=== PATIENT | female | born 1990 | race Caucasian/White ===

== ENCOUNTER 2020-08-10 17:47 | Inpatient (IN) | payer OTHER, SELFPAY ==
--- NOTE | ~2020-08-10 | XR_ITS ---
EXAMINATION: XR CHEST CLINICAL INFORMATION: Swelling and pain COMPARISON: None TECHNIQUE: Frontal view of the chest was obtained. FINDINGS: No significant abnormality is noted involving the heart, lungs, mediastinum, bony thorax or soft tissues. XR/XR chest 1V IMPRESSION: Unremarkable examination.
[2020-08-10 17:51] VITALS: BP 149/98; PULSE 114; RESP 24; TEMP 37.4; O2SAT 99; BMI 25.4
--- NOTE | 2020-08-10 19:00 | PC.NURSE ---
pt appears to be escalating, accomplise is inquiring about pt movement from waiting room d/t behaviors. battery charger tester aware.
[2020-08-10 19:20] VITALS: BP 101/71; PULSE 97; RESP 18; TEMP 37.7; O2SAT 97
--- NOTE | 2020-08-10 19:23 | ED_ITS ---
HPI - Psych General Chief Complaint: Psychiatric Symptoms Stated Complaint: crisis Source: patient Mode of arrival: ambulatory Limitations: altered mental status (Intoxicated) History of Present Illness HPI Narrative: 30-year-old female presents for depression and suicidal ideation, plans on overdosing. She relapse about 3 weeks ago and has been using heroin and cocaine heavily over the past 3 weeks. She is crying, speaking nonsensically, states that her feet hurt. She does not describe any other symptoms and is not forthcoming with information. MD complaint: suicidal ideation, feels depressed and substance abuse Onset (ago): week(s) Duration: constant History of same: Yes Relieving factors: none Exacerbating factors: drug use Context: recent drug abuse and significant life stressor Associated psychiatric symptoms: depression and suicidal ideation Associated symptoms: denies other symptoms If self harm: admits thoughts of self harm and has plan Related Data Allergies Allergy/AdvReac Type Severity Reaction Status Date / Time amoxicillin Allergy Unknown Verified 08/10/20 20:07 Review of Systems Review of Systems: Constitutional: No Fever, No Chills ENT/Mouth: No Ear Pain, No Nasal Congestion, No sore throat Eyes: No Eye Pain, No Swelling, No Redness Cardiovascular: No Chest Pain, No SOB Respiratory: No Cough, No Sputum, No Dyspnea Gastrointestinal: No Nausea, No Vomiting, No Diarrhea, No Hematochezia, No Melena Genitourinary: No Dysuria, No Urinary Frequency, No Hematuria Musculoskeletal: Positive bilateral lower extremity edema and erythema, No Myalgias Skin: No Skin Lesions, No rash Neuro: No Weakness, No Numbness, No Paresthesias, No Dizziness, No Headache Psych: positive Anxiety, positive Depression, positive SI, positive heroin abuse Heme/Lymph: No Lymphadenopathy Endocrine: No Polyuria, No Polydipsia Yes all other systems are reviewed and are negative [facility] Past Medical History Attestation statement: The following information was validated with the patient. Source: old records reviewed Medical History IV drug abuse Social History Social History Alcohol intake: current Alcohol intake frequency: 3 or more drinks per day Alcohol type: hard liquor Smoking Status: Current every day smoker Smoked in Last 30 Days: Yes Use of substances other than those prescribed or required for medical reasons: Yes Substance Use Type: Crack/Cocaine and Heroin Substance Use Frequency: Chronic Longstanding Last Used Substance: Just Prior to Admission Any prior treatment program specific to substance use: Yes Advance Directives: No Advance Directives Information Provided: Yes Patient : No Physical Exam Vital Signs: Vital Signs: Last Vital Signs Temp 100.6 F H 08/10/20 21:52 Pulse 97 08/10/20 21:52 Resp 18 08/10/20 21:52 BP 101/71 08/10/20 21:52 Pulse Ox 97 08/10/20 21:52 Body Mass Index 25.4 Appearance: Alert. Intoxicated. Moderate emotional distress. Febrile. Eyes: Pupils equal, round and reactive to light. ENT: Pharynx normal. Neck: Normal inspection. Neck supple. CVS: Tachycardic heart rate and rhythm. Pulses normal. Respiratory: No respiratory distress. Breath sounds normal. Abdomen: Soft and nontender. Skin: Swelling and erythema noted to bilateral lower extremities with multiple wounds in lesions consistent with IVDA, skin picking, has multiple blisters the bottom of her feet. Skin warm and dry. Normal skin color. Normal skin turgor. Extremities: Bilateral lower extremity edema. Neuro: No motor deficit. No sensory deficit. Course Course Course Narrative: 30-year-old female presents for suicidal ideation with planned overdose. Relapsed 3 weeks ago has been heavily using IVDA cocaine and heroin. Bilateral lower extremities are swollen, erythematous consistent with cellulitis. She does have multiple blisters and lesions to her toes and lower legs consistent with possible IV injection and skin picking. Will treat with ceftriaxone IV. Order CBC, Chem 7, blood cultures and lactic acid. Patient states that she is allergic to amoxicillin, and does not want ceftriaxone. Patient is tachycardic, however she is on cocaine, and initial temperature is 99.4? I do not feel that she is septic at this time. Order for IV doxycycline. Unable to obtain IV access for this patient. Will give p.o. doxycycline and Bactrim. White count 11.0, H&H 11.1/34.8 which is slightly anemic but not significant. Lactic acid is 1.2, mildly elevated alk-phos at 155 with a negative lipase. Urinalysis is negative, toxicology positive for opioids and cocaine. Patient is COVID negative. Patient is not septic. As patient is not septic, I feel comfortable continuing with p.o. antibiotics as patient is a difficult IV start and will be in the psychiatric unit. Will repeat CBC and Chem 7 in the morning. 1:47 a.m. Physician observation started at this time. BHN consult pending. MDM - Psych MDM Narrative Medical decision making narrative: Cellulitis Differential Diagnosis Differential diagnosis: Likely acute psychosis, suicidal ideation, depression, drug-induced psychotic disorder, acute anxiety and substance abuse Medical Records Attestation: I reviewed the patient's medical records. Lab Data Attestation: I reviewed the patient's lab results. Result diagrams: 08/10/20 20:23 08/10/20 20:23 Labs: Lab Results 08/10/20 08/10/20 08/10/20 Range/Units 19:39 19:39 19:46 WBC (4.8-10.8) X10*3/uL RBC (4.20-5.50) X10*6/uL Hgb (12.0-16.0) g/dl Hct (37-47) % MCV (80-98) fL MCH (27.0-33.0) pg MCHC (31.0-35.0) g/dl RDW (11.0-16.0) % Plt Count (160-400) X10*3/uL MPV (9.4-12.3) fL Immature Gran % (Auto) (0.0-0.4) % Neut % (Auto) (45-73) % Lymph % (Auto) (20-40) % [place] % (Auto) (2-11) % Eos % (Auto) (0-4) % Baso % (Auto) (0-2) % Lymph # (Auto) (1.2-4.9) X10*3/uL [place] # (Auto) (0.1-1.2) X10*3/uL Eos # (Auto) (0.0-0.4) X10*3/uL Baso # (Auto) (0.0-0.2) X10*3/uL Abs Immat Gran (auto) (0.00-0.03) X10*3/uL Absolute Neuts (auto) (2.0-8.3) X10*3/uL Absolute Nucleated RBC (0.0-0.012) X10*3/uL Nucleated RBC % (auto) (0.0-0.2) /100WBC Smear Tech's Comments PT (10.8-13.0) SEC INR (0.9-1.1) APTT (24.1-38.0) SEC Sodium (135-145) mmol/L Potassium (3.3-5.1) mmol/L Chloride (96-108) mmol/L Carbon Dioxide (22-29) mmol/L Anion Gap (12-20) BUN (9-16) mg/dL Creatinine (0.5-1.4) mg/dL Estim Creat Clear Calc Estimated GFR Random Glucose (60-115) mg/dL Lactic Acid (0.5-2.0) mmol/L Calcium (8.4-10.2) mg/dL Total Bilirubin (0.0-1.0) mg/dL Direct Bilirubin (0.0-0.5) mg/dL AST (5-31) U/L ALT (0-31) U/L Alkaline Phosphatase (39-117) U/L Total Protein (6.5-8.0) g/dL Albumin (3.5-5.0) g/dL Lipase (8-78) U/L Urine Color YELLOW Urine Appearance HAZY Urine pH 6.0 (5.0-8.0) Ur Specific [place] >= 1.030 H (1.005-1.025) Urine Protein TRACE (NEG-TRACE) MG/DL Urine Glucose (UA) NEG (NEG) MG/DL Urine Ketones NEG (NEG) MG/DL Urine Blood NEG (NEG) Urine Nitrite NEG (NEG) Ur Leukocyte Esterase NEG (NEG) Urine Test NEGATIVE (NEGATIVE) Urine Opiates Screen POSITIVE H (Not Detect) Ur Barbiturates Screen Not Detected (Not Detect) Ur Phencyclidine Scrn Not Detected (Not Detect) Ur Amphetamines Screen Not Detected (Not Detect) U Benzodiazepines Scrn Not Detected (Not Detect) Urine Cocaine Screen POSITIVE H (Not Detect) U Marijuana (THC) Screen Not Detected (Not Detect) Ethyl Alcohol mg/dL COVID-19 (TIMUR) (Negative) COVID-19 Clin Com 08/10/20 08/10/20 08/10/20 Range/Units 20:23 20:23 20:23 WBC 11.0 H (4.8-10.8) X10*3/uL RBC 3.96 L (4.20-5.50) X10*6/uL Hgb 11.1 L (12.0-16.0) g/dl Hct 34.8 L (37-47) % MCV 87.9 (80-98) fL MCH 28.0 (27.0-33.0) pg MCHC 31.9 (31.0-35.0) g/dl RDW 12.4 (11.0-16.0) % Plt Count 312 (160-400) X10*3/uL MPV 10.4 (9.4-12.3) fL Immature Gran % (Auto) 0.2 (0.0-0.4) % Neut % (Auto) 40.4 L (45-73) % Lymph % (Auto) 52.7 H (20-40) % [place] % (Auto) 6.1 (2-11) % Eos % (Auto) 0.5 (0-4) % Baso % (Auto) 0.1 (0-2) % Lymph # (Auto) 5.8 H (1.2-4.9) X10*3/uL [place] # (Auto) 0.7 (0.1-1.2) X10*3/uL Eos # (Auto) 0.1 (0.0-0.4) X10*3/uL Baso # (Auto) 0.0 (0.0-0.2) X10*3/uL Abs Immat Gran (auto) 0.02 (0.00-0.03) X10*3/uL Absolute Neuts (auto) 4.4 (2.0-8.3) X10*3/uL Absolute Nucleated RBC 0.000 (0.0-0.012) X10*3/uL Nucleated RBC % (auto) 0.0 (0.0-0.2) /100WBC Smear Tech's Comments VERIFIED PT 13.2 H (10.8-13.0) SEC INR 1.1 (0.9-1.1) APTT 34.6 (24.1-38.0) SEC Sodium 138 (135-145) mmol/L Potassium 3.4 (3.3-5.1) mmol/L Chloride 100 (96-108) mmol/L Carbon Dioxide 28 (22-29) mmol/L Anion Gap 13 (12-20) BUN 6 L (9-16) mg/dL Creatinine 0.72 (0.5-1.4) mg/dL Estim Creat Clear Calc 95.0 Estimated GFR > 60 Random Glucose 100 (60-115) mg/dL Lactic Acid (0.5-2.0) mmol/L Calcium 8.7 (8.4-10.2) mg/dL Total Bilirubin 0.5 (0.0-1.0) mg/dL Direct Bilirubin 0.3 (0.0-0.5) mg/dL AST 38 H (5-31) U/L ALT 26 (0-31) U/L Alkaline Phosphatase 155 H (39-117) U/L Total Protein 7.4 (6.5-8.0) g/dL Albumin 3.9 (3.5-5.0) g/dL Lipase 11 (8-78) U/L Urine Color Urine Appearance Urine pH (5.0-8.0) Ur Specific [place] (1.005-1.025) Urine Protein (NEG-TRACE) MG/DL Urine Glucose (UA) (NEG) MG/DL Urine Ketones (NEG) MG/DL Urine Blood (NEG) Urine Nitrite (NEG) Ur Leukocyte Esterase (NEG) Urine Test (NEGATIVE) Urine Opiates Screen (Not Detect) Ur Barbiturates Screen (Not Detect) Ur Phencyclidine Scrn (Not Detect) Ur Amphetamines Screen (Not Detect) U Benzodiazepines Scrn (Not Detect) Urine Cocaine Screen (Not Detect) U Marijuana (THC) Screen (Not Detect) Ethyl Alcohol mg/dL COVID-19 (TIMUR) (Negative) COVID-19 Clin Com 08/10/20 08/10/20 08/10/20 Range/Units 20:23 20:23 21:21 WBC (4.8-10.8) X10*3/uL RBC (4.20-5.50) X10*6/uL Hgb (12.0-16.0) g/dl Hct (37-47) % MCV (80-98) fL MCH (27.0-33.0) pg MCHC (31.0-35.0) g/dl RDW (11.0-16.0) % Plt Count (160-400) X10*3/uL MPV (9.4-12.3) fL Immature Gran % (Auto) (0.0-0.4) % Neut % (Auto) (45-73) % Lymph % (Auto) (20-40) % [place] % (Auto) (2-11) % Eos % (Auto) (0-4) % Baso % (Auto) (0-2) % Lymph # (Auto) (1.2-4.9) X10*3/uL [place] # (Auto) (0.1-1.2) X10*3/uL Eos # (Auto) (0.0-0.4) X10*3/uL Baso # (Auto) (0.0-0.2) X10*3/uL Abs Immat Gran (auto) (0.00-0.03) X10*3/uL Absolute Neuts (auto) (2.0-8.3) X10*3/uL Absolute Nucleated RBC (0.0-0.012) X10*3/uL Nucleated RBC % (auto) (0.0-0.2) /100WBC Smear Tech's Comments PT (10.8-13.0) SEC INR (0.9-1.1) APTT (24.1-38.0) SEC Sodium (135-145) mmol/L Potassium (3.3-5.1) mmol/L Chloride (96-108) mmol/L Carbon Dioxide (22-29) mmol/L Anion Gap (12-20) BUN (9-16) mg/dL Creatinine (0.5-1.4) mg/dL Estim Creat Clear Calc Estimated GFR Random Glucose (60-115) mg/dL Lactic Acid 1.2 (0.5-2.0) mmol/L Calcium (8.4-10.2) mg/dL Total Bilirubin (0.0-1.0) mg/dL Direct Bilirubin (0.0-0.5) mg/dL AST (5-31) U/L ALT (0-31) U/L Alkaline Phosphatase (39-117) U/L Total Protein (6.5-8.0) g/dL Albumin (3.5-5.0) g/dL Lipase (8-78) U/L Urine Color Urine Appearance Urine pH (5.0-8.0) Ur Specific [place] (1.005-1.025) Urine Protein (NEG-TRACE) MG/DL Urine Glucose (UA) (NEG) MG/DL Urine Ketones (NEG) MG/DL Urine Blood (NEG) Urine Nitrite (NEG) Ur Leukocyte Esterase (NEG) Urine Test (NEGATIVE) Urine Opiates Screen (Not Detect) Ur Barbiturates Screen (Not Detect) Ur Phencyclidine Scrn (Not Detect) Ur Amphetamines Screen (Not Detect) U Benzodiazepines Scrn (Not Detect) Urine Cocaine Screen (Not Detect) U Marijuana (THC) Screen (Not Detect) Ethyl Alcohol < 10 mg/dL COVID-19 (TIMUR) Negative (Negative) COVID-19 Clin Com See Note Discharge Plan Discharge Clinical Impression: Depression, Drug-induced psychotic disorder, Acute anxiety, Cellulitis of both feet
[2020-08-10 19:56] LABS: Glucose Urine UA NEG (NEG); Leukocyte Esterase Urine NEG (NEG); Nitrite Urine NEG (NEG); Specific Gravity - Urine >= 1.030 (1.005-1.025); Urine Blood NEG (NEG); Urine Ketones NEG (NEG); Urine Protein TRACE MG/DL (NEG-TRACE)
[2020-08-10] MEDS: Acetaminophen 325 MG TABLET 650 MG PO (19:58)
[2020-08-10 19:59] LABS: Appearance Urine HAZY; Color Urine YELLOW; UPreg QC Valid YES; Urine Pregnancy NEGATIVE (NEGATIVE)
[2020-08-10 20:20] LABS: Amphetamine Screen Urine Not Detected (Not Detect); Barbiturates, Urine Not Detected (Not Detect); Benzodiazepines Screen Urine Not Detected (Not Detect); Cannabinoid Screen Urine Not Detected (Not Detect); Cocaine Screen Urine POSITIVE (Not Detect); Opiate Screen Urine POSITIVE (Not Detect); Phencyclidine Screen Urine Not Detected (Not Detect)
[2020-08-10 20:31] LABS: Basophils Percent Auto 0.1 % (0-2); Eosinophils Absolute Auto 0.1 X10*3/uL (0.0-0.4); Eosinophils Percent Auto 0.5 % (0-4); Hematocrit 34.8 % (37-47); Hemoglobin 11.1 g/dl (12.0-16.0); Imm Gran Abs Auto 0.02 X10*3/uL (0.00-0.03); Imm Gran Pct Auto 0.2 % (0.0-0.4); Lymphocytes Absolute Auto 5.8 X10*3/uL (1.2-4.9); Lymphocytes Percent Auto 52.7 % (20-40); MANUAL DIFF FLAG SCAN; Mean Corpuscular HGB Conc 31.9 g/dl (31.0-35.0); Mean Corpuscular Volume 87.9 fL (80-98); Mean Platelet Volume 10.4 fL (9.4-12.3); Monocytes Absolute Auto 0.7 X10*3/uL (0.1-1.2); Monocytes Percent Auto 6.1 % (2-11); Neutrophils Absolute Auto 4.4 X10*3/uL (2.0-8.3); Neutrophils Percent Auto 40.4 % (45-73); Platelet Count 312 X10*3/uL (160-400); Red Blood Count 3.96 X10*6/uL (4.20-5.50); Red Cell Distribution Width 12.4 % (11.0-16.0); SCAN SMEAR FLAG 1
[2020-08-10 20:37] LABS: INTERNATIONAL NORM RATIO 1.1 (0.9-1.1); Prothrombin Time 13.2 SEC (10.8-13.0)
[2020-08-10 20:40] LABS: Partial Thromboplastin Time 34.6 SEC (24.1-38.0)
[2020-08-10 20:49] LABS: SLIDE REVIEW VERIFIED
[2020-08-10 20:59] LABS: Lactic Acid 1.2 mmol/L (0.5-2.0)
[2020-08-10 21:00] LABS: Ethanol < 10 mg/dL
[2020-08-10 21:03] LABS: Alanine Aminotransferase 26 U/L (0-31); Albumin Level 3.9 g/dL (3.5-5.0); Alkaline Phosphatase 155 U/L (39-117); Anion Gap 13 (12-20); Aspartate Amino Transferase 38 U/L (5-31); Bilirubin Direct 0.3 mg/dL (0.0-0.5); Bilirubin Total 0.5 mg/dL (0.0-1.0); Blood Urea Nitrogen 6 mg/dL (9-16); Calcium 8.7 mg/dL (8.4-10.2); Carbon Dioxide 28 mmol/L (22-29); Chloride 100 mmol/L (96-108); Estimated Glomerular Filt Rate > 60; Glucose Random 100 mg/dL (60-115); Lipase 11 U/L (8-78); Potassium 3.4 mmol/L (3.3-5.1); Sodium 138 mmol/L (135-145); Total Protein 7.4 g/dL (6.5-8.0)
--- NOTE | 2020-08-10 21:28 | PC.NURSE ---
PT was moved out to ED6H for IV med administration. PT could not tolerate IV access so med was changed to PO. PT moved back to [facility].
[2020-08-10 21:46] LABS: COVID-19 Test Negative (Negative)
[2020-08-10 21:52] VITALS: BP 101/71; PULSE 97; RESP 18; TEMP 38.1; O2SAT 97
--- NOTE | 2020-08-10 22:39 | PC.NURSE ---
ADALID faxed and called. víctor stated some would be here in the morning for consult.
[2020-08-11 06:22] VITALS: RESP 14
[2020-08-11] MEDS: Acetaminophen 325 MG TABLET 650 MG PO (06:33)
[2020-08-11 06:37] VITALS: BP 135/81; PULSE 94; RESP 18; TEMP 38; O2SAT 97
--- NOTE | 2020-08-11 07:08 | PC.NURSE ---
Report recieved. PT currently resting, calm and cooperative. PT waiting to be seen by N.
--- NOTE | 2020-08-11 08:17 | PC.NURSE ---
PT reports feeling symptoms of withdrawal, she is unable to identify what symptoms she is feeling. PT states she last used at 2pm yesterday. Attempted to discuss daily medications with PT, pt drowsy unable to stay awake during conversation. Will attempt to discuss medications once pt is more awake.
[2020-08-11 08:28] VITALS: BP 140/81; PULSE 88; RESP 18; TEMP 37.1; O2SAT 93
--- NOTE | 2020-08-11 09:31 | PC.NURSE ---
BHN at bedside for eval
--- NOTE | 2020-08-11 10:11 | PC.NURSE ---
Per [facility] pt is Section 12 bedsearch
[2020-08-11 12:53] VITALS: BP 140/84; PULSE 75; RESP 18; TEMP 36.7; O2SAT 98
--- NOTE | 2020-08-11 14:00 | PC.NURSE ---
Attempted to discuss home medications with PT, pt asking to discuss medications later.
--- NOTE | 2020-08-11 15:37 | PC.NURSE ---
Third attempt to discuss home medications with PT, pt again requesting to discuss at a later time states she is too tired now.
--- NOTE | 2020-08-11 16:44 | PC.NURSE ---
Medications discussed with PT, pt states it has been weeks since she has taken any of her medications but was able to recall name and dose of all medications (medications matched with claim history). Provider aware.
[2020-08-11 17:08] LABS: MANUAL DIFF FLAG NO
[2020-08-11 17:09] LABS: Basophils Percent Auto 0.1 % (0-2); Eosinophils Absolute Auto 0.1 X10*3/uL (0.0-0.4); Eosinophils Percent Auto 0.7 % (0-4); Hematocrit 36.7 % (37-47); Hemoglobin 11.6 g/dl (12.0-16.0); Imm Gran Abs Auto 0.01 X10*3/uL (0.00-0.03); Imm Gran Pct Auto 0.1 % (0.0-0.4); Lymphocytes Absolute Auto 4.5 X10*3/uL (1.2-4.9); Lymphocytes Percent Auto 54.9 % (20-40); Mean Corpuscular HGB Conc 31.6 g/dl (31.0-35.0); Mean Corpuscular Hemoglobin 27.8 pg (27.0-33.0); Mean Corpuscular Volume 87.8 fL (80-98); Mean Platelet Volume 10.5 fL (9.4-12.3); Monocytes Absolute Auto 0.6 X10*3/uL (0.1-1.2); Monocytes Percent Auto 7.1 % (2-11); Neutrophils Absolute Auto 3.1 X10*3/uL (2.0-8.3); Neutrophils Percent Auto 37.1 % (45-73); Platelet Count 274 X10*3/uL (160-400); Red Blood Count 4.18 X10*6/uL (4.20-5.50); Red Cell Distribution Width 12.5 % (11.0-16.0); White Blood Count 8.2 X10*3/uL (4.8-10.8)
[2020-08-11 17:33] LABS: Alanine Aminotransferase 26 U/L (0-31); Albumin Level 3.6 g/dL (3.5-5.0); Alkaline Phosphatase 145 U/L (39-117); Anion Gap 13 (12-20); Aspartate Amino Transferase 41 U/L (5-31); Bilirubin Total 0.4 mg/dL (0.0-1.0); Blood Urea Nitrogen 7 mg/dL (9-16); Calcium 8.7 mg/dL (8.4-10.2); Carbon Dioxide 24 mmol/L (22-29); Chloride 107 mmol/L (96-108); Creatinine Clr Calc Pharmacy 102.1; Estimated Glomerular Filt Rate > 60; Glucose Random 98 mg/dL (60-115); Potassium 3.7 mmol/L (3.3-5.1); Sodium 140 mmol/L (135-145); Total Protein 7.1 g/dL (6.5-8.0)
[2020-08-12 04:08] VITALS: BP 137/67; PULSE 91; RESP 16; TEMP 36.8; O2SAT 97
--- NOTE | 2020-08-12 07:25 | PC.NURSE ---
Report received from DOMINIQUE Mcguire. Pt resting, resp unlabored.
[2020-08-12 09:02] VITALS: BP 144/102; PULSE 96; RESP 18; TEMP 37.3; O2SAT 98
[2020-08-12 09:26] VITALS: PULSE 96
--- NOTE | 2020-08-12 09:39 | PC.NURSE ---
Pt awake, reporting nausea, diarrhea. COWS and CIWA results reported to Vishnu Kimbrough.
[2020-08-12] MEDS: LORazepam 1 MG TABLET PO ×2 (10:12→14:33)
--- NOTE | 2020-08-12 10:49 | PC.NURSE ---
Pt asking how long she will need to be in ED- crisis process explained to pt. Pt denies SI at this time, reports good effect from medications given.
--- NOTE | 2020-08-12 12:15 | PC.NURSE ---
Pt resting, reports no symptoms at this time, affect even.
[2020-08-12 14:00] VITALS: BP 146/72; PULSE 91; RESP 20; O2SAT 98
[2020-08-12 14:18] VITALS: PULSE 91
--- NOTE | 2020-08-12 14:20 | PC.NURSE ---
Pt evaluated by N, continues to deny SI, COWS and CIWA reported to Vishnu Kimbrough.
--- NOTE | 2020-08-12 14:21 | PC.NURSE ---
[facility] reviewing chart, requesting full HIV workup- Vishnu Kimbrough notified.
--- NOTE | 2020-08-12 15:34 | PC.NURSE ---
[facility] requesting additional labs- unable to obtain at this time, received call from Lab stating this lab requires several days to be resulted. K Kaylan aware. Reviewed med rec w/ provider- no further orders at this time.
--- NOTE | 2020-08-12 17:26 | PC.NURSE ---
Pt resting, resp unlabored. Per [facility], pt can return to [facility] in [place] but must be fully detoxed to go.
[2020-08-12 17:37] VITALS: BP 143/84; PULSE 79; RESP 17; TEMP 37.1; O2SAT 94
--- NOTE | 2020-08-12 18:11 | PC.NURSE ---
pt denies any symptoms at this time, states she was just going to go back to sleep.
--- NOTE | 2020-08-12 19:47 | MHC.CARE ---
CARE team contacted [facility] crisis to clarify disposition and plan of care for pt based on MSU completed this afternoon. Crisis supervisor bit and shank department, Navya, reported that the pt is able to return to the [facility] Program on [facility] in [place], however she can't return tonight and will remain and inpt psych bedsearch until there is clarification of what will be required before pt is able to transition back to the program, whether she can return from the ED or if she will need to complete detox and/or transfer to [facility] in order to be re-referred.
--- NOTE | 2020-08-12 23:19 | PC.NURSE ---
REPORT RECEIVED. BREATHING EVEN, NON-LABORED. NO APPARENT DISTRESS. URINE SAMPLE COLLECTED.
[2020-08-13 00:57] VITALS: PULSE 81
[2020-08-13] MEDS: LORazepam 1 MG TABLET 2 MG PO ×2 (01:07→12:17)
--- NOTE | 2020-08-13 01:16 | PC.NURSE ---
Patient presents mild withdrawal symptoms, COW assessed scored 8, provider notified/ordered ativan 2 mg/administered as ordered/pending effect, will continue to monitor.
[2020-08-13 02:06] VITALS: BP 129/84; PULSE 79; RESP 18; TEMP 36.7; O2SAT 96
[2020-08-13 05:31] LABS: HIV AB/AG Reactive (Nonreactive)
--- NOTE | 2020-08-13 07:20 | PC.NURSE ---
Report received from DOMINIQUE Vazquez. Pt resting, resp unlabored.
--- NOTE | 2020-08-13 09:23 | PC.NURSE ---
Pt awake, reports feeling 'sick' including nausea, aching in legs bilaterally. Pt is aware she has been accepted to , requesting to be resumed on methadone. Holden An, academic affairs dean, in to speak w/ pt.
[2020-08-13 09:28] VITALS: BP 139/86; PULSE 96; RESP 20; TEMP 36.9; O2SAT 99
--- NOTE | 2020-08-13 09:34 | PC.NURSE ---
N October aware pt declining suboxone and of COWS assessment.
[2020-08-13] MEDS: LORazepam 1 MG TABLET PO ×2 (09:40→18:56)
--- NOTE | 2020-08-13 09:49 | MHC.RECOVRN ---
30 year old female presented to [facility] ED, ambulatory, on 08/10 due to pt relapsed on iv drugs 3 weeks ago, sts using more high doses frequently, admits si thoughts, sts has been intentionally trying to overdose and not wake up . denies hi. former case mger w pt d/t pt showing up at her doorstep. pt hyperventilating and tearful during triage per drawstring knotter. Pt is currently in pod in ED and plan is to admit to M5 today.? T/w met with pt in [facility] after request from CARE Team and pod RN. Pt reports heroin use, 3 bundles daily x 3 weeks, last use a couple days ago. Pt has recently had 6-7 months in recovery while at [facility]. Pt has also recently been on methadone at [facility], 75 mg. Last dose a month ago. ? Currently, pt reports chills, body aches, nausea, diarrhea, has frequent shifting during assessment, rhinorrhea, and increasing irritability. Pt would like to be started on methadone and continue with an OTP after discharge.? Case discussed with CAROLINE Talbot, as well as pts RN.?
--- NOTE | 2020-08-13 10:10 | PC.NURSE ---
Pattie Cervantes in to evaluate
--- NOTE | 2020-08-13 10:47 | PM.EVENT ---
Event Note Date of Service: 08/13/20 Event Note: Addiciton note: Patient seen by RS RN Reporting 3 bundles QD IV COWS 18 Awaiting admission to psychiatric unit Discussed options for withdrawl management and maintenance patient declining buprenorphine. Prefers methadone. Has previously been on methadone (75mg per patient reprot) Plan: -methadone 30mg now -Clonidine 0.1mg TID PRN restlessness and anxiety -pending admission to [facility] psychiatric unit
--- NOTE | 2020-08-13 11:38 | PC.NURSE ---
Pt OOB requesting to leave. Pt aware that pt is anxious to leave. Pt aware that she is in ED on section 12, and will be transferred to today. Pt currently resting in bed.
--- NOTE | 2020-08-13 12:22 | PC.NURSE ---
Pt reporting increased anxiety, restlessness. Sumaya [place] notified, pt medicated as ordered.
[2020-08-13] MEDS: Nicotine 21 MG PATCH.TD24 TRANSDERMA (12:34)
--- NOTE | 2020-08-13 13:50 | PC.NURSE ---
Pt resting, resp unlabored
[2020-08-13 14:00] VITALS: RESP 16
--- NOTE | 2020-08-13 14:20 | PC.NURSE ---
Report given to jamar Vega ON m5
--- NOTE | 2020-08-13 14:24 | ECG_ITS ---
Test Reason : CARDIAC HISTORY Blood Pressure : / mmHG Vent. Rate : 086 BPM Atrial Rate : 086 BPM P-R Int : 150 ms QRS Dur : 088 ms QT Int : 372 ms P-R-T Axes : 057 070 -37 degrees QTc Int : 445 ms Poor data quality, interpretation may be adversely affected Normal sinus rhythm T wave abnormality, consider inferior ischemia T wave abnormality, consider anterolateral ischemia Abnormal ECG No previous ECGs available Referred By: Generic ED Physician Electronically Signed By:ESTIVEN GOODWIN MD
--- NOTE | 2020-08-13 15:04 | PC.NURSE ---
EKG completed, reviewed w/ provider- N October to evaluate pt.
--- NOTE | 2020-08-13 15:38 | MHC.CARE ---
Pt will be admitted to M5 this evening pending Troponin lab results. Pt is a difficult stick which is delaying the blood draw to collect sample for the lab. M5 updated.
[2020-08-13 16:11] LABS: Troponin-I High Sensitivity < 3.5 ng/L (<3.5-17.0)
--- NOTE | 2020-08-13 16:34 | PC.NURSE ---
Reviewed results of troponin w/ N Vinnie. Pt may go to M5 as planned. M5 called, left message for rn charge.
--- NOTE | 2020-08-13 16:50 | PC.NURSE ---
CARE team in to transfer pt to M5.
--- NOTE | 2020-08-13 16:58 | PC.NURSE ---
CARE team in to transfer pt to M5. Pt alert, cooperative w/ transfer, no concerns reported.
[2020-08-13] MEDS: hydrOXYzine HCL 25 MG TABLET PO ×2 (17:10→20:24)
[2020-08-13] MEDS: Acetaminophen 325 MG TABLET 650 MG PO (17:16)
--- NOTE | 2020-08-13 18:40 | PC.ADMIT ---
Pt arrived on unit from ED in wheelchair with security and N present at 1700. The pt was admitted with diagnosis of major depressive disorder; and opioid use. The pt reports active withdrawal symptoms including aches/pains throughout her body, nausea and vomiting, low energy, irritation and anxiety. The pt refuses to participate in the admission assessment at this time, is staying in her bed requesting methadone. The pt is refusing to answer questions related to safety and thoughts of SI at this time. According to [facility] paperwork the pt had SI with a plan to overdose. She was sent to hospital from [facility], where she currently resides. The pt was sober for 7 months, and recently relapsed.
[2020-08-13 18:56] VITALS: BP 133/80; PULSE 85
[2020-08-13] MEDS: cloNIDine HCL 0.1 MG TABLET PO (18:56)
[2020-08-13] MEDS: Ibuprofen 600 MG TABLET PO (18:56)
[2020-08-13 19:02] VITALS: BP 133/80; PULSE 85; RESP 18; TEMP 36.8
[2020-08-13] MEDS: traZODone HCL 50 MG TABLET PO (20:24)
--- NOTE | 2020-08-14 | ECG_ITS ---
Test Reason : PALPITATIONS Blood Pressure : / mmHG Vent. Rate : 077 BPM Atrial Rate : 077 BPM P-R Int : 142 ms QRS Dur : 088 ms QT Int : 378 ms P-R-T Axes : 056 055 -20 degrees QTc Int : 427 ms Normal sinus rhythm T wave abnormality, consider inferior ischemia T wave abnormality, consider anterolateral ischemia Abnormal ECG When compared with ECG of 13-AUG-2020 14:39, No significant change was found Referred By: Migdalia Campbell Electronically Signed By:ESTIVEN GOODWIN MD
[2020-08-14] MEDS: LORazepam 1 MG TABLET PO (09:36)
[2020-08-14] MEDS: hydrOXYzine HCL 25 MG TABLET PO (09:36)
[2020-08-14] MEDS: Escitalopram Oxalate 20 MG TABLET PO (09:36)
[2020-08-14] MEDS: Nicotine 21 MG PATCH.TD24 TRANSDERMA (09:38)
[2020-08-14] MEDS: hydrOXYzine HCL 50 MG TABLET PO (14:44)
[2020-08-14] MEDS: Acetaminophen 325 MG TABLET 650 MG PO (14:44)
[2020-08-14] MEDS: Cyclobenzaprine HCl 10 MG TABLET PO (16:39)
[2020-08-14 17:13] LABS: Troponin-I High Sensitivity < 3.5 ng/L (<3.5-17.0)
--- NOTE | 2020-08-14 17:16 | HO.PSYADMNOT ---
HPI Chief Complaint: SI Sources of Information: patient interviewed, chart reviewed and crisis/core team assessment reviewed HPI Subjective Notes: Conditional Voluntary Narrative: Ms. Neil is a 30 year-old woman with hx of MDD and polysubstance use including heroin and cocaine who was transported from [facility] after she reported suicidal ideation with plan to OD in setting of recent relapse on heroin and cocaine. Pt was recently discharged from [facility] to [facility]'s residential program. Apparently, patient had been sober for about 7 months prior to relapsing about 2-3 weeks ago. In the ED, her utox was postive for cocaine and opioids. On the unit, Ms. Neil presents as very tearful, reporting depressed mood, feeling hopeless/helpless, suicidal ideation with plan to OD but denies any intent in the unit. This is her first inpatient psychiatric admission but has been seeing OP providers in the community for depression. She reports fair sleep and appetite. She denies history of AH or VH. Pt reports she would like to go back to methadone MAT. Past Psychiatric History: Inpatient: none in the past. OP: [facility] Suicide attempts: pt denies Past trials: lexapro (good effect), seroquel and vistaril Medical Evaluation Reviewed: Yes EKG on 08/13 and 08/14 ST abnormality- high sensitivity troponins completed on 08/13 and 08/14 both <3.5. Pt denies chest pain or chest discomfort. [facility] Medical History IV drug abuse Diagnostics Vital Signs (24Hr): Vital Signs - 24 hr 08/13/20 18:56 08/13/20 19:02 Temperature 98.3 F Pulse Rate 85 85 Respiratory Rate 18 Blood Pressure 133/80 133/80 Body Mass Index 25.4 Labs Results: 08/11/20 17:02 08/11/20 17:02 Labs: Laboratory Results - last 48 hr 08/12/20 08/13/20 08/14/20 14:55 15:36 16:27 Troponin I High Sens < 3.5 < 3.5 HIV 1&2 Ab/P24 Ag 4thGn Reactive H Imaging Radiology Impressions: ITS Impressions Chest X-Ray 08/10/20 19:27 IMPRESSION: Unremarkable examination. Meds/Allergies Meds Home Medications Acetaminophen (Acetaminophen 325 Mg Tablet) 650 mg PO Q6H PRN PRN Reason: Headache/Pain Mild Scale (1-3) Last Admin: 08/14/20 14:44 Dose: 650 mg Documented by: Al Hydroxide/Mg Hydroxide (Magnesium Hydrox/Alum Hydrox 30 Ml Oral.Susp) 30 ml PO Q6H PRN PRN Reason: Heartburn/Nausea Clonidine HCl (Clonidine Hcl 0.1 Mg Tablet) 0.1 mg PO TID PRN; Protocol PRN Reason: anxiety/restlessness Last Admin: 08/15/20 13:21 Dose: 0.1 mg Documented by: Cyclobenzaprine HCl (Cyclobenzaprine Hcl 10 Mg Tablet) 10 mg PO TID PRN PRN Reason: Muscle Spasm Last Admin: 08/16/20 11:30 Dose: 10 mg Documented by: Doxycycline Hyclate (Doxycycline Hyclate 100 Mg Tablet) 100 mg PO Q12H [facility] Last Admin: 08/16/20 09:14 Dose: 100 mg Documented by: Escitalopram Oxalate (Escitalopram Oxalate 20 Mg Tablet) 20 mg PO DAILY [facility] Last Admin: 08/16/20 09:14 Dose: 20 mg Documented by: Hydroxyzine HCl (Hydroxyzine Hcl 25 Mg Tablet) 25 mg PO BEDTIME PRN PRN Reason: Anxiety Hydroxyzine HCl (Hydroxyzine Hcl 50 Mg Tablet) 50 mg PO TID [facility] Last Admin: 08/16/20 09:14 Dose: 50 mg Documented by: Ibuprofen (Ibuprofen 600 Mg Tablet) 600 mg PO Q6H PRN PRN Reason: Fever, headache, mild pain Last Admin: 08/16/20 11:29 Dose: 600 mg Documented by: Loperamide HCl (Loperamide Hcl 2 Mg Capsule) 2 mg PO Q4H PRN PRN Reason: Diarrhea Lorazepam (Lorazepam 1 Mg Tablet) 1 mg PO Q4H PRN PRN Reason: Alcohol Withdrawal, anxiety, Last Admin: 08/15/20 19:21 Dose: 1 mg Documented by: Magnesium Hydroxide (Milk Of Magnesia 30 Ml Oral.Susp) 30 ml PO DAILY PRN PRN Reason: Constipation Methadone HCl (Methadone Hcl 1 Mg/0.1 Ml Oral.Conc) 30 mg PO DAILY [facility] Last Admin: 08/16/20 09:16 Dose: 30 mg Documented by: Nicotine (Nicotine 21 Mg Patch.Td24) 21 mg TRANSDERMA DAILY [facility] Last Admin: 08/16/20 09:13 Dose: 21 mg Documented by: Ondansetron HCl (Ondansetron Odt 4 Mg Tab.Rapdis) 4 mg TRANSLINGU Q6H PRN PRN Reason: Nausea Last Admin: 08/13/20 18:57 Dose: 4 mg Documented by: Quetiapine Fumarate (Quetiapine Fumarate 50 Mg Tablet) 50 mg PO Q6H PRN PRN Reason: agitation/anxiety/sleep Last Admin: 08/16/20 11:29 Dose: 50 mg Documented by: Trazodone HCl (Trazodone Hcl 50 Mg Tablet) 50 mg PO BEDTIME [facility] Last Admin: 08/15/20 20:21 Dose: 50 mg Documented by: Trazodone HCl (Trazodone Hcl 50 Mg Tablet) 50 mg PO BEDTIME PRN PRN Reason: Insomnia Trimethoprim/Sulfamethoxazole (Sulfamethox/Trimeth 800/160 1 Tab Tablet) 1 tab PO Q12H [facility] Last Admin: 08/16/20 09:14 Dose: 1 tab Documented by: Allergies Allergies Allergy/AdvReac Type Severity Reaction Status Date / Time amoxicillin Allergy Unknown Verified 08/10/20 20:07 Mental Status Exam Mental Status Exam Narrative: Appearance: thin, wearing hospital gown, fair hygiene, in NAD Behavior: calm, cooperative Psychomotor: no agitation or retardation noted Speech: clear, normal rate/rhythm/volume, spontaneous TP: linear TC: no signs of psychosis, hopeless Mood: anxious Affect:congruent SI:passive, no plan or intent HI:denies AH/VH:none Delusions:none Insight/judgment:fair x 2. Memory/cog: alert, oriented x 3. grossly intact to conversational testing. Assessment & Plan Assessment & Plan (1) MDD (major depressive disorder), recurrent episode, severe: Status: Acute Code(s): F33.2 - Major depressive disorder, recurrent severe without psychotic features Assessment and Plan: 1. continue Lexapro 2. Trazodone for sleep (2) Opioid use disorder, severe, dependence: Status: Acute Code(s): F11.20 - Opioid dependence, uncomplicated Assessment and Plan: 1. Pt started on Methadone 30mg po daily. 2. Pt wants to return to [facility] (3) Cocaine use disorder, severe, dependence: Status: Acute Code(s): F14.20 - Cocaine dependence, uncomplicated Assessment and Plan: 1. Pt wants to return to [facility]. Reason for continued inpatient stay Substantial Risk for: harm to self
[2020-08-14 17:30] VITALS: BP 140/89; PULSE 85; TEMP 36.9; O2SAT 97
[2020-08-14 17:34] VITALS: BP 134/90; PULSE 85
[2020-08-14] MEDS: cloNIDine HCL 0.1 MG TABLET PO (17:34)
[2020-08-15 07:00] VITALS: BMI 25.8
[2020-08-15] MEDS: Escitalopram Oxalate 20 MG TABLET PO (08:48)
[2020-08-15] MEDS: hydrOXYzine HCL 50 MG TABLET PO ×3 (08:48→20:21)
[2020-08-15] MEDS: Nicotine 21 MG PATCH.TD24 TRANSDERMA (08:49)
[2020-08-15] MEDS: LORazepam 1 MG TABLET PO ×2 (10:49→19:21)
[2020-08-15 13:21] VITALS: BP 124/63; PULSE 97
[2020-08-15] MEDS: cloNIDine HCL 0.1 MG TABLET PO (13:21)
[2020-08-15] MEDS: Cyclobenzaprine HCl 10 MG TABLET PO (13:21)
[2020-08-15 13:25] VITALS: RESP 16; TEMP 36.3; O2SAT 98
[2020-08-15 18:00] VITALS: BP 118/69; PULSE 82; TEMP 36.9
--- NOTE | 2020-08-15 18:37 | HO.PSYCHPN ---
Subjective Subjective Date of Service: 08/19/20 Reason For Visit: SI Subjective Notes: Conditional Voluntary Interim History: Lisbet reports that she is feeling less depressed. She denies SI/HI. She continues to express motivation to continue substance use treatment program. She does report feeling guilt and shame related to ongoing substance use. She reports methadone helping but hoping that outpatient dose can be adjusted. She has been visible in the unit. She is social with select peers. No behavioral concerns. Medication Compliance: Yes Side effects from medications: No Attending Groups: Yes Review of Systems Review of Systems Constitutional: No Fever, No Chills ENT/Mouth: No Ear Pain, No Nasal Congestion, No sore throat Eyes: No Eye Pain, No Swelling, No Redness Cardiovascular: No Chest Pain, No SOB Respiratory: No Cough, No Sputum, No Dyspnea Gastrointestinal: No Nausea, No Vomiting, No Diarrhea, No Hematochezia, No Melena Genitourinary: No Dysuria, No Urinary Frequency, No Hematuria Musculoskeletal: Positive bilateral lower extremity edema and erythema, No Myalgias Skin: No Skin Lesions, No rash Neuro: No Weakness, No Numbness, No Paresthesias, No Dizziness, No Headache Psych: positive Anxiety, positive Depression, positive SI, positive heroin abuse Heme/Lymph: No Lymphadenopathy Endocrine: No Polyuria, No Polydipsia Yes all other systems are reviewed and are negative Constitutional: Reports fatigue and Reports weight loss Cardiovascular: Denies chest pain, Denies Epigastric Pain, Denies irregular heart rhythm, Denies lightheadedness and Denies dyspnea Respiratory: Denies dyspnea Gastrointestinal: Denies constipation and Denies diarrhea Endocrine: Reports fatigue Mental Status Exam Mental Status Exam Narrative: Appearance: thin, casually dressed, fair hygiene, in NAD Behavior: calm, cooperative Psychomotor: no agitation or retardation noted Speech: clear, normal rate/rhythm/volume, spontaneous TP: linear TC: no signs of psychosis, hopeless Mood: less anxious Affect:congruent SI:denies HI:denies AH/VH:none Delusions:none Insight/judgment:fair x 2. Memory/cog: alert, oriented x 3. grossly intact to conversational testing. Diagnostics Vital Signs (24Hr): Vital Signs - 24 hr 08/15/20 13:21 08/15/20 13:25 Temperature 97.4 F Pulse Rate 97 Respiratory Rate 16 Blood Pressure 124/63 Pulse Oximetry 98 Body Mass Index 25.8 Labs Results: 08/11/20 17:02 08/11/20 17:02 Labs: Laboratory Results - last 48 hr 08/14/20 16:27 Troponin I High Sens < 3.5 Imaging Radiology Impressions: ITS Impressions Chest X-Ray 08/10/20 19:27 IMPRESSION: Unremarkable examination. Medications Medications Current Medications Generic Name Dose Route Start Last Admin Trade Name Freq PRN Reason Stop Dose Admin Acetaminophen 650 mg 08/13/20 14:38 08/14/20 14:44 Acetaminophen 325 Mg Tablet PO 650 mg Q6H PRN Administration Headache/Pain Mild Scale (1-3) Al Hydroxide/Mg Hydroxide 30 ml 08/13/20 14:38 Magnesium Hydrox/Alum Hydrox 30 Ml Oral.Susp PO Q6H PRN Heartburn/Nausea Clonidine HCl 0.1 mg 08/13/20 10:34 08/15/20 13:21 Clonidine Hcl 0.1 Mg Tablet PO 0.1 mg TID PRN Administration anxiety/restlessness Protocol Cyclobenzaprine HCl 10 mg 08/14/20 12:16 08/15/20 13:21 Cyclobenzaprine Hcl 10 Mg Tablet PO 10 mg TID PRN Administration Muscle Spasm Doxycycline Hyclate 100 mg 08/13/20 21:00 08/15/20 08:48 Doxycycline Hyclate 100 Mg Tablet PO 100 mg Q12H AMANDA Administration Escitalopram Oxalate 20 mg 08/14/20 09:00 08/15/20 08:48 Escitalopram Oxalate 20 Mg Tablet PO 20 mg DAILY AMANDA Administration Hydroxyzine HCl 25 mg 08/13/20 14:38 Hydroxyzine Hcl 25 Mg Tablet PO BEDTIME PRN Anxiety Hydroxyzine HCl 50 mg 08/14/20 15:00 08/15/20 14:35 Hydroxyzine Hcl 50 Mg Tablet PO 50 mg TID AMANDA Administration Ibuprofen 600 mg 08/11/20 01:36 08/13/20 18:56 Ibuprofen 600 Mg Tablet PO 600 mg Q6H PRN Administration Fever, headache, mild pain Loperamide HCl 2 mg 08/14/20 12:15 Loperamide Hcl 2 Mg Capsule PO Q4H PRN Diarrhea Lorazepam 1 mg 08/13/20 18:22 08/15/20 10:49 Lorazepam 1 Mg Tablet PO 1 mg Q4H PRN Administration Alcohol Withdrawal, anxiety, Magnesium Hydroxide 30 ml 08/13/20 14:38 Milk Of Magnesia 30 Ml Oral.Susp PO DAILY PRN Constipation Methadone HCl 30 mg 08/14/20 12:15 08/15/20 08:48 Methadone Hcl 1 Mg/0.1 Ml Oral.Conc PO 30 mg DAILY AMANDA Administration Nicotine 21 mg 08/13/20 18:30 08/15/20 08:49 Nicotine 21 Mg Patch.Td24 TRANSDERMA 21 mg DAILY AMANDA Administration Ondansetron HCl 4 mg 08/13/20 18:24 08/13/20 18:57 Ondansetron Odt 4 Mg Tab.Rapdis TRANSLINGU 4 mg Q6H PRN Administration Nausea Quetiapine Fumarate 50 mg 08/14/20 12:17 Quetiapine Fumarate 50 Mg Tablet PO Q6H PRN agitation/anxiety/sleep Trazodone HCl 50 mg 08/13/20 21:00 08/14/20 23:45 Trazodone Hcl 50 Mg Tablet PO Not Given BEDTIME AMANDA Trazodone HCl 50 mg 08/13/20 14:38 Trazodone Hcl 50 Mg Tablet PO BEDTIME PRN Insomnia Trimethoprim/Sulfamethoxazole 1 tab 08/13/20 21:00 08/15/20 08:48 Sulfamethox/Trimeth 800/160 1 Tab Tablet PO 1 tab Q12H AMANDA Administration Allergies Allergies Allergy/AdvReac Type Severity Reaction Status Date / Time amoxicillin Allergy Unknown Verified 08/10/20 20:07 Assessment & Plan Assessment & Plan (1) MDD (major depressive disorder), recurrent episode, severe: Status: Acute Code(s): F33.2 - Major depressive disorder, recurrent severe without psychotic features Assessment and Plan: 1. continue lexapro (2) Opioid use disorder, severe, dependence: Status: Acute Code(s): F11.20 - Opioid dependence, uncomplicated Assessment and Plan: continue methadone MAT- pt to be connected to OP methadone clinic. transition to [facility] or [facility] (3) Cocaine use disorder, severe, dependence: Status: Acute Code(s): F14.20 - Cocaine dependence, uncomplicated Assessment and Plan: transition to residential substance use treatment program Greater than 50% of the session was spent on counseling and/or coordination of care Reason for contiued inpatient stay Substantial Risk for: harm to self
[2020-08-15] MEDS: traZODone HCL 50 MG TABLET PO (20:21)
[2020-08-16 06:00] VITALS: PULSE 71; RESP 16; O2SAT 99
[2020-08-16] MEDS: Nicotine 21 MG PATCH.TD24 TRANSDERMA (09:13)
[2020-08-16] MEDS: hydrOXYzine HCL 50 MG TABLET PO ×3 (09:14→20:20)
[2020-08-16] MEDS: Escitalopram Oxalate 20 MG TABLET PO (09:14)
[2020-08-16] MEDS: Ibuprofen 600 MG TABLET PO (11:29)
[2020-08-16] MEDS: QUEtiapine Fumarate 50 MG TABLET PO (11:29)
[2020-08-16] MEDS: Cyclobenzaprine HCl 10 MG TABLET PO ×2 (11:30→14:54)
--- NOTE | 2020-08-16 11:41 | HO.PSYCHPN ---
Subjective Subjective Date of Service: 08/19/20 Reason For Visit: SI Interim History: Lisbet reports feeling more hopeful, less depressed but continues to endorse shame/guilt related to ongoing substance use. She reports sleeping better. She reports appetite is fair. She has been visible in the unit and has attended assigned groups. She is social with select peers. she denies SI/HI. She continue to report motivation to transition to residential substance use treatment program. She report methadone helpful but hopes dose can be increased. no behavioral concerns Review of Systems Review of Systems Constitutional: No Fever, No Chills ENT/Mouth: No Ear Pain, No Nasal Congestion, No sore throat Eyes: No Eye Pain, No Swelling, No Redness Cardiovascular: No Chest Pain, No SOB Respiratory: No Cough, No Sputum, No Dyspnea Gastrointestinal: No Nausea, No Vomiting, No Diarrhea, No Hematochezia, No Melena Genitourinary: No Dysuria, No Urinary Frequency, No Hematuria Musculoskeletal: Positive bilateral lower extremity edema and erythema, No Myalgias Skin: No Skin Lesions, No rash Neuro: No Weakness, No Numbness, No Paresthesias, No Dizziness, No Headache Psych: positive Anxiety, positive Depression, positive SI, positive heroin abuse Heme/Lymph: No Lymphadenopathy Endocrine: No Polyuria, No Polydipsia Yes all other systems are reviewed and are negative Constitutional: Reports fatigue and Reports weight loss Cardiovascular: Denies chest pain, Denies Epigastric Pain, Denies irregular heart rhythm, Denies lightheadedness and Denies dyspnea Respiratory: Denies dyspnea Gastrointestinal: Denies constipation and Denies diarrhea Endocrine: Reports fatigue Mental Status Exam Mental Status Exam Narrative: Appearance: thin, casually dressed, fair hygiene, in NAD Behavior: calm, cooperative Psychomotor: no agitation or retardation noted Speech: clear, normal rate/rhythm/volume, spontaneous TP: linear TC: no signs of psychosis, hopeless Mood: less anxious Affect:congruent, brighter at times SI:denies HI:denies AH/VH:none Delusions:none Insight/judgment:fair x 2. Memory/cog: alert, oriented x 3. grossly intact to conversational testing. Diagnostics Vital Signs (24Hr): Vital Signs - 24 hr 08/18/20 17:29 08/18/20 18:00 Temperature 97.6 F Pulse Rate 89 89 Respiratory Rate 18 Blood Pressure 137/67 137/67 Body Mass Index 25.8 Labs Results: 08/11/20 17:02 08/11/20 17:02 Imaging Radiology Impressions: ITS Impressions Chest X-Ray 08/10/20 19:27 IMPRESSION: Unremarkable examination. Medications Medications Current Medications Generic Name Dose Route Start Last Admin Trade Name Freq PRN Reason Stop Dose Admin Acetaminophen 650 mg 08/13/20 14:38 08/14/20 14:44 Acetaminophen 325 Mg Tablet PO 650 mg Q6H PRN Administration Headache/Pain Mild Scale (1-3) Al Hydroxide/Mg Hydroxide 30 ml 08/13/20 14:38 Magnesium Hydrox/Alum Hydrox 30 Ml Oral.Susp PO Q6H PRN Heartburn/Nausea Clonidine HCl 0.1 mg 08/13/20 10:34 08/18/20 17:29 Clonidine Hcl 0.1 Mg Tablet PO 0.1 mg TID PRN Administration anxiety/restlessness Protocol Cyclobenzaprine HCl 10 mg 08/14/20 12:16 08/18/20 14:03 Cyclobenzaprine Hcl 10 Mg Tablet PO 10 mg TID PRN Administration Muscle Spasm Doxycycline Hyclate 100 mg 08/13/20 21:00 08/19/20 08:39 Doxycycline Hyclate 100 Mg Tablet PO 100 mg Q12H AMANDA Administration Escitalopram Oxalate 20 mg 08/14/20 09:00 08/19/20 08:41 Escitalopram Oxalate 20 Mg Tablet PO 20 mg DAILY AMANDA Administration Hydroxyzine HCl 25 mg 08/13/20 14:38 Hydroxyzine Hcl 25 Mg Tablet PO BEDTIME PRN Anxiety Hydroxyzine HCl 50 mg 08/14/20 15:00 08/19/20 08:39 Hydroxyzine Hcl 50 Mg Tablet PO 50 mg TID AMANDA Administration Ibuprofen 600 mg 08/11/20 01:36 08/16/20 11:29 Ibuprofen 600 Mg Tablet PO 600 mg Q6H PRN Administration Fever, headache, mild pain Loperamide HCl 2 mg 08/14/20 12:15 Loperamide Hcl 2 Mg Capsule PO Q4H PRN Diarrhea Magnesium Hydroxide 30 ml 08/13/20 14:38 Milk Of Magnesia 30 Ml Oral.Susp PO DAILY PRN Constipation Methadone HCl 30 mg 08/14/20 12:15 08/19/20 08:39 Methadone Hcl 1 Mg/0.1 Ml Oral.Conc PO 30 mg DAILY AMANDA Administration Nicotine 21 mg 08/13/20 18:30 08/19/20 08:39 Nicotine 21 Mg Patch.Td24 TRANSDERMA 21 mg DAILY AMANDA Administration Ondansetron HCl 4 mg 08/13/20 18:24 08/13/20 18:57 Ondansetron Odt 4 Mg Tab.Rapdis TRANSLINGU 4 mg Q6H PRN Administration Nausea Quetiapine Fumarate 50 mg 08/14/20 12:17 08/18/20 14:04 Quetiapine Fumarate 50 Mg Tablet PO 50 mg Q6H PRN Administration agitation/anxiety/sleep Quetiapine Fumarate 25 mg 08/17/20 21:00 08/18/20 20:12 Quetiapine Fumarate 25 Mg Tablet PO 25 mg BEDTIME AMANDA Administration Trazodone HCl 50 mg 08/13/20 14:38 08/18/20 20:13 Trazodone Hcl 50 Mg Tablet PO 50 mg BEDTIME PRN Administration Insomnia Trimethoprim/Sulfamethoxazole 1 tab 08/13/20 21:00 08/19/20 08:39 Sulfamethox/Trimeth 800/160 1 Tab Tablet PO 1 tab Q12H AMANDA Administration Allergies Allergies Allergy/AdvReac Type Severity Reaction Status Date / Time amoxicillin Allergy Unknown Verified 08/10/20 20:07 Assessment & Plan Assessment & Plan (1) MDD (major depressive disorder), recurrent episode, severe: Status: Acute Code(s): F33.2 - Major depressive disorder, recurrent severe without psychotic features Assessment and Plan: 1. continue lexapro (2) Opioid use disorder, severe, dependence: Status: Acute Code(s): F11.20 - Opioid dependence, uncomplicated Assessment and Plan: continue methadone MAT- pt to be connected to OP methadone clinic. transition to [facility] or TSS (3) Cocaine use disorder, severe, dependence: Status: Acute Code(s): F14.20 - Cocaine dependence, uncomplicated Assessment and Plan: transition to residential substance use treatment program (4) HIV (human immunodeficiency virus infection): Status: Acute Code(s): B20 - Human immunodeficiency virus [HIV] disease Assessment and Plan: continue OP medications. Greater than 50% of the session was spent on counseling and/or coordination of care Reason for contiued inpatient stay Substantial Risk for: harm to self
--- NOTE | 2020-08-16 11:41 | PC.NURSE ---
Pt sated feeling anxious, provided one on one intervention on fresh air porch. Pt provided coping strategies worksheet, required minimal cues for active participation. Positive response noted
[2020-08-16 13:57] VITALS: BP 112/63; PULSE 109
[2020-08-16] MEDS: cloNIDine HCL 0.1 MG TABLET PO (13:57)
[2020-08-16 17:26] LABS: HIV 1 Antibody POSITIVE (NEGATIVE); HIV 2 Antibody NEGATIVE (NEGATIVE)
[2020-08-16 18:00] VITALS: BP 106/65; PULSE 87; TEMP 36.6
[2020-08-16] MEDS: traZODone HCL 50 MG TABLET PO (20:20)
--- NOTE | 2020-08-17 08:02 | HO.PSYCHPN ---
Subjective Subjective Date of Service: 08/17/20 Reason For Visit: SI Interim History: 30 year-old woman with hx of MDD and polysubstance use including heroin and cocaine who was transported from [facility] after she reported suicidal ideation with plan to OD in setting of recent relapse on heroin and cocaine. Pt was recently discharged from [facility] to [facility] residential program. Apparently, patient had been sober for about 7 months prior to relapsing about 2-3 weeks ago. In the ED, her utox was postive for cocaine and opioids. Pt presenting calmer overall; she reports sad mood, low appetite;and feelings depressed; she reports more hope since being admitted. Pt reports passive SI but no plan and no intent; she wants helps and has hope for future. She reports feeling very distressed with lack of appetite and not eating much Medication Compliance: Yes Side effects from medications: No Review of Systems Review of Systems Constitutional: No Fever, No Chills ENT/Mouth: No Ear Pain, No Nasal Congestion, No sore throat Eyes: No Eye Pain, No Swelling, No Redness Cardiovascular: No Chest Pain, No SOB Respiratory: No Cough, No Sputum, No Dyspnea Gastrointestinal: No Nausea, No Vomiting, No Diarrhea, No Hematochezia, No Melena Genitourinary: No Dysuria, No Urinary Frequency, No Hematuria Musculoskeletal: Positive bilateral lower extremity edema and erythema, No Myalgias Skin: No Skin Lesions, No rash Neuro: No Weakness, No Numbness, No Paresthesias, No Dizziness, No Headache Psych: positive Anxiety, positive Depression, positive SI, positive heroin abuse Heme/Lymph: No Lymphadenopathy Endocrine: No Polyuria, No Polydipsia Yes all other systems are reviewed and are negative Constitutional: Reports fatigue and Reports weight loss Cardiovascular: Denies chest pain, Denies Epigastric Pain, Denies irregular heart rhythm, Denies lightheadedness and Denies dyspnea Respiratory: Denies dyspnea Gastrointestinal: Denies constipation and Denies diarrhea Endocrine: Reports fatigue Mental Status Exam Mental Status Exam Narrative: Appearance: thin, wearing hospital gown, fair hygiene, in NAD Behavior: calm, cooperative Psychomotor: no agitation or retardation noted Speech: clear, normal rate/rhythm/volume, spontaneous TP: linear TC: no signs of psychosis, hopeless Mood: anxious Affect:congruent SI:passive, no plan or intent HI:denies AH/VH:none Delusions:none Insight/judgment:fair x 2. Memory/cog: alert, oriented x 3. grossly intact to conversational testing. Diagnostics Vital Signs (24Hr): Vital Signs - 24 hr 08/16/20 13:57 08/16/20 18:00 Temperature 97.8 F Pulse Rate 109 H 87 Blood Pressure 112/63 106/65 Body Mass Index 25.8 Labs Results: 08/11/20 17:02 08/11/20 17:02 Labs: Laboratory Results - last 48 hr 08/12/20 14:55 HIV-1 Antibody POSITIVE A HIV-2 Antibody NEGATIVE Imaging Radiology Impressions: ITS Impressions Chest X-Ray 08/10/20 19:27 IMPRESSION: Unremarkable examination. Medications Medications Current Medications Generic Name Dose Route Start Last Admin Trade Name Freq PRN Reason Stop Dose Admin Acetaminophen 650 mg 08/13/20 14:38 08/14/20 14:44 Acetaminophen 325 Mg Tablet PO 650 mg Q6H PRN Administration Headache/Pain Mild Scale (1-3) Al Hydroxide/Mg Hydroxide 30 ml 08/13/20 14:38 Magnesium Hydrox/Alum Hydrox 30 Ml Oral.Susp PO Q6H PRN Heartburn/Nausea Clonidine HCl 0.1 mg 08/13/20 10:34 08/16/20 13:57 Clonidine Hcl 0.1 Mg Tablet PO 0.1 mg TID PRN Administration anxiety/restlessness Protocol Cyclobenzaprine HCl 10 mg 08/14/20 12:16 08/16/20 14:54 Cyclobenzaprine Hcl 10 Mg Tablet PO 10 mg TID PRN Administration Muscle Spasm Doxycycline Hyclate 100 mg 08/13/20 21:00 08/16/20 20:20 Doxycycline Hyclate 100 Mg Tablet PO 100 mg Q12H AMANDA Administration Escitalopram Oxalate 20 mg 08/14/20 09:00 08/16/20 09:14 Escitalopram Oxalate 20 Mg Tablet PO 20 mg DAILY AMANDA Administration Hydroxyzine HCl 25 mg 08/13/20 14:38 Hydroxyzine Hcl 25 Mg Tablet PO BEDTIME PRN Anxiety Hydroxyzine HCl 50 mg 08/14/20 15:00 08/16/20 20:20 Hydroxyzine Hcl 50 Mg Tablet PO 50 mg TID AMANDA Administration Ibuprofen 600 mg 08/11/20 01:36 08/16/20 11:29 Ibuprofen 600 Mg Tablet PO 600 mg Q6H PRN Administration Fever, headache, mild pain Loperamide HCl 2 mg 08/14/20 12:15 Loperamide Hcl 2 Mg Capsule PO Q4H PRN Diarrhea Lorazepam 1 mg 08/13/20 18:22 08/15/20 19:21 Lorazepam 1 Mg Tablet PO 1 mg Q4H PRN Administration Alcohol Withdrawal, anxiety, Magnesium Hydroxide 30 ml 08/13/20 14:38 Milk Of Magnesia 30 Ml Oral.Susp PO DAILY PRN Constipation Methadone HCl 30 mg 08/14/20 12:15 08/16/20 09:16 Methadone Hcl 1 Mg/0.1 Ml Oral.Conc PO 30 mg DAILY AMANDA Administration Nicotine 21 mg 08/13/20 18:30 08/16/20 09:13 Nicotine 21 Mg Patch.Td24 TRANSDERMA 21 mg DAILY AMANDA Administration Ondansetron HCl 4 mg 08/13/20 18:24 08/13/20 18:57 Ondansetron Odt 4 Mg Tab.Rapdis TRANSLINGU 4 mg Q6H PRN Administration Nausea Quetiapine Fumarate 50 mg 08/14/20 12:17 08/16/20 11:29 Quetiapine Fumarate 50 Mg Tablet PO 50 mg Q6H PRN Administration agitation/anxiety/sleep Trazodone HCl 50 mg 08/13/20 21:00 08/16/20 20:20 Trazodone Hcl 50 Mg Tablet PO 50 mg BEDTIME AMANDA Administration Trazodone HCl 50 mg 08/13/20 14:38 Trazodone Hcl 50 Mg Tablet PO BEDTIME PRN Insomnia Trimethoprim/Sulfamethoxazole 1 tab 08/13/20 21:00 08/16/20 20:20 Sulfamethox/Trimeth 800/160 1 Tab Tablet PO 1 tab Q12H AMANDA Administration Allergies Allergies Allergy/AdvReac Type Severity Reaction Status Date / Time amoxicillin Allergy Unknown Verified 08/10/20 20:07 Assessment & Plan Assessment & Plan (1) MDD (major depressive disorder), recurrent episode, severe: Status: Acute Code(s): F33.2 - Major depressive disorder, recurrent severe without psychotic features Assessment and Plan: 1. continue Lexapro 2. Trazodone d/c 3. seroquel 25 mg at hs for sleep and APPETITE (2) Opioid use disorder, severe, dependence: Status: Acute Code(s): F11.20 - Opioid dependence, uncomplicated Assessment and Plan: 1. Pt started on Methadone 30mg po daily. 2. Pt wants to return to [facility] (3) Cocaine use disorder, severe, dependence: Status: Acute Code(s): F14.20 - Cocaine dependence, uncomplicated Assessment and Plan: 1. Pt wants to return to [facility]. Greater than 50% of the session was spent on counseling and/or coordination of care Patient educated on: medication risk/benefits Informed Consent: understands and further education needed Reason for contiued inpatient stay Substantial Risk for: inability to function and rapid decompensation
[2020-08-17] MEDS: Nicotine 21 MG PATCH.TD24 TRANSDERMA (09:04)
[2020-08-17] MEDS: hydrOXYzine HCL 50 MG TABLET PO ×3 (09:04→20:24)
[2020-08-17] MEDS: Escitalopram Oxalate 20 MG TABLET PO (09:04)
[2020-08-17] MEDS: QUEtiapine Fumarate 50 MG TABLET PO (12:42)
[2020-08-17] MEDS: Cyclobenzaprine HCl 10 MG TABLET PO (12:42)
[2020-08-17] MEDS: cloNIDine HCL 0.1 MG TABLET PO (15:08)
[2020-08-17] MEDS: LORazepam 1 MG TABLET PO (16:45)
[2020-08-17 18:00] VITALS: BP 106/64; PULSE 83; TEMP 36.2
[2020-08-17] MEDS: QUEtiapine Fumarate 25 MG TABLET PO (20:24)
[2020-08-17] MEDS: traZODone HCL 50 MG TABLET PO (20:28)
[2020-08-18 06:00] VITALS: BP 130/86; PULSE 81; RESP 16; TEMP 35.3; O2SAT 99
[2020-08-18] MEDS: Cyclobenzaprine HCl 10 MG TABLET PO ×2 (08:45→14:03)
[2020-08-18] MEDS: Escitalopram Oxalate 20 MG TABLET PO (08:45)
[2020-08-18] MEDS: hydrOXYzine HCL 50 MG TABLET PO ×3 (08:45→20:13)
[2020-08-18] MEDS: Nicotine 21 MG PATCH.TD24 TRANSDERMA (08:45)
[2020-08-18] MEDS: QUEtiapine Fumarate 50 MG TABLET PO (14:04)
[2020-08-18] MEDS: LORazepam 1 MG TABLET PO (15:53)
[2020-08-18 17:29] VITALS: BP 137/67; PULSE 89
[2020-08-18] MEDS: cloNIDine HCL 0.1 MG TABLET PO (17:29)
--- NOTE | 2020-08-18 17:59 | HO.PSYCHPN ---
Subjective Subjective Date of Service: 08/18/20 Reason For Visit: SI Interim History: 30 year-old woman with hx of MDD and polysubstance use including heroin and cocaine who was transported from [facility] after she reported suicidal ideation with plan to OD in setting of recent relapse on heroin and cocaine. Pt was recently discharged from [facility] to [facility] residential program. Apparently, patient had been sober for about 7 months prior to relapsing about 2-3 weeks ago. In the ED, her utox was postive for cocaine and opioids. 08/18/20 Pt presenting mood improved; energy improved; feeling more hopeful; appetite improved with seroqule ;still feeling depressed but more hope since being admitted. Pt reports passive SI but no plan and no intent; she wants helps and has hope for future. Review of Systems Review of Systems Constitutional: No Fever, No Chills ENT/Mouth: No Ear Pain, No Nasal Congestion, No sore throat Eyes: No Eye Pain, No Swelling, No Redness Cardiovascular: No Chest Pain, No SOB Respiratory: No Cough, No Sputum, No Dyspnea Gastrointestinal: No Nausea, No Vomiting, No Diarrhea, No Hematochezia, No Melena Genitourinary: No Dysuria, No Urinary Frequency, No Hematuria Musculoskeletal: Positive bilateral lower extremity edema and erythema, No Myalgias Skin: No Skin Lesions, No rash Neuro: No Weakness, No Numbness, No Paresthesias, No Dizziness, No Headache Psych: positive Anxiety, positive Depression, positive SI, positive heroin abuse Heme/Lymph: No Lymphadenopathy Endocrine: No Polyuria, No Polydipsia Yes all other systems are reviewed and are negative Constitutional: Reports fatigue and Reports weight loss Cardiovascular: Denies chest pain, Denies Epigastric Pain, Denies irregular heart rhythm, Denies lightheadedness and Denies dyspnea Respiratory: Denies dyspnea Gastrointestinal: Denies constipation and Denies diarrhea Endocrine: Reports fatigue Mental Status Exam Mental Status Exam Narrative: Appearance: thin, casually dressed, fair hygiene, in NAD Behavior: calm, cooperative Psychomotor: no agitation or retardation noted Speech: clear, normal rate/rhythm/volume, spontaneous TP: linear TC: no signs of psychosis, hopeless Mood: anxious Affect:congruent SI:passive, no plan or intent HI:denies AH/VH:none Delusions:none Insight/judgment:fair x 2. Memory/cog: alert, oriented x 3. grossly intact to conversational testing. Diagnostics Vital Signs (24Hr): Vital Signs - 24 hr 08/17/20 18:00 08/18/20 06:00 08/18/20 17:29 Temperature 97.1 F 95.5 F L Pulse Rate 83 81 89 Respiratory Rate 16 Blood Pressure 106/64 130/86 137/67 Pulse Oximetry 99 Body Mass Index 25.8 Labs Results: 08/11/20 17:02 08/11/20 17:02 Imaging Radiology Impressions: ITS Impressions Chest X-Ray 08/10/20 19:27 IMPRESSION: Unremarkable examination. Medications Medications Current Medications Generic Name Dose Route Start Last Admin Trade Name Freq PRN Reason Stop Dose Admin Acetaminophen 650 mg 08/13/20 14:38 08/14/20 14:44 Acetaminophen 325 Mg Tablet PO 650 mg Q6H PRN Administration Headache/Pain Mild Scale (1-3) Al Hydroxide/Mg Hydroxide 30 ml 08/13/20 14:38 Magnesium Hydrox/Alum Hydrox 30 Ml Oral.Susp PO Q6H PRN Heartburn/Nausea Clonidine HCl 0.1 mg 08/13/20 10:34 08/18/20 17:29 Clonidine Hcl 0.1 Mg Tablet PO 0.1 mg TID PRN Administration anxiety/restlessness Protocol Cyclobenzaprine HCl 10 mg 08/14/20 12:16 08/18/20 14:03 Cyclobenzaprine Hcl 10 Mg Tablet PO 10 mg TID PRN Administration Muscle Spasm Doxycycline Hyclate 100 mg 08/13/20 21:00 08/18/20 08:45 Doxycycline Hyclate 100 Mg Tablet PO 100 mg Q12H AMANDA Administration Escitalopram Oxalate 20 mg 08/14/20 09:00 08/18/20 08:45 Escitalopram Oxalate 20 Mg Tablet PO 20 mg DAILY AMANDA Administration Hydroxyzine HCl 25 mg 08/13/20 14:38 Hydroxyzine Hcl 25 Mg Tablet PO BEDTIME PRN Anxiety Hydroxyzine HCl 50 mg 08/14/20 15:00 08/18/20 14:03 Hydroxyzine Hcl 50 Mg Tablet PO 50 mg TID AMANDA Administration Ibuprofen 600 mg 08/11/20 01:36 08/16/20 11:29 Ibuprofen 600 Mg Tablet PO 600 mg Q6H PRN Administration Fever, headache, mild pain Loperamide HCl 2 mg 08/14/20 12:15 Loperamide Hcl 2 Mg Capsule PO Q4H PRN Diarrhea Lorazepam 1 mg 08/13/20 18:22 08/18/20 15:53 Lorazepam 1 Mg Tablet PO 1 mg Q4H PRN Administration Alcohol Withdrawal, anxiety, Magnesium Hydroxide 30 ml 08/13/20 14:38 Milk Of Magnesia 30 Ml Oral.Susp PO DAILY PRN Constipation Methadone HCl 30 mg 08/14/20 12:15 08/18/20 08:45 Methadone Hcl 1 Mg/0.1 Ml Oral.Conc PO 30 mg DAILY AMANDA Administration Nicotine 21 mg 08/13/20 18:30 08/18/20 08:45 Nicotine 21 Mg Patch.Td24 TRANSDERMA 21 mg DAILY AMANDA Administration Ondansetron HCl 4 mg 08/13/20 18:24 08/13/20 18:57 Ondansetron Odt 4 Mg Tab.Rapdis TRANSLINGU 4 mg Q6H PRN Administration Nausea Quetiapine Fumarate 50 mg 08/14/20 12:17 08/18/20 14:04 Quetiapine Fumarate 50 Mg Tablet PO 50 mg Q6H PRN Administration agitation/anxiety/sleep Quetiapine Fumarate 25 mg 08/17/20 21:00 08/17/20 20:24 Quetiapine Fumarate 25 Mg Tablet PO 25 mg BEDTIME AMANDA Administration Trazodone HCl 50 mg 08/13/20 14:38 08/17/20 20:28 Trazodone Hcl 50 Mg Tablet PO 50 mg BEDTIME PRN Administration Insomnia Trimethoprim/Sulfamethoxazole 1 tab 08/13/20 21:00 08/18/20 08:45 Sulfamethox/Trimeth 800/160 1 Tab Tablet PO 1 tab Q12H AMANDA Administration Allergies Allergies Allergy/AdvReac Type Severity Reaction Status Date / Time amoxicillin Allergy Unknown Verified 08/10/20 20:07 Assessment & Plan Assessment & Plan (1) MDD (major depressive disorder), recurrent episode, severe: Status: Acute Code(s): F33.2 - Major depressive disorder, recurrent severe without psychotic features (2) Opioid use disorder, severe, dependence: Status: Acute Code(s): F11.20 - Opioid dependence, uncomplicated (3) Cocaine use disorder, severe, dependence: Status: Acute Code(s): F14.20 - Cocaine dependence, uncomplicated Assessment and Plan: 1. continue Lexapro 2. Trazodone d/c 3. seroquel 25 mg at hs for depression, sleep and appetite 1. Pt started on Methadone 30mg po daily. 2. Pt wants to return to [facility] [place] 1. Pt wants to return to [facility]. Greater than 50% of the session was spent on counseling and/or coordination of care Reason for contiued inpatient stay Substantial Risk for: harm to self, rapid decompensation and med/psych decompensation
[2020-08-18 18:00] VITALS: BP 137/67; PULSE 89; RESP 18; TEMP 36.4
[2020-08-18] MEDS: QUEtiapine Fumarate 25 MG TABLET PO (20:12)
[2020-08-18] MEDS: traZODone HCL 50 MG TABLET PO (20:13)
[2020-08-19] MEDS: hydrOXYzine HCL 50 MG TABLET PO ×2 (08:39→14:50)
[2020-08-19] MEDS: Nicotine 21 MG PATCH.TD24 TRANSDERMA (08:39)
[2020-08-19] MEDS: Escitalopram Oxalate 20 MG TABLET PO (08:41)
--- NOTE | 2020-08-19 10:57 | HO.PSYCHPN ---
Subjective Subjective Date of Service: 08/20/20 Reason For Visit: SI Interim History: Lisbet reports less symptoms of depression. She reports feeling more optimistic about her future. She denies SI/HI. She does report some anxiety, some cravings at times, and hopes methadone dose is adjusted in community. She denies any chest pain or abdominal discomfort. She reports improved sleep with current medications. She has been visible in the unit. She has attended assigned groups. She is looking forward to step down to residential program tomorrow. Review of Systems Review of Systems Constitutional: No Fever, No Chills ENT/Mouth: No Ear Pain, No Nasal Congestion, No sore throat Eyes: No Eye Pain, No Swelling, No Redness Cardiovascular: No Chest Pain, No SOB Respiratory: No Cough, No Sputum, No Dyspnea Gastrointestinal: No Nausea, No Vomiting, No Diarrhea, No Hematochezia, No Melena Genitourinary: No Dysuria, No Urinary Frequency, No Hematuria Musculoskeletal: Positive bilateral lower extremity edema and erythema, No Myalgias Skin: No Skin Lesions, No rash Neuro: No Weakness, No Numbness, No Paresthesias, No Dizziness, No Headache Psych: positive Anxiety, positive Depression, positive SI, positive heroin abuse Heme/Lymph: No Lymphadenopathy Endocrine: No Polyuria, No Polydipsia Yes all other systems are reviewed and are negative Constitutional: Reports fatigue and Reports weight loss Cardiovascular: Denies chest pain, Denies Epigastric Pain, Denies irregular heart rhythm, Denies lightheadedness and Denies dyspnea Respiratory: Denies dyspnea Gastrointestinal: Denies constipation and Denies diarrhea Endocrine: Reports fatigue Mental Status Exam Mental Status Exam Narrative: Appearance: thin, casually dressed, fair hygiene, in NAD Behavior: calm, cooperative Psychomotor: no agitation or retardation noted Speech: clear, normal rate/rhythm/volume, spontaneous TP: linear TC: no signs of psychosis, hopeless Mood: less anxious Affect:congruent, brighter at times SI:denies HI:denies AH/VH:none Delusions:none Insight/judgment:fair x 2. Memory/cog: alert, oriented x 3. grossly intact to conversational testing. Diagnostics Vital Signs (24Hr): Vital Signs - 24 hr 08/19/20 19:20 08/20/20 06:00 Temperature 98.7 F 97.3 F Pulse Rate 84 67 Respiratory Rate 16 Blood Pressure 106/64 113/57 L Pulse Oximetry 97 Body Mass Index 25.8 Labs Results: 08/11/20 17:02 08/11/20 17:02 Imaging Radiology Impressions: ITS Impressions Chest X-Ray 08/10/20 19:27 IMPRESSION: Unremarkable examination. Medications Medications Current Medications Generic Name Dose Route Start Last Admin Trade Name Freq PRN Reason Stop Dose Admin Acetaminophen 650 mg 08/13/20 14:38 08/19/20 16:36 Acetaminophen 325 Mg Tablet PO 650 mg Q6H PRN Administration Headache/Pain Mild Scale (1-3) Al Hydroxide/Mg Hydroxide 30 ml 08/13/20 14:38 Magnesium Hydrox/Alum Hydrox 30 Ml Oral.Susp PO Q6H PRN Heartburn/Nausea Clonidine HCl 0.1 mg 08/13/20 10:34 08/18/20 17:29 Clonidine Hcl 0.1 Mg Tablet PO 0.1 mg TID PRN Administration anxiety/restlessness Protocol Clotrimazole 1 appl 08/19/20 21:00 08/19/20 20:07 Clotrimazole 1 % Vaginal Cream 45 Gm Tube VAGINAL 08/25/20 21:01 1 appl BEDTIME AMANDA Administration Cyclobenzaprine HCl 10 mg 08/14/20 12:16 08/20/20 08:56 Cyclobenzaprine Hcl 10 Mg Tablet PO 10 mg TID PRN Administration Muscle Spasm Doxycycline Hyclate 100 mg 08/13/20 21:00 08/20/20 08:51 Doxycycline Hyclate 100 Mg Tablet PO 100 mg Q12H AMANDA Administration Escitalopram Oxalate 20 mg 08/14/20 09:00 08/20/20 08:51 Escitalopram Oxalate 20 Mg Tablet PO 20 mg DAILY AMANDA Administration Hydroxyzine HCl 75 mg 08/19/20 21:00 08/20/20 08:51 Hydroxyzine Hcl 25 Mg Tablet PO 75 mg TID AMANDA Administration Ibuprofen 600 mg 08/11/20 01:36 08/19/20 21:38 Ibuprofen 600 Mg Tablet PO 600 mg Q6H PRN Administration Fever, headache, mild pain Loperamide HCl 2 mg 08/14/20 12:15 Loperamide Hcl 2 Mg Capsule PO Q4H PRN Diarrhea Magnesium Hydroxide 30 ml 08/13/20 14:38 Milk Of Magnesia 30 Ml Oral.Susp PO DAILY PRN Constipation Methadone HCl 30 mg 08/14/20 12:15 08/20/20 08:52 Methadone Hcl 1 Mg/0.1 Ml Oral.Conc PO 30 mg DAILY AMANDA Administration Nicotine 21 mg 08/13/20 18:30 08/20/20 08:51 Nicotine 21 Mg Patch.Td24 TRANSDERMA 21 mg DAILY AMANDA Administration Ondansetron HCl 4 mg 08/13/20 18:24 08/13/20 18:57 Ondansetron Odt 4 Mg Tab.Rapdis TRANSLINGU 4 mg Q6H PRN Administration Nausea Quetiapine Fumarate 50 mg 08/14/20 12:17 08/19/20 16:33 Quetiapine Fumarate 50 Mg Tablet PO 50 mg Q6H PRN Administration agitation/anxiety/sleep Quetiapine Fumarate 50 mg 08/19/20 21:00 08/19/20 20:03 Quetiapine Fumarate 50 Mg Tablet PO 50 mg BEDTIME AMANDA Administration Trazodone HCl 50 mg 08/13/20 14:38 08/19/20 21:38 Trazodone Hcl 50 Mg Tablet PO 50 mg BEDTIME PRN Administration Insomnia Trimethoprim/Sulfamethoxazole 1 tab 08/13/20 21:00 08/20/20 08:51 Sulfamethox/Trimeth 800/160 1 Tab Tablet PO 1 tab Q12H AMANDA Administration Allergies Allergies Allergy/AdvReac Type Severity Reaction Status Date / Time amoxicillin Allergy Unknown Verified 08/10/20 20:07 Assessment & Plan Assessment & Plan (1) MDD (major depressive disorder), recurrent episode, severe: Status: Acute Code(s): F33.2 - Major depressive disorder, recurrent severe without psychotic features Assessment and Plan: 1. continue lexapro (2) Opioid use disorder, severe, dependence: Status: Acute Code(s): F11.20 - Opioid dependence, uncomplicated Assessment and Plan: continue methadone MAT- pt to be connected to OP methadone clinic. transition to CSS or TSS (3) Cocaine use disorder, severe, dependence: Status: Acute Code(s): F14.20 - Cocaine dependence, uncomplicated Assessment and Plan: transition to residential substance use treatment program (4) HIV (human immunodeficiency virus infection): Status: Acute Code(s): B20 - Human immunodeficiency virus [HIV] disease Assessment and Plan: continue OP medications. Greater than 50% of the session was spent on counseling and/or coordination of care Reason for contiued inpatient stay Substantial Risk for: stable for discharge
[2020-08-19] MEDS: Cyclobenzaprine HCl 10 MG TABLET PO ×2 (13:09→21:38)
[2020-08-19] MEDS: QUEtiapine Fumarate 50 MG TABLET PO ×2 (16:33→20:03)
[2020-08-19] MEDS: Acetaminophen 325 MG TABLET 650 MG PO (16:36)
[2020-08-19 19:20] VITALS: BP 106/64; PULSE 84; TEMP 37.1
[2020-08-19] MEDS: hydrOXYzine HCL 25 MG TABLET 75 MG PO (20:02)
[2020-08-19] MEDS: traZODone HCL 50 MG TABLET PO ×2 (20:06→21:38)
[2020-08-19] MEDS: Clotrimazole 1 % Vaginal Cream 45 GM TUBE 1 APPL VAGINAL (20:07)
[2020-08-19] MEDS: Ibuprofen 600 MG TABLET PO (21:38)
[2020-08-20 06:00] VITALS: BP 113/57; PULSE 67; RESP 16; TEMP 36.3; O2SAT 97
[2020-08-20] MEDS: Nicotine 21 MG PATCH.TD24 TRANSDERMA (08:51)
[2020-08-20] MEDS: hydrOXYzine HCL 25 MG TABLET 75 MG PO (08:51)
[2020-08-20] MEDS: Escitalopram Oxalate 20 MG TABLET PO (08:51)
[2020-08-20] MEDS: Cyclobenzaprine HCl 10 MG TABLET PO (08:56)
--- NOTE | 2020-08-20 11:01 | PM.PSYDC ---
DS: Providers Provider Date of Service: 09/09/20 <Migdalia Campbell - Last Filed: 09/09/20 13:59> 09/09/20 <Bethel Hellre MD - Last Filed: 09/09/20 21:10> Date of admission: 08/13/20 14:25 <Migdalia Gabrielsheryl - Last Filed: 09/09/20 13:59> Primary care physician: Unknown Physician <Migdalia Campbell - Last Filed: 09/09/20 13:59> DS: Diagnosis Discharge Diagnosis (1) MDD (major depressive disorder), recurrent episode, severe: Status: Acute <Migdalia Campbell - Last Filed: 09/09/20 13:59> (2) Opioid use disorder, severe, dependence: Status: Acute <Migdalia Campbell - Last Filed: 09/09/20 13:59> (3) Cocaine use disorder, severe, dependence: Status: Acute <Migdalia Campbell - Last Filed: 09/09/20 13:59> (4) HIV (human immunodeficiency virus infection): Status: Acute <Migdalia Gabrielsheryl - Last Filed: 09/09/20 13:59> DS: Medications Discharge Medications Home Medications: Previous Rx's Medication Instructions Recorded Juluca 1 tab PO DAILY 30 Days #30 tab 08/20/20 Prezcobix 1 tab PO DAILY 30 Days #30 tab 08/20/20 acetaminophen 650 mg PO Q6H PRN 10 Days #30 tab 08/20/20 clonidine HCl 0.1 mg PO TID PRN 15 Days #42 tab 08/20/20 clotrimazole 1 appl VAGINAL BEDTIME #6 g 08/20/20 cyclobenzaprine 10 mg PO TID PRN 15 Days tab 08/20/20 doxycycline hyclate 100 mg PO Q12H 3 Days #6 tab 08/20/20 escitalopram oxalate 20 mg PO DAILY 30 Days #30 tab 08/20/20 hydroxyzine HCl 75 mg PO TID 30 Days #270 tab 08/20/20 ibuprofen 600 mg PO Q6H PRN #30 tab 08/20/20 nicotine 21 mg TRANSDERMAL DAILY 30 Days ea 08/20/20 quetiapine 50 mg PO BEDTIME #30 tab 08/20/20 quetiapine 50 mg PO Q6H PRN #30 tab 08/20/20 sulfamethoxazole-trimethoprim 1 tab PO Q12H 2 Days #4 tab 08/20/20 trazodone 50 mg PO BEDTIME PRN #30 tab 08/20/20 <Migdalia Gabrielsheryl - Last Filed: 09/09/20 13:59> Discharge Plan Discharge Patient Disposition: Home, Self-Care <Migdalia Campbell - Last Filed: 09/09/20 13:59> Discharge Diagnosis: MDD, recurrent, moderate Opioid Use Disorder <Migdalia Campbell - Last Filed: 09/09/20 13:59> MDD, recurrent, moderate Opioid Use Disorder <Bethel Heller MD - Last Filed: 09/09/20 21:10> Referrals: Liyah Beth [Other] - 08/28/20 11:00 am (Follow up over the phone.) [facility] [Other] - 1 Week (Therapy and medication management will be provided to you through the program) [facility] (Methadone) [Other] - 08/21/20 8:00 am (Please bring an ID, health insurance card, and your last dose letter to your appt.) <Migdalia Campbell - Last Filed: 09/09/20 13:59> Discharge Medications: New cyclobenzaprine 10 mg Tablet 10 mg PO TID PRN (Reason: Muscle Spasm) 15 Days RF: 0 clonidine HCl 0.1 mg Tablet 0.1 mg PO TID PRN (Reason: Anxiety/Restlessness) 15 Days Qty: 42 RF: 0 nicotine 21 mg/24 hr Patch 24 Hour 21 mg transdermal DAILY 30 Days RF: 0 escitalopram oxalate 20 mg Tablet 20 mg PO DAILY 30 Days Qty: 30 RF: 0 acetaminophen 325 mg Tablet 650 mg PO Q6H PRN (Reason: Headache/Pain Mild Scale (1-3)) 10 Days Qty: 30 RF: 0 hydroxyzine HCl 25 mg Tablet 75 mg PO TID 30 Days Qty: 270 RF: 0 ibuprofen 600 mg Tablet 600 mg PO Q6H PRN (Reason: Fever, headache, mild pain) Qty: 30 RF: 0 quetiapine 50 mg Tablet 50 mg PO Q6H PRN (Reason: agitation/anxiety/sleep) Qty: 30 RF: 0 quetiapine 50 mg Tablet 50 mg PO BEDTIME Qty: 30 RF: 0 trazodone 50 mg Tablet 50 mg PO BEDTIME PRN (Reason: Insomnia) Qty: 30 RF: 0 clotrimazole 1 % Cream 1 appl vaginal BEDTIME Qty: 6 RF: 0 sulfamethoxazole-trimethoprim 800-160 mg Tablet 1 tab PO Q12H 2 Days Qty: 4 RF: 0 doxycycline hyclate 100 mg Tablet 100 mg PO Q12H 3 Days Qty: 6 RF: 0 Continued Prezcobix 800-150 mg-mg tablet 1 tab PO DAILY 30 Days Qty: 30 RF: 0 Juluca 50-25 mg tablet 1 tab PO DAILY 30 Days Qty: 30 RF: 0 Discontinued trazodone 50 mg tablet 1 tab PO BEDTIME RF: 0 hydroxyzine pamoate 25 mg capsule 1 cap PO TID RF: 0 escitalopram oxalate 20 mg tablet 1 tab PO DAILY RF: 0 melatonin 10 mg Tablet 10 mg PO BEDTIME PRN (Reason: Insomnia) RF: 0 <Migdalia Campbell - Last Filed: 09/09/20 13:59> Discharge Orders: Discharge Order (Routine); Ordered 08/20/20 Ordered By: Migdalia Campbell <Migdalia Campbell - Last Filed: 09/09/20 13:59> Diet: regular diet <Migdalia Campbell - Last Filed: 09/09/20 13:59> regular diet <Bethel Heller MD - Last Filed: 09/09/20 21:10> Activity on Discharge: As tolerated <Migdalia Campbell - Last Filed: 09/09/20 13:59> As tolerated <Bethel Heller MD - Last Filed: 09/09/20 21:10> Stand Alone Forms: Patient Portal Discharge page <Migdalia Campbell - Last Filed: 09/09/20 13:59> Care Plan Goals: 1. Maintain stable mood 2. Maintain safety including no SI, no risky behaviors related to substance use <Migdalia Campbell - Last Filed: 09/09/20 13:59> Health Concerns: 01. Follow up with PCP and ID doctor <Migdalia Campbell - Last Filed: 09/09/20 13:59> Plan of Treatment: 1. Take medications as prescribed. 2. Go to nearest ED or call 911 in event of emergency. 3. Follow up with referrals <Migdalia Campbell - Last Filed: 09/09/20 13:59> Assessment: Pt with decrease depression, no SI/HI. motivated to continue substance use treatment. <Migdalia Campbell - Last Filed: 09/09/20 13:59> Discharge Date/Time: 08/20/20 13:20 <Migdaliadoug Campbell - Last Filed: 09/09/20 13:59> Mental Status Exam Mental Status Exam Narrative: Appearance: thin, casually dressed, fair hygiene, in NAD Behavior: calm, cooperative Psychomotor: no agitation or retardation noted Speech: clear, normal rate/rhythm/volume, spontaneous TP: linear TC: no signs of psychosis, hopeless Mood: less anxious Affect:congruent, brighter at times SI:denies HI:denies AH/VH:none Delusions:none Insight/judgment:fair x 2. Memory/cog: alert, oriented x 3. grossly intact to conversational testing. <Migdalia Campbell - Last Filed: 09/09/20 13:59> Data Data Completed and Pending Completed studies during hospitalization [Text1]: 08/12/20 08/13/20 08/14/20 14:55 15:36 16:27 Troponin I High Sens < 3.5 < 3.5 HIV-1 Antibody POSITIVE A HIV-2 Antibody NEGATIVE 08/10/20 20:24 Blood - Venous Blood Culture - Final No growth after 5 days. 08/10/20 20:23 Blood - Venous Blood Culture - Final No growth after 5 days. <Migdalia Campbell - Last Filed: 09/09/20 13:59> Imaging Diagnostic Imaging Impressions Chest X-Ray 08/10/20 19:27 IMPRESSION: Unremarkable examination. <Migdalia Campbell - Last Filed: 09/09/20 13:59> DS: Summary Hospital Course Hospital Course: Ms. Neil is a 30 year-old woman with hx of MDD and polysubstance use including heroin and cocaine who was transported from [facility] after she reported suicidal ideation with plan to OD in setting of recent relapse on heroin and cocaine. Pt was recently discharged from [facility] to [facility]'s residential program. Apparently, patient had been sober for about 7 months prior to relapsing about 2-3 weeks ago. In the ED, her utox was postive for cocaine and opioids. On the unit, Ms. Neil presents as very tearful, reporting depressed mood, feeling hopeless/helpless, suicidal ideation with plan to OD but denies any intent in the unit. This is her first inpatient psychiatric admission but has been seeing OP providers in the community for depression. She reports fair sleep and appetite. She denies history of AH or VH. Pt reports she would like to go back to methadone MAT. Past Psychiatric History: Inpatient: none in the past. OP: [facility] Suicide attempts: pt denies Past trials: lexapro (good effect), seroquel and vistaril Medical Evaluation Reviewed: Yes EKG on 08/13 and 08/14 ST abnormality- high sensitivity troponins completed on 08/13 and 08/14 both <3.5. Pt denies chest pain or chest discomfort. HOSPITAL COURSE On the unit, Ms. Neil was admitted on a CV and placed on 15 minutes checks for safety. Pt endorsed depressed mood, feeling hopeless/helpless related to ongoing substance use. She reported poor sleep, poor appetite. She denied suicidal ideation. After discussing risks, benefits and alternative treatment option, she agreed to re start Lexapro, which she tolerated well. She was also started on seroquel for sleep and mood. Her affect gradually brighten. She continued to denied suicidal ideation. She reported improved sleep. She was increasingly more visible in the unit and attended assigned groups. She agreed to return to residential substance use treatment at [facility]. Collateral information gathered from mother who reports at time of discharge pt appears in much improved condition and denied any safety concerns. <Migdalia Campbell - Last Filed: 09/09/20 13:59> Time spent discussing smoking cessation with patient: more than 10 minutes <Migdalia Campbell - Last Filed: 09/09/20 13:59> Status at Discharge Cognitive/behavioral status at discharge: Pt with brighter affect. She denies SI/HI. No signs of aggression towards self or others. Future oriented. <Migdalia Campbell - Last Filed: 09/09/20 13:59> Functional status at discharge: independent ambulation <Migdalia Campbell - Last Filed: 09/09/20 13:59> Overall status at discharge: patient is progressing back to baseline <Migdalia Campbell - Last Filed: 09/09/20 13:59> Time Spent with Patient Time attestation: Total time spent providing and/or coordinating discharge services: <Migdalia Campbell - Last Filed: 09/09/20 13:59> Time spent: Greater than 30 minutes <Migdalia Campbell - Last Filed: 09/09/20 13:59>
--- NOTE | 2020-08-20 11:25 | PC.NURSE ---
PT IS AWARE AND READY FOR DISCHARGE. PT HAS BEEN IN BEHAVIORAL CONTROL. SHE HAS BEEN VISIBLE ON THE UNIT AND SOCIAL WITH PEERS. SHE IS FUTURE ORIENTED. SHE HAS BEEN ATTENDING GROUPS. SHE HAS BEEN INDEPENDENTLY TAKING CARE OF ADLS. SHE REPORTS NO URGE TO USE SUBSTANCES AT THIS MOMENT. SHE HAS BEEN EATING AND SLEEPING WELL. SHE DENIES DEPRESSION AND ANXIETY. SHE DENIES SUICIDAL OR HOMICIDAL IDEATIONS. PT IS NOT EXPERIENCING AUDITORY OR VISUAL HALLUCINATIONS. SHE IS MEDICATION COMPLIANT. SHE IS RECEPTIVE TO TEACHING REGARDING MEDICATIONS AND RELAPSE PREVENTION. PTS PAPERWORK WILL BE FAXED TO PROVIDERS PER PROTOCOL. PT REPORTS FEELING SIGNIFICANT IMPROVEMENT AND FEELS SAFE.
[2020-08-20] MEDS: QUEtiapine Fumarate 50 MG TABLET PO (12:37)
== END 2020-08-20 13:20 | disposition home or self-care (01) | DRG 751 ==
LOC: HO.ED 08-12 03:05 → HO.PM5 08-13 14:26
PROVIDERS: Nurse Practitioner Family; Physician Assistant; Admitting Provider Psychiatry & Neurology Psychiatry; Emergency Provider Emergency Medicine; Visit Provider Social Worker
DX: F33.2 Major depressive disorder, recurrent severe without psychotic features (principal); L03.115 Cellulitis of right lower limb; R45.851 Suicidal ideations; F14.20 Cocaine dependence, uncomplicated; L03.116 Cellulitis of left lower limb; F11.20 Opioid dependence, uncomplicated; F17.210 Nicotine dependence, cigarettes, uncomplicated; Z21 Asymptomatic human immunodeficiency virus [HIV] infection status; Z20.822 Contact with and (suspected) exposure to COVID-19; Z71.6 Tobacco abuse counseling; Z79.1 Long term (current) use of non-steroidal anti-inflammatories (NSAID); Z79.899 Other long term (current) drug therapy
CPT/HCPCS: 36415; 71045; 80048; 80053; 80076; 80307; 80320; 81003; 81025; 83605; 83690; 84484; 85025; 85610; 85730; 86701; 86702; 87040; 87389; 87635; 93005; 96365; 96366; 96367; 99285

== ENCOUNTER 2020-09-30 11:27 | Inpatient (IN) | payer OTHER, SELFPAY ==
[2020-09-30 12:08] VITALS: BP 144/76; PULSE 91; RESP 16; TEMP 36.2; O2SAT 97
--- NOTE | 2020-09-30 12:12 | ED_ITS ---
HPI - Psych General Chief Complaint: Psychiatric Symptoms Stated Complaint: CRISIS Time Seen by Provider: 09/30/20 12:11 Source: patient Mode of arrival: ambulatory Limitations: no limitations History of Present Illness MD complaint: suicidal ideation, feels depressed and substance abuse Onset (ago): week(s) Duration: getting worse History of same: Yes Relieving factors: none Exacerbating factors: drug use Context: recent drug abuse and significant life stressor Associated psychiatric symptoms: depression and suicidal ideation Associated symptoms: denies other symptoms Treatments prior to arrival: none If self harm: admits thoughts of self harm and has plan (plans to overdose on f entanyl) Related Data Home Medications Medication Instructions Recorded Confirmed bupropion HCl [Wellbutrin XL] 150 mg PO DAILY 09/30/20 09/30/20 quetiapine 100 mg PO BEDTIME 09/30/20 09/30/20 Previous Rx's Medication Instructions Recorded Juluca 1 tab PO DAILY 30 Days #30 tab 08/20/20 Prezcobix 1 tab PO DAILY 30 Days #30 tab 08/20/20 acetaminophen 650 mg PO Q6H PRN 10 Days #30 tab 08/20/20 clonidine HCl 0.1 mg PO TID PRN 15 Days #42 tab 08/20/20 cyclobenzaprine 10 mg PO TID PRN 15 Days tab 08/20/20 escitalopram oxalate 20 mg PO DAILY 30 Days #30 tab 08/20/20 hydroxyzine HCl 75 mg PO TID 30 Days #270 tab 08/20/20 ibuprofen 600 mg PO Q6H PRN #30 tab 08/20/20 nicotine 21 mg TRANSDERMAL DAILY 30 Days ea 08/20/20 trazodone 50 mg PO BEDTIME PRN #30 tab 08/20/20 Allergies Allergy/AdvReac Type Severity Reaction Status Date / Time amoxicillin Allergy Unknown Verified 08/10/20 20:07 Review of Systems 2 Review of Systems: Constitutional : No Fever, No Chills ENT/Mouth : No Ear Pain, No Nasal Congestion, No sore throat Eyes: No Eye Pain, No Swelling, No Redness Cardiovascular : No Chest Pain, No SOB Respiratory : No Cough, No Sputum, No Dyspnea Gastrointestinal : No Nausea, No Vomiting, No Diarrhea, No Hematochezia, No Melena Genitourinary : No Dysuria, No Urinary Frequency, No Hematuria Musculoskeletal : No Myalgias Skin : No Skin Lesions, No rash Neuro : No Weakness, No Numbness, No Paresthesias, No Dizziness, No Headache Psych : positive Anxiety, positive Depression, positive SI no HI Heme/Lymph: No Lymphadenopathy Endocrine : No Polyuria, No Polydipsia All other systems reviewed and are negative [facility] Past Medical History Attestation statement: The following information was validated with the patient. Medical History HIV (human immunodeficiency virus infection) IV drug abuse MDD (major depressive disorder), recurrent episode, severe Social History Social History Household Members: Unknown / Unable to assess Housing: Homeless Do you presently have visiting nurse or other home services: No Unable to assess alcohol history related to: Unknown Alcohol intake: current Alcohol intake frequency: 3 or more drinks per day Alcohol type: hard liquor Patient Tobacco Use Status: Current everyday Tobacco user Smoked in Last 30 Days: Yes Second Hand Smoke Exposure: Yes Use of substances other than those prescribed or required for medical reasons: Yes Substance Use Type: Opiates Advance Directives: No Advance Directives Information Provided: Yes Patient : No service: No Sexual orientation: Did not discuss Physical Exam Vital Signs: Vital Signs: Last Vital Signs Temp 98.2 F 09/30/20 12:33 Pulse 77 09/30/20 12:33 Resp 16 09/30/20 12:33 BP 122/60 09/30/20 12:33 Pulse Ox 98 09/30/20 12:33 Body Mass Index 30.0 Appearance: Alert. Oriented X3. No acute distress. Eyes: Pupils equal, round and reactive to light. ENT: Pharynx normal. Neck: Normal inspection. Neck supple. CVS: Normal heart rate and rhythm. Pulses normal. Respiratory: No respiratory distress. Breath sounds normal. Abdomen: Soft and nontender. Skin: Skin warm and dry. Normal skin color. Normal skin turgor. Extremities: No lower extremity edema. No calf ttp Neuro: Oriented X 3. No motor deficit. No sensory deficit. Psych: pos SI, no AH/VH, no HI Course Course Course Narrative: Physician observation started at 1pm Patient placed in physician observation because the patient needed more time for evaluation by the [facility] team to assess for the need for inpatient psychiatry. At the time observation was started the patient's vitals were stable, patient is alert and oriented , Neuro: nonfocal, CV RRR, Lungs clear signed out pending BHN input previously elevated LFTs in the past MDM - Psych MDM Narrative Medical decision making narrative: 30 yo female with hx of substance abuse and depression will order labs, N consult, placed on section 12 until evaluation given her plan to overdose Lab Data Result diagrams: 09/30/20 13:02 09/30/20 13:02 Labs: Lab Results 09/30/20 09/30/20 09/30/20 Range/Units 13:02 13:02 13:02 WBC 10.7 (4.8-10.8) X10*3/uL RBC 4.21 (4.20-5.50) X10*6/uL Hgb 11.2 L (12.0-16.0) g/dl Hct 34.5 L (37-47) % MCV 81.9 (80-98) fL MCH 26.6 L (27.0-33.0) pg MCHC 32.5 (31.0-35.0) g/dl RDW 13.1 (11.0-16.0) % Plt Count 210 (160-400) X10*3/uL MPV 9.4 (9.4-12.3) fL Immature Gran % (Auto) 0.2 (0.0-0.4) % Neut % (Auto) 38.3 L (45-73) % Lymph % (Auto) 54.9 H (20-40) % Sheridan % (Auto) 4.9 (2-11) % Eos % (Auto) 1.5 (0-4) % Baso % (Auto) 0.2 (0-2) % Lymph # (Auto) 5.9 H (1.2-4.9) X10*3/uL Sheridan # (Auto) 0.5 (0.1-1.2) X10*3/uL Eos # (Auto) 0.2 (0.0-0.4) X10*3/uL Baso # (Auto) 0.0 (0.0-0.2) X10*3/uL Abs Immat Gran (auto) 0.02 (0.00-0.03) X10*3/uL Absolute Neuts (auto) 4.1 (2.0-8.3) X10*3/uL Absolute Nucleated RBC 0.000 (0.0-0.012) X10*3/uL Nucleated RBC % (auto) 0.0 (0.0-0.2) /100WBC Smear Tech's Comments VERIFIED Sodium 136 (135-145) mmol/L Potassium 4.3 (3.3-5.1) mmol/L Chloride 103 (96-108) mmol/L Carbon Dioxide 25 (22-29) mmol/L Anion Gap 12 (12-20) BUN 18 H D (9-16) mg/dL Creatinine 0.89 (0.5-1.4) mg/dL Estim Creat Clear Calc 79.8 Estimated GFR > 60 Random Glucose 113 (60-115) mg/dL Calcium 9.5 D (8.4-10.2) mg/dL Total Bilirubin 0.6 (0.0-1.0) mg/dL Direct Bilirubin 0.3 (0.0-0.5) mg/dL AST 56 H (5-31) U/L ALT 81 H (0-31) U/L Alkaline Phosphatase 186 H D (39-117) U/L Total Protein 8.2 H (6.5-8.0) g/dL Albumin 4.4 D (3.5-5.0) g/dL Urine Test (NEGATIVE) COVID-19 (TIMUR) Negative (Negative) COVID-19 Clin Com See Note 09/30/20 Range/Units 13:47 WBC (4.8-10.8) X10*3/uL RBC (4.20-5.50) X10*6/uL Hgb (12.0-16.0) g/dl Hct (37-47) % MCV (80-98) fL MCH (27.0-33.0) pg MCHC (31.0-35.0) g/dl RDW (11.0-16.0) % Plt Count (160-400) X10*3/uL MPV (9.4-12.3) fL Immature Gran % (Auto) (0.0-0.4) % Neut % (Auto) (45-73) % Lymph % (Auto) (20-40) % Sheridan % (Auto) (2-11) % Eos % (Auto) (0-4) % Baso % (Auto) (0-2) % Lymph # (Auto) (1.2-4.9) X10*3/uL Sheridan # (Auto) (0.1-1.2) X10*3/uL Eos # (Auto) (0.0-0.4) X10*3/uL Baso # (Auto) (0.0-0.2) X10*3/uL Abs Immat Gran (auto) (0.00-0.03) X10*3/uL Absolute Neuts (auto) (2.0-8.3) X10*3/uL Absolute Nucleated RBC (0.0-0.012) X10*3/uL Nucleated RBC % (auto) (0.0-0.2) /100WBC Smear Tech's Comments Sodium (135-145) mmol/L Potassium (3.3-5.1) mmol/L Chloride (96-108) mmol/L Carbon Dioxide (22-29) mmol/L Anion Gap (12-20) BUN (9-16) mg/dL Creatinine (0.5-1.4) mg/dL Estim Creat Clear Calc Estimated GFR Random Glucose (60-115) mg/dL Calcium (8.4-10.2) mg/dL Total Bilirubin (0.0-1.0) mg/dL Direct Bilirubin (0.0-0.5) mg/dL AST (5-31) U/L ALT (0-31) U/L Alkaline Phosphatase (39-117) U/L Total Protein (6.5-8.0) g/dL Albumin (3.5-5.0) g/dL Urine Test NEGATIVE (NEGATIVE) COVID-19 (TIMUR) (Negative) COVID-19 Clin Com Discharge Plan Discharge Clinical Impression: Opioid use disorder, severe, dependence Depression Qualifiers: Depression Type: major depressive disorder Major depression recurrence: recurrent Active/Remission status: currently active Major depression episode severity: moderate Qualified Code(s): F33.1 - Major depressive disorder, recurrent, moderate Prescriptions: No Action cyclobenzaprine 10 mg Tablet 10 mg PO TID PRN (Reason: Muscle Spasm) 15 Days RF: 0 clonidine HCl 0.1 mg Tablet 0.1 mg PO TID PRN (Reason: Anxiety/Restlessness) 15 Days Qty: 42 RF: 0 nicotine 21 mg/24 hr Patch 24 Hour 21 mg transdermal DAILY 30 Days RF: 0 escitalopram oxalate 20 mg Tablet 20 mg PO DAILY 30 Days Qty: 30 RF: 0 acetaminophen 325 mg Tablet 650 mg PO Q6H PRN (Reason: Headache/Pain Mild Scale (1-3)) 10 Days Qty: 30 RF: 0 hydroxyzine HCl 25 mg Tablet 75 mg PO TID 30 Days Qty: 270 RF: 0 ibuprofen 600 mg Tablet 600 mg PO Q6H PRN (Reason: Fever, headache, mild pain) Qty: 30 RF: 0 trazodone 50 mg Tablet 50 mg PO BEDTIME PRN (Reason: Insomnia) Qty: 30 RF: 0 Prezcobix 800-150 mg-mg tablet 1 tab PO DAILY 30 Days Qty: 30 RF: 0 Juluca 50-25 mg tablet 1 tab PO DAILY 30 Days Qty: 30 RF: 0 quetiapine 50 mg tablet 100 mg PO BEDTIME RF: 0 bupropion HCl [Wellbutrin XL] 150 mg tablet extended release 24 hr 150 mg PO DAILY RF: 0
[2020-09-30 12:33] VITALS: BP 122/60; PULSE 77; RESP 16; TEMP 36.8; O2SAT 98
[2020-09-30 13:10] LABS: Basophils Percent Auto 0.2 % (0-2); Eosinophils Absolute Auto 0.2 X10*3/uL (0.0-0.4); Eosinophils Percent Auto 1.5 % (0-4); Hematocrit 34.5 % (37-47); Hemoglobin 11.2 g/dl (12.0-16.0); Imm Gran Abs Auto 0.02 X10*3/uL (0.00-0.03); Imm Gran Pct Auto 0.2 % (0.0-0.4); Lymphocytes Absolute Auto 5.9 X10*3/uL (1.2-4.9); Lymphocytes Percent Auto 54.9 % (20-40); MANUAL DIFF FLAG SCAN; Mean Corpuscular HGB Conc 32.5 g/dl (31.0-35.0); Mean Corpuscular Hemoglobin 26.6 pg (27.0-33.0); Mean Corpuscular Volume 81.9 fL (80-98); Mean Platelet Volume 9.4 fL (9.4-12.3); Monocytes Absolute Auto 0.5 X10*3/uL (0.1-1.2); Monocytes Percent Auto 4.9 % (2-11); Neutrophils Absolute Auto 4.1 X10*3/uL (2.0-8.3); Neutrophils Percent Auto 38.3 % (45-73); Platelet Count 210 X10*3/uL (160-400); Red Blood Count 4.21 X10*6/uL (4.20-5.50); Red Cell Distribution Width 13.1 % (11.0-16.0); SCAN SMEAR FLAG 1; White Blood Count 10.7 X10*3/uL (4.8-10.8)
[2020-09-30 13:23] LABS: COVID-19 Test Negative (Negative); IDNOW Serial# 9DD0AD1C
[2020-09-30 13:30] LABS: Alanine Aminotransferase 81 U/L (0-31); Albumin Level 4.4 g/dL (3.5-5.0); Alkaline Phosphatase 186 U/L (39-117); Anion Gap 12 (12-20); Aspartate Amino Transferase 56 U/L (5-31); Bilirubin Direct 0.3 mg/dL (0.0-0.5); Bilirubin Total 0.6 mg/dL (0.0-1.0); Blood Urea Nitrogen 18 mg/dL (9-16); Calcium 9.5 mg/dL (8.4-10.2); Carbon Dioxide 25 mmol/L (22-29); Chloride 103 mmol/L (96-108); Creatinine Clr Calc Pharmacy 79.8; Estimated Glomerular Filt Rate > 60; Glucose Random 113 mg/dL (60-115); Potassium 4.3 mmol/L (3.3-5.1); Sodium 136 mmol/L (135-145); Total Protein 8.2 g/dL (6.5-8.0)
[2020-09-30 13:44] LABS: SLIDE REVIEW VERIFIED
[2020-09-30 14:06] LABS: UPreg QC Valid YES; Urine Pregnancy NEGATIVE (NEGATIVE)
[2020-09-30 16:40] LABS: Amphetamine Screen Urine Not Detected (Not Detect); Barbiturates, Urine Not Detected (Not Detect); Benzodiazepines Screen Urine Not Detected (Not Detect); Cannabinoid Screen Urine Not Detected (Not Detect); Cocaine Screen Urine POSITIVE (Not Detect); Opiate Screen Urine Not Detected (Not Detect); Phencyclidine Screen Urine Not Detected (Not Detect)
[2020-09-30] MEDS: hydrOXYzine HCL 25 MG TABLET 75 MG PO (20:37)
[2020-09-30] MEDS: traZODone HCL 50 MG TABLET PO (20:37)
[2020-09-30] MEDS: QUEtiapine Fumarate 100 MG TABLET PO (20:37)
[2020-09-30] MEDS: Nicotine 21 MG PATCH.TD24 TRANSDERMA (20:41)
[2020-09-30 22:35] VITALS: BP 103/62; PULSE 70; TEMP 36; O2SAT 96
[2020-09-30 23:45] VITALS: BP 106/70; PULSE 70; RESP 16; TEMP 36.3; O2SAT 98
--- NOTE | 2020-10-01 | ECG_ITS ---
Test Reason : MED CLEARANCE Blood Pressure : / mmHG Vent. Rate : 071 BPM Atrial Rate : 071 BPM P-R Int : 154 ms QRS Dur : 084 ms QT Int : 428 ms P-R-T Axes : 050 074 012 degrees QTc Int : 465 ms Normal sinus rhythm T wave abnormality, consider anterior ischemia Prolonged QT Abnormal ECG When compared with ECG of 14-AUG-2020 13:49, Nonspecific T wave abnormality has replaced inverted T waves in Lateral leads Referred By: Cameron Birmingham Electronically Signed By:MARYR BERMAN
[2020-10-01 04:04] VITALS: BP 108/66; PULSE 66; RESP 16; TEMP 36.6; O2SAT 97
--- NOTE | 2020-10-01 06:35 | PC.NURSE ---
Patient slept through the night, patient briefly up and got assessed by N, patient was fully engaged, disposition is section 12 inpatient bed search, patient is compliant with her medication, no distress observed/reported, will continue to monitor.
[2020-10-01 08:37] VITALS: BP 103/52; PULSE 72; RESP 18; TEMP 36.3; O2SAT 95
[2020-10-01] MEDS: buPROPion HCl XL 150 MG TAB.ER.24H PO (09:33)
[2020-10-01] MEDS: Nicotine 21 MG PATCH.TD24 TRANSDERMA (09:33)
[2020-10-01] MEDS: hydrOXYzine HCL 25 MG TABLET 75 MG PO ×3 (09:33→20:26)
[2020-10-01] MEDS: Escitalopram Oxalate 20 MG TABLET PO (09:33)
[2020-10-01 09:42] VITALS: BP 103/52; PULSE 72
[2020-10-01] MEDS: cloNIDine HCL 0.1 MG TABLET PO (09:42)
[2020-10-01] MEDS: Cyclobenzaprine HCl 10 MG TABLET PO (09:42)
--- NOTE | 2020-10-01 10:43 | PC.NURSE ---
pt sleeping in room. respirations even/unlabored bilaterally. no sign of distress. Will continue to monitor. Inpatient bed search.
[2020-10-01 16:25] VITALS: BP 120/82; PULSE 86; TEMP 36.1
--- NOTE | 2020-10-01 16:27 | PC.NURSE ---
Pt transferred up to M5, Just prior to transfer pt stated to nurse that she is on methadone 57mg and recieves methadone through [facility]. Attempted to call [facility] at for dose verification but office is closed at this time.
--- NOTE | 2020-10-01 19:52 | PC.ADMIT ---
Pt is a 30 year old female who presents to from [facility] at approx 16:20 on a cv status. Pt is covid - Utox + for coacine. EKG: NS with prolonged QT waves. Pt allowed for a set of vitals to be taken. Ate dinner. Pt did not not sign legal forms, and wanted to do the admission process in the morning. Pt is laying down in bed. Pt given hydroxyzine 75mg for anxiety. Pt admitted to for SI with plan to overdose on fentany. Poor impulse control. Pt had two prior attempts at suicide via overdose.
[2020-10-01] MEDS: QUEtiapine Fumarate 100 MG TABLET PO (20:26)
[2020-10-02 06:00] VITALS: BP 111/72; PULSE 66; RESP 18; TEMP 36.4; O2SAT 96
[2020-10-02] MEDS: hydrOXYzine HCL 25 MG TABLET 75 MG PO ×2 (08:57→14:08)
[2020-10-02] MEDS: buPROPion HCl XL 150 MG TAB.ER.24H PO (08:57)
[2020-10-02] MEDS: Escitalopram Oxalate 20 MG TABLET PO (08:57)
[2020-10-02] MEDS: Nicotine 21 MG PATCH.TD24 TRANSDERMA (08:58)
[2020-10-02 10:25] VITALS: BP 131/69; PULSE 93
[2020-10-02] MEDS: Ibuprofen 600 MG TABLET PO (10:25)
[2020-10-02] MEDS: Cyclobenzaprine HCl 10 MG TABLET PO (10:25)
[2020-10-02] MEDS: cloNIDine HCL 0.1 MG TABLET PO (10:25)
[2020-10-02 14:00] VITALS: BP 122/74; PULSE 84
--- NOTE | 2020-10-02 14:55 | HO.PSYADMNOT ---
HPI Chief Complaint: CRISIS Sources of Information: patient interviewed, chart reviewed and crisis/core team assessment reviewed HPI Subjective Notes: Conditional Voluntary Narrative: Ms. Neil is a 30 year-old woman with hx of MDD, opioid and cocaine use disorder who is known to through one previous admission with similar presentation back in July 2020. This time pt self presented to [facility] ED reporting increase depression, feeling on edge, overwhelmed, suicidal ideation with plan to OD on fentanyl. In the ED MS. Neil was positive for cocaine. She reports using fentanyl but this was not tested in ED. On the unit, Ms. Neil reports that she has been feeling depressed since discharged from unit. She reports not using substance only until the day she self presented to ED. She reported she had altercation with peer at sober house and felt hopeless/helpless and left and relapsed. He endorses feelings of hopeless/helpless. She reports that although she has been able to get closer with her family as she works on her recovery she does not find anything in life as joyful. She reports constantly feeling on edge, easily becoming agitated when trigger, having difficulty controlling her reactions when triggered by others. She reports fair sleep and appetite. She reports recently started wellbutrin, which thinks may be more helpful for lexapro, which she has been on for several months now. She reports clonidine, atarax combination not helpful for anxiety. She is also on baclofen for muscle spasms. On the unit she conitnues to endorse suicidal thoughts but denies any plan or intent to hurt herself. No hx of VH/AH. Past Psychiatric History: Inpatient: 07/2020 (depression/SI) OP: [facility] Suicide attempts: pt denies Past trials: lexapro, wellbutrin, seroquel, clonidine and vistaril Medical Evaluation Reviewed: Yes [facility] Medical History (Updated 10/02/20 @ 15:08 by Migdalia Campbell) HIV (human immunodeficiency virus infection) IV drug abuse MDD (major depressive disorder), recurrent episode, severe Diagnostics Vital Signs (24Hr): Vital Signs - 24 hr 10/01/20 16:25 10/02/20 06:00 10/02/20 10:25 Temperature 96.9 F 97.5 F Pulse Rate 86 66 93 Respiratory Rate 18 Blood Pressure 120/82 111/72 131/69 Pulse Oximetry 96 10/02/20 14:00 Temperature Pulse Rate 84 Respiratory Rate Blood Pressure 122/74 Pulse Oximetry Body Mass Index 30.0 Labs Results: 09/30/20 13:02 09/30/20 13:02 Labs: Laboratory Results - last 48 hr 09/30/20 13:47 Urine Opiates Screen Not Detected Ur Barbiturates Screen Not Detected Ur Phencyclidine Scrn Not Detected Ur Amphetamines Screen Not Detected U Benzodiazepines Scrn Not Detected Urine Cocaine Screen POSITIVE H U Marijuana (THC) Screen Not Detected Meds/Allergies Meds Home Medications Bupropion HCl (Bupropion Hcl Xl 150 Mg Tab.Er.24h) 150 mg PO DAILY [facility] Last Admin: 10/02/20 08:57 Dose: 150 mg Documented by: Clonidine HCl (Clonidine Hcl 0.1 Mg Tablet) 0.1 mg PO TID PRN; Protocol PRN Reason: Anxiety/Restlessness Last Admin: 10/02/20 10:25 Dose: 0.1 mg Documented by: Cyclobenzaprine HCl (Cyclobenzaprine Hcl 10 Mg Tablet) 10 mg PO TID PRN PRN Reason: Muscle Spasm Last Admin: 10/02/20 10:25 Dose: 10 mg Documented by: Escitalopram Oxalate (Escitalopram Oxalate 10 Mg Tablet) 10 mg PO DAILY [facility] Ibuprofen (Ibuprofen 600 Mg Tablet) 600 mg PO Q6H PRN PRN Reason: Fever, headache, mild pain Last Admin: 10/02/20 10:25 Dose: 600 mg Documented by: Methadone HCl (Methadone Hcl 1 Mg/0.1 Ml Oral.Conc) 60 mg PO DAILY [facility] Last Admin: 10/02/20 08:58 Dose: 60 mg Documented by: Nicotine (Nicotine 21 Mg Patch.Td24) 21 mg TRANSDERMA DAILY [facility] Last Admin: 10/02/20 08:58 Dose: 21 mg Documented by: Non-Formulary Medication (Darunavir-Cobicistat [Prezcobix]) 1 tab PO DAILY [facility] Non-Formulary Medication (Dolutegravir-Rilpivirine [Juluca]) 1 tab PO DAILY [facility] Quetiapine Fumarate (Quetiapine Fumarate 100 Mg Tablet) 100 mg PO BEDTIME [facility] Last Admin: 10/01/20 20:26 Dose: 100 mg Documented by: Quetiapine Fumarate (Quetiapine Fumarate 25 Mg Tablet) 25 mg PO TID [facility] Trazodone HCl (Trazodone Hcl 50 Mg Tablet) 50 mg PO BEDTIME PRN PRN Reason: Insomnia Last Admin: 09/30/20 20:37 Dose: 50 mg Documented by: Allergies Allergies Allergy/AdvReac Type Severity Reaction Status Date / Time amoxicillin Allergy Unknown Verified 08/10/20 20:07 Mental Status Exam Mental Status Exam Narrative: Appearance: thin, casually dressed, fair hygiene, in NAD Behavior: calm, cooperative Psychomotor: no agitation or retardation noted Speech: clear, normal rate/rhythm/volume, spontaneous TP: linear TC: no signs of psychosis, hopeless Mood: anxious/depressed Affect:congruent, blunted SI:denies HI:denies AH/VH:none Delusions:none Insight/judgment:fair x 2. Memory/cog: alert, oriented x 3. grossly intact to conversational testing. Assessment & Plan Assessment & Plan (1) Cocaine use disorder, severe, dependence: Status: Acute Code(s): F14.20 - Cocaine dependence, uncomplicated (2) Opioid use disorder, severe, dependence: Status: Acute Code(s): F11.20 - Opioid dependence, uncomplicated Assessment and Plan: 1. continue Methadone 2. Plan to return to residential substance use program through [facility] (3) MDD (major depressive disorder), recurrent episode, severe: Status: Acute Code(s): F33.2 - Major depressive disorder, recurrent severe without psychotic features Assessment and Plan: 1. Cross titrate lexapro to Effexor. 2. d/c atarax due to lack of efficacy 3. Increase seroquel to target mood, anxiety- Start Seroquel 25mg po TID and seroquel 100mg po qhs. 4. May consider mood stabilizer as pt reports impulsivity, irritability, ongoing SI- even after 3 months of sobriety. Reason for continued inpatient stay Substantial Risk for: harm to self
[2020-10-02] MEDS: QUEtiapine Fumarate 25 MG TABLET PO ×2 (15:11→21:19)
[2020-10-02] MEDS: QUEtiapine Fumarate 100 MG TABLET PO (21:19)
[2020-10-02 22:00] VITALS: BP 102/55; PULSE 70; TEMP 36.3
[2020-10-03 07:00] VITALS: BMI 29.6
[2020-10-03] MEDS: QUEtiapine Fumarate 25 MG TABLET PO ×3 (08:49→20:09)
[2020-10-03] MEDS: buPROPion HCl XL 150 MG TAB.ER.24H PO (08:49)
[2020-10-03] MEDS: Nicotine 21 MG PATCH.TD24 TRANSDERMA (08:49)
[2020-10-03] MEDS: Escitalopram Oxalate 10 MG TABLET PO (08:49)
[2020-10-03 11:30] VITALS: BP 113/70; PULSE 102; RESP 16; TEMP 36.1; O2SAT 99
--- NOTE | 2020-10-03 13:41 | P.PNPSI_ITS ---
Subjective Subjective Date of Service: 10/03/20 Reason For Visit: CRISIS Subjective Notes: Conditional Voluntary Interim History: Yina continues to endorse depressed mood, anhedonia, self negative thoughts of not being worth it, hopeless, passive suicidal ideation but denies any plan or intent. She has been mostly in bed. She reports fair sleep. She is taking medications as prescribed. No Side effects noted or reported. Medication Compliance: Yes Side effects from medications: No Attending Groups: Intermittent Review of Systems Cardiovascular: Denies chest pain and Denies dyspnea Respiratory: Denies chest congestion, Denies cough, Denies hemoptysis and Denies dyspnea Gastrointestinal: Denies constipation and Denies diarrhea Mental Status Exam Mental Status Exam Narrative: Appearance: thin, casually dressed, fair hygiene, in NAD Behavior: calm, cooperative Psychomotor: no agitation or retardation noted Speech: clear, normal rate/rhythm/volume, spontaneous TP: linear TC: no signs of psychosis, hopeless Mood: anxious/depressed Affect:congruent, blunted SI:denies HI:denies AH/VH:none Delusions:none Insight/judgment:fair x 2. Memory/cog: alert, oriented x 3. grossly intact to conversational testing. Diagnostics Vital Signs (24Hr): Vital Signs - 24 hr 10/02/20 14:00 10/02/20 22:00 10/03/20 11:30 Temperature 97.4 F 97.0 F Pulse Rate 84 70 102 H Respiratory Rate 16 Blood Pressure 122/74 102/55 L 113/70 Pulse Oximetry 99 Body Mass Index 29.6 Labs Results: 09/30/20 13:02 09/30/20 13:02 Medications Medications Current Medications Generic Name Dose Route Start Last Admin Trade Name Lalo PRN Reason Stop Dose Admin Bupropion HCl 150 mg 10/01/20 09:00 10/03/20 08:49 Bupropion Hcl Xl 150 Mg Tab.Er.24h PO 150 mg DAILY [facility] Administration Clonidine HCl 0.1 mg 10/03/20 15:00 Clonidine Hcl 0.1 Mg Tablet PO TID [facility] Protocol Cyclobenzaprine HCl 10 mg 09/30/20 18:08 10/02/20 10:25 Cyclobenzaprine Hcl 10 Mg Tablet PO 10 mg TID PRN Administration Muscle Spasm Escitalopram Oxalate 10 mg 10/03/20 09:00 10/03/20 08:49 Escitalopram Oxalate 10 Mg Tablet PO 10 mg DAILY [facility] Administration Ibuprofen 600 mg 09/30/20 18:08 10/02/20 10:25 Ibuprofen 600 Mg Tablet PO 600 mg Q6H PRN Administration Fever, headache, mild pain Methadone HCl 60 mg 10/02/20 09:00 10/03/20 08:49 Methadone Hcl 1 Mg/0.1 Ml Oral.Conc PO 60 mg DAILY [facility] Administration Nicotine 21 mg 09/30/20 18:15 10/03/20 08:49 Nicotine 21 Mg Patch.Td24 TRANSDERMA 21 mg DAILY [facility] Administration Non-Formulary Medication 1 tab 10/01/20 09:00 Darunavir-Cobicistat [Prezcobix] PO DAILY [facility] Non-Formulary Medication 1 tab 10/01/20 09:00 Dolutegravir-Rilpivirine [Juluca] PO DAILY [facility] Quetiapine Fumarate 100 mg 09/30/20 21:00 10/02/20 21:19 Quetiapine Fumarate 100 Mg Tablet PO 100 mg BEDTIME [facility] Administration Quetiapine Fumarate 25 mg 10/02/20 14:55 10/03/20 08:49 Quetiapine Fumarate 25 Mg Tablet PO 25 mg TID [facility] Administration Trazodone HCl 50 mg 09/30/20 18:08 09/30/20 20:37 Trazodone Hcl 50 Mg Tablet PO 50 mg BEDTIME PRN Administration Insomnia Allergies Allergies Allergy/AdvReac Type Severity Reaction Status Date / Time amoxicillin Allergy Unknown Verified 08/10/20 20:07 Assessment & Plan Assessment & Plan (1) Cocaine use disorder, severe, dependence: Status: Acute Code(s): F14.20 - Cocaine dependence, uncomplicated Assessment and Plan: return to residential substance use treatment program (2) Opioid use disorder, severe, dependence: Status: Acute Code(s): F11.20 - Opioid dependence, uncomplicated Assessment and Plan: 1. continue Methadone 2. Plan to return to residential substance use program through [facility] (3) MDD (major depressive disorder), recurrent episode, severe: Status: Acute Code(s): F33.2 - Major depressive disorder, recurrent severe without psychotic features Assessment and Plan: 1. Cross titrate lexapro to Effexor. 2. d/c atarax due to lack of efficacy 3. Increase seroquel to target mood, anxiety- Start Seroquel 25mg po TID and seroquel 100mg po qhs. 4. May consider mood stabilizer (lithium) as pt reports impulsivity, irritability, ongoing SI- even after 3 months of sobriety. Greater than 50% of the session was spent on counseling and/or coordination of care Reason for contiued inpatient stay Substantial Risk for: harm to self
[2020-10-03 14:17] VITALS: BP 113/67; PULSE 91
[2020-10-03] MEDS: cloNIDine HCL 0.1 MG TABLET PO ×2 (14:17→20:10)
[2020-10-03] MEDS: Cyclobenzaprine HCl 10 MG TABLET PO (14:17)
[2020-10-03] MEDS: QUEtiapine Fumarate 100 MG TABLET PO (20:09)
[2020-10-03 20:10] VITALS: BP 126/59; PULSE 64
[2020-10-03 21:21] VITALS: BP 126/59; PULSE 64; TEMP 37.1
[2020-10-04 08:46] VITALS: BP 132/78; PULSE 62
[2020-10-04] MEDS: cloNIDine HCL 0.1 MG TABLET PO ×3 (08:46→20:12)
[2020-10-04] MEDS: QUEtiapine Fumarate 25 MG TABLET PO ×2 (08:46→14:38)
[2020-10-04] MEDS: Escitalopram Oxalate 10 MG TABLET PO (08:46)
[2020-10-04] MEDS: buPROPion HCl XL 150 MG TAB.ER.24H PO (08:46)
[2020-10-04] MEDS: Nicotine 21 MG PATCH.TD24 TRANSDERMA (08:48)
[2020-10-04] MEDS: Cyclobenzaprine HCl 10 MG TABLET PO ×2 (11:25→20:16)
[2020-10-04 14:38] VITALS: BP 121/65; PULSE 85
--- NOTE | 2020-10-04 16:24 | HO.PSYCHPN ---
Subjective Subjective Date of Service: 10/04/20 Reason For Visit: CRISIS Interim History: Yina continues to endorse depressed mood, anhedonia, self negative thoughts of not being worth it, hopeless, passive suicidal ideation but denies any plan or intent. She has been mostly in bed. She reports fair sleep. She is taking medications as prescribed. No Side effects noted or reported. She reports feeling anxious, dizzy, flickering lights briefly. She has mild bilat cogwheel- ? if related to seroquel or baclofen. She reports feeling too sedating with low dose of seroquel during the day for anxiety. Review of Systems Review of Systems Constitutional : No Fever, No Chills ENT/Mouth : No Ear Pain, No Nasal Congestion, No sore throat Eyes: No Eye Pain, No Swelling, No Redness Cardiovascular : No Chest Pain, No SOB Respiratory : No Cough, No Sputum, No Dyspnea Gastrointestinal : No Nausea, No Vomiting, No Diarrhea, No Hematochezia, No Melena Genitourinary : No Dysuria, No Urinary Frequency, No Hematuria Musculoskeletal : No Myalgias Skin : No Skin Lesions, No rash Neuro : No Weakness, No Numbness, No Paresthesias, No Dizziness, No Headache Psych : positive Anxiety, positive Depression, positive SI no HI Heme/Lymph: No Lymphadenopathy Endocrine : No Polyuria, No Polydipsia All other systems reviewed and are negative Cardiovascular: Denies chest pain and Denies dyspnea Respiratory: Denies chest congestion, Denies cough, Denies hemoptysis and Denies dyspnea Gastrointestinal: Denies constipation and Denies diarrhea Mental Status Exam Mental Status Exam Narrative: Appearance: thin, casually dressed, fair hygiene, in NAD Behavior: calm, cooperative Psychomotor: no agitation or retardation noted Speech: clear, normal rate/rhythm/volume, spontaneous TP: linear TC: no signs of psychosis, hopeless Mood: anxious/depressed Affect:congruent, blunted SI:denies HI:denies AH/VH:none Delusions:none Insight/judgment:fair x 2. Memory/cog: alert, oriented x 3. grossly intact to conversational testing. Diagnostics Vital Signs (24Hr): Vital Signs - 24 hr 10/03/20 20:10 10/03/20 21:21 10/04/20 08:46 Temperature 98.7 F Pulse Rate 64 64 62 Blood Pressure 126/59 L 126/59 L 132/78 07/09/21 14:38 Temperature Pulse Rate 85 Blood Pressure 121/65 Body Mass Index 29.6 Labs Results: 09/30/20 13:02 09/30/20 13:02 Medications Medications Current Medications Generic Name Dose Route Start Last Admin Trade Name Freq PRN Reason Stop Dose Admin Bupropion HCl 300 mg 10/05/20 09:00 Bupropion Hcl Xl 300 Mg Tab.Er.24h PO DAILY [facility] Clonidine HCl 0.1 mg 10/03/20 15:00 10/04/20 14:38 Clonidine Hcl 0.1 Mg Tablet PO 0.1 mg TID [facility] Administration Protocol Cyclobenzaprine HCl 10 mg 09/30/20 18:08 10/04/20 11:25 Cyclobenzaprine Hcl 10 Mg Tablet PO 10 mg TID PRN Administration Muscle Spasm Escitalopram Oxalate 10 mg 10/03/20 09:00 10/04/20 08:46 Escitalopram Oxalate 10 Mg Tablet PO 10 mg DAILY [facility] Administration Ibuprofen 600 mg 09/30/20 18:08 10/02/20 10:25 Ibuprofen 600 Mg Tablet PO 600 mg Q6H PRN Administration Fever, headache, mild pain Methadone HCl 60 mg 10/02/20 09:00 10/04/20 08:46 Methadone Hcl 1 Mg/0.1 Ml Oral.Conc PO 60 mg DAILY [facility] Administration Nicotine 21 mg 09/30/20 18:15 10/04/20 08:48 Nicotine 21 Mg Patch.Td24 TRANSDERMA 21 mg DAILY [facility] Administration Patient Own 1 each 10/04/20 09:00 10/04/20 08:47 Medication ( PO 1 each Darunavir-Cobicistat DAILY [facility] Administration [Prezcobix] 800-150 Mg-Mg Tablet) Patient Own 1 each 10/04/20 09:00 10/04/20 08:47 Medication ( PO 1 each Dolutegravir- DAILY [facility] Administration Rilpivirine [Juluca] 50-25 Mg Tablet) Quetiapine Fumarate 100 mg 09/30/20 21:00 10/03/20 20:09 Quetiapine Fumarate 100 Mg Tablet PO 100 mg BEDTIME [facility] Administration Trazodone HCl 50 mg 09/30/20 18:08 09/30/20 20:37 Trazodone Hcl 50 Mg Tablet PO 50 mg BEDTIME PRN Administration Insomnia Allergies Allergies Allergy/AdvReac Type Severity Reaction Status Date / Time amoxicillin Allergy Unknown Verified 08/10/20 20:07 Assessment & Plan Assessment & Plan (1) Cocaine use disorder, severe, dependence: Status: Acute Code(s): F14.20 - Cocaine dependence, uncomplicated Assessment and Plan: return to residential substance use treatment program (2) Opioid use disorder, severe, dependence: Status: Acute Code(s): F11.20 - Opioid dependence, uncomplicated Assessment and Plan: 1. continue Methadone 2. Plan to return to residential substance use program through [facility] (3) MDD (major depressive disorder), recurrent episode, severe: Status: Acute Code(s): F33.2 - Major depressive disorder, recurrent severe without psychotic features Assessment and Plan: 1. increase wellbutrin as pt reports this antidepressant has been helpful for mood. 2. d/c atarax due to lack of efficacy 3. d/c Seroquel 25mg po TID due to daytime sedation, continue seroquel 100mg po qhs. 4. May consider mood stabilizer (lithium) as pt reports impulsivity, irritability, ongoing SI- even after 3 months of sobriety. Greater than 50% of the session was spent on counseling and/or coordination of care Reason for contiued inpatient stay Substantial Risk for: harm to self
[2020-10-04 20:12] VITALS: BP 115/58; PULSE 77
[2020-10-04] MEDS: QUEtiapine Fumarate 100 MG TABLET PO (20:12)
[2020-10-04] MEDS: traZODone HCL 50 MG TABLET PO (20:16)
[2020-10-04 21:18] VITALS: BP 115/58; PULSE 77; TEMP 36.4
[2020-10-05 09:04] LABS: Ammonia 31 umol/L (13-55)
[2020-10-05 09:13] LABS: Alanine Aminotransferase 91 U/L (0-31); Albumin Level 4.1 g/dL (3.5-5.0); Alkaline Phosphatase 158 U/L (39-117); Anion Gap 12 (12-20); Aspartate Amino Transferase 58 U/L (5-31); Bilirubin Total 0.5 mg/dL (0.0-1.0); Blood Urea Nitrogen 17 mg/dL (9-16); Calcium 9.8 mg/dL (8.4-10.2); Carbon Dioxide 26 mmol/L (22-29); Chloride 103 mmol/L (96-108); Creatinine Clr Calc Pharmacy 83.9; Estimated Glomerular Filt Rate > 60; Glucose Random 112 mg/dL (60-115); Potassium 4.5 mmol/L (3.3-5.1); Sodium 136 mmol/L (135-145); Total Protein 7.9 g/dL (6.5-8.0)
[2020-10-05 09:30] VITALS: BP 122/65; PULSE 88
[2020-10-05] MEDS: Escitalopram Oxalate 10 MG TABLET PO (09:30)
[2020-10-05] MEDS: Nicotine 21 MG PATCH.TD24 TRANSDERMA (09:30)
[2020-10-05] MEDS: buPROPion HCl XL 300 MG TAB.ER.24H PO (09:30)
[2020-10-05] MEDS: cloNIDine HCL 0.1 MG TABLET PO ×3 (09:30→20:08)
[2020-10-05] MEDS: Cyclobenzaprine HCl 10 MG TABLET PO ×2 (12:53→20:08)
[2020-10-05 14:35] VITALS: BP 112/78; PULSE 75
[2020-10-05 20:05] VITALS: BP 97/53; PULSE 686; TEMP 36.3
[2020-10-05] MEDS: QUEtiapine Fumarate 100 MG TABLET PO (20:07)
[2020-10-05 20:08] VITALS: BP 97/53; PULSE 68
[2020-10-05] MEDS: traZODone HCL 50 MG TABLET PO (20:09)
--- NOTE | 2020-10-05 20:32 | HO.PSYCHPN ---
Subjective Subjective Date of Service: 10/05/20 Reason For Visit: CRISIS Interim History: Patient seen, chart reviewed, case discussed with nursing staff Patient pleasant and cooperative on approach. She says she's ?OK right now? but that her mood can change throughout the day and that she's still struggling with depression. She denies any SI/HI. She also explained that her medications were recently changed so she's adjusting to them. She says she's sleeping too much due to her depression. No other complaints; pt has no requests. Mental Status Exam Mental Status Exam Narrative: Appearance: casually dressed, fair hygiene, in NAD Behavior: calm, cooperative Psychomotor: no agitation or retardation noted Speech: clear, normal rate/rhythm/volume, spontaneous TP: linear TC: no signs of psychosis; denies SI and HI Mood: right now OK but it changes throughout the day (anxious/depressed) Affect:congruent AH/VH:none Delusions:none Insight/judgment:fair Memory/cog: alert, oriented x 3. grossly intact to conversational testing. Diagnostics Vital Signs (24Hr): Vital Signs - 24 hr 10/04/20 21:18 10/05/20 09:30 10/05/20 14:35 Temperature 97.6 F Pulse Rate 77 88 75 Blood Pressure 115/58 L 122/65 112/78 10/05/20 20:08 Temperature Pulse Rate 68 Blood Pressure 97/53 L Body Mass Index 29.6 Labs Results: 09/30/20 13:02 10/05/20 08:43 Labs: Laboratory Results - last 48 hr 10/05/20 10/05/20 08:43 08:43 Sodium 136 Potassium 4.5 Chloride 103 Carbon Dioxide 26 Anion Gap 12 BUN 17 H Creatinine 0.84 Estim Creat Clear Calc 83.9 Estimated GFR > 60 Random Glucose 112 Calcium 9.8 Total Bilirubin 0.5 AST 58 H ALT 91 H Alkaline Phosphatase 158 H Ammonia 31 Total Protein 7.9 Albumin 4.1 Medications Medications Current Medications Generic Name Dose Route Start Last Admin Trade Name Freq PRN Reason Stop Dose Admin Bupropion HCl 300 mg 10/05/20 09:00 10/05/20 09:30 Bupropion Hcl Xl 300 Mg Tab.Er.24h PO 300 mg DAILY [facility] Administration Clonidine HCl 0.1 mg 10/03/20 15:00 10/05/20 20:08 Clonidine Hcl 0.1 Mg Tablet PO 0.1 mg TID [facility] Administration Protocol Cyclobenzaprine HCl 10 mg 09/30/20 18:08 10/05/20 20:08 Cyclobenzaprine Hcl 10 Mg Tablet PO 10 mg TID PRN Administration Muscle Spasm Escitalopram Oxalate 10 mg 10/03/20 09:00 10/05/20 09:30 Escitalopram Oxalate 10 Mg Tablet PO 10 mg DAILY [facility] Administration Ibuprofen 600 mg 09/30/20 18:08 10/02/20 10:25 Ibuprofen 600 Mg Tablet PO 600 mg Q6H PRN Administration Fever, headache, mild pain Methadone HCl 60 mg 10/02/20 09:00 10/05/20 09:29 Methadone Hcl 1 Mg/0.1 Ml Oral.Conc PO 60 mg DAILY [facility] Administration Nicotine 21 mg 09/30/20 18:15 10/05/20 09:30 Nicotine 21 Mg Patch.Td24 TRANSDERMA 21 mg DAILY [facility] Administration Patient Own 1 each 10/04/20 09:00 10/05/20 09:30 Medication ( PO 1 each Darunavir-Cobicistat DAILY [facility] Administration [Prezcobix] 800-150 Mg-Mg Tablet) Patient Own 1 each 10/04/20 09:00 10/05/20 09:30 Medication ( PO 1 each Dolutegravir- DAILY [facility] Administration Rilpivirine [Juluca] 50-25 Mg Tablet) Quetiapine Fumarate 100 mg 09/30/20 21:00 10/05/20 20:07 Quetiapine Fumarate 100 Mg Tablet PO 100 mg BEDTIME [facility] Administration Trazodone HCl 50 mg 09/30/20 18:08 10/05/20 20:09 Trazodone Hcl 50 Mg Tablet PO 50 mg BEDTIME PRN Administration Insomnia Allergies Allergies Allergy/AdvReac Type Severity Reaction Status Date / Time amoxicillin Allergy Unknown Verified 08/10/20 20:07 Assessment & Plan Assessment & Plan (1) Cocaine use disorder, severe, dependence: Status: Acute Code(s): F14.20 - Cocaine dependence, uncomplicated Assessment and Plan: return to residential substance use treatment program (2) Opioid use disorder, severe, dependence: Status: Acute Code(s): F11.20 - Opioid dependence, uncomplicated Assessment and Plan: 1. continue Methadone 2. 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 increase wellbutrin as pt reports this antidepressant has been helpful for mood. 2. d/c atarax due to lack of efficacy 3. d/c Seroquel 25mg po TID due to daytime sedation, continue seroquel 100mg po qhs. 4. May consider mood stabilizer (lithium) as pt reports impulsivity, irritability, ongoing SI- even after 3 months of sobriety. Greater than 50% of the session was spent on counseling and/or coordination of care Reason for contiued inpatient stay Substantial Risk for: rapid decompensation
[2020-10-06 09:09] VITALS: BP 110/68; PULSE 80
[2020-10-06] MEDS: buPROPion HCl XL 300 MG TAB.ER.24H PO (09:09)
[2020-10-06] MEDS: Nicotine 21 MG PATCH.TD24 TRANSDERMA (09:09)
[2020-10-06] MEDS: Escitalopram Oxalate 10 MG TABLET PO (09:09)
[2020-10-06] MEDS: cloNIDine HCL 0.1 MG TABLET PO ×3 (09:09→20:06)
[2020-10-06 15:00] VITALS: BP 111/69; PULSE 70
[2020-10-06] MEDS: Cyclobenzaprine HCl 10 MG TABLET PO (15:05)
--- NOTE | 2020-10-06 18:52 | P.PNPSI_ITS ---
Subjective Subjective Date of Service: 10/06/20 Reason For Visit: CRISIS Interim History: Patient seen, chart reviewed, case discussed with nursing staff Patient reports that she's ?a lot better. she says that she got up this morning on her own, took a shower without prompting, ate her food and has been out of bed most of the day. She also reports sleeping well. Patient says she's feeling motivated to work on herself. She denies any SI or HI and hopes she's approaching discharge Mental Status Exam Mental Status Exam Narrative: Appearance: casually dressed, fair hygiene, in NAD Behavior: calm, cooperative Psychomotor: no agitation or retardation noted Speech: clear, normal rate/rhythm/volume, spontaneous TP: linear TC: on working on her issues; denies SI and HI Mood: a lot better Affect:congruent, brighter AH/VH:none Delusions:none Insight/judgment:fair Memory/cog: alert, oriented x 3. grossly intact to conversational testing. Diagnostics Vital Signs (24Hr): Vital Signs - 24 hr 10/05/20 20:05 10/05/20 20:08 10/06/20 09:09 Temperature 97.3 F Pulse Rate 686 H 68 80 Blood Pressure 97/53 L 97/53 L 110/68 10/06/20 15:00 Temperature Pulse Rate 70 Blood Pressure 111/69 Body Mass Index 29.6 Labs Results: 09/30/20 13:02 10/05/20 08:43 Labs: Laboratory Results - last 48 hr 10/05/20 10/05/20 08:43 08:43 Sodium 136 Potassium 4.5 Chloride 103 Carbon Dioxide 26 Anion Gap 12 BUN 17 H Creatinine 0.84 Estim Creat Clear Calc 83.9 Estimated GFR > 60 Random Glucose 112 Calcium 9.8 Total Bilirubin 0.5 AST 58 H ALT 91 H Alkaline Phosphatase 158 H Ammonia 31 Total Protein 7.9 Albumin 4.1 Medications Medications Current Medications Generic Name Dose Route Start Last Admin Trade Name Lalo PRN Reason Stop Dose Admin Bupropion HCl 300 mg 10/05/20 09:00 10/06/20 09:09 Bupropion Hcl Xl 300 Mg Tab.Er.24h PO 300 mg DAILY AMANDA Administration Clonidine HCl 0.1 mg 10/03/20 15:00 10/06/20 15:00 Clonidine Hcl 0.1 Mg Tablet PO 0.1 mg TID AMANDA Administration Protocol Cyclobenzaprine HCl 10 mg 09/30/20 18:08 10/06/20 15:05 Cyclobenzaprine Hcl 10 Mg Tablet PO 10 mg TID PRN Administration Muscle Spasm Escitalopram Oxalate 10 mg 10/03/20 09:00 10/06/20 09:09 Escitalopram Oxalate 10 Mg Tablet PO 10 mg DAILY AMANDA Administration Ibuprofen 600 mg 09/30/20 18:08 10/02/20 10:25 Ibuprofen 600 Mg Tablet PO 600 mg Q6H PRN Administration Fever, headache, mild pain Methadone HCl 60 mg 10/02/20 09:00 10/06/20 09:09 Methadone Hcl 1 Mg/0.1 Ml Oral.Conc PO 60 mg DAILY AMANDA Administration Nicotine 21 mg 09/30/20 18:15 10/06/20 09:09 Nicotine 21 Mg Patch.Td24 TRANSDERMA 21 mg DAILY AMANDA Administration Patient Own 1 each 10/04/20 09:00 10/06/20 09:09 Medication ( PO 1 each Darunavir-Cobicistat DAILY AMANDA Administration [Prezcobix] 800-150 Mg-Mg Tablet) Patient Own 1 each 10/04/20 09:00 10/06/20 09:09 Medication ( PO 1 each Dolutegravir- DAILY AMANDA Administration Rilpivirine [Juluca] 50-25 Mg Tablet) Quetiapine Fumarate 100 mg 09/30/20 21:00 10/05/20 20:07 Quetiapine Fumarate 100 Mg Tablet PO 100 mg BEDTIME AMANDA Administration Trazodone HCl 50 mg 09/30/20 18:08 10/05/20 20:09 Trazodone Hcl 50 Mg Tablet PO 50 mg BEDTIME PRN Administration Insomnia Allergies Allergies Allergy/AdvReac Type Severity Reaction Status Date / Time amoxicillin Allergy Unknown Verified 08/10/20 20:07 Assessment & Plan Assessment & Plan (1) Cocaine use disorder, severe, dependence: Status: Acute Code(s): F14.20 - Cocaine dependence, uncomplicated Assessment and Plan: return to residential substance use treatment program (2) Opioid use disorder, severe, dependence: Status: Acute Code(s): F11.20 - Opioid dependence, uncomplicated Assessment and Plan: 1. continue Methadone 2. Plan to return to residential substance use program through [facility] (3) MDD (major depressive disorder), recurrent episode, severe: Status: Acute Code(s): F33.2 - Major depressive disorder, recurrent severe without psychotic features Assessment and Plan: marketing underwriter covering no changes to primary teams tx program 1. increase wellbutrin as pt reports this antidepressant has been helpful for mood. 2. d/c atarax due to lack of efficacy 3. d/c Seroquel 25mg po TID due to daytime sedation, continue seroquel 100mg po qhs. 4. May consider mood stabilizer (lithium) as pt reports impulsivity, irritability, ongoing SI- even after 3 months of sobriety. Greater than 50% of the session was spent on counseling and/or coordination of care Reason for contiued inpatient stay Substantial Risk for: med/psych decompensation
[2020-10-06 20:06] VITALS: BP 108/60; PULSE 70
[2020-10-06] MEDS: QUEtiapine Fumarate 100 MG TABLET PO (20:06)
[2020-10-06] MEDS: traZODone HCL 50 MG TABLET PO (20:28)
[2020-10-06 20:53] VITALS: BP 108/60; PULSE 70; TEMP 36.3
[2020-10-07] VITALS (7 sets, daily range): BP systolic 101–127; BP diastolic 46–62; PULSE 64–92; RESP 16; TEMP 36.4; O2SAT 97–99
[2020-10-07 03:41] LABS: HBc Num1 0.06 S/CO (0.00-0.79); HBsAGNum1 0.15 S/CO (0.00-0.99); Hepatitis B Core Antibody Nonreactive (Nonreactive); Hepatitis B Surface Antigen Negative (Negative); ~HepC Num1 14.47 S/CO (0.00-0.79); ~Hepatitis C Antibody Reactive (Nonreactive)
[2020-10-07 03:43] LABS: ~Hepatitis B Surface Antibody REACTIVE (Nonreactive)
[2020-10-07] MEDS: cloNIDine HCL 0.1 MG TABLET PO ×2 (09:33→19:44)
[2020-10-07] MEDS: Escitalopram Oxalate 10 MG TABLET PO (09:33)
[2020-10-07] MEDS: buPROPion HCl XL 300 MG TAB.ER.24H PO (09:33)
[2020-10-07] MEDS: Nicotine 21 MG PATCH.TD24 TRANSDERMA (09:36)
[2020-10-07] MEDS: Cyclobenzaprine HCl 10 MG TABLET PO (10:00)
--- NOTE | 2020-10-07 14:38 | P.PNPSI_ITS ---
Subjective Subjective Date of Service: 10/07/20 Reason For Visit: CRISIS Interim History: Patient seen, chart reviewed, case discussed with nursing staff Patient mostly in bed in morning due to migraine. She reports mood improving in that she feels less irritable. She reports some difficulty sleep, waking up frequently. She reports some improvement with wellbutrin but still would like to try lithium for mood stabilization and ongoing SI. She reports feeling more hopeful. She denies SI/HI. Review of Systems Review of Systems Constitutional : No Fever, No Chills ENT/Mouth : No Ear Pain, No Nasal Congestion, No sore throat Eyes: No Eye Pain, No Swelling, No Redness Cardiovascular : No Chest Pain, No SOB Respiratory : No Cough, No Sputum, No Dyspnea Gastrointestinal : No Nausea, No Vomiting, No Diarrhea, No Hematochezia, No Melena Genitourinary : No Dysuria, No Urinary Frequency, No Hematuria Musculoskeletal : No Myalgias Skin : No Skin Lesions, No rash Neuro : No Weakness, No Numbness, No Paresthesias, No Dizziness, No Headache Psych : positive Anxiety, positive Depression, positive SI no HI Heme/Lymph: No Lymphadenopathy Endocrine : No Polyuria, No Polydipsia All other systems reviewed and are negative Cardiovascular: Denies chest pain and Denies dyspnea Respiratory: Denies chest congestion, Denies cough, Denies hemoptysis and Denies dyspnea Gastrointestinal: Denies constipation and Denies diarrhea Mental Status Exam Mental Status Exam Narrative: Appearance: casually dressed, fair hygiene, in NAD Behavior: calm, cooperative Psychomotor: no agitation or retardation noted Speech: clear, normal rate/rhythm/volume, spontaneous TP: linear TC: on working on her issues; denies SI and HI Mood: a lot better Affect:congruent, brighter AH/VH:none Delusions:none Insight/judgment:fair Memory/cog: alert, oriented x 3. grossly intact to conversational testing. Diagnostics Vital Signs (24Hr): Vital Signs - 24 hr 10/06/20 15:00 10/06/20 20:06 10/06/20 20:53 Temperature 97.4 F Pulse Rate 70 70 70 Respiratory Rate Blood Pressure 111/69 108/60 108/60 Pulse Oximetry 10/07/20 06:48 10/07/20 09:33 10/07/20 10:00 Temperature 97.5 F Pulse Rate 64 86 92 Respiratory Rate 16 Blood Pressure 103/55 L 109/62 109/62 Pulse Oximetry 98 97 Body Mass Index 29.6 Labs Results: 09/30/20 13:02 10/05/20 08:43 Labs: Laboratory Results - last 48 hr 10/05/20 08:43 Hep Bs Antigen Negative Hep Bs Antibody REACTIVE Hep B Core Total Ab Nonreactive Hepatitis C Ab (EIA) Reactive H Medications Medications Current Medications Generic Name Dose Route Start Last Admin Trade Name Freq PRN Reason Stop Dose Admin Bupropion HCl 300 mg 10/05/20 09:00 10/07/20 09:33 Bupropion Hcl Xl 300 Mg Tab.Er.24h PO 300 mg DAILY AMANDA Administration Clonidine HCl 0.1 mg 10/03/20 15:00 10/07/20 09:33 Clonidine Hcl 0.1 Mg Tablet PO 0.1 mg TID AMANDA Administration Protocol Cyclobenzaprine HCl 10 mg 09/30/20 18:08 10/07/20 10:00 Cyclobenzaprine Hcl 10 Mg Tablet PO 10 mg TID PRN Administration Muscle Spasm Escitalopram Oxalate 5 mg 10/08/20 09:00 Escitalopram Oxalate 10 Mg Tablet PO DAILY AMANDA Ibuprofen 600 mg 09/30/20 18:08 10/02/20 10:25 Ibuprofen 600 Mg Tablet PO 600 mg Q6H PRN Administration Fever, headache, mild pain [place] Carbonate 150 mg 10/07/20 21:00 [place] Carbonate 300 Mg Tablet PO BID AMANDA Methadone HCl 60 mg 10/02/20 09:00 10/07/20 09:37 Methadone Hcl 1 Mg/0.1 Ml Oral.Conc PO 60 mg DAILY AMANDA Administration Naproxen 500 mg 10/07/20 13:46 Naproxen 500 Mg Tablet PO Q12H PRN Pain, Mild (Pain Scale 1-3) Nicotine 21 mg 09/30/20 18:15 10/07/20 09:36 Nicotine 21 Mg Patch.Td24 TRANSDERMA 21 mg DAILY AMANDA Administration Patient Own 1 each 10/04/20 09:00 10/07/20 09:37 Medication ( PO 1 each Darunavir-Cobicistat DAILY AMANDA Administration [Prezcobix] 800-150 Mg-Mg Tablet) Patient Own 1 each 10/04/20 09:00 10/07/20 09:37 Medication ( PO 1 each Dolutegravir- DAILY AMANDA Administration Rilpivirine [Juluca] 50-25 Mg Tablet) Quetiapine Fumarate 100 mg 09/30/20 21:00 10/06/20 20:06 Quetiapine Fumarate 100 Mg Tablet PO 100 mg BEDTIME AMANDA Administration Sumatriptan Succinate 50 mg 10/07/20 13:45 Sumatriptan Succinate 50 Mg Tablet PO DAILY MRX1 PRN Migraine Headache Trazodone HCl 50 mg 09/30/20 18:08 10/06/20 20:28 Trazodone Hcl 50 Mg Tablet PO 50 mg BEDTIME PRN Administration Insomnia Allergies Allergies Allergy/AdvReac Type Severity Reaction Status Date / Time amoxicillin Allergy Unknown Verified 08/10/20 20:07 Assessment & Plan Assessment & Plan (1) Cocaine use disorder, severe, dependence: Status: Acute Code(s): F14.20 - Cocaine dependence, uncomplicated Assessment and Plan: return to residential substance use treatment program (2) Opioid use disorder, severe, dependence: Status: Acute Code(s): F11.20 - Opioid dependence, uncomplicated Assessment and Plan: 1. continue Methadone 2. Plan to return to residential substance use program through [facility] (3) MDD (major depressive disorder), recurrent episode, severe: Status: Acute Code(s): F33.2 - Major depressive disorder, recurrent severe without psychotic features Assessment and Plan: underwriter solicitation director covering no changes to primary teams tx program 1. Continue Wellbutrin 300mg po daily 2. d/c atarax due to lack of efficacy 3. d/c Seroquel 25mg po TID due to daytime sedation, continue seroquel 100mg po qhs. 4. Start lithium 150mg po BID for mood/depression Greater than 50% of the session was spent on counseling and/or coordination of care Reason for contiued inpatient stay Substantial Risk for: harm to self
[2020-10-07] MEDS: SUMAtriptan succinate 50 MG TABLET PO ×2 (15:06→19:42)
[2020-10-07] MEDS: Melatonin 3 MG TABLET 6 MG PO (19:42)
[2020-10-07] MEDS: QUEtiapine Fumarate 100 MG TABLET PO (19:43)
[2020-10-07] MEDS: Lithium Carbonate 300 MG TABLET 150 MG PO (19:43)
[2020-10-07] MEDS: traZODone HCL 50 MG TABLET PO (19:43)
[2020-10-08 06:58] VITALS: BP 101/55; PULSE 78; RESP 18; TEMP 36; O2SAT 97
[2020-10-08] MEDS: Lithium Carbonate 300 MG TABLET 150 MG PO ×2 (08:31→20:30)
[2020-10-08] MEDS: Escitalopram Oxalate 10 MG TABLET 5 MG PO (08:31)
[2020-10-08] MEDS: buPROPion HCl XL 300 MG TAB.ER.24H PO (08:31)
[2020-10-08 08:32] VITALS: BP 112/65; PULSE 70
[2020-10-08] MEDS: cloNIDine HCL 0.1 MG TABLET PO ×3 (08:32→20:38)
[2020-10-08] MEDS: Nicotine 21 MG PATCH.TD24 TRANSDERMA (08:33)
--- NOTE | 2020-10-08 10:23 | P.PNPSI_ITS ---
Subjective Subjective Date of Service: 10/10/20 Reason For Visit: CRISIS Interim History: Patient seen, chart reviewed, case discussed with nursing staff Patient has been more visible in the unit. She reports feeling less depressed, more hopeful about her treatment and recovery. She reports some difficulty falling asleep. She denies SI/HI. No behavioral concerns. Review of Systems Review of Systems Constitutional : No Fever, No Chills ENT/Mouth : No Ear Pain, No Nasal Congestion, No sore throat Eyes: No Eye Pain, No Swelling, No Redness Cardiovascular : No Chest Pain, No SOB Respiratory : No Cough, No Sputum, No Dyspnea Gastrointestinal : No Nausea, No Vomiting, No Diarrhea, No Hematochezia, No Melena Genitourinary : No Dysuria, No Urinary Frequency, No Hematuria Musculoskeletal : No Myalgias Skin : No Skin Lesions, No rash Neuro : No Weakness, No Numbness, No Paresthesias, No Dizziness, No Headache Psych : positive Anxiety, positive Depression, positive SI no HI Heme/Lymph: No Lymphadenopathy Endocrine : No Polyuria, No Polydipsia All other systems reviewed and are negative Cardiovascular: Denies chest pain and Denies dyspnea Respiratory: Denies chest congestion, Denies cough, Denies hemoptysis and Denies dyspnea Gastrointestinal: Denies constipation and Denies diarrhea Mental Status Exam Mental Status Exam Narrative: Appearance: casually dressed, fair hygiene, in NAD Behavior: calm, cooperative Psychomotor: no agitation or retardation noted Speech: clear, normal rate/rhythm/volume, spontaneous TP: linear TC: on working on her issues; denies SI and HI Mood: a lot better Affect:congruent, brighter AH/VH:none Delusions:none Insight/judgment:fair Memory/cog: alert, oriented x 3. grossly intact to conversational testing. Diagnostics Vital Signs (24Hr): Vital Signs - 24 hr 10/09/20 14:38 10/09/20 18:39 10/09/20 20:31 Temperature 97.2 F Pulse Rate 68 84 84 Respiratory Rate 16 Blood Pressure 126/82 119/53 L 100/55 L Pulse Oximetry 96 10/10/20 09:02 Temperature Pulse Rate 71 Respiratory Rate Blood Pressure 114/69 Pulse Oximetry Body Mass Index 29.6 Labs Results: 09/30/20 13:02 10/05/20 08:43 Labs: Laboratory Results - last 48 hr 10/05/20 10/05/20 08:43 08:43 Hepatitis A IgM Ab Nonreactive HIV-1 RNA copies/mL 187 H HIV-1 RNA logcopies/mL 2.27 H Medications Medications Current Medications Generic Name Dose Route Start Last Admin Trade Name Lalo PRN Reason Stop Dose Admin Bupropion HCl 300 mg 10/05/20 09:00 10/10/20 09:02 Bupropion Hcl Xl 300 Mg Tab.Er.24h PO 300 mg DAILY AMANDA Administration Clonidine HCl 0.1 mg 10/03/20 15:00 10/10/20 09:02 Clonidine Hcl 0.1 Mg Tablet PO 0.1 mg TID AMANDA Administration Protocol Cyclobenzaprine HCl 10 mg 09/30/20 18:08 10/09/20 20:35 Cyclobenzaprine Hcl 10 Mg Tablet PO 10 mg TID PRN Administration Muscle Spasm Escitalopram Oxalate 5 mg 10/08/20 09:00 10/10/20 09:02 Escitalopram Oxalate 10 Mg Tablet PO 5 mg DAILY AMANDA Administration Ibuprofen 600 mg 09/30/20 18:08 10/09/20 16:55 Ibuprofen 600 Mg Tablet PO 600 mg Q6H PRN Administration Fever, headache, mild pain [place] Carbonate 150 mg 10/07/20 21:00 10/10/20 09:02 [place] Carbonate 300 Mg Tablet PO 150 mg BID AMANDA Administration Melatonin 6 mg 10/07/20 21:00 10/09/20 20:31 Melatonin 3 Mg Tablet PO 6 mg BEDTIME AMANDA Administration Methadone HCl 60 mg 10/02/20 09:00 10/10/20 09:03 Methadone Hcl 1 Mg/0.1 Ml Oral.Conc PO 60 mg DAILY AMANDA Administration Naproxen 500 mg 10/07/20 13:46 Naproxen 500 Mg Tablet PO Q12H PRN Pain, Mild (Pain Scale 1-3) Nicotine 21 mg 09/30/20 18:15 10/10/20 09:03 Nicotine 21 Mg Patch.Td24 TRANSDERMA 21 mg DAILY AMANDA Administration Patient Own 1 each 10/04/20 09:00 10/10/20 09:24 Medication ( PO 1 each Darunavir-Cobicistat DAILY AMANDA Administration [Prezcobix] 800-150 Mg-Mg Tablet) Patient Own 1 each 10/04/20 09:00 10/10/20 09:24 Medication ( PO 1 each Dolutegravir- DAILY AMANDA Administration Rilpivirine [Juluca] 50-25 Mg Tablet) Quetiapine Fumarate 100 mg 09/30/20 21:00 10/09/20 20:31 Quetiapine Fumarate 100 Mg Tablet PO 100 mg BEDTIME AMANDA Administration Sumatriptan Succinate 50 mg 10/07/20 13:45 10/09/20 12:46 Sumatriptan Succinate 50 Mg Tablet PO 50 mg DAILY MRX1 PRN Administration Migraine Headache Trazodone HCl 50 mg 09/30/20 18:08 10/07/20 19:43 Trazodone Hcl 50 Mg Tablet PO 50 mg BEDTIME PRN Administration Insomnia Allergies Allergies Allergy/AdvReac Type Severity Reaction Status Date / Time amoxicillin Allergy Unknown Verified 08/10/20 20:07 Assessment & Plan Assessment & Plan (1) Cocaine use disorder, severe, dependence: Status: Acute Code(s): F14.20 - Cocaine dependence, uncomplicated Assessment and Plan: return to residential substance use treatment program (2) Opioid use disorder, severe, dependence: Status: Acute Code(s): F11.20 - Opioid dependence, uncomplicated Assessment and Plan: 1. continue Methadone 2. Plan to return to residential substance use program through [facility] (3) MDD (major depressive disorder), recurrent episode, severe: Status: Acute Code(s): F33.2 - Major depressive disorder, recurrent severe without psychotic features Assessment and Plan: junior underwriter covering no changes to primary teams tx program 1. Continue Wellbutrin 300mg po daily 2. d/c atarax due to lack of efficacy 3. d/c Seroquel 25mg po TID due to daytime sedation, continue seroquel 100mg po qhs. 4. Start lithium 150mg po BID for mood/depression Greater than 50% of the session was spent on counseling and/or coordination of care Reason for contiued inpatient stay Substantial Risk for: harm to self
[2020-10-08 14:46] VITALS: BP 123/69; PULSE 103
[2020-10-08] MEDS: Cyclobenzaprine HCl 10 MG TABLET PO ×2 (14:47→20:29)
[2020-10-08 17:00] VITALS: BP 118/70; PULSE 89; RESP 18; TEMP 36.3; O2SAT 97
[2020-10-08 19:32] LABS: HIV RNA PCR Qn Copies 187 copies/mL (NOT DETECTED); HIV RNA PCR Qn Log Copies 2.27 (NOT DETECTED)
[2020-10-08] MEDS: Melatonin 3 MG TABLET 6 MG PO (20:29)
[2020-10-08] MEDS: QUEtiapine Fumarate 100 MG TABLET PO (20:29)
[2020-10-08 20:38] VITALS: BP 109/58; PULSE 86
[2020-10-09 05:42] LABS: Hepatitis A Antibody IgM 0.38 Index (0-0.79); ~Hepatitis A Antibody IgM Nonreactive (Nonreactive)
[2020-10-09 06:53] VITALS: BP 95/51; PULSE 74; RESP 16; TEMP 36.6; O2SAT 98
[2020-10-09 08:54] VITALS: BP 111/64; PULSE 74
[2020-10-09] MEDS: Lithium Carbonate 300 MG TABLET 150 MG PO ×2 (08:54→20:32)
[2020-10-09] MEDS: cloNIDine HCL 0.1 MG TABLET PO ×3 (08:54→20:31)
[2020-10-09] MEDS: buPROPion HCl XL 300 MG TAB.ER.24H PO (08:54)
[2020-10-09] MEDS: Nicotine 21 MG PATCH.TD24 TRANSDERMA (08:56)
[2020-10-09] MEDS: Escitalopram Oxalate 10 MG TABLET 5 MG PO (09:06)
--- NOTE | 2020-10-09 10:24 | P.PNPSI_ITS ---
Subjective Subjective Date of Service: 10/10/20 Reason For Visit: CRISIS Interim History: Patient seen, chart reviewed, case discussed with nursing staff Patient started lithium, had episode of loose stool. She reports sweating, which could be related to increase in wellbutrin. Pt reports mood is okay. She reports feeling more hopeful. She denies SI/HI. Review of Systems Review of Systems Constitutional : No Fever, No Chills ENT/Mouth : No Ear Pain, No Nasal Congestion, No sore throat Eyes: No Eye Pain, No Swelling, No Redness Cardiovascular : No Chest Pain, No SOB Respiratory : No Cough, No Sputum, No Dyspnea Gastrointestinal : No Nausea, No Vomiting, No Diarrhea, No Hematochezia, No Melena Genitourinary : No Dysuria, No Urinary Frequency, No Hematuria Musculoskeletal : No Myalgias Skin : No Skin Lesions, No rash Neuro : No Weakness, No Numbness, No Paresthesias, No Dizziness, No Headache Psych : positive Anxiety, positive Depression, positive SI no HI Heme/Lymph: No Lymphadenopathy Endocrine : No Polyuria, No Polydipsia All other systems reviewed and are negative Cardiovascular: Denies chest pain and Denies dyspnea Respiratory: Denies chest congestion, Denies cough, Denies hemoptysis and Denies dyspnea Gastrointestinal: Denies constipation and Denies diarrhea Mental Status Exam Mental Status Exam Narrative: Appearance: casually dressed, fair hygiene, in NAD Behavior: calm, cooperative Psychomotor: no agitation or retardation noted Speech: clear, normal rate/rhythm/volume, spontaneous TP: linear TC: on working on her issues; denies SI and HI Mood: a lot better Affect:congruent, brighter AH/VH:none Delusions:none Insight/judgment:fair Memory/cog: alert, oriented x 3. grossly intact to conversational testing. Diagnostics Vital Signs (24Hr): Vital Signs - 24 hr 10/09/20 14:38 10/09/20 18:39 10/09/20 20:31 Temperature 97.2 F Pulse Rate 68 84 84 Respiratory Rate 16 Blood Pressure 126/82 119/53 L 100/55 L Pulse Oximetry 96 10/10/20 09:02 Temperature Pulse Rate 71 Respiratory Rate Blood Pressure 114/69 Pulse Oximetry Body Mass Index 29.6 Labs Results: 09/30/20 13:02 10/05/20 08:43 Labs: Laboratory Results - last 48 hr 10/05/20 10/05/20 08:43 08:43 Hepatitis A IgM Ab Nonreactive HIV-1 RNA copies/mL 187 H HIV-1 RNA logcopies/mL 2.27 H Medications Medications Current Medications Generic Name Dose Route Start Last Admin Trade Name Lalo PRN Reason Stop Dose Admin Bupropion HCl 300 mg 10/05/20 09:00 10/10/20 09:02 Bupropion Hcl Xl 300 Mg Tab.Er.24h PO 300 mg DAILY AMANDA Administration Clonidine HCl 0.1 mg 10/03/20 15:00 10/10/20 09:02 Clonidine Hcl 0.1 Mg Tablet PO 0.1 mg TID AMANDA Administration Protocol Cyclobenzaprine HCl 10 mg 09/30/20 18:08 10/09/20 20:35 Cyclobenzaprine Hcl 10 Mg Tablet PO 10 mg TID PRN Administration Muscle Spasm Escitalopram Oxalate 5 mg 10/08/20 09:00 10/10/20 09:02 Escitalopram Oxalate 10 Mg Tablet PO 5 mg DAILY AMANDA Administration Ibuprofen 600 mg 09/30/20 18:08 10/09/20 16:55 Ibuprofen 600 Mg Tablet PO 600 mg Q6H PRN Administration Fever, headache, mild pain [place] Carbonate 150 mg 10/07/20 21:00 10/10/20 09:02 [place] Carbonate 300 Mg Tablet PO 150 mg BID AMANDA Administration Melatonin 6 mg 10/07/20 21:00 10/09/20 20:31 Melatonin 3 Mg Tablet PO 6 mg BEDTIME AMANDA Administration Methadone HCl 60 mg 10/02/20 09:00 10/10/20 09:03 Methadone Hcl 1 Mg/0.1 Ml Oral.Conc PO 60 mg DAILY AMANDA Administration Naproxen 500 mg 10/07/20 13:46 Naproxen 500 Mg Tablet PO Q12H PRN Pain, Mild (Pain Scale 1-3) Nicotine 21 mg 09/30/20 18:15 10/10/20 09:03 Nicotine 21 Mg Patch.Td24 TRANSDERMA 21 mg DAILY AMANDA Administration Patient Own 1 each 10/04/20 09:00 10/10/20 09:24 Medication ( PO 1 each Darunavir-Cobicistat DAILY AMANDA Administration [Prezcobix] 800-150 Mg-Mg Tablet) Patient Own 1 each 10/04/20 09:00 10/10/20 09:24 Medication ( PO 1 each Dolutegravir- DAILY AMANDA Administration Rilpivirine [Juluca] 50-25 Mg Tablet) Quetiapine Fumarate 100 mg 09/30/20 21:00 10/09/20 20:31 Quetiapine Fumarate 100 Mg Tablet PO 100 mg BEDTIME AMANDA Administration Sumatriptan Succinate 50 mg 10/07/20 13:45 10/09/20 12:46 Sumatriptan Succinate 50 Mg Tablet PO 50 mg DAILY MRX1 PRN Administration Migraine Headache Trazodone HCl 50 mg 09/30/20 18:08 10/07/20 19:43 Trazodone Hcl 50 Mg Tablet PO 50 mg BEDTIME PRN Administration Insomnia Allergies Allergies Allergy/AdvReac Type Severity Reaction Status Date / Time amoxicillin Allergy Unknown Verified 08/10/20 20:07 Assessment & Plan Assessment & Plan (1) Cocaine use disorder, severe, dependence: Status: Acute Code(s): F14.20 - Cocaine dependence, uncomplicated Assessment and Plan: return to residential substance use treatment program (2) Opioid use disorder, severe, dependence: Status: Acute Code(s): F11.20 - Opioid dependence, uncomplicated Assessment and Plan: 1. continue Methadone 2. 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 Continue Wellbutrin 300mg po daily 2. d/c atarax due to lack of efficacy 3. d/c Seroquel 25mg po TID due to daytime sedation, continue seroquel 100mg po qhs. 4. Start lithium 150mg po BID for mood/depression Greater than 50% of the session was spent on counseling and/or coordination of care Reason for contiued inpatient stay Substantial Risk for: harm to self
[2020-10-09] MEDS: SUMAtriptan succinate 50 MG TABLET PO (12:46)
[2020-10-09 14:38] VITALS: BP 126/82; PULSE 68
[2020-10-09] MEDS: Cyclobenzaprine HCl 10 MG TABLET PO ×2 (14:42→20:35)
[2020-10-09] MEDS: Ibuprofen 600 MG TABLET PO (16:55)
[2020-10-09 18:39] VITALS: BP 119/53; PULSE 84; RESP 16; TEMP 36.2; O2SAT 96
[2020-10-09 20:31] VITALS: BP 100/55; PULSE 84
[2020-10-09] MEDS: QUEtiapine Fumarate 100 MG TABLET PO (20:31)
[2020-10-09] MEDS: Melatonin 3 MG TABLET 6 MG PO (20:31)
[2020-10-10 09:02] VITALS: BP 114/69; PULSE 71
[2020-10-10] MEDS: cloNIDine HCL 0.1 MG TABLET PO (09:02)
[2020-10-10] MEDS: buPROPion HCl XL 300 MG TAB.ER.24H PO (09:02)
[2020-10-10] MEDS: Escitalopram Oxalate 10 MG TABLET 5 MG PO (09:02)
[2020-10-10] MEDS: Lithium Carbonate 300 MG TABLET 150 MG PO (09:02)
[2020-10-10] MEDS: Nicotine 21 MG PATCH.TD24 TRANSDERMA (09:03)
--- NOTE | 2020-10-10 10:31 | P.DS_ITS ---
DS: Providers Provider Date of Service: 10/10/20 Date of admission: 10/01/20 15:24 Primary care physician: Yu Penny MD DS: Diagnosis Discharge Diagnosis (1) Cocaine use disorder, severe, dependence: Status: Acute (2) Opioid use disorder, severe, dependence: Status: Acute (3) MDD (major depressive disorder), recurrent episode, severe: Status: Acute DS: Medications Discharge Medications Home Medications: Previous Rx's Medication Instructions Recorded Juluca 1 tab PO DAILY 30 Days #30 tab 08/20/20 Prezcobix 1 tab PO DAILY 30 Days #30 tab 08/20/20 acetaminophen 650 mg PO Q6H PRN 10 Days #30 tab 08/20/20 cyclobenzaprine 10 mg PO TID PRN 15 Days tab 08/20/20 ibuprofen 600 mg PO Q6H PRN #30 tab 08/20/20 nicotine 21 mg TRANSDERMAL DAILY 30 Days ea 08/20/20 bupropion HCl 300 mg PO DAILY #30 tab 10/10/20 clonidine HCl 0.1 mg PO TID #90 tab 10/10/20 lithium carbonate 150 mg PO BID #30 tab 10/10/20 melatonin 6 mg PO BEDTIME #60 tab 10/10/20 quetiapine 100 mg PO BEDTIME #30 tab 10/10/20 trazodone 50 mg PO BEDTIME PRN #30 tab 10/10/20 Mental Status Exam Mental Status Exam Narrative: Appearance: casually dressed, fair hygiene, in NAD Behavior: calm, cooperative Psychomotor: no agitation or retardation noted Speech: clear, normal rate/rhythm/volume, spontaneous TP: linear TC: on working on her issues; denies SI and HI Mood: a lot better Affect:congruent, brighter AH/VH:none Delusions:none Insight/judgment:fair Memory/cog: alert, oriented x 3. grossly intact to conversational testing. Data Data Completed and Pending Completed studies during hospitalization [Text1]: 10/05/20 10/05/20 10/05/20 08:43 08:43 08:43 Sodium 136 Potassium 4.5 Chloride 103 Carbon Dioxide 26 Anion Gap 12 BUN 17 H Creatinine 0.84 Estim Creat Clear Calc 83.9 Estimated GFR > 60 Random Glucose 112 Calcium 9.8 Total Bilirubin 0.5 AST 58 H ALT 91 H Alkaline Phosphatase 158 H Ammonia Total Protein 7.9 Albumin 4.1 Hepatitis A IgM Ab Nonreactive Hep Bs Antigen Negative Hep Bs Antibody REACTIVE Hep B Core Total Ab Nonreactive Hepatitis C Ab (EIA) Reactive H HIV-1 RNA copies/mL 187 H HIV-1 RNA logcopies/mL 2.27 H 10/05/20 08:43 Sodium Potassium Chloride Carbon Dioxide Anion Gap BUN Creatinine Estim Creat Clear Calc Estimated GFR Random Glucose Calcium Total Bilirubin AST ALT Alkaline Phosphatase Ammonia 31 Total Protein Albumin Hepatitis A IgM Ab Hep Bs Antigen Hep Bs Antibody Hep B Core Total Ab Hepatitis C Ab (EIA) HIV-1 RNA copies/mL HIV-1 RNA logcopies/mL DS: Summary Hospital Course Hospital Course: Ms. Neil is a 30 year-old woman with hx of MDD, opioid and cocaine use disorder who is known to through one previous admission with similar presentation back in July 2020. This time pt self presented to [facility] reporting increase depression, feeling on edge, overwhelmed, suicidal ideation with plan to OD on fentanyl. In the ED MS. Neil was positive for cocaine. She reports using fentanyl but this was not tested in ED. On the unit, Ms. Neil reports that she has been feeling depressed since discharged from unit. She reports not using substance only until the day she self presented to ED. She reported she had altercation with peer at sober house and felt hopeless/helpless and left and relapsed. He endorses feelings of hopeless/helpless. She reports that although she has been able to get closer with her family as she works on her recovery she does not find anything in life as joyful. She reports constantly feeling on edge, easily becoming agitated when trigger, having difficulty controlling her reactions when triggered by others. She reports fair sleep and appetite. She reports recently started wellbutrin, which thinks may be more helpful for lexapro, which she has been on for several months now. She reports clonidine, atarax combination not helpful for anxiety. She is also on baclofen for muscle spasms. On the unit she conitnues to endorse suicidal thoughts but denies any plan or intent to hurt herself. No hx of VH/AH. Past Psychiatric History: Inpatient: 07/2020 (depression/SI) OP: [facility] Suicide attempts: pt denies Past trials: lexapro, wellbutrin, seroquel, clonidine and vistaril Medical Evaluation Reviewed: Yes HOSPITAL COURSE Ms. neil was admitted on CV and placed on 15 minutes checks for safety. On the unit, she presented as tearful, depressed, with anhedonia, hopeless, anxious mood. She reported being sober for about 3 months and still struggling with depression and intermittent suicidal thoughts. She also reports that her life is improving in that as she has worked on her recovery her relationship with parents and child have improved. Despite all these positive outcomes, pt reports she had continued to feel depressed and very hopeless, at times irritable and anxious. We discussed risks, benefits and alternative treatment options. Pt reported minimal effect from lexapro but felt that wellbutrin had been more beneficial for mood. We discussed discontinuing lexapro, increasing dose of wellbutrin. Given that pt continued to present with depressed mood, anhedonia, passive SI, we discussed adding low dose lithium. Her affect gradually brighten. She reported feeling less depressed, less hopeless. She denied SI/HI. She attended assigned groups. She was sleeping better, although waking up at times. She was social with select peers. There were no incidents of disruptive behaviors nor use of restraints. Pt agreed to return to sober living. Status at Discharge Cognitive/behavioral status at discharge: Pt reports less depressed mood. No SI/HI. More hopeful and future oriented. Functional status at discharge: independent ambulation Overall status at discharge: patient is progressing back to baseline Time Spent with Patient Time attestation: Total time spent providing and/or coordinating discharge services: Time spent: Greater than 30 minutes Discharge Plan Discharge Patient Disposition: Home, Self-Care Discharge Diagnosis: MDD recurrent moderate Referrals: Yu Penny MD [Primary Care Provider] - ( OFFICE WILL CALL YOU DIRECTLY) Discharge Medications: New clonidine HCl 0.1 mg Tablet 0.1 mg PO TID Qty: 90 RF: 0 trazodone 50 mg Tablet 50 mg PO BEDTIME PRN (Reason: Insomnia) Qty: 30 RF: 0 melatonin 3 mg Tablet 6 mg PO BEDTIME Qty: 60 RF: 0 quetiapine 100 mg Tablet 100 mg PO BEDTIME Qty: 30 RF: 0 lithium carbonate 300 mg Tablet 150 mg PO BID Qty: 30 RF: 0 bupropion HCl 300 mg Tablet Extended Release 24 Hr 300 mg PO DAILY Qty: 30 RF: 0 fluconazole 150 mg tablet 150 mg PO Q3D Qty: 2 RF: 0 Continued cyclobenzaprine 10 mg Tablet 10 mg PO TID PRN (Reason: Muscle Spasm) 15 Days RF: 0 nicotine 21 mg/24 hr Patch 24 Hour 21 mg transdermal DAILY 30 Days RF: 0 acetaminophen 325 mg Tablet 650 mg PO Q6H PRN (Reason: Headache/Pain Mild Scale (1-3)) 10 Days Qty: 30 RF: 0 ibuprofen 600 mg Tablet 600 mg PO Q6H PRN (Reason: Fever, headache, mild pain) Qty: 30 RF: 0 Prezcobix 800-150 mg-mg tablet 1 tab PO DAILY 30 Days Qty: 30 RF: 0 Juluca 50-25 mg tablet 1 tab PO DAILY 30 Days Qty: 30 RF: 0 Discontinued clonidine HCl 0.1 mg Tablet 0.1 mg PO TID PRN (Reason: Anxiety/Restlessness) 15 Days Qty: 42 RF: 0 escitalopram oxalate 20 mg Tablet 20 mg PO DAILY 30 Days Qty: 30 RF: 0 hydroxyzine HCl 25 mg Tablet 75 mg PO TID 30 Days Qty: 270 RF: 0 trazodone 50 mg Tablet 50 mg PO BEDTIME PRN (Reason: Insomnia) Qty: 30 RF: 0 quetiapine 50 mg tablet 100 mg PO BEDTIME RF: 0 bupropion HCl [Wellbutrin XL] 150 mg tablet extended release 24 hr 150 mg PO DAILY RF: 0 Discharge Orders: Discharge Order (Routine); Ordered 10/10/20 Ordered By: Migdalia Campbell Diet: regular diet Activity on Discharge: As tolerated Stand Alone Forms: Patient Portal Discharge page, Community Support Care Plan Goals: 1. maintain mood 2. No SI/HI Health Concerns: follow up with PCP Plan of Treatment: 1. take medications as prescribed. 2. Go to nearest ED or call 911 in event of emergency. Assessment: No SI/HI improved depression Discharge Date/Time: 10/10/20 12:30
[2020-10-10] MEDS: Fluconazole 150 MG TABLET PO (11:46)
== END 2020-10-10 12:30 | disposition home or self-care (01) | DRG 751 ==
LOC: HO.ED 13:34 → HO.PM5 10-01 15:25
PROVIDERS: Admitting Provider Psychiatry & Neurology Psychiatry; Emergency Provider Emergency Medicine; PCP Internal Medicine; Visit Provider Social Worker
DX: F33.2 Major depressive disorder, recurrent severe without psychotic features (principal); R45.851 Suicidal ideations; F11.20 Opioid dependence, uncomplicated; F14.20 Cocaine dependence, uncomplicated; Z20.822 Contact with and (suspected) exposure to COVID-19; F17.210 Nicotine dependence, cigarettes, uncomplicated; Z21 Asymptomatic human immunodeficiency virus [HIV] infection status; Z71.6 Tobacco abuse counseling; Z79.1 Long term (current) use of non-steroidal anti-inflammatories (NSAID); Z79.899 Other long term (current) drug therapy
CPT/HCPCS: 36415; 80048; 80053; 80076; 80307; 81025; 82140; 85025; 86704; 86706; 86709; 86803; 87340; 87536; 87635; 93005; 99285

== ENCOUNTER 2020-11-27 06:02 | Emergency (ER) | payer OTHER, SELFPAY ==
[2020-11-27 06:08] VITALS: BP 136/94; PULSE 84; O2SAT 99
--- NOTE | 2020-11-27 06:29 | PC.NURSE ---
PT WAS AWAITING TRIAGE BY RN WHEN SHE BECAME VERY VERBALLY ABUSIVE TO STAFF STATING STAFF WAS TALKING BADLY ABOUT HER. PT STATING SHE DID NOT WANT TO COME HERE, HAD NO REASON TO COME HERE, DENIES SI,HI, DENIES AUDITORY AND VISUAL HALLUCINATIONS. PT WAS SPEAKING IN FULL CLEAR SENTENCES, IN NAD. PT LEFT THE ED WITHOUT BEING SEEN AT THIS TIME.
== END 2020-11-27 06:41 | disposition left against medical advice (07) ==
LOC: HO.ED 06:37
PROVIDERS: Emergency Provider Emergency Medicine
DX: F19.90 Other psychoactive substance use, unspecified, uncomplicated (principal)

== ENCOUNTER 2021-01-13 19:35 | Inpatient (IN) | payer OTHER, SELFPAY ==
--- NOTE | ~2021-01-13 | XR_ITS ---
EXAMINATION: XR TIBIA AND FIBULA, RIGHT CLINICAL INFORMATION: Swelling with question of foreign body secondary to IV drug abuse COMPARISON: None TECHNIQUE: AP and lateral views of the right tibia and fibula were obtained. FINDINGS: The bones and soft tissues are normal. No fracture. No osseous lesions. A radiopaque foreign body is not seen. Small density in the posterolateral upper thigh may represent a small lymph node within the subcutaneous tissues. XR/XR tibia fibula RT 2V IMPRESSION: Normal right tibia and fibula. No radiopaque foreign body seen.
--- NOTE | ~2021-01-13 | US_ITS ---
EXAMINATION: US VENOUS ULTRASOUND WITH DOPPLER LOWER EXTREMITY, RIGHT CLINICAL INFORMATION: Swelling and erythema. IV drug abuse COMPARISON: None TECHNIQUE: Ultrasound of the deep veins is performed from the hip to the calf with compression sonography and color and pulse Doppler assessment. Spectral analysis with color-flow imaging is performed. FINDINGS: There is normal venous compression and respiratory variation and augmented flow. The visualized common femoral vein, superficial femoral vein, profunda femoral vein, popliteal vein, and the trifurcation region shows no evidence of deep venous thrombosis. There is no significant popliteal fossa cyst. In the anterolateral gallegos, there is a hypoechoic/anechoic collection present measuring 2.1 x 2.8 x 0.8 cm consistent with a small fluid collection. An enlarged lymph node is present in the right groin measuring 2.4 x 0.8 x 2.2 cm. A normal fatty hilum is present If the patient's symptoms persist, followup ultrasound in 5 days 7 days might be of value to exclude proximal propagation from a non-visualized calf vein. US/US venous duplex LE RT IMPRESSION: No DVT demonstrated in the right lower extremity. Incidental note made of a small fluid collection in the anterior gallegos along with an enlarged right groin node.
[2021-01-13 20:07] VITALS: BP 126/66; PULSE 94; RESP 18; TEMP 37.3; O2SAT 97; BMI 29.1
--- NOTE | 2021-01-13 20:44 | ED.PSYCH ---
HPI - Psych General Chief Complaint: Psychiatric Symptoms Stated Complaint: si, abscess Source: patient Mode of arrival: ambulatory Limitations: no limitations History of Present Illness HPI Narrative: 30-year-old female presents with multiple complaints. States that she is suicidal with a plan to buy fentanyl and overdose. States that she has been using heroin throughout the day, last use at 3:00 p.m.. She reports 5 days of right lower leg pain, swelling, and erythema. She feels sick, fevers, with chills but feels much different than when she is withdrawing. MD complaint: suicidal ideation and substance abuse Onset (ago): day(s) Duration: constant History of same: Yes Relieving factors: none Exacerbating factors: drug use Context: recent drug abuse Associated psychiatric symptoms: depression and suicidal ideation Associated symptoms: other (Cellulitis of the right lower extremity) Treatments prior to arrival: none If self harm: admits thoughts of self harm Related Data Previous Rx's Medication Instructions Recorded acetaminophen 325 mg tablet 650 mg PO Q6H PRN 10 Days #30 tab 08/20/20 cyclobenzaprine 10 mg tablet 10 mg PO TID PRN 15 Days tab 08/20/20 darunavir 800 mg-cobicistat 150 mg 1 tab PO DAILY 30 Days #30 tab 08/20/20 tablet (Prezcobix) dolutegravir 50 mg-rilpivirine 25 1 tab PO DAILY 30 Days #30 tab 08/20/20 mg tablet (Juluca) ibuprofen 600 mg tablet 600 mg PO Q6H PRN #30 tab 08/20/20 nicotine 21 mg/24 hr daily 21 mg TRANSDERMAL DAILY 30 Days ea 08/20/20 transdermal patch bupropion HCl 300 mg 24 hr tablet, 300 mg PO DAILY #30 tab 10/10/20 extended release clonidine HCl 0.1 mg tablet 0.1 mg PO TID #90 tab 10/10/20 fluconazole 150 mg tablet 150 mg PO Q3D #2 tab 10/10/20 lithium carbonate 300 mg tablet 150 mg PO BID #30 tab 10/10/20 melatonin 3 mg tablet 6 mg PO BEDTIME #60 tab 10/10/20 quetiapine 100 mg tablet 100 mg PO BEDTIME #30 tab 10/10/20 trazodone 50 mg tablet 50 mg PO BEDTIME PRN #30 tab 10/10/20 Allergies Allergy/AdvReac Type Severity Reaction Status Date / Time amoxicillin Allergy Unknown Verified 08/10/20 20:07 Review of Systems Review of Systems: Constitutional: Positive Fever, positive Chills, positive fatigue ENT/Mouth: No Ear Pain, No Hoarseness, No sore throat Eyes: No Eye Pain, No Swelling, No Redness, No Foreign Body Cardiovascular: No Chest Pain, No SOB Respiratory: No Cough, No Dyspnea Gastrointestinal: No Nausea, No Vomiting, No Diarrhea, No abdominal Pain Genitourinary: No Dysuria, No Hematuria Musculoskeletal: positive right leg pain, No Myalgias, No Joint Swelling Skin: Positive erythema and swelling to the right lower extremity, No Skin lacerations, No rash Neuro: No Weakness, No Numbness, No Paresthesias, No Loss of Consciousness, No Dizziness, No Headache Psych: No Anxiety/Panic, positive Depression, positive suicidal ideation, positive substance abuse Heme/Lymph: no easy bruising, no Lymphadenopathy Endocrine: No Polyuria, No Polydipsia Yes all other systems are reviewed and are negative [facility] Past Medical History Attestation statement: The following information was validated with the patient. Source: old records reviewed Medical History HIV (human immunodeficiency virus infection) IV drug abuse MDD (major depressive disorder), recurrent episode, severe Social History Social History Household Members: Other Household Members Other:: [facility] house members Housing: Other Do you presently have visiting nurse or other home services: No Unable to assess alcohol history related to: Unknown Alcohol intake: current Alcohol intake frequency: 3 or more drinks per day Alcohol type: hard liquor Patient Tobacco Use Status: Current everyday Tobacco user Tobacco use type: Cigarette Cigarette Packs Per Day: 1 Cigarettes Per Day: 20 Years Smoked: 5 Second Hand Smoke Exposure: Yes Substance Use Type: Crack/Cocaine and Heroin Advance Directives: No Advance Directives Information Provided: Yes Patient : No service: No Sexual orientation: Did not discuss Physical Exam Vital Signs: Vital Signs: Last Vital Signs Temp 99.9 F 01/13/21 23:21 Pulse 94 01/13/21 20:07 Resp 16 01/13/21 23:21 BP 126/66 01/13/21 20:07 Pulse Ox 97 01/13/21 20:07 Body Mass Index 29.1 Appearance: Alert. Oriented X3. Moderate distress. Appears ill. Eyes: Pupils equal, round and reactive to light. Sclera not icteric. ENT: Pharynx normal. Moist mucous membranes. Neck: Normal inspection. Neck supple. CVS: Normal heart rate and rhythm. Pulses normal. Respiratory: No respiratory distress. Breath sounds normal. Abdomen: Soft and nontender. Skin: Skin warm and dry. Swelling and erythema noted to the right lower extremity. Extremities: No lower extremity edema. Limping gait. Moves all extremities against resistance. Neuro: No motor deficit. No sensory deficit. Cranial nerves 2-12 intact. Course Course Course Narrative: 30-year-old female presents with right lower extremity cellulitis that started approximately 5 days ago after shooting up in her gallegos. Will order x-rays to rule out foreign body and duplex to rule out DVT. Patient does describe suicidal ideation secondary to substance abuse. Patient is tachycardic at 94, temp 99.1? oral, she does appear ill, is alert oriented x4, answering questions politely and appropriately. Will add on lactic, cultures, start treating for cellulitis with ceftriaxone and vancomycin. Negative for DVT, no foreign bodies. Discussion with hospitalist regarding cellulitis and elevated white count. Plan of care is to admit for cellulitis. Patient agrees with this plan. Consultations Consultation #1: Glenna Time: 23:08 MDM - Psych MDM Narrative Medical decision making narrative: Cellulitis, abscess, DVT Differential Diagnosis Differential diagnosis: Likely suicidal ideation, depression and substance abuse Medical Records Attestation: I reviewed the patient's medical records. Lab Data Attestation: I reviewed the patient's lab results. Result diagrams: 01/13/21 21:04 01/13/21 21:04 Labs: Lab Results 01/13/21 01/13/21 01/13/21 Range/Units 21:04 21:04 21:04 WBC 18.7 H (4.8-10.8) X10*3/uL RBC 4.02 L (4.20-5.50) X10*6/uL Hgb 11.1 L (12.0-16.0) g/dl Hct 34.0 L (37-47) % MCV 84.6 (80-98) fL MCH 27.6 (27.0-33.0) pg MCHC 32.6 (31.0-35.0) g/dl RDW 13.6 (11.0-16.0) % Plt Count 304 D (160-400) X10*3/uL MPV 9.8 (9.4-12.3) fL Immature Gran % (Auto) 0.5 H (0.0-0.4) % Neut % (Auto) 56.1 (45-73) % Lymph % (Auto) 36.5 (20-40) % [place] % (Auto) 5.7 (2-11) % Eos % (Auto) 1.1 (0-4) % Baso % (Auto) 0.1 (0-2) % Lymph # (Auto) 6.8 H (1.2-4.9) X10*3/uL [place] # (Auto) 1.1 (0.1-1.2) X10*3/uL Eos # (Auto) 0.2 (0.0-0.4) X10*3/uL Baso # (Auto) 0.0 (0.0-0.2) X10*3/uL Abs Immat Gran (auto) 0.09 H (0.00-0.03) X10*3/uL Absolute Neuts (auto) 10.5 H (2.0-8.3) X10*3/uL Absolute Nucleated RBC 0.000 (0.0-0.012) X10*3/uL Nucleated RBC % (auto) 0.0 (0.0-0.2) /100WBC Smear Tech's Comments VERIFIED Sodium 136 (135-145) mmol/L Potassium 4.3 (3.3-5.1) mmol/L Chloride 102 (96-108) mmol/L Carbon Dioxide 25 (22-29) mmol/L Anion Gap 13 (12-20) BUN 10 (9-16) mg/dL Creatinine 0.86 (0.5-1.4) mg/dL Estim Creat Clear Calc 84.7 Estimated GFR > 60 Random Glucose 111 (60-115) mg/dL Lactic Acid (0.5-2.0) mmol/L Calcium 9.3 (8.4-10.2) mg/dL Total Bilirubin 0.3 (0.0-1.0) mg/dL AST 27 D (5-31) U/L ALT 42 H (0-31) U/L Alkaline Phosphatase 118 H D (39-117) U/L Total Protein 7.8 (6.5-8.0) g/dL Albumin 3.9 (3.5-5.0) g/dL Salicylates < 5.0 L (15-30) mg/dL Acetaminophen < 1 (<30) mcg/mL Ethyl Alcohol < 10 mg/dL Coronavirus (PCR) (Negative) Influenza Type A (PCR) (Negative) Influenza Type B (PCR) (Negative) RSV RNA Qual (PCR) (Negative) 01/13/21 01/13/21 Range/Units 21:04 21:23 WBC (4.8-10.8) X10*3/uL RBC (4.20-5.50) X10*6/uL Hgb (12.0-16.0) g/dl Hct (37-47) % MCV (80-98) fL MCH (27.0-33.0) pg MCHC (31.0-35.0) g/dl RDW (11.0-16.0) % Plt Count (160-400) X10*3/uL MPV (9.4-12.3) fL Immature Gran % (Auto) (0.0-0.4) % Neut % (Auto) (45-73) % Lymph % (Auto) (20-40) % [place] % (Auto) (2-11) % Eos % (Auto) (0-4) % Baso % (Auto) (0-2) % Lymph # (Auto) (1.2-4.9) X10*3/uL [place] # (Auto) (0.1-1.2) X10*3/uL Eos # (Auto) (0.0-0.4) X10*3/uL Baso # (Auto) (0.0-0.2) X10*3/uL Abs Immat Gran (auto) (0.00-0.03) X10*3/uL Absolute Neuts (auto) (2.0-8.3) X10*3/uL Absolute Nucleated RBC (0.0-0.012) X10*3/uL Nucleated RBC % (auto) (0.0-0.2) /100WBC Smear Tech's Comments Sodium (135-145) mmol/L Potassium (3.3-5.1) mmol/L Chloride (96-108) mmol/L Carbon Dioxide (22-29) mmol/L Anion Gap (12-20) BUN (9-16) mg/dL Creatinine (0.5-1.4) mg/dL Estim Creat Clear Calc Estimated GFR Random Glucose (60-115) mg/dL Lactic Acid 1.1 (0.5-2.0) mmol/L Calcium (8.4-10.2) mg/dL Total Bilirubin (0.0-1.0) mg/dL AST (5-31) U/L ALT (0-31) U/L Alkaline Phosphatase (39-117) U/L Total Protein (6.5-8.0) g/dL Albumin (3.5-5.0) g/dL Salicylates (15-30) mg/dL Acetaminophen (<30) mcg/mL Ethyl Alcohol mg/dL Coronavirus (PCR) NEGATIVE (Negative) Influenza Type A (PCR) NEGATIVE (Negative) Influenza Type B (PCR) NEGATIVE (Negative) RSV RNA Qual (PCR) NEGATIVE (Negative) Imaging Data Venous duplex: Attestation: I personally reviewed and interpreted this imaging study as follows: Radiologist's impression: EXAMINATION:? US VENOUS ULTRASOUND WITH DOPPLER LOWER EXTREMITY, RIGHT CLINICAL INFORMATION:? Swelling and erythema. IV drug abuse COMPARISON:? None TECHNIQUE: Ultrasound of the deep veins is performed from the hip to the calf with compression sonography and color and pulse Doppler assessment. Spectral analysis with color-flow imaging is performed. FINDINGS: There is normal venous compression and respiratory variation and augmented flow. The visualized common femoral vein, superficial femoral vein, profunda femoral vein, popliteal vein, and the trifurcation region shows no evidence of deep venous thrombosis. ? There is no significant popliteal fossa cyst. In the anterolateral gallegos, there is a hypoechoic/anechoic collection present measuring 2.1 x 2.8 x 0.8 cm consistent with a small fluid collection. An enlarged lymph node is present in the right groin measuring 2.4 x 0.8 x 2.2 cm. A normal fatty hilum is present If the patient's symptoms persist, followup ultrasound in 5 days 7 days might be of value to exclude proximal propagation from a non-visualized calf vein. US/US venous duplex LE RT IMPRESSION: No DVT demonstrated in the right lower extremity. Incidental note made of a small fluid collection in the anterior gallegos along with an enlarged right groin node. Right tib-fib: Attestation: I personally reviewed and interpreted this imaging study as follows: Radiologist's impression: EXAMINATION: XR TIBIA AND FIBULA, RIGHT CLINICAL INFORMATION: Swelling with question of foreign body secondary to IV drug abuse? COMPARISON: None? TECHNIQUE: AP and lateral views of the right tibia and fibula were obtained. FINDINGS: The bones and soft tissues are normal. No fracture. No osseous lesions. A radiopaque foreign body is not seen. Small density in the posterolateral upper thigh may represent a small lymph node within the subcutaneous tissues. XR/XR tibia fibula RT 2V IMPRESSION: Normal right tibia and fibula. No radiopaque foreign body seen. Critical Care Time Critical Care Time Critical Care Time: Yes Total Critical Care Time: 45 Attestation: I have personally provided critical care time exclusive of time spent on separately billable procedures. Time includes review of laboratory data, radiology results, discussion with consultants, and monitoring for potential decompensation. Interventions were performed as documented. Discharge Plan Discharge Clinical Impression: Cellulitis, Depression, Substance abuse Patient Disposition: Admitted As Inpatient Prescriptions: No Action cyclobenzaprine 10 mg Tablet 10 mg PO TID PRN (Reason: Muscle Spasm) 15 Days RF: 0 nicotine 21 mg/24 hr Patch 24 Hour 21 mg transdermal DAILY 30 Days RF: 0 acetaminophen 325 mg Tablet 650 mg PO Q6H PRN (Reason: Headache/Pain Mild Scale (1-3)) 10 Days Qty: 30 RF: 0 ibuprofen 600 mg Tablet 600 mg PO Q6H PRN (Reason: Fever, headache, mild pain) Qty: 30 RF: 0 Prezcobix 800-150 mg-mg tablet 1 tab PO DAILY 30 Days Qty: 30 RF: 0 Juluca 50-25 mg tablet 1 tab PO DAILY 30 Days Qty: 30 RF: 0 clonidine HCl 0.1 mg Tablet 0.1 mg PO TID Qty: 90 RF: 0 trazodone 50 mg Tablet 50 mg PO BEDTIME PRN (Reason: Insomnia) Qty: 30 RF: 0 melatonin 3 mg Tablet 6 mg PO BEDTIME Qty: 60 RF: 0 quetiapine 100 mg Tablet 100 mg PO BEDTIME Qty: 30 RF: 0 lithium carbonate 300 mg Tablet 150 mg PO BID Qty: 30 RF: 0 bupropion HCl 300 mg Tablet Extended Release 24 Hr 300 mg PO DAILY Qty: 30 RF: 0 fluconazole 150 mg tablet 150 mg PO Q3D Qty: 2 RF: 0
[2021-01-13 21:17] LABS: Basophils Percent Auto 0.1 % (0-2); Eosinophils Absolute Auto 0.2 X10*3/uL (0.0-0.4); Eosinophils Percent Auto 1.1 % (0-4); Hemoglobin 11.1 g/dl (12.0-16.0); Imm Gran Abs Auto 0.09 X10*3/uL (0.00-0.03); Imm Gran Pct Auto 0.5 % (0.0-0.4); Lymphocytes Percent Auto 36.5 % (20-40); MANUAL DIFF FLAG SCAN; Mean Corpuscular HGB Conc 32.6 g/dl (31.0-35.0); Mean Corpuscular Hemoglobin 27.6 pg (27.0-33.0); Mean Corpuscular Volume 84.6 fL (80-98); Mean Platelet Volume 9.8 fL (9.4-12.3); Monocytes Absolute Auto 1.1 X10*3/uL (0.1-1.2); Monocytes Percent Auto 5.7 % (2-11); Neutrophils Absolute Auto 10.5 X10*3/uL (2.0-8.3); Neutrophils Percent Auto 56.1 % (45-73); Platelet Count 304 X10*3/uL (160-400); Red Blood Count 4.02 X10*6/uL (4.20-5.50); Red Cell Distribution Width 13.6 % (11.0-16.0); SCAN SMEAR FLAG 1; White Blood Count 18.7 X10*3/uL (4.8-10.8)
[2021-01-13 21:24] LABS: Ethanol < 10 mg/dL
[2021-01-13 21:26] LABS: Lactic Acid 1.1 mmol/L (0.5-2.0)
[2021-01-13 21:34] LABS: Acetaminophen LAB < 1 mcg/mL (<30); Alanine Aminotransferase 42 U/L (0-31); Albumin Level 3.9 g/dL (3.5-5.0); Alkaline Phosphatase 118 U/L (39-117); Anion Gap 13 (12-20); Aspartate Amino Transferase 27 U/L (5-31); Bilirubin Total 0.3 mg/dL (0.0-1.0); Blood Urea Nitrogen 10 mg/dL (9-16); Calcium 9.3 mg/dL (8.4-10.2); Carbon Dioxide 25 mmol/L (22-29); Chloride 102 mmol/L (96-108); Creatinine Clr Calc Pharmacy 84.7; Estimated Glomerular Filt Rate > 60; Glucose Random 111 mg/dL (60-115); Potassium 4.3 mmol/L (3.3-5.1); Sodium 136 mmol/L (135-145); Total Protein 7.8 g/dL (6.5-8.0)
[2021-01-13 21:35] LABS: Lymphocytes Absolute Auto 6.8 X10*3/uL (1.2-4.9)
[2021-01-13 21:36] LABS: Salicylate < 5.0 mg/dL (15-30)
[2021-01-13 21:37] LABS: SLIDE REVIEW VERIFIED
[2021-01-13 22:13] LABS: Influenza A PCR NEGATIVE (Negative); Influenza B PCR NEGATIVE (Negative); Resp Syncy Virus RNA Qual PCR NEGATIVE (Negative); SARS COV2 PCR INHOUSE NEGATIVE (Negative)
[2021-01-13] MEDS: Acetaminophen 325 MG TABLET 975 MG PO (22:18)
[2021-01-13] MEDS: cefTRIAXone sodium 1 GM in 0.9 % Sodium Chloride 50 ML IV (22:18)
[2021-01-13] MEDS: 0.9 % Sodium Chloride 1,000 ML 999 ML IVCONT (22:22)
[2021-01-13] MEDS: vancomycin HCL 750 MG in 0.9 % Sodium Chloride 250 ML 265 MG IV (23:17)
--- NOTE | 2021-01-13 23:18 | P.HPHOSP_ITS ---
History of Present Illness Date of Service: 01/13/21 Chief Complaint: cellulitis This is a 30-year-old female who is HIV positive, IV drug user, has major depressive disorder who presents to the hospital with complaints of suicidal ideation as well as right lower extremity pain and swelling. Patient is extremely lethargic on my exam, unable to stay awake long enough to give me much history, but reports that she came into the hospital because of her leg pain and feeling depressed and suicidal. She mentioned to the PA that she inject in her gallegos and few days ago developed induration, swelling, and pain in her lower right extremity, I am unable to get any other review of system as patient is extremely lethargic and unable to give much history On arrival to the ED patient hemodynamically stable with a temp of 99.9? otherwise vitals unremarkable 18.7, hemoglobin of 11.1 which is around her baseline, labs otherwise unremarkable. Tibia fibula x-ray shows no foreign body, venous duplex shows no DVT demons trated in the right lower extremity, incidental note made of a small fluid collection measuring 2.1 x 2.8 x 0.08 cm consistent with a small fluid collection located in the anterolateral gallegos Given her history of IV drug use Patient will be admitted for further management Review of Systems Review of Systems: Yes all other systems are reviewed and are negative [facility] Medical History HIV (human immunodeficiency virus infection) IV drug abuse MDD (major depressive disorder), recurrent episode, severe Pertinent family history: Unable to obtain Social History Household Members: Other Household Members Other:: esteban house members Housing: Other Do you presently have visiting nurse or other home services: No Unable to assess alcohol history related to: Unknown Alcohol intake: current Alcohol intake frequency: 3 or more drinks per day Alcohol type: hard liquor Patient Tobacco Use Status: Current everyday Tobacco user Tobacco use type: Cigarette Cigarette Packs Per Day: 1 Cigarettes Per Day: 20 Years Smoked: 5 Second Hand Smoke Exposure: Yes Substance Use Type: Crack/Cocaine and Heroin Advance Directives: No Advance Directives Information Provided: Yes Patient : No service: No Sexual orientation: Did not discuss Meds Allergies Allergy/AdvReac Type Severity Reaction Status Date / Time amoxicillin Allergy Unknown Verified 08/10/20 20:07 Physical Exam Vital Signs and Narrative: Vital Signs: Last Vital Signs Temp 99.1 F 01/13/21 20:07 Pulse 94 01/13/21 20:07 Resp 18 01/13/21 20:07 BP 126/66 01/13/21 20:07 Pulse Ox 97 01/13/21 20:07 Body Mass Index 29.1 Const: Other: Significantly lethargic General: cooperative Eyes: General: appearance normal, both eyes and all related structures Pupils: Equal, round and reactive pupils present Resp: Effort & Inspection: normal respiratory effort Auscultation: clear to auscultation bilaterally Cardio: Rate: regular rate Rhythm: regular rhythm GI: Palpation (GI): Soft to palpation Auscultation: normal bowel sounds Skin: Other: Has erythema, significant tenderness in the anterior right gallegos with palpable abscess General skin exam: no rashes or lesions noted Neuro: Cranial nerves: Yes Equal, round and reactive pupils present Cognit ion (Neuro): normal cognition Extrem: General: Yes normal to inspection and Yes no pedal edema Results Labs CBC and Chem 7: 01/13/21 21:04 01/13/21 21:04 Labs: Laboratory Results - last 24 hr 01/13/21 01/13/21 01/13/21 21:04 21:04 21:04 MCV 84.6 MCH 27.6 MCHC 32.6 RDW 13.6 Plt Count 304 D MPV 9.8 Immature Gran % (Auto) 0.5 H Neut % (Auto) 56.1 Lymph % (Auto) 36.5 [place] % (Auto) 5.7 Eos % (Auto) 1.1 Baso % (Auto) 0.1 Lymph # (Auto) 6.8 H [place] # (Auto) 1.1 Eos # (Auto) 0.2 Baso # (Auto) 0.0 Abs Immat Gran (auto) 0.09 H Absolute Neuts (auto) 10.5 H Absolute Nucleated RBC 0.000 Nucleated RBC % (auto) 0.0 Smear Tech's Comments VERIFIED Anion Gap 13 Estim Creat Clear Calc 84.7 Estimated GFR > 60 Random Glucose 111 Lactic Acid Calcium 9.3 Total Bilirubin 0.3 AST 27 D ALT 42 H Alkaline Phosphatase 118 H D Total Protein 7.8 Albumin 3.9 Salicylates < 5.0 L Acetaminophen < 1 Ethyl Alcohol < 10 Coronavirus (PCR) Influenza Type A (PCR) Influenza Type B (PCR) RSV RNA Qual (PCR) 01/13/21 01/13/21 21:04 21:23 MCV MCH MCHC RDW Plt Count MPV Immature Gran % (Auto) Neut % (Auto) Lymph % (Auto) [place] % (Auto) Eos % (Auto) Baso % (Auto) Lymph # (Auto) [place] # (Auto) Eos # (Auto) Baso # (Auto) Abs Immat Gran (auto) Absolute Neuts (auto) Absolute Nucleated RBC Nucleated RBC % (auto) Smear Tech's Comments Anion Gap Estim Creat Clear Calc Estimated GFR Random Glucose Lactic Acid 1.1 Calcium Total Bilirubin AST ALT Alkaline Phosphatase Total Protein Albumin Salicylates Acetaminophen Ethyl Alcohol Coronavirus (PCR) NEGATIVE Influenza Type A (PCR) NEGATIVE Influenza Type B (PCR) NEGATIVE RSV RNA Qual (PCR) NEGATIVE Imaging Radiologist's Impressions: Impressions Venous Duplex 01/13/21 20:48 IMPRESSION: No DVT demonstrated in the right lower extremity. Incidental note made of a small fluid collection in the anterior gallegos along with an enlarged right groin node. Tibia/Fibula X-Ray 01/13/21 20:51 IMPRESSION: Normal right tibia and fibula. No radiopaque foreign body seen. Assessment and Plan (1) Cellulitis: Qualifiers: Laterality: right Site of cellulitis: extremity Site of cellulitis of extremity: lower extremity Qualified Code(s): L03.115 - Cellulitis of right lower limb Status: Acute (2) Suicidal ideation: Status: Acute (3) Abscess: Status: Acute 30-year-old female with history of IV drug use as well as HIV presents to the hospital with complaints of right lower leg pain the site of IV drug injection found to have cellulitis as well as abscess # cellulitis/abscess - has erythema, tenderness, warmth - will start on IV antibiotics, will start with vanc and Zosyn given her history of IV drug - patient also has abscess seen on venous Doppler, will consult general surgery for possible I&D - follow blood cultures # suicidal ideation - patient reports suicidal ideation - crisis team consult - sitter at bedside - once medically clear may need admission to [facility] # HIV - will continue her home medication DVT prophylaxis: Lovenox Quality Stroke Does the patient have a stroke diagnosis?: No VTE Prior VTE?: No VTE Risk Level:: Medical - moderate - high VTE Device Contraindication: Treatment Not Indicated VTE Drug Contraindication: N/A - Med Ordered
[2021-01-13 23:21] VITALS: RESP 16; TEMP 37.7
[2021-01-14 01:23] VITALS: BP 112/60; PULSE 76; RESP 18; TEMP 37.1; O2SAT 96
[2021-01-14] MEDS: Enoxaparin Sodium 40 MG/0.4 ML SYRINGE SUBCUT (03:32)
--- NOTE | 2021-01-14 05:51 | PC.NURSE ---
Consult called to answering service for Dr Aguirre at [phone].
--- NOTE | 2021-01-14 06:52 | PHA.PROG ---
Admission Date/Time: January 13, 2021 23:18 Indication: Cellulitis, hx of IVDU Weight in k kg Adjusted body weight in K.68 [place] body weight in K.8 Obesity Dosing Indication % IBW: n/a Serum Creatinine - Last 168 Hours 01/13/21 21:04 Creatinine 0.86 Estimated CrCl and GFR - Last 168 Hours 01/13/21 21:04 Estim Creat Clear Calc 84.7 Estimated GFR > 60 Vancomycin Loading Dose: N/A - 750 mg LD given in the ED at 2317 Current Vancomycin Dosing Regimen: 1000 mg Q12H starting 01/14 @ 0900 Date and Time for next Vancomycin Level to be drawn: 01/15@ 0800 Pharmacist Comments on Vancomycin Plan: Start vanco 1000 mg Q12H at 0900. Expected AUC 493 with a trough of 14.9 Trough to be drawn before 4th dose Pharamcy will monitor renal function daily Saba Olson PharmD Vancomycin dosing will take advantage of [employer] as a clinical decision support tool that uses Bayesian modeling to calculate individual patient's pharmacokinetic parameters and forecast the patient's drug concentration time course with the target goal AUC 24 range of 400 - 600 mg/L/hr.
[2021-01-14 07:30] LABS: UPreg QC Valid YES; Urine Pregnancy NEGATIVE (NEGATIVE)
[2021-01-14] MEDS: cefEPime HCl 1 GM in 0.9 % Sodium Chloride 50 ML IV ×2 (07:30→15:19)
[2021-01-14 07:37] LABS: Amphetamine Screen Urine Not Detected (Not Detect); Barbiturates, Urine Not Detected (Not Detect); Benzodiazepines Screen Urine Not Detected (Not Detect); Cannabinoid Screen Urine Not Detected (Not Detect); Cocaine Screen Urine POSITIVE (Not Detect); Fentanyl, urine POSITIVE (Not Detect); Opiate Screen Urine POSITIVE (Not Detect); Phencyclidine Screen Urine Not Detected (Not Detect)
--- NOTE | 2021-01-14 08:22 | PHA.MEDREC ---
Pharmacy Consult ? Medication Reconciliation Pharmacy has completed the medication reconciliation. Patient reports taking Seroquel every 4 hours instead of BID. Saba Olson, PharmD
[2021-01-14] MEDS: 0.9 % Sodium Chloride Flush 3 ML SYRINGE IVFLUSH ×3 (09:26→20:40)
--- NOTE | 2021-01-14 10:00 | P.CONGS_ITS ---
History of Present Illness Consult details Consult date: 01/14/21 Narrative: 30-year-old female patient with a history of IV drug abuse, depression, HIV positive presenting with pain in the right gallegos which developed after our injecting IV meds. She reports a previous history of leg infections from IV drug use and is uncertain when this current infection began. She presented to the emergency department and was noted to be febrile with an elevated WBC of 18.7. Tib-fib x-rays revealed no evidence of a foreign body. Venous Doppler studies were negative for DVT. She is admitted to the hospitalist service for IV antibiotics. Surgical consultation was requested for possible incision and drainage. Review of Systems Review of Systems: Yes Unobtainable due to mental status PMFSH Past Medical History Medical History HIV (human immunodeficiency virus infection) IV drug abuse MDD (major depressive disorder), recurrent episode, severe Social History Social History Household Members: Other Household Members Other:: [facility] house members Housing: Other Do you presently have visiting nurse or other home services: No Unable to assess alcohol history related to: Unknown Alcohol intake: current Alcohol intake frequency: 3 or more drinks per day Alcohol type: hard liquor Patient Tobacco Use Status: Current everyday Tobacco user Tobacco use type: Cigarette Cigarette Packs Per Day: 1 Cigarettes Per Day: 20 Years Smoked: 5 Second Hand Smoke Exposure: Yes Substance Use Type: Crack/Cocaine and Heroin Advance Directives: No Advance Directives Information Provided: Yes Patient : No service: No Sexual orientation: Did not discuss Meds Allergies Allergy/AdvReac Type Severity Reaction Status Date / Time amoxicillin Allergy Unknown Verified 08/10/20 20:07 Active Medications: Current Medications Acetaminophen (Acetaminophen 325 Mg Tablet) 650 mg PO Q6H PRN PRN Reason: Pain, Mild (Pain Scale 1-3) Bupropion HCl (Bupropion Hcl Xl 300 Mg Tab.Er.24h) 300 mg PO DAILY AMANDA Docusate Sodium (Docusate Sodium 100 Mg Capsule) 100 mg PO DAILY PRN PRN Reason: Constipation Enoxaparin Sodium (Enoxaparin Sodium 40 Mg/0.4 Ml Syringe) 40 mg SUBCUT Q24H AMANDA Last Admin: 01/14/21 03:32 Dose: 40 mg Documented by: Hydroxyzine HCl (Hydroxyzine Hcl 50 Mg Tablet) 50 mg PO TID [facility] Cefepime HCl 1 gm/ Sodium (Chloride) 50 mls @ 100 mls/hr IV Q8H [facility] Last Infusion: 01/14/21 09:26 Dose: Infused Documented by: Vancomycin HCl 1,000 mg/ (Sodium Chloride) 270 mls @ 270 mls/hr IV Q12H [facility] [place] Carbonate ([place] Carbonate 300 Mg Capsule) 300 mg PO BEDTIME [facility] Melatonin (Melatonin 3 Mg Tablet) 9 mg PO BEDTIME PRN PRN Reason: Insomnia Morphine Sulfate (Morphine Sulfate 4 Mg/Ml Cartridge) 4 mg IVPUSH Q4H PRN; Protocol PRN Reason: Pain, Severe (Pain Scale 7-10) Non-Formulary Medication (Darunavir-Cobicistat [Prezcobix]) 1 tab PO DAILY [facility] Non-Formulary Medication (Dolutegravir-Rilpivirine [Juluca]) 1 tab PO DAILY [facility] Ondansetron HCl (Ondansetron Hcl 4 Mg/2 Ml Vial) 4 mg IVPUSH Q8H PRN PRN Reason: Nausea and Vomiting Pharmacy Consult (Consult Rx Vancomycin Dosing) 1 each MISCELLANE DAILY PRN PRN Reason: Consult order Propranolol HCl (Propranolol Hcl 10 Mg Tablet) 10 mg PO BID PRN; Protocol PRN Reason: Anxiety Quetiapine Fumarate (Quetiapine Fumarate 50 Mg Tablet) 50 mg PO Q4H PRN PRN Reason: Anxiety Sodium Chloride (0.9 % Sodium Chloride Flush 3 Ml Syringe) [facility] Admin: 01/14/21 09:26 Dose: 3 ml Documented by: Trazodone HCl (Trazodone Hcl 50 Mg Tablet) 50 mg PO BEDTIME PRN PRN Reason: Insomnia Home Medications Medication Instructions Recorded Confirmed Last Taken Type hydroxyzine pamoate 50 mg capsule 1 cap PO TID 01/14/21 01/14/21 Unknown History lithium carbonate 300 mg capsule 1 cap PO BEDTIME 01/14/21 01/14/21 Unknown History melatonin 10 mg tablet 10 mg PO BEDTIME PRN 01/14/21 01/14/21 Unknown History propranolol 10 mg tablet 1 tab PO BID PRN 01/14/21 01/14/21 Unknown History quetiapine 50 mg tablet 1 tab PO Q4H PRN 01/14/21 01/14/21 Unknown History Physical Exam Vital Signs: Vital Signs: Last Vital Signs Temp 98.7 F 01/14/21 01:23 Pulse 76 01/14/21 01:23 Resp 18 01/14/21 01:23 BP 112/60 01/14/21 01:23 Pulse Ox 96 01/14/21 01:23 Body Mass Index 29.1 Const: General: diaphoretic, intoxicated appearing and patient obtunded Nutritional Appearance: well nourished Orientation/consciousness: patient obtunded Limitations: altered mental status HENMT: Head: Yes normocephalic and Yes atraumatic Resp: Effort & Inspection: normal respiratory effort Cardio: Jugular venous distension: no JVD Rate: regular rate Rhythm: regular rhythm GI: Inspection: Yes normal to inspection Neuro: General: patient obtunded Extrem: Other: Right leg with an area of fluctuance in the mid gallegos region measuring approximately 5 cm in diameter with mesh discoloration in the center. Ulceration or bleeding is noted. Surrounding skin is erythematous. Findings are suggestive of an abscess. Ankle/foot/toe images: 1. Site of abscess right leg mid gallegos Results Labs Result diagrams: 01/13/21 21:04 01/13/21 21:04 Labs: Abnormal lab results 01/13/21 01/13/21 01/14/21 Range/Units 21:04 21:04 07:16 WBC 18.7 H (4.8-10.8) X10*3/uL RBC 4.02 L (4.20-5.50) X10*6/uL Hgb 11.1 L (12.0-16.0) g/dl Hct 34.0 L (37-47) % Immature Gran % (Auto) 0.5 H (0.0-0.4) % Lymph # (Auto) 6.8 H (1.2-4.9) X10*3/uL Abs Immat Gran (auto) 0.09 H (0.00-0.03) X10*3/uL Absolute Neuts (auto) 10.5 H (2.0-8.3) X10*3/uL ALT 42 H (0-31) U/L Alkaline Phosphatase 118 H D (39-117) U/L Salicylates < 5.0 L (15-30) mg/dL Urine Opiates Screen POSITIVE H (Not Detect) Urine Fentanyl Screen POSITIVE H (Not Detect) Urine Cocaine Screen POSITIVE H (Not Detect) Short CBC 01/13/21 Range/Units 21:04 WBC 18.7 H (4.8-10.8) X10*3/uL Hgb 11.1 L (12.0-16.0) g/dl Hct 34.0 L (37-47) % Plt Count 304 D (160-400) X10*3/uL BMP 01/13/21 21:04 Sodium 136 Potassium 4.3 Chloride 102 Carbon Dioxide 25 BUN 10 Creatinine 0.86 Calcium 9.3 Liver Function 01/13/21 Range/Units 21:04 Total Bilirubin 0.3 (0.0-1.0) mg/dL AST 27 D (5-31) U/L ALT 42 H (0-31) U/L Alkaline Phosphatase 118 H D (39-117) U/L Albumin 3.9 (3.5-5.0) g/dL Urine 01/14/21 Range/Units 07:16 Urine Test NEGATIVE (NEGATIVE) All other labs normal. Assessment and Plan (1) Abscess: Status: Acute 30-year-old female history of IV drug abuse, HIV, presenting with an abscess of the right leg after IV injection. I recommended incision and drainage of this abscess and after discussion of the procedure, risks, and alternatives, she consents to the procedure. This will be performed at the bedside later today. Procedures Date of Service Date of Service: 01/14/21
[2021-01-14] MEDS: vancomycin HCL 1,000 MG in 0.9 % Sodium Chloride 250 ML 270 MG IV ×2 (10:10→20:39)
[2021-01-14] MEDS: buPROPion HCl XL 300 MG TAB.ER.24H PO (10:11)
[2021-01-14] MEDS: hydrOXYzine HCL 50 MG TABLET PO ×3 (10:11→20:40)
--- NOTE | 2021-01-14 10:30 | PC.NURSE ---
Phelbotomy at bedside for blood draw
--- NOTE | 2021-01-14 10:41 | MHC.CARE ---
Consults for crisis and psychiatry were placed in the ED. Pt is being medically admitted. Consults should be placed again from the med floor if needed.
[2021-01-14 10:49] LABS: MANUAL DIFF FLAG NO
[2021-01-14 10:52] LABS: Basophils Percent Auto 0.2 % (0-2); Eosinophils Absolute Auto 0.3 X10*3/uL (0.0-0.4); Eosinophils Percent Auto 2.2 % (0-4); Hematocrit 33.7 % (37-47); Hemoglobin 10.9 g/dl (12.0-16.0); Imm Gran Abs Auto 0.04 X10*3/uL (0.00-0.03); Imm Gran Pct Auto 0.3 % (0.0-0.4); Lymphocytes Absolute Auto 4.3 X10*3/uL (1.2-4.9); Lymphocytes Percent Auto 35.6 % (20-40); Mean Corpuscular HGB Conc 32.3 g/dl (31.0-35.0); Mean Corpuscular Hemoglobin 27.4 pg (27.0-33.0); Mean Corpuscular Volume 84.7 fL (80-98); Monocytes Absolute Auto 0.8 X10*3/uL (0.1-1.2); Monocytes Percent Auto 6.6 % (2-11); Neutrophils Absolute Auto 6.7 X10*3/uL (2.0-8.3); Neutrophils Percent Auto 55.1 % (45-73); Platelet Count 296 X10*3/uL (160-400); Red Blood Count 3.98 X10*6/uL (4.20-5.50); Red Cell Distribution Width 13.6 % (11.0-16.0); White Blood Count 12.2 X10*3/uL (4.8-10.8)
[2021-01-14 11:09] LABS: Anion Gap 14 (12-20); Blood Urea Nitrogen 8 mg/dL (9-16); Calcium 8.7 mg/dL (8.4-10.2); Carbon Dioxide 19 mmol/L (22-29); Chloride 109 mmol/L (96-108); Creatinine Clr Calc Pharmacy 104.1; Estimated Glomerular Filt Rate > 60; Glucose Random 99 mg/dL (60-115); Potassium 5.2 mmol/L (3.3-5.1); Sodium 137 mmol/L (135-145)
--- NOTE | 2021-01-14 11:12 | PC.NURSE ---
Pt resting quietly, remains calm and cooperative. Pt observer at bedside for safety. Dr Aguirre to bedside for eval of right lower leg abcess with plans to I&D later today. Pt warm but afebrile 98.8 orally. Pt does report thoughts of SI with plan to overdose and history of self harm in past.
[2021-01-14] MEDS: methADONE HCl 20 MG/2 ML ORAL.CONC 25 MG PO (13:08)
--- NOTE | 2021-01-14 13:22 | MHC.RECOVRN ---
Briefly met with pt to assess for withdrawal. Pt reports not feeling great. Pt diaphoretic, laying in bed. Pt reports going to [facility] and receiving 55 mg for awhile last dose a couple days ago. T/w attempting to verify last dose. Discussed with Tracie Cervantes APRN who will order a smaller dose until it can be verified.
--- NOTE | 2021-01-14 13:38 | MHC.CM.PN ---
Attempted to meet with patient in regards to discharge planning. Patient sleeping. No family present. Will attempt to meet again. Continue to monitor for d/c needs.
[2021-01-14 16:00] VITALS: BP 131/70; PULSE 78; RESP 16; TEMP 37.3; O2SAT 95
--- NOTE | 2021-01-14 16:00 | P.PNIM_ITS ---
Subjective Subjective Date of Service: 01/14/21 Interval History: cellulitis /abcess Review of Systems still has leg pain, no fevers Denies any new complaint of chest pain or shortness of breath or abdominal pain or fever or chills or nausea or vomiting Denies any cough Denies any weakness or numbness. Physical Exam Vital Signs: Vital Signs: Last Vital Signs Temp 98.7 F 01/14/21 01:23 Pulse 76 01/14/21 01:23 Resp 18 01/14/21 01:23 BP 112/60 01/14/21 01:23 Pulse Ox 96 01/14/21 01:23 Body Mass Index 29.1 Appearance: Alert.? Oriented X3.? Eyes: Pupils equal, round and reactive to light.? Sclera nonicteric.? ENT: Pharynx normal.? Moist mucous membranes. cvs: rrr, [id number] , no murmur res: clear to auscultation ,no rhonchii or wheezing abd: no rebound or guarding ,nt, bs present. ext pulses present , no cyanosis ,right anterior leg-swelling /abcess . neuro: axo3 , nonfocal. Objective Data Active Medications Acetaminophen (Acetaminophen 325 Mg Tablet) 650 mg PO Q6H PRN PRN Reason: Pain, Mild (Pain Scale 1-3) Bupropion HCl (Bupropion Hcl Xl 300 Mg Tab.Er.24h) 300 mg PO DAILY [facility] Last Admin: 01/14/21 10:11 Dose: 300 mg Documented by: DIMAS Docusate Sodium (Docusate Sodium 100 Mg Capsule) 100 mg PO DAILY PRN PRN Reason: Constipation Enoxaparin Sodium (Enoxaparin Sodium 40 Mg/0.4 Ml Syringe) 40 mg SUBCUT Q24H [facility] Last Admin: 01/14/21 03:32 Dose: 40 mg Documented by: LUIS Hydroxyzine HCl (Hydroxyzine Hcl 50 Mg Tablet) 50 mg PO TID [facility] Last Admin: 01/14/21 15:23 Dose: 50 mg Documented by: ANGEL Cefepime HCl 1 gm/ Sodium (Chloride) 50 mls @ 100 mls/hr IV Q8H [facility] Last Admin: 01/14/21 15:19 Dose: 100 mls/hr Documented by: ANGEL Comments: 100ML/HR Vancomycin HCl 1,000 mg/ (Sodium Chloride) 270 mls @ 270 mls/hr IV Q12H [facility] Last Infusion: 01/14/21 11:30 Dose: 0 mls/hr Documented by: DIMAS [place] Carbonate ([place] Carbonate 300 Mg Capsule) 300 mg PO BEDTIME [facility] Melatonin (Melatonin 3 Mg Tablet) 9 mg PO BEDTIME PRN PRN Reason: Insomnia Morphine Sulfate (Morphine Sulfate 4 Mg/Ml Cartridge) 4 mg IVPUSH Q4H PRN; Protocol PRN Reason: Pain, Severe (Pain Scale 7-10) Non-Formulary Medication (Darunavir-Cobicistat [Prezcobix]) 1 tab PO DAILY [facility] Non-Formulary Medication (Dolutegravir-Rilpivirine [Juluca]) 1 tab PO DAILY [facility] Ondansetron HCl (Ondansetron Hcl 4 Mg/2 Ml Vial) 4 mg IVPUSH Q8H PRN PRN Reason: Nausea and Vomiting Pharmacy Consult (Consult Rx Vancomycin Dosing) 1 each MISCELLANE DAILY PRN PRN Reason: Consult order Propranolol HCl (Propranolol Hcl 10 Mg Tablet) 10 mg PO BID PRN; Protocol PRN Reason: Anxiety Quetiapine Fumarate (Quetiapine Fumarate 50 Mg Tablet) 50 mg PO Q4H PRN PRN Reason: Anxiety Sodium Chloride (0.9 % Sodium Chloride Flush 3 Ml Syringe) 3 ml IVFLUSH QSHIFT [facility] Last Admin: 01/14/21 09:26 Dose: 3 ml Documented by: DIMAS Trazodone HCl (Trazodone Hcl 50 Mg Tablet) 50 mg PO BEDTIME PRN PRN Reason: Insomnia Labs CBC & Chem 7: 01/14/21 10:34 01/14/21 10:34 Labs: Laboratory Results - last 24 hr 01/13/21 01/13/21 01/13/21 21:04 21:04 21:04 MCV 84.6 MCH 27.6 MCHC 32.6 RDW 13.6 Plt Count 304 D MPV 9.8 Immature Gran % (Auto) 0.5 H Neut % (Auto) 56.1 Lymph % (Auto) 36.5 [place] % (Auto) 5.7 Eos % (Auto) 1.1 Baso % (Auto) 0.1 Lymph # (Auto) 6.8 H [place] # (Auto) 1.1 Eos # (Auto) 0.2 Baso # (Auto) 0.0 Abs Immat Gran (auto) 0.09 H Absolute Neuts (auto) 10.5 H Absolute Nucleated RBC 0.000 Nucleated RBC % (auto) 0.0 Smear Tech's Comments VERIFIED Smear Path Review SEE NOTE Anion Gap 13 Estim Creat Clear Calc 84.7 Estimated GFR > 60 Random Glucose 111 Lactic Acid Calcium 9.3 Total Bilirubin 0.3 AST 27 D ALT 42 H Alkaline Phosphatase 118 H D Total Protein 7.8 Albumin 3.9 Urine Test Salicylates < 5.0 L Urine Opiates Screen Urine Fentanyl Screen Acetaminophen < 1 Ur Barbiturates Screen Ur Phencyclidine Scrn Ur Amphetamines Screen U Benzodiazepines Scrn Urine Cocaine Screen U Marijuana (THC) Screen Ethyl Alcohol < 10 Coronavirus (PCR) Influenza Type A (PCR) Influenza Type B (PCR) RSV RNA Qual (PCR) 01/13/21 01/13/21 01/14/21 21:04 21:23 07:16 MCV MCH MCHC RDW Plt Count MPV Immature Gran % (Auto) Neut % (Auto) Lymph % (Auto) [place] % (Auto) Eos % (Auto) Baso % (Auto) Lymph # (Auto) [place] # (Auto) Eos # (Auto) Baso # (Auto) Abs Immat Gran (auto) Absolute Neuts (auto) Absolute Nucleated RBC Nucleated RBC % (auto) Smear Tech's Comments Smear Path Review Anion Gap Estim Creat Clear Calc Estimated GFR Random Glucose Lactic Acid 1.1 Calcium Total Bilirubin AST ALT Alkaline Phosphatase Total Protein Albumin Urine Test Salicylates Urine Opiates Screen POSITIVE H Urine Fentanyl Screen POSITIVE H Acetaminophen Ur Barbiturates Screen Not Detected Ur Phencyclidine Scrn Not Detected Ur Amphetamines Screen Not Detected U Benzodiazepines Scrn Not Detected Urine Cocaine Screen POSITIVE H U Marijuana (THC) Screen Not Detected Ethyl Alcohol Coronavirus (PCR) NEGATIVE Influenza Type A (PCR) NEGATIVE Influenza Type B (PCR) NEGATIVE RSV RNA Qual (PCR) NEGATIVE 01/14/21 01/14/21 01/14/21 07:16 10:34 10:34 MCV 84.7 MCH 27.4 MCHC 32.3 RDW 13.6 Plt Count 296 MPV 10.0 Immature Gran % (Auto) 0.3 Neut % (Auto) 55.1 Lymph % (Auto) 35.6 [place] % (Auto) 6.6 Eos % (Auto) 2.2 Baso % (Auto) 0.2 Lymph # (Auto) 4.3 [place] # (Auto) 0.8 Eos # (Auto) 0.3 Baso # (Auto) 0.0 Abs Immat Gran (auto) 0.04 H Absolute Neuts (auto) 6.7 Absolute Nucleated RBC 0.000 Nucleated RBC % (auto) 0.0 Smear Tech's Comments Smear Path Review Anion Gap 14 Estim Creat Clear Calc 104.1 Estimated GFR > 60 Random Glucose 99 Lactic Acid Calcium 8.7 D Total Bilirubin AST ALT Alkaline Phosphatase Total Protein Albumin Urine Test NEGATIVE Salicylates Urine Opiates Screen Urine Fentanyl Screen Acetaminophen Ur Barbiturates Screen Ur Phencyclidine Scrn Ur Amphetamines Screen U Benzodiazepines Scrn Urine Cocaine Screen U Marijuana (THC) Screen Ethyl Alcohol Coronavirus (PCR) Influenza Type A (PCR) Influenza Type B (PCR) RSV RNA Qual (PCR) Assessment and Plan (1) Cellulitis: Status: Acute (2) Abscess: Status: Acute Assessment and Plan: 30-year-old female with history of IV drug use as well as HIV presents to the hospital with complaints of right lower leg pain the site of IV drug injection found to have cellulitis as well as abscess 1.cellulitis/abscess - has erythema, tenderness, warmth - will start on IV antibiotics, will start with vanc and Zosyn given her history of IV drug vanco trough and renal function/electrolytes monitering - patient also has abscess seen on venous Doppler - follow blood cultures general surgeryconsult for possible I&D id eval 2. suicidal ideation - patient reports suicidal ideation - crisis team consult - sitter at bedside - once medically clear may need admission to BHU 3. HIV - will continue her home medication DVT prophylaxis:? Lovenox Quality Stroke Does the patient have a stroke diagnosis?: No VTE Prior VTE?: No VTE Risk Level:: Medical - moderate - high VTE Device Contraindication: Treatment Not Indicated VTE Drug Contraindication: N/A - Med Ordered
[2021-01-14 16:47] VITALS: BP 107/66; PULSE 78; RESP 18; TEMP 37.2; O2SAT 97
--- NOTE | 2021-01-14 16:53 | PC.NURSE ---
Pt alert and oriented x4, calm and cooperative. Pt denies pain. Pt tolerating IV abx well. Pt aware of being admitted. Vitals stable. IV intact. Sitter with patient. Report given.
--- NOTE | 2021-01-14 16:55 | HO.ADDICTCON ---
History of Present Illness Date of Service: 01/14/2021 Chief Complaint: Cellulitis, Abscess, IVDU Reason for Consult: OUD Requesting physician: Philippe Moses Discussed with referring provider: No Sources of Information: patient interviewed and chart reviewed HPI Narrative: Patient is a 30 year old female with OUD currently medically admitted with cellulitis secondary to IV drug use. Patient seen several times in ED by this loan underwriter and recovery support RN. Each time patient was sleeping, but easily arousable. She reports she has been on methadone--reports last dose was 2days ago and her current dose is reported as being 55 mg. She states she has been using 2 bundles of heroin QD. Per her report she had been in several treatment facilities over the last several months, with the most recent being at the [facility]. She states she left there approx 2 weeks ago. At time of initial eval patient reported feeling anxious, diaphoretic, nauseous. She received methadone 25mg with good effect. Unable to verify methadone dose at this time Past Psychiatric History: Inpatient: 07/2020 (depression/SI) OP: [facility] Suicide attempts: pt denies Past trials: lexapro, wellbutrin, seroquel, clonidine and vistaril Review of Systems Constitutional: Reports as per HPI, Reports no additional constitutional complaints and Reports chills Diagnostics Vital Signs (24Hr): Vital Signs - 24 hr 01/13/21 20:07 01/13/21 23:21 01/14/21 01:23 Temperature 99.1 F 99.9 F 98.7 F Pulse Rate 94 76 Respiratory Rate 18 16 18 Blood Pressure 126/66 112/60 Pulse Oximetry 97 96 01/14/21 16:00 01/14/21 16:47 Temperature 99.1 F 99 F Pulse Rate 78 78 Respiratory Rate 16 18 Blood Pressure 131/70 107/66 Pulse Oximetry 95 97 Body Mass Index 29.1 Labs Results: 01/14/21 10:34 01/14/21 10:34 Labs: Laboratory Results - last 48 hr 01/13/21 01/13/21 01/13/21 21:04 21:04 21:04 WBC 18.7 H RBC 4.02 L Hgb 11.1 L Hct 34.0 L MCV 84.6 MCH 27.6 MCHC 32.6 RDW 13.6 Plt Count 304 D MPV 9.8 Immature Gran % (Auto) 0.5 H Neut % (Auto) 56.1 Lymph % (Auto) 36.5 [place] % (Auto) 5.7 Eos % (Auto) 1.1 Baso % (Auto) 0.1 Lymph # (Auto) 6.8 H [place] # (Auto) 1.1 Eos # (Auto) 0.2 Baso # (Auto) 0.0 Abs Immat Gran (auto) 0.09 H Absolute Neuts (auto) 10.5 H Absolute Nucleated RBC 0.000 Nucleated RBC % (auto) 0.0 Smear Tech's Comments VERIFIED Smear Path Review SEE NOTE Sodium 136 Potassium 4.3 Chloride 102 Carbon Dioxide 25 Anion Gap 13 BUN 10 Creatinine 0.86 Estim Creat Clear Calc 84.7 Estimated GFR > 60 Random Glucose 111 Lactic Acid Calcium 9.3 Total Bilirubin 0.3 AST 27 D ALT 42 H Alkaline Phosphatase 118 H D Total Protein 7.8 Albumin 3.9 Urine Test Salicylates < 5.0 L Urine Opiates Screen Urine Fentanyl Screen Acetaminophen < 1 Ur Barbiturates Screen Ur Phencyclidine Scrn Ur Amphetamines Screen U Benzodiazepines Scrn Urine Cocaine Screen U Marijuana (THC) Screen Ethyl Alcohol < 10 Coronavirus (PCR) Influenza Type A (PCR) Influenza Type B (PCR) RSV RNA Qual (PCR) 01/13/21 01/13/21 01/14/21 21:04 21:23 07:16 WBC RBC Hgb Hct MCV MCH MCHC RDW Plt Count MPV Immature Gran % (Auto) Neut % (Auto) Lymph % (Auto) [place] % (Auto) Eos % (Auto) Baso % (Auto) Lymph # (Auto) [place] # (Auto) Eos # (Auto) Baso # (Auto) Abs Immat Gran (auto) Absolute Neuts (auto) Absolute Nucleated RBC Nucleated RBC % (auto) Smear Tech's Comments Smear Path Review Sodium Potassium Chloride Carbon Dioxide Anion Gap BUN Creatinine Estim Creat Clear Calc Estimated GFR Random Glucose Lactic Acid 1.1 Calcium Total Bilirubin AST ALT Alkaline Phosphatase Total Protein Albumin Urine Test Salicylates Urine Opiates Screen POSITIVE H Urine Fentanyl Screen POSITIVE H Acetaminophen Ur Barbiturates Screen Not Detected Ur Phencyclidine Scrn Not Detected Ur Amphetamines Screen Not Detected U Benzodiazepines Scrn Not Detected Urine Cocaine Screen POSITIVE H U Marijuana (THC) Screen Not Detected Ethyl Alcohol Coronavirus (PCR) NEGATIVE Influenza Type A (PCR) NEGATIVE Influenza Type B (PCR) NEGATIVE RSV RNA Qual (PCR) NEGATIVE 01/14/21 01/14/21 01/14/21 07:16 10:34 10:34 WBC 12.2 H RBC 3.98 L Hgb 10.9 L Hct 33.7 L MCV 84.7 MCH 27.4 MCHC 32.3 RDW 13.6 Plt Count 296 MPV 10.0 Immature Gran % (Auto) 0.3 Neut % (Auto) 55.1 Lymph % (Auto) 35.6 [place] % (Auto) 6.6 Eos % (Auto) 2.2 Baso % (Auto) 0.2 Lymph # (Auto) 4.3 [place] # (Auto) 0.8 Eos # (Auto) 0.3 Baso # (Auto) 0.0 Abs Immat Gran (auto) 0.04 H Absolute Neuts (auto) 6.7 Absolute Nucleated RBC 0.000 Nucleated RBC % (auto) 0.0 Smear Tech's Comments Smear Path Review Sodium 137 Potassium 5.2 H D Chloride 109 H Carbon Dioxide 19 L Anion Gap 14 BUN 8 L Creatinine 0.70 Estim Creat Clear Calc 104.1 Estimated GFR > 60 Random Glucose 99 Lactic Acid Calcium 8.7 D Total Bilirubin AST ALT Alkaline Phosphatase Total Protein Albumin Urine Test NEGATIVE Salicylates Urine Opiates Screen Urine Fentanyl Screen Acetaminophen Ur Barbiturates Screen Ur Phencyclidine Scrn Ur Amphetamines Screen U Benzodiazepines Scrn Urine Cocaine Screen U Marijuana (THC) Screen Ethyl Alcohol Coronavirus (PCR) Influenza Type A (PCR) Influenza Type B (PCR) RSV RNA Qual (PCR) Imaging Radiology Impressions: ITS Impressions Venous Duplex 01/13/21 20:48 IMPRESSION: No DVT demonstrated in the right lower extremity. Incidental note made of a small fluid collection in the anterior gallegos along with an enlarged right groin node. Tibia/Fibula X-Ray 01/13/21 20:51 IMPRESSION: Normal right tibia and fibula. No radiopaque foreign body seen. Mental Status Exam Mental Status Exam Narrative: patient appearing very sleepy, but easily arousable clear speech, linear, goal oriented thought process Medications Medications Current Medications Acetaminophen (Acetaminophen 325 Mg Tablet) 650 mg PO Q6H PRN PRN Reason: Pain, Mild (Pain Scale 1-3) Bupropion HCl (Bupropion Hcl Xl 300 Mg Tab.Er.24h) 300 mg PO DAILY [facility] Last Admin: 01/14/21 10:11 Dose: 300 mg Documented by: Docusate Sodium (Docusate Sodium 100 Mg Capsule) 100 mg PO DAILY PRN PRN Reason: Constipation Enoxaparin Sodium (Enoxaparin Sodium 40 Mg/0.4 Ml Syringe) 40 mg SUBCUT Q24H [facility] Last Admin: 01/14/21 03:32 Dose: 40 mg Documented by: Hydroxyzine HCl (Hydroxyzine Hcl 50 Mg Tablet) 50 mg PO TID [facility] Last Admin: 01/14/21 15:23 Dose: 50 mg Documented by: Cefepime HCl 1 gm/ Sodium (Chloride) 50 mls @ 100 mls/hr IV Q8H [facility] Last Infusion: 01/14/21 16:16 Dose: Infused Documented by: Vancomycin HCl 1,000 mg/ (Sodium Chloride) 270 mls @ 270 mls/hr IV Q12H [facility] Last Infusion: 01/14/21 11:30 Dose: Infused Documented by: [place] Carbonate ([place] Carbonate 300 Mg Capsule) 300 mg PO BEDTIME [facility] Melatonin (Melatonin 3 Mg Tablet) 9 mg PO BEDTIME PRN PRN Reason: Insomnia Methadone HCl (Methadone Hcl 20 Mg/2 Ml Oral.Conc) 30 mg PO DAILY [facility] Morphine Sulfate (Morphine Sulfate 4 Mg/Ml Cartridge) 4 mg IVPUSH Q4H PRN; Protocol PRN Reason: Pain, Severe (Pain Scale 7-10) Non-Formulary Medication (Darunavir-Cobicistat [Prezcobix]) 1 tab PO DAILY [facility] Non-Formulary Medication (Dolutegravir-Rilpivirine [Juluca]) 1 tab PO DAILY [facility] Ondansetron HCl (Ondansetron Hcl 4 Mg/2 Ml Vial) 4 mg IVPUSH Q8H PRN PRN Reason: Nausea and Vomiting Pharmacy Consult (Consult Rx Vancomycin Dosing) 1 each MISCELLANE DAILY PRN PRN Reason: Consult order Propranolol HCl (Propranolol Hcl 10 Mg Tablet) 10 mg PO BID PRN; Protocol PRN Reason: Anxiety Quetiapine Fumarate (Quetiapine Fumarate 50 Mg Tablet) 50 mg PO Q4H PRN PRN Reason: Anxiety Sodium Chloride (0.9 % Sodium Chloride Flush 3 Ml Syringe) 3 ml IVFLUSH QSHIFT [facility] Last Admin: 10/19/21 09:26 Dose: 3 ml Documented by: Sodium Polystyrene Sulfonate (Sodium Polystyrene Sulfon/Sorb 15 Gm/60 Ml Oral.Susp) 15 gm PO ONCE ONE Stop: 01/14/21 16:46 Trazodone HCl (Trazodone Hcl 50 Mg Tablet) 50 mg PO BEDTIME PRN PRN Reason: Insomnia Allergies Allergies Allergy/AdvReac Type Severity Reaction Status Date / Time amoxicillin Allergy Unknown Verified 08/10/20 20:07 Assessment & Plan Assessment & Plan (1) Opioid use disorder, severe, dependence: Status: Acute Code(s): F11.20 - Opioid dependence, uncomplicated Assessment and Plan: since verification of dose was not able to be completed, patient given 25mg methadone today and 30mg ordered for tomorrow AM recovery support team to follow up in AM regarding discharge planning I spent _35 minutes with the patient and/or on the patient floor today, greater than?50% of which was spent counseling/coordinating care. PMFSH Past Medical History Medical History HIV (human immunodeficiency virus infection) IV drug abuse MDD (major depressive disorder), recurrent episode, severe Social History Social History Household Members: Other Household Members Other:: elissa house members Housing: Other Do you presently have visiting nurse or other home services: No Unable to assess alcohol history related to: Unknown Alcohol intake: current Alcohol intake frequency: does not drink Alcohol type: hard liquor Patient Tobacco Use Status: Current everyday Tobacco user Tobacco use type: Cigarette Cigarette Packs Per Day: 1 Cigarettes Per Day: 20 Years Smoked: 5 Second Hand Smoke Exposure: Yes Substance Use Type: Heroin service: No Sexual orientation: Did not discuss
[2021-01-14] MEDS: Sodium Polystyrene Sulfon/Sorb 15 GM/60 ML ORAL.SUSP PO (17:16)
[2021-01-14 17:35] VITALS: BP 137/72; PULSE 72; RESP 20; TEMP 37.6; O2SAT 97
[2021-01-14] MEDS: QUEtiapine Fumarate 50 MG TABLET PO (17:39)
[2021-01-14] MEDS: Acetaminophen 325 MG TABLET 650 MG PO (17:39)
[2021-01-14 17:45] VITALS: PULSE 72
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
[2021-01-14] MEDS: Lithium Carbonate 300 MG CAPSULE PO (20:40)
[2021-01-14] MEDS: traZODone HCL 50 MG TABLET PO (20:45)
[2021-01-15] VITALS (8 sets, daily range): BP systolic 103–134; BP diastolic 56–79; PULSE 61–74; RESP 16–20; TEMP 36.2–37.1; O2SAT 95–98
[2021-01-15] MEDS: cefEPime HCl 1 GM in 0.9 % Sodium Chloride 50 ML IV ×4 (00:16→20:34)
[2021-01-15] MEDS: Enoxaparin Sodium 40 MG/0.4 ML SYRINGE SUBCUT (00:16)
--- NOTE | 2021-01-15 07:15 | P.CDIC_ITS ---
CDI Concurrent Query Documentation Clarification: PHYSICIAN'S DOCUMENTATION REQUEST Date of Query: 01/15/21 0729 Patient Name: Yina Neil Admit Date: 01/13/21 Dear Doctor, A review of the medical record indicates additional documentation may be needed. Please review below and update the documentation accordingly. Risk Factors/Clinical Indicators/Treatments WBC 18.7 LA 1.1 P 94 Abscess right lower extremity IV Antibiotic Please clarify which, if any, of the following is the most likely etiology of the above symptoms and treatment rendered: * Sepsis, present on admission * Systemic manifestations of infection, with 2 or more SIRS criteria which include: - Fever > 100.4F or hypothermia < 96.8 F - Leukocytosis - WBC > 12,000 or leukopenia, WBC < 4,000 or > 10% bands - Tachycardia > 90 beats/minute - Tachypnea - RR > 20 breaths/minute or PaCO2 < 32mmHg (Source: Merck Manual 2013) * Indicate the known or suspected organism * Indicate the known or suspected underlying infection, such as UTI, pneumonia, or cellulitis * Indicate if a suspected bacterial infection of unknown source * Indicate if associated with an implanted device such as a F/C, PICC line, orthopedic hardware, etc. * Localized infection only, without systemic illness - indicate the site/source, such as UTI, pneumonia, etc. * Bacteremia (abnormal lab finding only, does not indicate systemic illness) * Other (please specify) * Unable to determine Use of terms such as suspected, likely, concern for, or probable (associated with a specific diagnosis that is being evaluated, monitored, or treated as if it exists) are acceptable and can be coded in the inpatient setting, when documented at the time of discharge. Thank you, Chica Andrade RN Extension: [phone] Please use your independent medical judgment in providing your response. THIS QUERY IS PART OF THE PERMANENT MEDICAL RECORD Provider Response: Other Other Diagnosis: sepsis (POA)-present on admission
--- NOTE | 2021-01-15 07:34 | P.CDIC_ITS ---
CDI Concurrent Query Documentation Clarification: PHYSICIAN'S DOCUMENTATION REQUEST Date of Query: 01/15/21 0735 Patient Name: Yina Neil Admit Date: 01/13/21 Dear Doctor, A review of the medical record indicates additional documentation may be needed. Please review below and update the documentation accordingly. Risk Factors/Clinical Indicators/Treatments Per surgery note 01/14/21: diaphoretic, intoxicated appearing, obtunded, altered mental status Based on the above, could you clarify in the Progress Notes which, if any of the following, is the most likely etiology of the confusion/altered mental status? * Encephalopathy - indicate type such as metabolic, toxic, septic, alcoholic, h ypertensive, etc. * Acute delirium - indicate known or suspected etiology, such as postoperative, due to narcotics or other drugs, etc. * Acute or subacute confusional state due to (specify known or suspected etiology) * Other etiology (please specify) * Unable to determine Use of terms such as suspected, likely, concern for, or probable (associated with a specific diagnosis that is being evaluated, monitored, or treated as if it exists) are acceptable and can be coded in the inpatient setting, when documented at the time of discharge. Thank you, Chica Andrade RN Extension: [phone] Please use your independent medical judgment in providing your response. THIS QUERY IS PART OF THE PERMANENT MEDICAL RECORD Provider Response: Other Other Diagnosis: encphalopathy-not present.
--- NOTE | 2021-01-15 08:22 | MHC.RECOVSUP ---
Recovery Support note: This literary writer checked in with patient to confirm methadone location. Patient was sleeping however awoke when this literary writer spoke her name. Patient reports she goes to [facility] in [place]. Clarice STEWART at [facility] ([phone]) confirms that patient is established with their clinic. Patient last received 55mg on 01/12 at 805. Discussed case with Tracie Cervantes NP.
--- NOTE | 2021-01-15 08:46 | P.DS_ITS ---
DS: Providers Provider Date of admission: 01/13/21 23:18 Primary care physician: Yu Penny MD Consults: 01/13/21 20:47 Consult to Crisis Stat Reason for consultation: Suicidal Consult to Psychiatry Stat Consulting Provider: Bethel Heller Reason for consultation: Patient states that she feels like her medications are not working 01/14/21 02:41 Consult to General Surgery Routine Consulting Provider: Rod Aguirre Reason for consultation: abscess Has provider been notified: No 01/14/21 08:34 Addiction Medicine Routine Consulting Provider: Tracie Cervantes Reason for consultation: iv drug use Has provider been notified: No DS: Diagnosis Discharge Diagnosis (1) Opioid use disorder, severe, dependence: Status: Acute DS: Summary Time Spent with Patient Time attestation: Total time spent providing and/or coordinating discharge services: Physical Exam Vital Signs: Vital Signs: Last Vital Signs Temp 97.4 F 01/15/21 07:15 Pulse 73 01/15/21 07:15 Resp 18 01/15/21 07:15 BP 134/79 01/15/21 07:15 Pulse Ox 95 01/15/21 07:15 Body Mass Index 29.1 DS: Data Data Completed and Pending Labs on day of discharge: Laboratory Results - last 24 hr 01/13/21 01/14/21 01/14/21 21:04 10:34 10:34 WBC 12.2 H RBC 3.98 L Hgb 10.9 L Hct 33.7 L MCV 84.7 MCH 27.4 MCHC 32.3 RDW 13.6 Plt Count 296 MPV 10.0 Immature Gran % (Auto) 0.3 Neut % (Auto) 55.1 Lymph % (Auto) 35.6 [place] % (Auto) 6.6 Eos % (Auto) 2.2 Baso % (Auto) 0.2 Lymph # (Auto) 4.3 [place] # (Auto) 0.8 Eos # (Auto) 0.3 Baso # (Auto) 0.0 Abs Immat Gran (auto) 0.04 H Absolute Neuts (auto) 6.7 Absolute Nucleated RBC 0.000 Nucleated RBC % (auto) 0.0 Smear Path Review SEE NOTE Sodium 137 Potassium 5.2 H D Chloride 109 H Carbon Dioxide 19 L Anion Gap 14 BUN 8 L Creatinine 0.70 Estim Creat Clear Calc 104.1 Estimated GFR > 60 Random Glucose 99 Calcium 8.7 D Preliminary micro results at discharge 01/13/21 21:23 Blood Culture - Preliminary Blood - Venous No growth after 24 hours. 01/13/21 21:04 Blood Culture - Preliminary Blood - Venous No growth after 24 hours. Discharge Plan Discharge Referrals: Yu Penny MD [Primary Care Provider] - 1 Week Discharge Medications: No Action ibuprofen 600 mg Tablet 600 mg PO Q6H PRN (Reason: Fever, headache, mild pain) Qty: 30 RF: 0 Prezcobix 800-150 mg-mg tablet 1 tab PO DAILY 30 Days Qty: 30 RF: 0 Juluca 50-25 mg tablet 1 tab PO DAILY 30 Days Qty: 30 RF: 0 trazodone 50 mg Tablet 50 mg PO BEDTIME PRN (Reason: Insomnia) Qty: 30 RF: 0 bupropion HCl 300 mg Tablet Extended Release 24 Hr 300 mg PO DAILY Qty: 30 RF: 0 hydroxyzine pamoate 50 mg capsule 1 cap PO TID RF: 0 propranolol 10 mg tablet 1 tab PO BID PRN (Reason: Anxiety) RF: 0 quetiapine 50 mg tablet 1 tab PO Q4H PRN (Reason: Anxiety) RF: 0 melatonin 10 mg Tablet 10 mg PO BEDTIME PRN (Reason: Insomnia) RF: 0 lithium carbonate 300 mg capsule 1 cap PO BEDTIME RF: 0
--- NOTE | 2021-01-15 08:46 | P.PNGS_ITS ---
Subjective Subjective Date of Service: 01/15/21 Interval history: Patient reports feeling somewhat improved today with decreased right gallegos pain. Denies any new complaints. Physical Exam Vital Signs: Vital Signs: Last Vital Signs Temp 97.4 F 01/15/21 07:15 Pulse 73 01/15/21 07:15 Resp 18 01/15/21 07:15 BP 134/79 01/15/21 07:15 Pulse Ox 95 01/15/21 07:15 Body Mass Index 29.1 Const: General: cooperative and no acute distress Nutritional Appearance: well nourished Orientation/consciousness: patient oriented x3 Limitations: no limitations Resp: Other: Breathing comfortably on room air, Skin: Other: Warm, dry, no rash Neuro: General: patient oriented x3 Extrem: Other: Right leg wound with a small amount of purulence discharge noted from a punctate wound. This was opened further using a sterile scissors and a large purulence collection evacuated. Patient tolerated this well. Dry sterile dressings were applied. Procedures Date of Service Date of Service: 01/15/21 Abscess I/D Consent for Procedure: Elective - informed consent obtained Site: lower extremity Side (if applicable): right Sedation/analgesia: none Technique: other (Sterile scissors) Amount of fluid (mL): 5 Irrigation: No Packing used?: none Additional comments: Patient tolerated the procedure well, sterile dressings applied Progress Note: A&P Assessment and plan (1) Abscess: Status: Acute Assessment and Plan: 30-year-old female patient with an abscess in the right gallegos from IV drug abuse, wound is now open and draining. Continue antibiotics. Will follow up as outpatient once discharged. Fall Risk Details Current Medications: Current Medications Acetaminophen (Acetaminophen 325 Mg Tablet) 650 mg PO Q6H PRN PRN Reason: Pain, Mild (Pain Scale 1-3) Last Admin: 01/14/21 17:39 Dose: 650 mg Documented by: Bupropion HCl (Bupropion Hcl Xl 300 Mg Tab.Er.24h) 300 mg PO DAILY [facility] Last Admin: 01/14/21 10:11 Dose: 300 mg Documented by: Docusate Sodium (Docusate Sodium 100 Mg Capsule) 100 mg PO DAILY PRN PRN Reason: Constipation Enoxaparin Sodium (Enoxaparin Sodium 40 Mg/0.4 Ml Syringe) 40 mg SUBCUT Q24H [facility] Last Admin: 01/15/21 00:16 Dose: 40 mg Documented by: Hydroxyzine HCl (Hydroxyzine Hcl 50 Mg Tablet) 50 mg PO TID [facility] Last Admin: 01/14/21 20:40 Dose: 50 mg Documented by: Cefepime HCl 1 gm/ Sodium (Chloride) 50 mls @ 100 mls/hr IV Q8H [facility] Last Infusion: 01/15/21 06:23 Dose: Infused Documented by: Vancomycin HCl 1,000 mg/ (Sodium Chloride) 270 mls @ 270 mls/hr IV Q12H [facility] Last Infusion: 01/14/21 22:35 Dose: Infused Documented by: [place] Carbonate ([place] Carbonate 300 Mg Capsule) 300 mg PO BEDTIME [facility] Last Admin: 01/14/21 20:40 Dose: 300 mg Documented by: Melatonin (Melatonin 3 Mg Tablet) 9 mg PO BEDTIME PRN PRN Reason: Insomnia Methadone HCl (Methadone Hcl 20 Mg/2 Ml Oral.Conc) 30 mg PO DAILY [facility] Morphine Sulfate (Morphine Sulfate 4 Mg/Ml Cartridge) 4 mg IVPUSH Q4H PRN; Protocol PRN Reason: Pain, Severe (Pain Scale 7-10) Non-Formulary Medication (Darunavir-Cobicistat [Prezcobix]) 1 tab PO DAILY [facility] Last Admin: 01/14/21 22:24 Dose: Not Given Documented by: Non-Formulary Medication (Dolutegravir-Rilpivirine [Juluca]) 1 tab PO DAILY [facility] Last Admin: 01/14/21 22:25 Dose: Not Given Documented by: Ondansetron HCl (Ondansetron Hcl 4 Mg/2 Ml Vial) 4 mg IVPUSH Q8H PRN PRN Reason: Nausea and Vomiting Pharmacy Consult (Consult Rx Vancomycin Dosing) 1 each MISCELLANE DAILY PRN PRN Reason: Consult order Propranolol HCl (Propranolol Hcl 10 Mg Tablet) 10 mg PO BID PRN; Protocol PRN Reason: Anxiety Quetiapine Fumarate (Quetiapine Fumarate 50 Mg Tablet) 50 mg PO Q4H PRN PRN Reason: Anxiety Last Admin: 01/14/21 17:39 Dose: 50 mg Documented by: Sodium Chloride (0.9 % Sodium Chloride Flush 3 Ml Syringe) 3 ml IVFLUSH QSHIFT [facility] Last Admin: 01/14/21 20:40 Dose: 3 ml Documented by: Trazodone HCl (Trazodone Hcl 50 Mg Tablet) 50 mg PO BEDTIME PRN PRN Reason: Insomnia Last Admin: 01/14/21 20:45 Dose: 50 mg Documented by: Time Spent With Patient Time: Total time spent is greater than 50% in coordination of care (as documented) at patient's floor/unit and/or counseling patient: Time with patient: 15 - 24 minutes Quality Stroke Does the patient have a stroke diagnosis?: No VTE Prior VTE?: No VTE Risk Level:: Medical - moderate - high VTE Device Contraindication: Treatment Not Indicated VTE Drug Contraindication: N/A - Med Ordered
--- NOTE | 2021-01-15 09:21 | MHC.CM.PN ---
met with pt who reports going to [facility] weekly on she is homeless ,she has children who live with her parents pt to be seen by [facility] ,pt has a sitter pt will jorge be admitted to a psych unit
[2021-01-15] MEDS: hydrOXYzine HCL 50 MG TABLET PO ×3 (10:09→20:34)
[2021-01-15] MEDS: buPROPion HCl XL 300 MG TAB.ER.24H PO (10:09)
[2021-01-15] MEDS: methADONE HCl 20 MG/2 ML ORAL.CONC 30 MG PO (10:10)
[2021-01-15] MEDS: 0.9 % Sodium Chloride Flush 3 ML SYRINGE IVFLUSH ×3 (10:10→20:34)
--- NOTE | 2021-01-15 10:30 | PC.NURSE ---
Phlebotomy reported that patient is refusing blood draws this AM. I confirmed with patient that she is refusing blood draws because it hurts too much. Dr. Moses was made aware of this fact and that one of the blood draws that she refused was her vanco trough. Patient acknowledges understanding that we cannot hang next IV vanco until we have a vanco tough obtained. ID consult order is in to determine if patient is candidate for PICC/midline placement.
--- NOTE | 2021-01-15 11:24 | HE.PHANOTE ---
Vancomycin Dosing Addendum Vanco trough and Scr not drawn . Pt refusing lab draws. MD aware and awaiting ID consult to see if she is a candidate for a PICC line.
[2021-01-15] MEDS: methADONE HCl 20 MG/2 ML ORAL.CONC 15 MG PO (13:10)
--- NOTE | 2021-01-15 13:30 | PC.NURSE ---
Skin/wound assessment completed. Patient has cellulitis on right gallegos with an abscess. Dr. Aguirre will do an I & D sometime today. Patient has other scarred areas on legs and arms from injection site. No other skin issues noted at this time.
--- NOTE | 2021-01-15 14:50 | HO.PM.IMPN ---
Subjective Subjective Date of Service: 01/15/21 Interval History: Leg cellulitis and abscess Review of Systems Patient still has leg pain, denies any nausea vomiting or fever chills. Physical Exam Vital Signs: Vital Signs: Last Vital Signs Temp 98 F 01/15/21 12:00 Pulse 65 01/15/21 12:00 Resp 17 01/15/21 12:00 BP 133/77 01/15/21 12:00 Pulse Ox 96 01/15/21 12:00 Body Mass Index 29.1 Physical exam: Eyes: Pupils equal, round and reactive to light.? Sclera nonicteric.? ENT: Pharynx normal.? Moist mucous membranes. cvs: rrr, [id number] , no murmur res: clear to auscultation ,no rhonchii or wheezing abd: no rebound or guarding ,nt, bs present. ext pulses present , no cyanosis ,right anterior leg-swelling /abcess-seems slighly improving as compared to yesterday . neuro: axo3 , nonfocal. Objective Data Active Medications Acetaminophen (Acetaminophen 325 Mg Tablet) 650 mg PO Q6H PRN PRN Reason: Pain, Mild (Pain Scale 1-3) Last Admin: 01/14/21 17:39 Dose: 650 mg Documented by: ADRIAN Bupropion HCl (Bupropion Hcl Xl 300 Mg Tab.Er.24h) 300 mg PO DAILY [facility] Last Admin: 01/15/21 10:09 Dose: 300 mg Documented by: YUAN Docusate Sodium (Docusate Sodium 100 Mg Capsule) 100 mg PO DAILY PRN PRN Reason: Constipation Enoxaparin Sodium (Enoxaparin Sodium 40 Mg/0.4 Ml Syringe) 40 mg SUBCUT Q24H [facility] Last Admin: 01/15/21 00:16 Dose: 40 mg Documented by: LOUIS Hydroxyzine HCl (Hydroxyzine Hcl 50 Mg Tablet) 50 mg PO TID [facility] Last Admin: 01/15/21 13:09 Dose: 50 mg Documented by: YUAN Cefepime HCl 1 gm/ Sodium (Chloride) 50 mls @ 100 mls/hr IV Q8H [facility] Last Infusion: 01/15/21 13:57 Dose: 0 mls/hr Documented by: YUAN Vancomycin HCl 1,000 mg/ (Sodium Chloride) 270 mls @ 270 mls/hr IV Q12H [facility] Last Infusion: 01/14/21 22:35 Dose: 0 mls/hr Documented by: LINWOOD [place] Carbonate ([place] Carbonate 300 Mg Capsule) 300 mg PO BEDTIME [facility] Last Admin: 01/14/21 20:40 Dose: 300 mg Documented by: LINWOOD Melatonin (Melatonin 3 Mg Tablet) 9 mg PO BEDTIME PRN PRN Reason: Insomnia Methadone HCl (Methadone Hcl 20 Mg/2 Ml Oral.Conc) 30 mg PO DAILY [facility] Last Admin: 01/15/21 10:10 Dose: 30 mg Documented by: YUAN Morphine Sulfate (Morphine Sulfate 4 Mg/Ml Cartridge) 4 mg IVPUSH Q4H PRN; Protocol PRN Reason: Pain, Severe (Pain Scale 7-10) Non-Formulary Medication (Darunavir-Cobicistat [Prezcobix]) 1 tab PO DAILY [facility] Last Admin: 01/15/21 10:10 Dose: 1 tab Documented by: YUAN Non-Formulary Medication (Dolutegravir-Rilpivirine [Juluca]) 1 tab PO DAILY [facility] Last Admin: 01/15/21 10:09 Dose: 1 tab Documented by: YUAN Ondansetron HCl (Ondansetron Hcl 4 Mg/2 Ml Vial) 4 mg IVPUSH Q8H PRN PRN Reason: Nausea and Vomiting Pharmacy Consult (Consult Rx Vancomycin Dosing) 1 each MISCELLANE DAILY PRN PRN Reason: Consult order Propranolol HCl (Propranolol Hcl 10 Mg Tablet) 10 mg PO BID PRN; Protocol PRN Reason: Anxiety Quetiapine Fumarate (Quetiapine Fumarate 50 Mg Tablet) 50 mg PO Q4H PRN PRN Reason: Anxiety Last Admin: 01/14/21 17:39 Dose: 50 mg Documented by: ADRIAN Sodium Chloride (0.9 % Sodium Chloride Flush 3 Ml Syringe) 3 ml IVFLUSH QSHIFT [facility] Last Admin: 01/15/21 10:10 Dose: 3 ml Documented by: YUAN Trazodone HCl (Trazodone Hcl 50 Mg Tablet) 50 mg PO BEDTIME PRN PRN Reason: Insomnia Last Admin: 01/14/21 20:45 Dose: 50 mg Documented by: LINWOOD Labs CBC & Chem 7: 01/14/21 10:34 01/14/21 10:34 Microbiology Microbiology Results: Microbiology 01/13/21 21:23 Blood Culture - Preliminary Blood - Venous No growth after 24 hours. 01/13/21 21:04 Blood Culture - Preliminary Blood - Venous No growth after 24 hours. Assessment and Plan (1) Abscess: Status: Acute (2) Cellulitis: Status: Acute Assessment and Plan: 30-year-old female with history of IV drug use as well as HIV presents to the hospital with complaints of right lower leg pain the site of IV drug injection found to have cellulitis as well as abscess 1.cellulitis/abscess - has erythema, tenderness, warmth - will start on IV antibiotics, will start with vanc and Zosyn given her history of IV drug vanco trough and renal function/electrolytes monitering - patient also has abscess seen on venous Doppler - follow blood cultures ?general surgeryconsult for possible I&D id eval d/w patient and staff-for labs draws and antibiotics use in detail . 2. suicidal ideation - patient reports suicidal ideation - crisis team consult - sitter at bedside - once medically clear may need admission to BHU 3. HIV - will continue her home medication DVT prophylaxis:? Lovenox Quality Stroke Does the patient have a stroke diagnosis?: No VTE Prior VTE?: No VTE Risk Level:: Medical - moderate - high VTE Device Contraindication: Treatment Not Indicated VTE Drug Contraindication: N/A - Med Ordered
[2021-01-15] MEDS: Acetaminophen 325 MG TABLET 650 MG PO (15:49)
[2021-01-15] MEDS: Propranolol HCL 10 MG TABLET PO (15:49)
[2021-01-15 15:59] LABS: Anion Gap 13 (12-20); Blood Urea Nitrogen 9 mg/dL (9-16); Calcium 9.6 mg/dL (8.4-10.2); Carbon Dioxide 23 mmol/L (22-29); Chloride 105 mmol/L (96-108); Creatinine Clr Calc Pharmacy 99.9; Estimated Glomerular Filt Rate > 60; Glucose Random 94 mg/dL (60-115); Potassium 4.4 mmol/L (3.3-5.1); Sodium 137 mmol/L (135-145)
[2021-01-15 16:04] LABS: Vancomycin Trough 3.2 mcg/mL (10.0-20.0)
--- NOTE | 2021-01-15 16:17 | P.PNADD_ITS ---
Subjective Subjective Date of Service: 01/15/21 Reason For Visit: Cellulitis, Abscess, IVDU Interim History: Received methadone 30mg this morning Methadone dose verified --55mg with last dose on 01/12 Additional 15mg ordered for 1pm and tomorrow to resume outpatient dose of 55mg Patient with bright affect when seen by this television script writer. Reports feeling better than yesterday . Denies any withdrawal sx--no chills, restlessness, nausea, loose stools Unclear what disposition is at this time Denies any suicidal ideation--reports that when she presented to the ED she was feeling desperate and alone secondary to substance use--no longer endorsing these thoughts Review of Systems Review of Systems: as per HPI Mental Status Exam Mental Status Exam Patient Appearance: Appropriate Patient Orientation: Person, Place, Time and Situation Level of Consciousness: Awake, Appropriate and Alert Patient Behavior: Appropriate Mood Description: Calm Affect Description: Calm Patient Cognition Impaired: No Judgement: Good Diagnostics Vital Signs (24Hr): Vital Signs - 24 hr 01/14/21 16:47 01/14/21 17:35 01/15/21 00:00 Temperature 99 F 99.6 F 97.4 F Pulse Rate 78 72 74 Respiratory Rate 18 20 20 Blood Pressure 107/66 137/72 124/57 L Pulse Oximetry 97 97 98 01/15/21 03:54 01/15/21 07:15 01/15/21 12:00 Temperature 97.3 F 97.4 F 98 F Pulse Rate 72 73 65 Respiratory Rate 18 18 17 Blood Pressure 117/66 134/79 133/77 Pulse Oximetry 95 95 96 01/15/21 15:49 01/15/21 16:03 Temperature 98.5 F Pulse Rate 65 74 Respiratory Rate 16 Blood Pressure 133/77 106/57 L Pulse Oximetry 95 Body Mass Index 29.1 Labs Results: 01/14/21 10:34 01/15/21 15:06 Labs: Laboratory Results - last 48 hr 01/13/21 01/13/21 01/13/21 21:04 21:04 21:04 WBC 18.7 H RBC 4.02 L Hgb 11.1 L Hct 34.0 L MCV 84.6 MCH 27.6 MCHC 32.6 RDW 13.6 Plt Count 304 D MPV 9.8 Immature Gran % (Auto) 0.5 H Neut % (Auto) 56.1 Lymph % (Auto) 36.5 [place] % (Auto) 5.7 Eos % (Auto) 1.1 Baso % (Auto) 0.1 Lymph # (Auto) 6.8 H [place] # (Auto) 1.1 Eos # (Auto) 0.2 Baso # (Auto) 0.0 Abs Immat Gran (auto) 0.09 H Absolute Neuts (auto) 10.5 H Absolute Nucleated RBC 0.000 Nucleated RBC % (auto) 0.0 Smear Tech's Comments VERIFIED Smear Path Review SEE NOTE Sodium 136 Potassium 4.3 Chloride 102 Carbon Dioxide 25 Anion Gap 13 BUN 10 Creatinine 0.86 Estim Creat Clear Calc 84.7 Estimated GFR > 60 Random Glucose 111 Lactic Acid Calcium 9.3 Total Bilirubin 0.3 AST 27 D ALT 42 H Alkaline Phosphatase 118 H D Total Protein 7.8 Albumin 3.9 Urine Test Vancomycin Trough Salicylates < 5.0 L Urine Opiates Screen Urine Fentanyl Screen Acetaminophen < 1 Ur Barbiturates Screen Ur Phencyclidine Scrn Ur Amphetamines Screen U Benzodiazepines Scrn Urine Cocaine Screen U Marijuana (THC) Screen Ethyl Alcohol < 10 Coronavirus (PCR) Influenza Type A (PCR) Influenza Type B (PCR) RSV RNA Qual (PCR) 01/13/21 01/13/21 01/14/21 21:04 21:23 07:16 WBC RBC Hgb Hct MCV MCH MCHC RDW Plt Count MPV Immature Gran % (Auto) Neut % (Auto) Lymph % (Auto) [place] % (Auto) Eos % (Auto) Baso % (Auto) Lymph # (Auto) [place] # (Auto) Eos # (Auto) Baso # (Auto) Abs Immat Gran (auto) Absolute Neuts (auto) Absolute Nucleated RBC Nucleated RBC % (auto) Smear Tech's Comments Smear Path Review Sodium Potassium Chloride Carbon Dioxide Anion Gap BUN Creatinine Estim Creat Clear Calc Estimated GFR Random Glucose Lactic Acid 1.1 Calcium Total Bilirubin AST ALT Alkaline Phosphatase Total Protein Albumin Urine Test Vancomycin Trough Salicylates Urine Opiates Screen POSITIVE H Urine Fentanyl Screen POSITIVE H Acetaminophen Ur Barbiturates Screen Not Detected Ur Phencyclidine Scrn Not Detected Ur Amphetamines Screen Not Detected U Benzodiazepines Scrn Not Detected Urine Cocaine Screen POSITIVE H U Marijuana (THC) Screen Not Detected Ethyl Alcohol Coronavirus (PCR) NEGATIVE Influenza Type A (PCR) NEGATIVE Influenza Type B (PCR) NEGATIVE RSV RNA Qual (PCR) NEGATIVE 01/14/21 01/14/21 01/14/21 07:16 10:34 10:34 WBC 12.2 H RBC 3.98 L Hgb 10.9 L Hct 33.7 L MCV 84.7 MCH 27.4 MCHC 32.3 RDW 13.6 Plt Count 296 MPV 10.0 Immature Gran % (Auto) 0.3 Neut % (Auto) 55.1 Lymph % (Auto) 35.6 [place] % (Auto) 6.6 Eos % (Auto) 2.2 Baso % (Auto) 0.2 Lymph # (Auto) 4.3 [place] # (Auto) 0.8 Eos # (Auto) 0.3 Baso # (Auto) 0.0 Abs Immat Gran (auto) 0.04 H Absolute Neuts (auto) 6.7 Absolute Nucleated RBC 0.000 Nucleated RBC % (auto) 0.0 Smear Tech's Comments Smear Path Review Sodium 137 Potassium 5.2 H D Chloride 109 H Carbon Dioxide 19 L Anion Gap 14 BUN 8 L Creatinine 0.70 Estim Creat Clear Calc 104.1 Estimated GFR > 60 Random Glucose 99 Lactic Acid Calcium 8.7 D Total Bilirubin AST ALT Alkaline Phosphatase Total Protein Albumin Urine Test NEGATIVE Vancomycin Trough Salicylates Urine Opiates Screen Urine Fentanyl Screen Acetaminophen Ur Barbiturates Screen Ur Phencyclidine Scrn Ur Amphetamines Screen U Benzodiazepines Scrn Urine Cocaine Screen U Marijuana (THC) Screen Ethyl Alcohol Coronavirus (PCR) Influenza Type A (PCR) Influenza Type B (PCR) RSV RNA Qual (PCR) 01/15/21 01/15/21 01/15/21 15:06 15:06 15:06 WBC RBC Hgb Hct MCV MCH MCHC RDW Plt Count MPV Immature Gran % (Auto) Neut % (Auto) Lymph % (Auto) [place] % (Auto) Eos % (Auto) Baso % (Auto) Lymph # (Auto) [place] # (Auto) Eos # (Auto) Baso # (Auto) Abs Immat Gran (auto) Absolute Neuts (auto) Absolute Nucleated RBC Nucleated RBC % (auto) Smear Tech's Comments Smear Path Review Sodium 137 Cancelled Potassium 4.4 Cancelled Chloride 105 Cancelled Carbon Dioxide 23 Cancelled Anion Gap 13 Cancelled BUN 9 Cancelled Creatinine 0.73 Cancelled Estim Creat Clear Calc 99.9 Cancelled Estimated GFR > 60 Cancelled Random Glucose 94 Cancelled Lactic Acid Calcium 9.6 D Cancelled Total Bilirubin AST ALT Alkaline Phosphatase Total Protein Albumin Urine Test Vancomycin Trough 3.2 L Salicylates Urine Opiates Screen Urine Fentanyl Screen Acetaminophen Ur Barbiturates Screen Ur Phencyclidine Scrn Ur Amphetamines Screen U Benzodiazepines Scrn Urine Cocaine Screen U Marijuana (THC) Screen Ethyl Alcohol Coronavirus (PCR) Influenza Type A (PCR) Influenza Type B (PCR) RSV RNA Qual (PCR) Imaging Radiology Impressions: ITS Impressions Venous Duplex 01/13/21 20:48 IMPRESSION: No DVT demonstrated in the right lower extremity. Incidental note made of a small fluid collection in the anterior gallegos along with an enlarged right groin node. Tibia/Fibula X-Ray 01/13/21 20:51 IMPRESSION: Normal right tibia and fibula. No radiopaque foreign body seen. Medications Medications Current Medications Acetaminophen (Acetaminophen 325 Mg Tablet) 650 mg PO Q6H PRN PRN Reason: Pain, Mild (Pain Scale 1-3) Last Admin: 01/15/21 15:49 Dose: 650 mg Documented by: Bupropion HCl (Bupropion Hcl Xl 300 Mg Tab.Er.24h) 300 mg PO DAILY [facility] Last Admin: 01/15/21 10:09 Dose: 300 mg Documented by: Docusate Sodium (Docusate Sodium 100 Mg Capsule) 100 mg PO DAILY PRN PRN Reason: Constipation Enoxaparin Sodium (Enoxaparin Sodium 40 Mg/0.4 Ml Syringe) 40 mg SUBCUT Q24H [facility] Last Admin: 01/15/21 00:16 Dose: 40 mg Documented by: Hydroxyzine HCl (Hydroxyzine Hcl 50 Mg Tablet) 50 mg PO TID [facility] Last Admin: 01/15/21 13:09 Dose: 50 mg Documented by: Cefepime HCl 1 gm/ Sodium (Chloride) 50 mls @ 100 mls/hr IV Q8H [facility] Last Infusion: 01/15/21 13:57 Dose: Infused Documented by: Vancomycin HCl 1,000 mg/ (Sodium Chloride) 270 mls @ 270 mls/hr IV Q12H [facility] Last Infusion: 01/14/21 22:35 Dose: Infused Documented by: [place] Carbonate ([place] Carbonate 300 Mg Capsule) 300 mg PO BEDTIME [facility] Last Admin: 01/14/21 20:40 Dose: 300 mg Documented by: Melatonin (Melatonin 3 Mg Tablet) 9 mg PO BEDTIME PRN PRN Reason: Insomnia Methadone HCl (Methadone Hcl 20 Mg/2 Ml Oral.Conc) 55 mg PO DAILY [facility] Morphine Sulfate (Morphine Sulfate 4 Mg/Ml Cartridge) 4 mg IVPUSH Q4H PRN; Protocol PRN Reason: Pain, Severe (Pain Scale 7-10) Non-Formulary Medication (Darunavir-Cobicistat [Prezcobix]) 1 tab PO DAILY [facility] Last Admin: 01/15/21 10:10 Dose: 1 tab Documented by: Non-Formulary Medication (Dolutegravir-Rilpivirine [Juluca]) 1 tab PO DAILY [facility] Last Admin: 01/15/21 10:09 Dose: 1 tab Documented by: Ondansetron HCl (Ondansetron Hcl 4 Mg/2 Ml Vial) 4 mg IVPUSH Q8H PRN PRN Reason: Nausea and Vomiting Pharmacy Consult (Consult Rx Vancomycin Dosing) 1 each MISCELLANE DAILY PRN PRN Reason: Consult order Propranolol HCl (Propranolol Hcl 10 Mg Tablet) 10 mg PO BID PRN; Protocol PRN Reason: Anxiety Last Admin: 01/15/21 15:49 Dose: 10 mg Documented by: Quetiapine Fumarate (Quetiapine Fumarate 50 Mg Tablet) 50 mg PO Q4H PRN PRN Reason: Anxiety Last Admin: 01/14/21 17:39 Dose: 50 mg Documented by: Sodium Chloride (0.9 % Sodium Chloride Flush 3 Ml Syringe) 3 ml IVFLUSH QSHIFT [facility] Last Admin: 01/15/21 10:10 Dose: 3 ml Documented by: Trazodone HCl (Trazodone Hcl 50 Mg Tablet) 50 mg PO BEDTIME PRN PRN Reason: Insomnia Last Admin: 01/14/21 20:45 Dose: 50 mg Documented by: Allergies Allergies Allergy/AdvReac Type Severity Reaction Status Date / Time amoxicillin Allergy Unknown Verified 08/10/20 20:07 Assessment & Plan Assessment & Plan (1) Opioid use disorder, severe, dependence: Status: Acute Code(s): F11.20 - Opioid dependence, uncomplicated Assessment and Plan: * continue methadone at outpatient dose of 55mg QD * recovery support team to follow up regarding discharge planning I spent ___20___ minutes with the patient and/or on the patient floor today, greater than?50% of which was spent counseling/coordinating care.
--- NOTE | 2021-01-15 16:29 | MHC.CM.PN ---
Female 30 DX Cellulitis No discharge today. Debridement today. ID to consult on final ABX. Referral placed to [facility]. She is accepted pending bed availability. CM will continue to follow.
--- NOTE | 2021-01-15 17:54 | P.CNID_ITS ---
History of Present Illness Data of Consult Service Date: 01/15/21 Requesting physician: Philippe Moses Primary Care Provider: Yu Penny MD [facility] Reason for consult: right knee inflammation She reports feeling suicidal initially She did inject day before admission into scar area right knee She has pain there and inflammation Cultures are negative Review of Systems Review of Systems: Yes all other systems are reviewed and are negative PMFSH Past Medical History Medical History HIV (human immunodeficiency virus infection) IV drug abuse MDD (major depressive disorder), recurrent episode, severe Social History Social History Household Members: None Household Members Other:: esteban house members Housing: House Do you presently have visiting nurse or other home services: No Unable to assess alcohol history related to: Unknown Alcohol intake: current Alcohol intake frequency: does not drink Alcohol type: hard liquor Patient Tobacco Use Status: Current everyday Tobacco user Tobacco use type: Cigarette Cigarette Packs Per Day: 1 Cigarettes Per Day: 20.0 Years Smoked: 5 Second Hand Smoke Exposure: Yes Substance Use Type: Crack/Cocaine, Heroin and Opiates service: No Sexual orientation: Did not discuss Meds Allergies Allergy/AdvReac Type Severity Reaction Status Date / Time amoxicillin Allergy Unknown Verified 08/10/20 20:07 Active Medications: Current Medications Acetaminophen (Acetaminophen 325 Mg Tablet) 650 mg PO Q6H PRN PRN Reason: Pain, Mild (Pain Scale 1-3) Last Admin: 01/15/21 15:49 Dose: 650 mg Documented by: Bupropion HCl (Bupropion Hcl Xl 300 Mg Tab.Er.24h) 300 mg PO DAILY [facility] Last Admin: 01/15/21 10:09 Dose: 300 mg Documented by: Docusate Sodium (Docusate Sodium 100 Mg Capsule) 100 mg PO DAILY PRN PRN Reason: Constipation Enoxaparin Sodium (Enoxaparin Sodium 40 Mg/0.4 Ml Syringe) 40 mg SUBCUT Q24H [facility] Last Admin: 01/15/21 00:16 Dose: 40 mg Documented by: Hydroxyzine HCl (Hydroxyzine Hcl 50 Mg Tablet) 50 mg PO TID [facility] Last Admin: 01/15/21 13:09 Dose: 50 mg Documented by: Cefepime HCl 1 gm/ Sodium (Chloride) 50 mls @ 100 mls/hr IV Q8H [facility] Last Infusion: 01/15/21 13:57 Dose: Infused Documented by: Vancomycin HCl 1,250 mg/ (Sodium Chloride) 250 mls @ 166.667 mls/hr IV Q12H [facility] [place] Carbonate ([place]ber Carbonate 300 Mg Capsule) 300 mg PO BEDTIME [facility] Last Admin: 01/14/21 20:40 Dose: 300 mg Documented by: Melatonin (Melatonin 3 Mg Tablet) 9 mg PO BEDTIME PRN PRN Reason: Insomnia Methadone HCl (Methadone Hcl 20 Mg/2 Ml Oral.Conc) 55 mg PO DAILY [facility] Morphine Sulfate (Morphine Sulfate 4 Mg/Ml Cartridge) 4 mg IVPUSH Q4H PRN; Protocol PRN Reason: Pain, Severe (Pain Scale 7-10) Non-Formulary Medication (Darunavir-Cobicistat [Prezcobix]) 1 tab PO DAILY [facility] Last Admin: 01/15/21 10:10 Dose: 1 tab Documented by: Non-Formulary Medication (Dolutegravir-Rilpivirine [Juluca]) 1 tab PO DAILY [facility] Last Admin: 01/15/21 10:09 Dose: 1 tab Documented by: Ondansetron HCl (Ondansetron Hcl 4 Mg/2 Ml Vial) 4 mg IVPUSH Q8H PRN PRN Reason: Nausea and Vomiting Pharmacy Consult (Consult Rx Vancomycin Dosing) 1 each MISCELLANE DAILY PRN PRN Reason: Consult order Propranolol HCl (Propranolol Hcl 10 Mg Tablet) 10 mg PO BID PRN; Protocol PRN Reason: Anxiety Last Admin: 01/15/21 15:49 Dose: 10 mg Documented by: Quetiapine Fumarate (Quetiapine Fumarate 50 Mg Tablet) 50 mg PO Q4H PRN PRN Reason: Anxiety Last Admin: 01/14/21 17:39 Dose: 50 mg Documented by: Sodium Chloride (0.9 % Sodium Chloride Flush 3 Ml Syringe) 3 ml IVFLUSH QSHIFT [facility] Last Admin: 01/15/21 10:10 Dose: 3 ml Documented by: Trazodone HCl (Trazodone Hcl 50 Mg Tablet) 50 mg PO BEDTIME PRN PRN Reason: Insomnia Last Admin: 01/14/21 20:45 Dose: 50 mg Documented by: Physical Exam Vital Signs: Vital Signs: Last Vital Signs Temp 98.5 F 01/15/21 16:03 Pulse 74 01/15/21 16:03 Resp 16 01/15/21 16:03 BP 106/57 L 01/15/21 16:03 Pulse Ox 95 01/15/21 16:03 Body Mass Index 29.1 Const: General: cooperative HENMT: Head: Yes normal to inspection Mouth: Normal oral and palatal mucosa present Resp: Effort & Inspection: normal respiratory effort Cardio: Rate: regular rate Rhythm: regular rhythm GI: Palpation (GI): Soft to palpation and nontender Extrem: Other: reddened area right knee,superficial purulence Results Labs CBC & Chem 7: 01/14/21 10:34 01/17/21 10:53 Labs: BMP 01/15/21 01/15/21 15:06 15:06 Sodium 137 Cancelled Potassium 4.4 Cancelled Chloride 105 Cancelled Carbon Dioxide 23 Cancelled BUN 9 Cancelled Creatinine 0.73 Cancelled Calcium 9.6 D Cancelled Microbiology Microbiology Results: Microbiology 01/13/21 21:23 Blood - Venous Blood Culture - Preliminary No growth after 24 hours. 01/13/21 21:04 Blood - Venous Blood Culture - Preliminary No growth after 24 hours. Assessment and Plan (1) Abscess: Status: Acute (2) Suicidal ideation: Status: Acute (3) Cellulitis: Qualifiers: Laterality: right Site of cellulitis: extremity Site of cellulitis of extremity: lower extremity Qualified Code(s): L03.115 - Cellulitis of right lower limb Status: Acute There is concern over staph/strep Cultures negative so far Continue Cefepime and Vancomycin immune suppression concern Await cultures Surgery evaluation may be useful knee
[2021-01-15] MEDS: vancomycin HCL 1,250 MG in 0.9 % Sodium Chloride 250 ML 166.67 MG IV (18:33)
[2021-01-15] MEDS: QUEtiapine Fumarate 50 MG TABLET PO (18:44)
[2021-01-15] MEDS: Lithium Carbonate 300 MG CAPSULE PO (20:34)
[2021-01-15] MEDS: traZODone HCL 50 MG TABLET PO (20:35)
[2021-01-16] VITALS (7 sets, daily range): BP systolic 100–147; BP diastolic 57–87; PULSE 65–86; RESP 18–20; TEMP 36.2–36.7; O2SAT 95–99
[2021-01-16] MEDS: vancomycin HCL 1,250 MG in 0.9 % Sodium Chloride 250 ML 166.67 MG IV (05:20)
[2021-01-16] MEDS: Enoxaparin Sodium 40 MG/0.4 ML SYRINGE SUBCUT (05:21)
[2021-01-16] MEDS: cefEPime HCl 1 GM in 0.9 % Sodium Chloride 50 ML IV ×3 (05:21→20:06)
--- NOTE | 2021-01-16 11:58 | MHC.RECOVRN ---
Met with pt to f/u regarding withdrawal symptoms/methadone dose as well as aftercare. Pt denies withdrawal symptoms, appears comfortable sitting in bed. Pt would like to return to [facility] in [place], reports last admission one month ago and is able to return. Pt focused on reading and exploring [facility]. Reports longest period of recovery was 9 months and this was due to school and reading. Pt denies SI at this time, states I don't want to kill myself. I just hate myself. T/w awaiting call back from [facility] as to bed availability after d/c or after STR. Will continue to follow.
[2021-01-16] MEDS: methADONE HCl 20 MG/2 ML ORAL.CONC 55 MG PO (12:10)
[2021-01-16] MEDS: Propranolol HCL 10 MG TABLET PO (12:14)
[2021-01-16] MEDS: QUEtiapine Fumarate 50 MG TABLET PO ×2 (12:14→16:39)
[2021-01-16] MEDS: Morphine Sulfate 4 MG/ML CARTRIDGE IVPUSH ×3 (12:14→21:17)
[2021-01-16] MEDS: hydrOXYzine HCL 50 MG TABLET PO ×2 (12:14→20:06)
--- NOTE | 2021-01-16 12:14 | PC.NURSE ---
Wound assessment after I & D by Dr. Aguirre. There is a 2 x 2 x 0.3 opening on gallegos with scant purulent drainage. Silver alginate applied covered with foam dressing. No other skin issues noted.
[2021-01-16] MEDS: 0.9 % Sodium Chloride Flush 3 ML SYRINGE IVFLUSH ×2 (12:15→20:06)
[2021-01-16] MEDS: buPROPion HCl XL 300 MG TAB.ER.24H PO (12:15)
[2021-01-16 13:34] LABS: Anion Gap 14 (12-20); Blood Urea Nitrogen 11 mg/dL (9-16); Calcium 9.7 mg/dL (8.4-10.2); Carbon Dioxide 23 mmol/L (22-29); Chloride 105 mmol/L (96-108); Creatinine Clr Calc Pharmacy 92.3; Estimated Glomerular Filt Rate > 60; Glucose Random 92 mg/dL (60-115); Potassium 4.8 mmol/L (3.3-5.1); Sodium 137 mmol/L (135-145)
--- NOTE | 2021-01-16 15:27 | HO.PM.IMPN ---
Subjective Subjective Date of Service: 01/16/21 Interval History: right leg cellulitis /abcess Review of Systems Status post denies yesterday's, Reg cellulitis area seems to be improving has pain but seems improving than yesterday No fevers or abdominal pain or cough or phlegm. Physical Exam Vital Signs: Vital Signs: Last Vital Signs Temp 97.9 F 01/16/21 15:04 Pulse 86 01/16/21 15:04 Resp 20 01/16/21 15:04 BP 100/64 01/16/21 15:04 Pulse Ox 97 01/16/21 15:04 Body Mass Index 29.1 Eyes: Pupils equal, round and reactive to light.? Sclera nonicteric.? ENT: Pharynx normal.? Moist mucous membranes. cvs: rrr, [id number] , no murmur res: clear to auscultation ,no rhonchii or wheezing abd: no rebound or guarding ,nt, bs present. ext pulses present , no cyanosis ,right anterior leg-swelling /abcess-drained -seems swelling and erythema seems improving . neuro: axo3 , nonfocal. Objective Data Active Medications Acetaminophen (Acetaminophen 325 Mg Tablet) 650 mg PO Q6H PRN PRN Reason: Pain, Mild (Pain Scale 1-3) Last Admin: 01/15/21 15:49 Dose: 650 mg Documented by: YUAN Bupropion HCl (Bupropion Hcl Xl 300 Mg Tab.Er.24h) 300 mg PO DAILY [facility]PL[facility] Last Admin: 01/16/21 12:15 Dose: 300 mg Documented by: DALLAS Docusate Sodium (Docusate Sodium 100 Mg Capsule) 100 mg PO DAILY PRN PRN Reason: Constipation Enoxaparin Sodium (Enoxaparin Sodium 40 Mg/0.4 Ml Syringe) 40 mg SUBCUT Q24H [facility]PLAC[facility] Last Admin: 01/16/21 05:21 Dose: 40 mg Documented by: LILA Hydroxyzine HCl (Hydroxyzine Hcl 50 Mg Tablet) 50 mg PO TID [facility]PLACED BY [facility] Last Admin: 01/16/21 12:14 Dose: 50 mg Documented by: [place] Cefepime HCl 1 gm/ Sodium (Chloride) 50 mls @ 100 mls/hr IV Q8H REPLACED BY [facility] Last Admin: 01/16/21 12:09 Dose: 100 mls/hr Documented by: D[place]AS Vancomycin HCl 1,250 mg/ (Sodium Chloride) 250 mls @ 166.667 mls/hr IV Q12H REPLACED BY [facility] Last Infusion: 01/16/21 06:52 Dose: 0 mls/hr Documented by: LILA [place] Carbonate ([place] Carbonate 300 Mg Capsule) 300 mg PO BEDTIME REPLACED [facility] Last Admin: 01/15/21 20:34 Dose: 300 mg Documented by: LILA Melatonin (Melatonin 3 Mg Tablet) 9 mg PO BEDTIME PRN PRN Reason: Insomnia Methadone HCl (Methadone Hcl 20 Mg/2 Ml Oral.Conc) 55 mg PO DAILY [facility] Last Admin: 01/16/21 12:10 Dose: 55 mg Documented by: [place] Morphine Sulfate (Morphine Sulfate 4 Mg/Ml Cartridge) 4 mg IVPUSH Q4H PRN; Protocol PRN Reason: Pain, Severe (Pain Scale 7-10) Last Admin: 01/16/21 12:14 Dose: 4 mg Documented by: D[place]AS Non-Formulary Medication (Darunavir-Cobicistat [Prezcobix]) 1 tab PO DAILY [facility] Last Admin: 01/16/21 12:22 Dose: 1 tab Documented by: [place] Non-Formulary Medication (Dolutegravir-Rilpivirine [Juluca]) 1 tab PO DAILY [facility] Last Admin: 01/16/21 12:21 Dose: 1 tab Documented by: [place] Ondansetron HCl (Ondansetron Hcl 4 Mg/2 Ml Vial) 4 mg IVPUSH Q8H PRN PRN Reason: Nausea and Vomiting Pharmacy Consult (Consult Rx Vancomycin Dosing) 1 each MISCELLANE DAILY PRN PRN Reason: Consult order Propranolol HCl (Propranolol Hcl 10 Mg Tablet) 10 mg PO BID PRN; Protocol PRN Reason: Anxiety Last Admin: 01/16/21 12:14 Dose: 10 mg Documented by: D[place]AS Quetiapine Fumarate (Quetiapine Fumarate 50 Mg Tablet) 50 mg PO Q4H PRN PRN Reason: Anxiety Last Admin: 01/16/21 12:14 Dose: 50 mg Documented by: [place] Sodium Chloride (0.9 % Sodium Chloride Flush 3 Ml Syringe) 3 ml IVFLUSH QSHIFT REPLACED BY [facility] Last Admin: 01/16/21 12:15 Dose: 3 ml Documented by: [place] Trazodone HCl (Trazodone Hcl 50 Mg Tablet) 50 mg PO BEDTIME PRN PRN Reason: Insomnia Last Admin: 01/15/21 20:35 Dose: 50 mg Documented by: LILA Labs CBC & Chem 7: 01/14/21 10:34 01/16/21 13:05 Labs: Laboratory Results - last 24 hr 01/15/21 01/15/21 01/15/21 15:06 15:06 15:06 Anion Gap 13 Cancelled Estim Creat Clear Calc 99.9 Cancelled Estimated GFR > 60 Cancelled Random Glucose 94 Cancelled Calcium 9.6 D Cancelled Vancomycin Trough 3.2 L 01/16/21 01/16/21 13:05 13:05 Anion Gap 14 Estim Creat Clear Calc 92.3 Cancelled Estimated GFR > 60 Cancelled Random Glucose 92 Calcium 9.7 Vancomycin Trough Microbiology Microbiology Results: Microbiology 01/13/21 21:23 Blood Culture - Preliminary Blood - Venous No growth after 48 hours. 01/13/21 21:04 Blood Culture - Preliminary Blood - Venous No growth after 48 hours. Assessment and Plan (1) Cellulitis: Status: Acute Assessment and Plan: 30-year-old female with history of IV drug use as well as HIV presents to the hospital with complaints of right lower leg pain the site of IV drug injection found to have cellulitis as well as abscess 1.cellulitis/abscess - has erythema, tenderness, warmth -started vanc and Zosyn given her history of IV drug Blood culture negative at 48 hours Abscess drained Patient has arm rash question related to Vanco. Will hold off Vanco for now General surgery and ID following . 2. suicidal ideation - patient reports suicidal ideation - crisis team consult - sitter at bedside - once medically clear may need admission to [facility] 3. HIV - will continue her home medication DVT prophylaxis:? Lovenox Quality Stroke Does the patient have a stroke diagnosis?: No VTE Prior VTE?: No VTE Risk Level:: Medical - moderate - high VTE Device Contraindication: Treatment Not Indicated VTE Drug Contraindication: N/A - Med Ordered
[2021-01-16] MEDS: Doxycycline Hyclate 100 MG in 0.9 % Sodium Chloride 250 ML 166.67 MG IV (17:08)
[2021-01-16] MEDS: Lithium Carbonate 300 MG CAPSULE PO (20:06)
[2021-01-16] MEDS: traZODone HCL 50 MG TABLET PO (20:06)
--- NOTE | 2021-01-17 | ECG_ITS ---
Test Reason : on methadone Blood Pressure : / mmHG Vent. Rate : 070 BPM Atrial Rate : 070 BPM P-R Int : 154 ms QRS Dur : 088 ms QT Int : 388 ms P-R-T Axes : 050 055 023 degrees QTc Int : 419 ms Normal sinus rhythm Nonspecific ST and T wave abnormality Abnormal ECG No significant changes seen Referred By: Philippe Moses Electronically Signed By:HANNA TAYLOR MD
[2021-01-17 04:00] VITALS: BP 138/62; PULSE 64; RESP 18; TEMP 36.4; O2SAT 98
[2021-01-17] MEDS: Enoxaparin Sodium 40 MG/0.4 ML SYRINGE SUBCUT (05:01)
[2021-01-17] MEDS: cefEPime HCl 1 GM in 0.9 % Sodium Chloride 50 ML IV (05:01)
[2021-01-17] MEDS: Doxycycline Hyclate 100 MG in 0.9 % Sodium Chloride 250 ML 166.67 MG IV (05:01)
[2021-01-17 06:57] VITALS: BP 131/68; PULSE 62; RESP 18; TEMP 36.1; O2SAT 98
[2021-01-17] MEDS: 0.9 % Sodium Chloride Flush 3 ML SYRINGE IVFLUSH (07:35)
[2021-01-17] MEDS: Morphine Sulfate 4 MG/ML CARTRIDGE IVPUSH (07:46)
--- NOTE | 2021-01-17 08:18 | PM.PNGS ---
Subjective Subjective Date of Service: 01/17/21 Interval history: Patient feels her right leg is improving. Does have pain with ambulation. Physical Exam Vital Signs: Vital Signs: Last Vital Signs Temp 97 F 01/17/21 06:57 Pulse 62 01/17/21 06:57 Resp 18 01/17/21 06:57 BP 131/68 01/17/21 06:57 Pulse Ox 98 01/17/21 06:57 Body Mass Index 29.1 Const: Other: Sleepy, response to voice Resp: Other: breathing comfortably on room air, no respiratory distress Skin: Other: warm, dry, no rash, see extremities below Extrem: Other: right gallegos wound is open and draining with very minimal discharge. There is no further fluctuance and minimal tenderness to the surrounding skin. No surrounding erythema. [place] sponge dressings with silver alginate is applied. Procedures Date of Service Date of Service: 01/17/21 Progress Note: A&P Assessment and plan (1) Abscess: Status: Acute Assessment and Plan: 30-year-old female patient with IV drug abuse with an abscess of the right gallegos after IV injection. She is status post incision and drainage with a large purulent collection drained. She now feels improved in her wounds are much improved with no further erythema or fluctuance. Continue local wound care and antibiotics. No further surgical intervention required at this time. Please call if any further assistance is required. Fall Risk Details Current Medications: Current Medications Acetaminophen (Acetaminophen 325 Mg Tablet) 650 mg PO Q6H PRN PRN Reason: Pain, Mild (Pain Scale 1-3) Last Admin: 01/15/21 15:49 Dose: 650 mg Documented by: Bupropion HCl (Bupropion Hcl Xl 300 Mg Tab.Er.24h) 300 mg PO DAILY [facility] Last Admin: 01/16/21 12:15 Dose: 300 mg Documented by: Docusate Sodium (Docusate Sodium 100 Mg Capsule) 100 mg PO DAILY PRN PRN Reason: Constipation Enoxaparin Sodium (Enoxaparin Sodium 40 Mg/0.4 Ml Syringe) 40 mg SUBCUT Q24H [facility] Last Admin: 01/17/21 05:01 Dose: 40 mg Documented by: Hydroxyzine HCl (Hydroxyzine Hcl 50 Mg Tablet) 50 mg PO TID [facility] Last Admin: 01/16/21 20:06 Dose: 50 mg Documented by: Cefepime HCl 1 gm/ Sodium (Chloride) 50 mls @ 100 mls/hr IV Q8H [facility] Last Infusion: 01/17/21 06:14 Dose: Infused Documented by: Doxycycline Hyclate 100 mg/ (Sodium Chloride) 250 mls @ 166.67 mls/hr IV Q12H [facility] Last Infusion: 01/17/21 06:34 Dose: Infused Documented by: [place] Carbonate ([place] Carbonate 300 Mg Capsule) 300 mg PO BEDTIME [facility] Last Admin: 01/16/21 20:06 Dose: 300 mg Documented by: Melatonin (Melatonin 3 Mg Tablet) 9 mg PO BEDTIME PRN PRN Reason: Insomnia Methadone HCl (Methadone Hcl 20 Mg/2 Ml Oral.Conc) 55 mg PO DAILY [facility] Last Admin: 01/16/21 12:10 Dose: 55 mg Documented by: Morphine Sulfate (Morphine Sulfate 4 Mg/Ml Cartridge) 4 mg IVPUSH Q4H PRN; Protocol PRN Reason: Pain, Severe (Pain Scale 7-10) Last Admin: 01/17/21 07:46 Dose: 4 mg Documented by: Non-Formulary Medication (Darunavir-Cobicistat [Prezcobix]) 1 tab PO DAILY [facility] Last Admin: 01/16/21 12:22 Dose: 1 tab Documented by: Non-Formulary Medication (Dolutegravir-Rilpivirine [Juluca]) 1 tab PO DAILY [facility] Last Admin: 01/16/21 12:21 Dose: 1 tab Documented by: Ondansetron HCl (Ondansetron Hcl 4 Mg/2 Ml Vial) 4 mg IVPUSH Q8H PRN PRN Reason: Nausea and Vomiting Pharmacy Consult (Consult Rx Vancomycin Dosing) 1 each MISCELLANE DAILY PRN PRN Reason: Consult order Propranolol HCl (Propranolol Hcl 10 Mg Tablet) 10 mg PO BID PRN; Protocol PRN Reason: Anxiety Last Admin: 01/16/21 12:14 Dose: 10 mg Documented by: Quetiapine Fumarate (Quetiapine Fumarate 50 Mg Tablet) 50 mg PO Q4H PRN PRN Reason: Anxiety Last Admin: 01/16/21 16:39 Dose: 50 mg Documented by: Sodium Chloride (0.9 % Sodium Chloride Flush 3 Ml Syringe) 3 ml IVFLUSH QSHIFT [facility] Last Admin: 01/17/21 07:35 Dose: 3 ml Documented by: Trazodone HCl (Trazodone Hcl 50 Mg Tablet) 50 mg PO BEDTIME PRN PRN Reason: Insomnia Last Admin: 01/16/21 20:06 Dose: 50 mg Documented by: Time Spent With Patient Time: Total time spent is greater than 50% in coordination of care (as documented) at patient's floor/unit and/or counseling patient: Time with patient: 15 - 24 minutes Quality Stroke Does the patient have a stroke diagnosis?: No VTE Prior VTE?: No VTE Risk Level:: Medical - moderate - high VTE Device Contraindication: Treatment Not Indicated VTE Drug Contraindication: N/A - Med Ordered
[2021-01-17] MEDS: buPROPion HCl XL 300 MG TAB.ER.24H PO (08:45)
[2021-01-17] MEDS: methADONE HCl 20 MG/2 ML ORAL.CONC 55 MG PO (08:45)
[2021-01-17] MEDS: hydrOXYzine HCL 50 MG TABLET PO ×2 (08:45→13:39)
--- NOTE | 2021-01-17 10:08 | PM.DS ---
DS: Providers Provider Date of Service: 01/17/21 Date of admission: 01/13/21 23:18 Date of discharge: 01/17/21 Primary care physician: Yu Penny MD Admitting clinician: Philippe Moses Consults: 01/13/21 20:47 Consult to Crisis Stat Reason for consultation: Suicidal Consult to Psychiatry Stat Consulting Provider: Bethel Heller Reason for consultation: Patient states that she feels like her medications are not working 01/14/21 02:41 Consult to General Surgery Routine Consulting Provider: Rod Aguirre Reason for consultation: abscess Has provider been notified: No 01/14/21 08:34 Addiction Medicine Routine Consulting Provider: Tracie Cervantes Reason for consultation: iv drug use Has provider been notified: No 01/15/21 08:53 Consult to Infectious Diseases Routine Consulting Provider: Justyna Centeno Reason for consultation: leg cellulitius/abcess/ivdu Has provider been notified: No DS: Diagnosis Discharge Diagnosis (1) Abscess: Status: Acute (2) Cellulitis: Status: Acute DS: Summary Hospital Course Hospital Course: 30-year-old female who is HIV positive, IV drug user, has major depressive disorder who presents to the hospital with complaints of suicidal ideation as well as right lower extremity pain and swelling.? Patient is extremely lethargic on my exam, unable to stay awake long enough to give me much history, but reports that she came into the hospital because of her leg pain and feeling depressed and suicidal.? She mentioned to the PA that she inject in her gallegos and few days ago developed induration, swelling, and pain in her lower right extremity, I am unable to get any other review of system as patient is extremely lethargic and unable to give much history On arrival to the ED patient hemodynamically stable with a temp of 99.9? otherwise vitals unremarkable 18.7, hemoglobin of 11.1 which is around her baseline, labs otherwise unremarkable. Tibia fibula x-ray shows no foreign body, venous duplex shows no DVT demonstrated in the right lower extremity, incidental note made of a small fluid collection measuring 2.1 x 2.8 x 0.08 cm consistent with a small fluid collection located in the anterolateral gallegos Given her history of IV drug use Patient will be admitted for further management. Hospital course: Patient came with right leg cellulitis and abscess: Started on IV antibiotics subsequently blood cultures are sent and seen by surgery: Patient had I&D done by surgery, cellulitis seems improving. Switched to p.o. antibiotics, dressing rhoades -bandaid is fine as per surgery. Follow-up out patiently with PCP . auto wheel alignment specialist will arrange oupatient methadone . Patient also has suicidal ideation -seen by n recommended inpatient psych admission. ekg done today as per psych request-seems similar to her september/2020 . qtc in 427's range. Discussed with psych Jeremy castellanos-in detail about above. Above management discussed with the patient in detail length she understand and in agreement with the above plan, time spent 50 minutes and 50% time spent on counseling. Significant findings: As above. Procedures performed: None. Treatment and response: As above. Complications: None. Time Spent with Patient Time attestation: Total time spent providing and/or coordinating discharge services: Discharge coordination time: Greater than 30 minutes Quality: Stroke Does the patient have a stroke diagnosis?: No Physical Exam Vital Signs: Vital Signs: Last Vital Signs Temp 97 F 01/17/21 06:57 Pulse 62 01/17/21 06:57 Resp 18 01/17/21 06:57 BP 131/68 01/17/21 06:57 Pulse Ox 98 01/17/21 06:57 Body Mass Index 29.1 Eyes: Pupils equal, round and reactive to light.? Sclera nonicteric.? ENT: Pharynx normal.? Moist mucous membranes. cvs: rrr, [id number] , no murmur res: clear to auscultation ,no rhonchii or wheezing abd: no rebound or guarding ,nt, bs present. ext pulses present , no cyanosis ,right anterior leg-swelling /abcess-drained -seems swelling and erythema seems improved significantly. arm rash also improved after stopping vancomycin . neuro: axo3 , nonfocal. DS: Data Data Completed and Pending Labs on day of discharge: Laboratory Results - last 24 hr 01/16/21 01/16/21 13:05 13:05 Sodium 137 Potassium 4.8 Chloride 105 Carbon Dioxide 23 Anion Gap 14 BUN 11 Creatinine 0.79 Cancelled Estim Creat Clear Calc 92.3 Cancelled Estimated GFR > 60 Cancelled Random Glucose 92 Calcium 9.7 Preliminary micro results at discharge 01/13/21 21:23 Blood Culture - Preliminary Blood - Venous No growth after 48 hours. 01/13/21 21:04 Blood Culture - Preliminary Blood - Venous No growth after 48 hours. Additional Comments Additional comments: Xray: IMPRESSION: Normal right tibia and fibula. No radiopaque foreign body seen. dupplex: IMPRESSION: No DVT demonstrated in the right lower extremity. Incidental note made of a small fluid collection in the anterior gallegos along with an enlarged right groin node Discharge Plan Discharge Patient Disposition: [facility] Discharge Diagnosis: cellulitis /abcess Referrals: Yu Penny MD [Primary Care Provider] - 1 Week Discharge Medications: New doxycycline hyclate 100 mg tablet 100 mg PO DAILY Qty: 20 RF: 0 Continued ibuprofen 600 mg Tablet 600 mg PO Q6H PRN (Reason: Fever, headache, mild pain) Qty: 30 RF: 0 Prezcobix 800-150 mg-mg tablet 1 tab PO DAILY 30 Days Qty: 30 RF: 0 Juluca 50-25 mg tablet 1 tab PO DAILY 30 Days Qty: 30 RF: 0 trazodone 50 mg Tablet 50 mg PO BEDTIME PRN (Reason: Insomnia) Qty: 30 RF: 0 bupropion HCl 300 mg Tablet Extended Release 24 Hr 300 mg PO DAILY Qty: 30 RF: 0 hydroxyzine pamoate 50 mg capsule 1 cap PO TID RF: 0 propranolol 10 mg tablet 1 tab PO BID PRN (Reason: Anxiety) RF: 0 quetiapine 50 mg tablet 1 tab PO Q4H PRN (Reason: Anxiety) RF: 0 melatonin 10 mg Tablet 10 mg PO BEDTIME PRN (Reason: Insomnia) RF: 0 lithium carbonate 300 mg capsule 1 cap PO BEDTIME RF: 0 methadone 10 mg/mL Concentrate 55 mg PO DAILY RF: 0 Discharge Orders: Discharge Order (Routine); Ordered 01/17/21 Ordered By: Philippe Moses Diet: advance to usual diet and low fat, low cholesterol Activity on Discharge: As tolerated Stand Alone Forms: Patient Portal Discharge page Care Plan Goals: Patient came with right leg cellulitis and abscess: Started on IV antibiotics subsequently blood cultures are sent and seen by surgery: Patient had I&D done by surgery, cellulitis seems improving. Switched to p.o. antibiotics, dressing changes as per surgery. Follow-up out patiently with PCP . Health Concerns: As above. Plan of Treatment: As above. Assessment: As above
[2021-01-17 11:03] VITALS: BP 111/59; PULSE 76; RESP 18; TEMP 36.2; O2SAT 95
[2021-01-17 11:24] LABS: Anion Gap 12 (12-20); Blood Urea Nitrogen 12 mg/dL (9-16); Calcium 9.9 mg/dL (8.4-10.2); Carbon Dioxide 24 mmol/L (22-29); Chloride 106 mmol/L (96-108); Creatinine Clr Calc Pharmacy 94.7; Estimated Glomerular Filt Rate > 60; Glucose Random 99 mg/dL (60-115); Potassium 4.5 mmol/L (3.3-5.1); Sodium 137 mmol/L (135-145)
[2021-01-17] MEDS: oxyCODONE HCl Immed Release 5 MG TABLET 10 MG PO (13:39)
[2021-01-17 15:03] VITALS: BP 120/61; PULSE 79; RESP 18; TEMP 37; O2SAT 96
--- NOTE | 2021-01-17 15:48 | P.PNIM_ITS ---
Subjective Subjective Date of Service: 01/17/21 Interval History: cellulitis Review of Systems Cellulitis Seems improving, also rash at the arm seems improving Physical Exam Vital Signs: Vital Signs: Last Vital Signs Temp 98.6 F 01/17/21 15:03 Pulse 79 01/17/21 15:03 Resp 18 01/17/21 15:03 BP 120/61 01/17/21 15:03 Pulse Ox 96 01/17/21 15:03 Body Mass Index 29.1 ?Eyes: Pupils equal, round and reactive to light.? Sclera nonicteric.? ENT: Pharynx normal.? Moist mucous membranes. cvs: rrr, [id number] , no murmur res: clear to auscultation ,no rhonchii or wheezing abd: no rebound or guarding ,nt, bs present. ext pulses present , no cyanosis ,right anterior leg-swelling /abcess-drained - seems swelling and erythema seems improved significantly . neuro: axo3 , nonfocal. Objective Data Active Medications Acetaminophen (Acetaminophen 325 Mg Tablet) 650 mg PO Q6H PRN PRN Reason: Pain, Mild (Pain Scale 1-3) Last Admin: 01/15/21 15:49 Dose: 650 mg Documented by: YUAN Bupropion HCl (Bupropion Hcl Xl 300 Mg Tab.Er.24h) 300 mg PO DAILY [facility] Last Admin: 01/17/21 08:45 Dose: 300 mg Documented by: INDERJIT Docusate Sodium (Docusate Sodium 100 Mg Capsule) 100 mg PO DAILY PRN PRN Reason: Constipation Doxycycline Hyclate (Doxycycline Hyclate 100 Mg Tablet) 100 mg PO Q12H [facility] Last Admin: 01/17/21 13:39 Dose: 100 mg Documented by: CELINA Enoxaparin Sodium (Enoxaparin Sodium 40 Mg/0.4 Ml Syringe) 40 mg SUBCUT Q24H [facility] Last Admin: 01/17/21 05:01 Dose: 40 mg Documented by: LILA Hydroxyzine HCl (Hydroxyzine Hcl 50 Mg Tablet) 50 mg PO TID [facility] Last Admin: 01/17/21 13:39 Dose: 50 mg Documented by: CELINA [place] Carbonate ([place] Carbonate 300 Mg Capsule) 300 mg PO BEDTIME [facility] Last Admin: 01/16/21 20:06 Dose: 300 mg Documented by: LILA Melatonin (Melatonin 3 Mg Tablet) 9 mg PO BEDTIME PRN PRN Reason: Insomnia Methadone HCl (Methadone Hcl 20 Mg/2 Ml Oral.Conc) 55 mg PO DAILY [facility] Last Admin: 01/17/21 08:45 Dose: 55 mg Documented by: INDERJIT Non-Formulary Medication (Darunavir-Cobicistat [Prezcobix]) 1 tab PO DAILY [facility] Last Admin: 01/17/21 08:45 Dose: 1 tab Documented by: INDERJIT Non-Formulary Medication (Dolutegravir-Rilpivirine [Juluca]) 1 tab PO DAILY [facility] Last Admin: 01/17/21 08:45 Dose: 1 tab Documented by: INDERJIT Ondansetron HCl (Ondansetron Hcl 4 Mg/2 Ml Vial) 4 mg IVPUSH Q8H PRN PRN Reason: Nausea and Vomiting Pharmacy Consult (Consult Rx Vancomycin Dosing) 1 each MISCELLANE DAILY PRN PRN Reason: Consult order Propranolol HCl (Propranolol Hcl 10 Mg Tablet) 10 mg PO BID PRN; Protocol PRN Reason: Anxiety Last Admin: 01/16/21 12:14 Dose: 10 mg Documented by: DALLAS Quetiapine Fumarate (Quetiapine Fumarate 50 Mg Tablet) 50 mg PO Q4H PRN PRN Reason: Anxiety Last Admin: 01/16/21 16:39 Dose: 50 mg Documented by: DALLAS Sodium Chloride (0.9 % Sodium Chloride Flush 3 Ml Syringe) 3 ml [facility] Last Admin: 01/17/21 07:35 Dose: 3 ml Documented by: INDERJIT Trazodone HCl (Trazodone Hcl 50 Mg Tablet) 50 mg PO BEDTIME PRN PRN Reason: Insomnia Last Admin: 01/16/21 20:06 Dose: 50 mg Documented by: LILA Labs CBC & Chem 7: 01/14/21 10:34 01/17/21 10:53 Labs: Laboratory Results - last 24 hr 01/17/21 10:53 Anion Gap 12 Estim Creat Clear Calc 94.7 Estimated GFR > 60 Random Glucose 99 Calcium 9.9 Assessment and Plan Assessment and Plan: 30-year-old female with history of IV drug use as well as HIV presents to the hospital with complaints of right lower leg pain the site of IV drug injection found to have cellulitis as well as abscess 1.cellulitis/abscess - has erythema, tenderness, warmth -started? vanc and Zosyn given her history of IV drug Blood culture negative at 48 hours Abscess drained Patient has arm rash question related to Vanco.? d/w ID-switched to po doxy. General surgery recommend to continue bandaid. 2. suicidal ideation - patient reports suicidal ideation - crisis team consult - sitter at bedside - once medically clear may need admission to [facility] 3. HIV - will continue her home medication DVT prophylaxis:? Fuhu Quality Stroke Does the patient have a stroke diagnosis?: No VTE Prior VTE?: No VTE Risk Level:: Medical - moderate - high VTE Device Contraindication: Treatment Not Indicated VTE Drug Contraindication: N/A - Med Ordered
--- NOTE | 2021-01-17 15:54 | MHC.CM.PN ---
Female 30 DX Abscess rle BHN has assessed the patient. DP transfer to [facility] today.
[2021-01-17 16:00] VITALS: PULSE 72
--- NOTE | 2021-01-17 16:08 | MHC.RECOVRN ---
Attempted to meet with pt to f/u regarding dc planning and admission to . Pt asleep. T/w available if needed.
== END 2021-01-17 16:31 | DRG 720 ==
LOC: HO.ED 23:48 → HO.EDOVER 01-14 00:22 → HO.IMC 01-14 16:37
PROVIDERS: Nurse Practitioner Family; Admitting Provider Internal Medicine; Emergency Provider Emergency Medicine; PCP Internal Medicine; Visit Provider Internal Medicine
DX: A41.9 Sepsis, unspecified organism (principal); F11.20 Opioid dependence, uncomplicated; R45.851 Suicidal ideations; L03.115 Cellulitis of right lower limb; L02.415 Cutaneous abscess of right lower limb; Z21 Asymptomatic human immunodeficiency virus [HIV] infection status; F17.210 Nicotine dependence, cigarettes, uncomplicated; Z71.6 Tobacco abuse counseling; Z20.822 Contact with and (suspected) exposure to COVID-19; Z88.0 Allergy status to penicillin; Z79.1 Long term (current) use of non-steroidal anti-inflammatories (NSAID); Z79.899 Other long term (current) drug therapy
CPT/HCPCS: 0241U; 36415; 73590; 80048; 80053; 80143; 80179; 80202; 80307; 81025; 82077; 83605; 85025; 87040; 93005; 93971; 96365; 96375; 99024; 99285; 99291; J0692; J0696; J1650; J2270; J3370

== ENCOUNTER 2021-01-17 17:46 | Inpatient (IN) | payer OTHER, SELFPAY ==
[2021-01-17 18:27] VITALS: BMI 28.4
[2021-01-17] MEDS: hydrOXYzine HCL 25 MG TABLET PO (18:44)
[2021-01-17] MEDS: Acetaminophen 325 MG TABLET 650 MG PO (18:44)
[2021-01-17] MEDS: QUEtiapine Fumarate 50 MG TABLET PO (20:03)
[2021-01-17] MEDS: Lithium Carbonate 300 MG TABLET PO (20:03)
[2021-01-17] MEDS: traZODone HCL 50 MG TABLET PO (20:03)
--- NOTE | 2021-01-17 20:09 | PC.ADMIT ---
pt is a 30 year old female who presents to from [facility] at aprrox 1630 on a cv status. Pt is covid - Utox + cocaine, opiates, heroin. Pt self-presented to [facility] on 01/13/21 reporting suicidal ideation with plan to to buy fentanyl and overdose. Pt reports depression and hopeless mood. Pt denied HI/VH/AH. Pt was transferred to the medical floor to . Pt has been known to . Dr called for orders and notified of admission
[2021-01-17] MEDS: Melatonin 3 MG TABLET 9 MG PO (21:54)
--- NOTE | 2021-01-17 22:11 | HO.PSYADMNOT ---
HPI Date of Service: 01/17/21 Chief Complaint: SI Sources of Information: patient interviewed and crisis/core team assessment reviewed HPI Subjective Notes: Wheeler Warning and Conditional Voluntary Healthcare Proxy: No Guardianship: No Medical Problems Affecting Mental Status: No Narrative: Yina is a 30 year female who carries a dx of opioid use disorder, severe, cocaine use disorder, severe, and MDD recurrent episode. She self-presented to [facility] on 01/13/21 due to depression, SI with a plan to buy fentanyl and OD and utox was positive for opiates, fentanyl, and cocaine. She reported relapsing after a month of sobriety and that she had been using recklessly as a suicidal gesture. Pt was subsequently medically admitted due to cellulitis of LR extremity. She was started on IV antibiotics, had I&D done by surgery, cellulitis improved and switched to PO antibiotics. Upon medical clearance on 01/17/21 Pt was admitted to . Recent admission to in September of 2020 for similar presentation. Unable to identify precipitating factors for increased depression and SI.? I evaluated the pt this evening and upon interview she reports ?I feel a little bit better.? She has been seen by Tracie Cervantes APRN, nanofabrication specialist, for a consult and methadone is being restored to prev OP dose. Pt reports she wants to talk with S/W about a residential program/ TSS for co-occurring disorders upon discharge. She reports ?I still feel sad? and ?im not sure if i?m so severely depressed or i need a higher dose? for medication. She is unable to identify precipitating factor for increased depression other than struggling with her substance use. Endorses low self esteem. Currently denies SI, states ?I dont want to kill myself but I still hate myself. Everything i've done has been destructive.? Says she has lost relationships, jobs, custody of children, ?I chose to keep using, I was being careless. I didn?t want to deal with the consequences.? Says she thinks lithium is helping with sx, will obtain level. Continues to report struggling with post acute withdrawal sx and urges to use, ?I still have a lot of cravings.? Says she has been sleeping a lot but sleep does not feel restorative, restless. Reports struggling with irritability, mood swings. When she is agitated she can yell, be verbally aggressive. Says she has increased anxiety but propranolol helps. Identifies coping strategies as reading and ?I?m trying to do more things to get involved? in community. Past Psychiatric History: -Hx of multiple IPLOC admissions for depression and YUE. Last IPLOC was on M5 in 09/2020 and 07/2020. Hx of IOP, PHP. -Reports prev hx of suicide attempt by attempting to OD or use substances recklessly Past med trials: clonidine (helpful), topamax, melatonin, lexapro 20 mg Medical Evaluation Reviewed: Yes [facility] Medical History HIV (human immunodeficiency virus infection) IV drug abuse MDD (major depressive disorder), recurrent episode, severe Narrative: Also reports migraines Social History: -Pt was born and raised in [place] by her mother and father, has five siblings. Pts parents have custody of her two daughters 12 and 13. -Hx of homelessness. Was in residential program, [facility] Substance History: -On MAT (methadone prescribed by [facility]) -Hx of multiple EATS/ detox admissions, was at [facility] -Opiates: onset age 25, daily heroin use x1 month, roughly 2 bundles -Cocaine: onset age 25, reports recreational use when she can afford it -Alcohol: denies problematic use -Tobacco: smokes a pack daily Diagnostics Vital Signs (24Hr): Body Mass Index 28.4 Meds/Allergies Meds Home Medications Acetaminophen (Acetaminophen 325 Mg Tablet) 650 mg PO Q6H PRN PRN Reason: Headache/Pain Mild Scale (1-3) Last Admin: 01/17/21 18:44 Dose: 650 mg Documented by: Al Hydroxide/Mg Hydroxide (Magnesium Hydrox/Alum Hydrox 30 Ml Oral.Susp) 30 ml PO Q6H PRN PRN Reason: Heartburn/Nausea Bupropion HCl (Bupropion Hcl Xl 300 Mg Tab.Er.24h) 300 mg PO DAILY [facility] Docusate Sodium (Docusate Sodium 100 Mg Capsule) 100 mg PO BID PRN PRN Reason: constipation Doxycycline Hyclate (Doxycycline Hyclate 100 Mg Tablet) 100 mg PO DAILY [facility] Hydroxyzine HCl (Hydroxyzine Hcl 50 Mg Tablet) 50 mg PO Q6H PRN PRN Reason: anxiety Ibuprofen (Ibuprofen 600 Mg Tablet) 600 mg PO Q8H PRN PRN Reason: mild- mod pain [place] Carbonate ([place] Carbonate 300 Mg Tablet) 300 mg PO BEDTIME [facility] Last Admin: 01/17/21 20:03 Dose: 300 mg Documented by: Magnesium Hydroxide (Milk Of Magnesia 30 Ml Oral.Susp) 30 ml PO DAILY PRN PRN Reason: Constipation Melatonin (Melatonin 3 Mg Tablet) 9 mg PO BEDTIME PRN PRN Reason: insomnia Last Admin: 01/17/21 21:54 Dose: 9 mg Documented by: Non-Formulary Medication (Juluca 50/25 Mg) 50 mg PO DAILY [facility]DA Non-Formulary Medication ( Prezcobix 800/150 Mg ) 800 mg PO DAILY [facility] Propranolol HCl (Propranolol Hcl 20 Mg Tablet) 20 mg PO BID PRN; Protocol PRN Reason: anxiety Quetiapine Fumarate (Quetiapine Fumarate 50 Mg Tablet) 50 mg PO BID PRN PRN Reason: anxiety Last Admin: 01/17/21 20:03 Dose: 50 mg Documented by: Trazodone HCl (Trazodone Hcl 50 Mg Tablet) 50 mg PO BEDTIME PRN PRN Reason: Insomnia Last Admin: 01/17/21 20:03 Dose: 50 mg Documented by: Allergies Allergies Allergy/AdvReac Type Severity Reaction Status Date / Time amoxicillin Allergy Unknown Verified 08/10/20 20:07 Mental Status Exam Mental Status Exam Narrative: A&O. In hospital attire, unkempt appearance, overweight, missing front teeth. Good eye contact, attentive. No Tics or Tremors. No abnormal involuntary movements. Calm, cooperative, engaged. Non-pressured speech, spontaneous with regular rate and rhythm, normal volume and prosody. No prolonged speech latency or dysarthria. Mood is ?sad,? affect is appropriate, congruent. Endorses SI with plan to OD, denies SIB/HI upon inquiry. Denies A/VH or delusional thought content. Thoughts are coherent, organized. No known cognitive or memory impairment. Insight/ Judgment fair and adequate. Assessment & Plan Assessment & Plan (1) MDD (major depressive disorder), recurrent episode, severe: Status: Acute Code(s): F33.2 - Major depressive disorder, recurrent severe without psychotic features (2) Cocaine use disorder, severe, dependence: Status: Acute Code(s): F14.20 - Cocaine dependence, uncomplicated (3) Opioid use disorder, severe, dependence: Status: Acute Code(s): F11.20 - Opioid dependence, uncomplicated Assessment and Plan: Yina is a 30 year female who carries a dx of opioid use disorder, severe, cocaine use disorder, severe, and MDD recurrent episode. She self-presented to [facility] on 01/13/21 due to depression, SI with a plan to buy fentanyl and OD and utox was positive for opiates, fentanyl, and cocaine. She is currently reporting sx of depression, increased anxiety/ hyperarousal, mood swings, low self-esteem, poor sleep, and intrusive negative thoughts. SHe continues to endorse SI with plan but denies intent and says she feels safe on the unit. Plan: Obtain lithium level and consider increasing to target sx of depression. Increase propranolol to 20 mg BID PRN to target sx of anxiety, as pt reports she continues to struggle with anxiety, hyperarousal, and has sx of panic. Says this med also helps with migraines. Will have f/u with Tracie Cervantes for methadone maintenance. Monitor response to medications. Monitor for safety in the milieu. Discharge on stabilization. Patient seen. Chart reviewed. Discussed with team. Obtain collateral contact info?as needed Reason for continued inpatient stay Substantial Risk for: harm to self, rapid decompensation and med/psych decompensation
[2021-01-18 06:00] VITALS: BP 116/82; PULSE 84; TEMP 36; O2SAT 99
[2021-01-18] MEDS: buPROPion HCl XL 300 MG TAB.ER.24H PO (09:18)
[2021-01-18 10:09] LABS: Lithium 0.34 mmol/L (0.60-1.20)
[2021-01-18] MEDS: Ondansetron ODT 4 MG TAB.RAPDIS TRANSLINGU (10:25)
[2021-01-18] MEDS: methADONE HCl 20 MG/2 ML ORAL.CONC 55 MG PO (10:45)
[2021-01-18 13:47] VITALS: BP 122/75; PULSE 95
[2021-01-18] MEDS: QUEtiapine Fumarate 50 MG TABLET PO ×2 (13:47→20:01)
[2021-01-18] MEDS: Propranolol HCL 20 MG TABLET PO ×2 (13:47→21:37)
--- NOTE | 2021-01-18 14:46 | PC.NURSE ---
PT TOOK A SHOWER AND CAME OUT REPORTING A SKIN SHEAR ON HER INNER RIGHT THIGH. PT REPORTS NOTICING WHEN SHE WAS DRYING. PT REPORTS ITS A REACTION FROM WHEN I GOT VANCOMYOCIN ON THE MEDICAL FLOOR. MD NOTIFIED. BACITRACIN AND BANDADE APPLIED. PT ALSO HAS AN OLD ULCER ON THE RIGHT SMALLS WITH A DRESSING. MD NOTIFIED AND WILL PLACE A WOUND CONSULT. DSG INTACT ON SMALLS.
[2021-01-18] MEDS: hydrOXYzine HCL 50 MG TABLET PO (17:49)
[2021-01-18] MEDS: Ibuprofen 600 MG TABLET PO (17:49)
[2021-01-18 18:00] VITALS: BP 131/62; PULSE 74; TEMP 35.5; O2SAT 98
--- NOTE | 2021-01-18 18:48 | HO.PSYCHPN ---
Subjective Subjective Date of Service: 01/18/21 Reason For Visit: SI Subjective Notes: Conditional Voluntary Interim History: Yina was somewhat nauseous and had vomited. She did not have any methadone yesterday. This will be re-started. She remains depressed with some thoughts of self harm but no plan Medication Compliance: Yes Side effects from medications: No Attending Groups: Yes Review of Systems Acute medical concerns: No Medical Review of Systems: unchanged Review of Systems Review of Systems CVS: No c/o chest pain, palpitations, no SOB [employer]: No c/o dizziness, headache GI: No c/o Nausea, Vomiting, diarrhea, constipation or heartburn Mental Status Exam Mental Status Exam Narrative: A&O. In hospital attire, unkempt appearance, overweight, missing front teeth. Good eye contact, attentive. No Tics or Tremors. No abnormal involuntary movements. Calm, cooperative, engaged. Non-pressured speech, spontaneous with regular rate and rhythm, normal volume and prosody. No prolonged speech latency or dysarthria. Mood is ?sad,? affect is appropriate, congruent. Endorses SI with plan to OD, denies SIB/HI upon inquiry. Denies A/VH or delusional thought content. Thoughts are coherent, organized. No known cognitive or memory impairment. Insight/ Judgment fair and adequate. Diagnostics Vital Signs (24Hr): Vital Signs - 24 hr 01/18/21 06:00 01/18/21 13:47 Temperature 96.8 F Pulse Rate 84 95 Blood Pressure 116/82 122/75 Pulse Oximetry 99 Body Mass Index 28.4 Labs Labs: Laboratory Results - last 48 hr 01/18/21 09:43 Refugio 0.34 L Medications Medications Current Medications Acetaminophen (Acetaminophen 325 Mg Tablet) 650 mg PO Q6H PRN PRN Reason: Headache/Pain Mild Scale (1-3) Last Admin: 01/17/21 18:44 Dose: 650 mg Documented by: Al Hydroxide/Mg Hydroxide (Magnesium Hydrox/Alum Hydrox 30 Ml Oral.Susp) 30 ml PO Q6H PRN PRN Reason: Heartburn/Nausea Bupropion HCl (Bupropion Hcl Xl 300 Mg Tab.Er.24h) 300 mg PO DAILY [facility] Last Admin: 01/18/21 09:18 Dose: 300 mg Documented by: Docusate Sodium (Docusate Sodium 100 Mg Capsule) 100 mg PO BID PRN PRN Reason: constipation Doxycycline Hyclate (Doxycycline Hyclate 100 Mg Tablet) 100 mg PO DAILY [facility] Last Admin: 01/18/21 09:18 Dose: 100 mg Documented by: Hydroxyzine HCl (Hydroxyzine Hcl 50 Mg Tablet) 50 mg PO Q6H PRN PRN Reason: anxiety Last Admin: 01/18/21 17:49 Dose: 50 mg Documented by: Ibuprofen (Ibuprofen 600 Mg Tablet) 600 mg PO Q8H PRN PRN Reason: mild- mod pain Last Admin: 01/18/21 17:49 Dose: 600 mg Documented by: [place] Carbonate ([place] Carbonate 300 Mg Tablet) 300 mg PO BEDTIME [facility] Last Admin: 01/17/21 20:03 Dose: 300 mg Documented by: Magnesium Hydroxide (Milk Of Magnesia 30 Ml Oral.Susp) 30 ml PO DAILY PRN PRN Reason: Constipation Melatonin (Melatonin 3 Mg Tablet) 9 mg PO BEDTIME PRN PRN Reason: insomnia Last Admin: 01/17/21 21:54 Dose: 9 mg Documented by: Methadone HCl (Methadone Hcl 20 Mg/2 Ml Oral.Conc) 55 mg PO DAILY [facility] Last Admin: 01/18/21 10:45 Dose: 55 mg Documented by: Non-Formulary Medication (Juluca 50/25 Mg) 50 mg PO DAILY [facility] Last Admin: 01/18/21 13:14 Dose: 50 mg Documented by: Non-Formulary Medication ( Prezcobix 800/150 Mg ) 800 mg PO DAILY [facility] Last Admin: 01/18/21 13:14 Dose: 800 mg Documented by: Ondansetron HCl (Ondansetron Odt 4 Mg Tab.Rapdis) 4 mg TRANSLINGU Q8H PRN PRN Reason: Nausea and Vomiting Last Admin: 01/18/21 10:25 Dose: 4 mg Documented by: Propranolol HCl (Propranolol Hcl 20 Mg Tablet) 20 mg PO BID PRN; Protocol PRN Reason: anxiety Last Admin: 01/18/21 13:47 Dose: 20 mg Documented by: Quetiapine Fumarate (Quetiapine Fumarate 50 Mg Tablet) 50 mg PO BID PRN PRN Reason: anxiety Last Admin: 01/18/21 13:47 Dose: 50 mg Documented by: Trazodone HCl (Trazodone Hcl 50 Mg Tablet) 50 mg PO BEDTIME PRN PRN Reason: Insomnia Last Admin: 01/17/21 20:03 Dose: 50 mg Documented by: Allergies Allergies Allergy/AdvReac Type Severity Reaction Status Date / Time amoxicillin Allergy Unknown Verified 08/10/20 20:07 Assessment & Plan Assessment & Plan (1) MDD (major depressive disorder), recurrent episode, severe: Status: Acute Code(s): F33.2 - Major depressive disorder, recurrent severe without psychotic features (2) Cocaine use disorder, severe, dependence: Status: Acute Code(s): F14.20 - Cocaine dependence, uncomplicated (3) Opioid use disorder, severe, dependence: Status: Acute Code(s): F11.20 - Opioid dependence, uncomplicated Assessment and Plan: Yina is a 30 year female who carries a dx of opioid use disorder, severe, cocaine use disorder, severe, and MDD recurrent episode. She self-presented to [facility] on 01/13/21 due to depression, SI with a plan to buy fentanyl and OD and utox was positive for opiates, fentanyl, and cocaine. She is currently reporting sx of depression, increased anxiety/ hyperarousal, mood swings, low self-esteem, poor sleep, and intrusive negative thoughts. SHe continues to endorse SI with plan but denies intent and says she feels safe on the unit. Plan: Obtain lithium level and consider increasing to target sx of depression. Increase propranolol to 20 mg BID PRN to target sx of anxiety, as pt reports she continues to struggle with anxiety, hyperarousal, and has sx of panic. Says this med also helps with migraines. Will have f/u with Tracie Cervantes for methadone maintenance. Monitor response to medications. Monitor for safety in the milieu. Discharge on stabilization. Patient seen. Chart reviewed. Discussed with team. Obtain collateral contact info?as needed No change to the above plan Resume methadone I spent ___10___ minutes with the patient and/or on the patient floor today, greater than?50% of which was spent counseling/coordinating care. Reason for contiued inpatient stay Substantial Risk for: harm to self and rapid decompensation
[2021-01-18] MEDS: Lithium Carbonate 300 MG TABLET PO (20:01)
[2021-01-18] MEDS: traZODone HCL 50 MG TABLET PO (20:01)
[2021-01-18] MEDS: Melatonin 3 MG TABLET 9 MG PO (21:34)
[2021-01-18 21:37] VITALS: BP 115/55; PULSE 75
[2021-01-19 06:00] VITALS: BP 141/63; PULSE 56; RESP 16; TEMP 35.3; O2SAT 98
[2021-01-19] MEDS: Ibuprofen 600 MG TABLET PO ×2 (06:35→13:23)
[2021-01-19] MEDS: buPROPion HCl XL 300 MG TAB.ER.24H PO (08:34)
[2021-01-19] MEDS: methADONE HCl 20 MG/2 ML ORAL.CONC 55 MG PO (08:34)
[2021-01-19] MEDS: hydrOXYzine HCL 50 MG TABLET PO (13:23)
[2021-01-19] MEDS: QUEtiapine Fumarate 50 MG TABLET PO ×2 (13:27→18:20)
[2021-01-19 18:00] VITALS: BP 122/58; PULSE 74; RESP 16; TEMP 37.1; O2SAT 98
[2021-01-19] MEDS: Acetaminophen 325 MG TABLET 650 MG PO (18:23)
--- NOTE | 2021-01-19 19:17 | HO.PSYCHPN ---
Subjective Subjective Date of Service: 01/19/21 Reason For Visit: SI Subjective Notes: Conditional Voluntary Medical Problems Affecting Mental Status: No Interim History: Yina reports that her leg is feeling much better. She has also had much relief from the raw area on her thighs. She is feeling considerable relief. Her mood is better. She has no WD Medication Compliance: Yes Attending Groups: Intermittent Review of Systems Acute medical concerns: No Mental Status Exam Mental Status Exam Narrative: A&O. In hospital attire, unkempt appearance, overweight, missing front teeth. Good eye contact, attentive. No Tics or Tremors. No abnormal involuntary movements. Calm, cooperative, engaged. Non-pressured speech, spontaneous with regular rate and rhythm, normal volume and prosody. No prolonged speech latency or dysarthria. Mood is ?sad,? affect is appropriate, congruent. Endorses SI with plan to OD, denies SIB/HI upon inquiry. Denies A/VH or delusional thought content. Thoughts are coherent, organized. No known cognitive or memory impairment. Insight/ Judgment fair and adequate. Diagnostics Vital Signs (24Hr): Vital Signs - 24 hr 01/18/21 21:37 01/19/21 06:00 01/19/21 18:00 Temperature 95.6 F L 98.8 F Pulse Rate 75 56 74 Respiratory Rate 16 16 Blood Pressure 115/55 L 141/63 H 122/58 L Pulse Oximetry 98 98 Body Mass Index 28.4 Labs Labs: Laboratory Results - last 48 hr 01/18/21 09:43 [place] 0.34 L Medications Medications Current Medications Acetaminophen (Acetaminophen 325 Mg Tablet) 650 mg PO Q6H PRN PRN Reason: Headache/Pain Mild Scale (1-3) Last Admin: 01/19/21 18:23 Dose: 650 mg Documented by: Al Hydroxide/Mg Hydroxide (Magnesium Hydrox/Alum Hydrox 30 Ml Oral.Susp) 30 ml PO Q6H PRN PRN Reason: Heartburn/Nausea Bupropion HCl (Bupropion Hcl Xl 300 Mg Tab.Er.24h) 300 mg PO DAILY [facility] Last Admin: 01/19/21 08:34 Dose: 300 mg Documented by: Docusate Sodium (Docusate Sodium 100 Mg Capsule) 100 mg PO BID PRN PRN Reason: constipation Doxycycline Hyclate (Doxycycline Hyclate 100 Mg Tablet) 100 mg PO DAILY [facility] Last Admin: 01/19/21 08:34 Dose: 100 mg Documented by: Hydroxyzine HCl (Hydroxyzine Hcl 50 Mg Tablet) 50 mg PO Q6H PRN PRN Reason: anxiety Last Admin: 01/19/21 13:23 Dose: 50 mg Documented by: Ibuprofen (Ibuprofen 600 Mg Tablet) 600 mg PO Q8H PRN PRN Reason: mild- mod pain Last Admin: 01/19/21 13:23 Dose: 600 mg Documented by: [place] Carbonate ([place] Carbonate 300 Mg Tablet) 300 mg PO BEDTIME AMANDA Last Admin: 01/18/21 20:01 Dose: 300 mg Documented by: Magnesium Hydroxide (Milk Of Magnesia 30 Ml Oral.Susp) 30 ml PO DAILY PRN PRN Reason: Constipation Melatonin (Melatonin 3 Mg Tablet) 9 mg PO BEDTIME PRN PRN Reason: insomnia Last Admin: 01/18/21 21:34 Dose: 9 mg Documented by: Methadone HCl (Methadone Hcl 20 Mg/2 Ml Oral.Conc) 55 mg PO DAILY [facility] Last Admin: 01/19/21 08:34 Dose: 55 mg Documented by: Non-Formulary Medication (Juluca 50/25 Mg) 50 mg PO DAILY [facility] Last Admin: 01/19/21 08:34 Dose: 50 mg Documented by: Non-Formulary Medication ( Prezcobix 800/150 Mg ) 800 mg PO DAILY [facility] Last Admin: 01/19/21 08:34 Dose: 800 mg Documented by: Ondansetron HCl (Ondansetron Odt 4 Mg Tab.Rapdis) 4 mg TRANSLINGU Q8H PRN PRN Reason: Nausea and Vomiting Last Admin: 01/18/21 10:25 Dose: 4 mg Documented by: Propranolol HCl (Propranolol Hcl 20 Mg Tablet) 20 mg PO BID PRN; Protocol PRN Reason: anxiety Last Admin: 01/18/21 21:37 Dose: 20 mg Documented by: Quetiapine Fumarate (Quetiapine Fumarate 50 Mg Tablet) 50 mg PO BID PRN PRN Reason: anxiety Last Admin: 01/19/21 18:20 Dose: 50 mg Documented by: Trazodone HCl (Trazodone Hcl 50 Mg Tablet) 50 mg PO BEDTIME PRN PRN Reason: Insomnia Last Admin: 01/18/21 20:01 Dose: 50 mg Documented by: Allergies Allergies Allergy/AdvReac Type Severity Reaction Status Date / Time amoxicillin Allergy Unknown Verified 05/15/21 20:07 Assessment & Plan Assessment & Plan (1) MDD (major depressive disorder), recurrent episode, severe: Status: Acute Code(s): F33.2 - Major depressive disorder, recurrent severe without psychotic features (2) Cocaine use disorder, severe, dependence: Status: Acute Code(s): F14.20 - Cocaine dependence, uncomplicated (3) Opioid use disorder, severe, dependence: Status: Acute Code(s): F11.20 - Opioid dependence, uncomplicated Assessment and Plan: Yina is a 30 year female who carries a dx of opioid use disorder, severe, cocaine use disorder, severe, and MDD recurrent episode. She self-presented to [facility] on 01/13/21 due to depression, SI with a plan to buy fentanyl and OD and utox was positive for opiates, fentanyl, and cocaine. She is currently reporting sx of depression, increased anxiety/ hyperarousal, mood swings, low self-esteem, poor sleep, and intrusive negative thoughts. SHe continues to endorse SI with plan but denies intent and says she feels safe on the unit. Plan: Obtain lithium level and consider increasing to target sx of depression. Increase propranolol to 20 mg BID PRN to target sx of anxiety, as pt reports she continues to struggle with anxiety, hyperarousal, and has sx of panic. Says this med also helps with migraines. Will have f/u with Tracie Cervantes for methadone maintenance. Monitor response to medications. Monitor for safety in the milieu. Discharge on stabilization. Patient seen. Chart reviewed. Discussed with team. Obtain collateral contact info?as needed 01/18/21: No change to the above plan Resume methadone 01/19/21: No furhter changes I spent minutes with the patient and/or on the patient floor today, greater than?50% of which was spent counseling/coordinating care. Patient educated on: diagnosis and medication risk/benefits Informed Consent: understands Reason for contiued inpatient stay Substantial Risk for: rapid decompensation
[2021-01-19 21:06] VITALS: BP 141/62; PULSE 87
[2021-01-19] MEDS: Propranolol HCL 20 MG TABLET PO (21:06)
[2021-01-19] MEDS: traZODone HCL 50 MG TABLET PO (21:07)
[2021-01-19] MEDS: Lithium Carbonate 300 MG TABLET PO (21:07)
[2021-01-19] MEDS: Melatonin 3 MG TABLET 9 MG PO (21:07)
[2021-01-20 06:00] VITALS: BP 120/58; PULSE 72; TEMP 36.4; O2SAT 99
[2021-01-20] MEDS: methADONE HCl 20 MG/2 ML ORAL.CONC 55 MG PO (08:31)
[2021-01-20] MEDS: buPROPion HCl XL 300 MG TAB.ER.24H PO (08:31)
[2021-01-20] MEDS: Acetaminophen 325 MG TABLET 650 MG PO ×2 (08:31→14:58)
--- NOTE | 2021-01-20 10:56 | HO.PSYCHPN ---
Subjective Subjective Date of Service: 01/20/21 Reason For Visit: SI Subjective Notes: Conditional Voluntary Interim History: Yina reports feeling less depressed, feeling more hopeful about her recovery. She reports feeling anxious, hoping to have prn seroquel. She reports dose of lithium can be increase to continue help with depressed mood and recurrent suicidal thoughts. She reports sleeping better. She reports poor appetite and asks for ensure. She also reports having s/s of vaginal yeast infection, which is recurrent for her. We discussed starting fluconazole for that. She also reports constipation, last BM 5 days ago, will add scheduled combination of senna/Colace, prn miralax. Pt encouraged to attend groups. Per nursing, no behavioral concerns. Review of Systems Review of Systems CVS: No c/o chest pain, palpitations, no SOB SEISMIC OBSERVER: No c/o dizziness, headache GI: No c/o Nausea, Vomiting, diarrhea, constipation or heartburn Mental Status Exam Mental Status Exam Narrative: A&O. In hospital attire, poor hygiene, underweight, missing front teeth. Good eye contact, attentive. No Tics or Tremors. No abnormal involuntary movements. Calm, cooperative, engaged. Non-pressured speech, spontaneous with regular rate and rhythm, normal volume and prosody. No prolonged speech latency or dysarthria. Mood is ?better? affect is appropriate does brighten at times, congruent. Pt denies SI, denies SIB/HI upon inquiry. Denies A/VH or delusional thought content. Thoughts are coherent, organized. No known cognitive or memory impairment. Insight/ Judgment fair and adequate. Diagnostics Vital Signs (24Hr): Vital Signs - 24 hr 01/19/21 18:00 01/19/21 21:06 01/20/21 06:00 Temperature 98.8 F 97.6 F Pulse Rate 74 87 72 Respiratory Rate 16 Blood Pressure 122/58 L 141/62 H 120/58 L Pulse Oximetry 98 99 Body Mass Index 28.4 Medications Medications Current Medications Acetaminophen (Acetaminophen 325 Mg Tablet) 650 mg PO Q6H PRN PRN Reason: Headache/Pain Mild Scale (1-3) Last Admin: 01/20/21 08:31 Dose: 650 mg Documented by: Al Hydroxide/Mg Hydroxide (Magnesium Hydrox/Alum Hydrox 30 Ml Oral.Susp) 30 ml PO Q6H PRN PRN Reason: Heartburn/Nausea Bupropion HCl (Bupropion Hcl Xl 300 Mg Tab.Er.24h) 300 mg PO DAILY [facility] Last Admin: 01/20/21 08:31 Dose: 300 mg Documented by: Clonidine HCl (Clonidine Hcl 0.1 Mg Tablet) 0.1 mg PO Q8H PRN; Protocol PRN Reason: anxiety Doxycycline Hyclate (Doxycycline Hyclate 100 Mg Tablet) 100 mg PO DAILY [facility] Last Admin: 01/20/21 08:31 Dose: 100 mg Documented by: Fluconazole (Fluconazole 150 Mg Tablet) 150 mg PO Q72H [facility] Stop: 01/26/21 13:01 Hydroxyzine HCl (Hydroxyzine Hcl 50 Mg Tablet) 50 mg PO Q6H PRN PRN Reason: anxiety Last Admin: 01/19/21 13:23 Dose: 50 mg Documented by: Ibuprofen (Ibuprofen 600 Mg Tablet) 600 mg PO Q8H PRN PRN Reason: mild- mod pain Last Admin: 01/19/21 13:23 Dose: 600 mg Documented by: [place] Carbonate ([place] Carbonate 300 Mg Tablet) 450 mg PO BEDTIME [facility] Magnesium Hydroxide (Milk Of Magnesia 30 Ml Oral.Susp) 30 ml PO DAILY PRN PRN Reason: Constipation Melatonin (Melatonin 3 Mg Tablet) 9 mg PO BEDTIME PRN PRN Reason: insomnia Last Admin: 01/19/21 21:07 Dose: 9 mg Documented by: Methadone HCl (Methadone Hcl 20 Mg/2 Ml Oral.Conc) 55 mg PO DAILY [facility] Last Admin: 01/20/21 08:31 Dose: 55 mg Documented by: Non-Formulary Medication ([place] 50/25 Mg) 50 mg PO DAILY [facility] Last Admin: 01/20/21 08:53 Dose: 50 mg Documented by: Non-Formulary Medication ( Prezcobix 800/150 Mg ) 800 mg PO DAILY [facility] Last Admin: 01/20/21 08:53 Dose: 800 mg Documented by: Ondansetron HCl (Ondansetron Odt 4 Mg Tab.Rapdis) 4 mg TRANSLINGU Q8H PRN PRN Reason: Nausea and Vomiting Last Admin: 01/18/21 10:25 Dose: 4 mg Documented by: Polyethylene Glycol (Polyethylene Glycol 3350 17 Gm Powd.Pack) 17 gm PO DAILY PRN PRN Reason: Constipation Quetiapine Fumarate (Quetiapine Fumarate 50 Mg Tablet) 50 mg PO Q6H PRN PRN Reason: anxiety/sleep Senna/Docusate Sodium (Sennosides/Docusate Sodium Tablet) 2 tab PO BEDTIME [facility]DA Trazodone HCl (Trazodone Hcl 50 Mg Tablet) 50 mg PO BEDTIME PRN PRN Reason: Insomnia Last Admin: 01/19/21 21:07 Dose: 50 mg Documented by: Allergies Allergies Allergy/AdvReac Type Severity Reaction Status Date / Time amoxicillin Allergy Unknown Verified 08/10/20 20:07 Assessment & Plan Assessment & Plan (1) MDD (major depressive disorder), recurrent episode, severe: Status: Acute Code(s): F33.2 - Major depressive disorder, recurrent severe without psychotic features (2) Cocaine use disorder, severe, dependence: Status: Acute Code(s): F14.20 - Cocaine dependence, uncomplicated (3) Opioid use disorder, severe, dependence: Status: Acute Code(s): F11.20 - Opioid dependence, uncomplicated Assessment and Plan: Yina is a 30 year female who carries a dx of opioid use disorder, severe, cocaine use disorder, severe, and MDD recurrent episode. She self[place] [facility] [place] due to depression, SI with a plan to buy fentanyl and OD and utox was positive for opiates, fentanyl, and cocaine. She is currently reporting sx of depression, increased anxiety/ hyperarousal, mood swings, low self-esteem, poor sleep, and intrusive negative thoughts. SHe continues to endorse SI with plan but denies intent and says she feels safe on the unit. Plan: 1. Increase lithium to 450mg po qhs on 01/20. 2. Add clonidine prn for anxiety, seroquel 50mg po q6h prn anxiety. avoid betablockers due to use of cocaine (d/c propanolol) 3. Vaginal yeast infection (recurrent for pt): will start fluconazole 150mg Q72h on 01/10, x 3 doses, may consider fluconazole 150mg po once weekly for 6 months given recurrent infections. 4. Constipation: senna/colace 2 tabs qhs scheduled, miralax 17g prn 5. Continue wellbutrin. 6. Aftercare planning, pt reports motivation to go back to [facility]. Reason for contiued inpatient stay Substantial Risk for: harm to self
[2021-01-20] MEDS: QUEtiapine Fumarate 50 MG TABLET PO (14:58)
[2021-01-20] MEDS: Fluconazole 150 MG TABLET PO (15:08)
[2021-01-20] MEDS: hydrOXYzine HCL 50 MG TABLET PO (17:18)
[2021-01-20 18:00] VITALS: BP 112/72; PULSE 73; TEMP 36.8
[2021-01-20] MEDS: Melatonin 3 MG TABLET 9 MG PO (20:19)
[2021-01-20] MEDS: Ibuprofen 600 MG TABLET PO (20:19)
[2021-01-20] MEDS: traZODone HCL 50 MG TABLET PO (20:19)
[2021-01-20] MEDS: Sennosides/Docusate Sodium TABLET 2 TAB PO (20:20)
[2021-01-20] MEDS: Lithium Carbonate 300 MG TABLET 450 MG PO (20:20)
[2021-01-20 20:24] VITALS: BP 114/70; PULSE 88
[2021-01-20] MEDS: cloNIDine HCL 0.1 MG TABLET PO (20:24)
[2021-01-21 06:00] VITALS: BP 103/66; PULSE 65; RESP 18; TEMP 36.7; O2SAT 98
[2021-01-21] MEDS: methADONE HCl 20 MG/2 ML ORAL.CONC 55 MG PO (08:09)
[2021-01-21] MEDS: buPROPion HCl XL 300 MG TAB.ER.24H PO (08:09)
[2021-01-21] MEDS: Acetaminophen 325 MG TABLET 650 MG PO (13:03)
[2021-01-21] MEDS: QUEtiapine Fumarate 50 MG TABLET PO (13:03)
[2021-01-21 13:14] VITALS: BP 133/67; PULSE 79
[2021-01-21] MEDS: cloNIDine HCL 0.1 MG TABLET PO (13:14)
--- NOTE | 2021-01-21 14:55 | P.PNPSI_ITS ---
Subjective Subjective Date of Service: 01/21/21 Reason For Visit: SI Interim History: pt says mood is a little better; she says i didn't wake up wanting to today, which she considers improvement. Pt denies SI, but says she still hates herself. She also reports for the last few weeks she has alternating crying-laughing spells that seem to come out of nowhere where she'll start sobbing and then soon after, starts chuckling to herself. Talked about meds; wants to see if higher dose of clondine and hydroxyzine can help with anxiety; othewise, seroquel is working well and at current dose, not too sedating. tolerating increased [place] dose. pt says rash from Vanco remains on groin; marketing writer put in consult to hospitalist to assess. Mental Status Exam Mental Status Exam Narrative: A&O. In hospital attire, improved hygiene; missing front teeth. Good eye contact, attentive. No Tics or Tremors. No abnormal involuntary movements. Calm, cooperative, engaged. Non-pressured speech, spontaneous with regular rate and rhythm, normal volume and prosody. No prolonged speech latency. Mood is ?better? affect is appropriate does brighten at times, congruent. Pt denies SI,? denies SIB/HI upon inquiry. Denies A/VH or delusional thought content. Thoughts are coherent, organized. No known cognitive or memory impairment. Insight/ Judgment fair and adequate. Diagnostics Vital Signs (24Hr): Vital Signs - 24 hr 01/20/21 18:00 01/20/21 20:24 01/21/21 06:00 Temperature 98.3 F 98.0 F Pulse Rate 73 88 65 Respiratory Rate 18 Blood Pressure 112/72 114/70 103/66 Pulse Oximetry 98 01/21/21 13:14 Temperature Pulse Rate 79 Respiratory Rate Blood Pressure 133/67 Pulse Oximetry Body Mass Index 28.4 Medications Medications Current Medications Acetaminophen (Acetaminophen 325 Mg Tablet) 650 mg PO Q6H PRN PRN Reason: Headache/Pain Mild Scale (1-3) Last Admin: 01/21/21 13:03 Dose: 650 mg Documented by: Al Hydroxide/Mg Hydroxide (Magnesium Hydrox/Alum Hydrox 30 Ml Oral.Susp) 30 ml PO Q6H PRN PRN Reason: Heartburn/Nausea Bupropion HCl (Bupropion Hcl Xl 300 Mg Tab.Er.24h) 300 mg PO DAILY [facility] Last Admin: 01/21/21 08:09 Dose: 300 mg Documented by: Clonidine HCl (Clonidine Hcl 0.1 Mg Tablet) 0.15 mg PO Q8H PRN; Protocol PRN Reason: anxiety Doxycycline Hyclate (Doxycycline Hyclate 100 Mg Tablet) 100 mg PO DAILY [facility] Last Admin: 01/21/21 08:09 Dose: 100 mg Documented by: Fluconazole (Fluconazole 150 Mg Tablet) 150 mg PO Q72H [facility] Stop: 01/26/21 13:01 Last Admin: 01/20/21 15:08 Dose: 150 mg Documented by: Hydroxyzine HCl (Hydroxyzine Hcl 25 Mg Tablet) 75 mg PO Q6H PRN PRN Reason: anxiety Ibuprofen (Ibuprofen 600 Mg Tablet) 600 mg PO Q8H PRN PRN Reason: mild- mod pain Last Admin: 01/20/21 20:19 Dose: 600 mg Documented by: [place] Carbonate ([place] Carbonate 300 Mg Tablet) 450 mg PO BEDTIME [facility] Last Admin: 01/20/21 20:20 Dose: 450 mg Documented by: Magnesium Hydroxide (Milk Of Magnesia 30 Ml Oral.Susp) 30 ml PO DAILY PRN PRN Reason: Constipation Melatonin (Melatonin 3 Mg Tablet) 9 mg PO BEDTIME PRN PRN Reason: insomnia Last Admin: 01/20/21 20:19 Dose: 9 mg Documented by: Methadone HCl (Methadone Hcl 20 Mg/2 Ml Oral.Conc) 55 mg PO DAILY [facility] Last Admin: 01/21/21 08:09 Dose: 55 mg Documented by: Non-Formulary Medication ([place] 50/25 Mg) 50 mg PO DAILY [facility] Last Admin: 01/21/21 08:10 Dose: 50 mg Documented by: Non-Formulary Medication ( Prezcobix 800/150 Mg ) 800 mg PO DAILY [facility] Last Admin: 01/21/21 08:09 Dose: 800 mg Documented by: Ondansetron HCl (Ondansetron Odt 4 Mg Tab.Rapdis) 4 mg TRANSLINGU Q8H PRN PRN Reason: Nausea and Vomiting Last Admin: 01/18/21 10:25 Dose: 4 mg Documented by: Polyethylene Glycol (Polyethylene Glycol 3350 17 Gm Powd.Pack) 17 gm PO DAILY PRN PRN Reason: Constipation Quetiapine Fumarate (Quetiapine Fumarate 50 Mg Tablet) 50 mg PO Q6H PRN PRN Reason: anxiety/sleep Last Admin: 01/21/21 13:03 Dose: 50 mg Documented by: Senna/Docusate Sodium (Sennosides/Docusate Sodium Tablet) 2 tab PO BEDTIME [facility] Last Admin: 01/20/21 20:20 Dose: 2 tab Documented by: Trazodone HCl (Trazodone Hcl 50 Mg Tablet) 50 mg PO BEDTIME PRN PRN Reason: Insomnia Last Admin: 01/20/21 20:19 Dose: 50 mg Documented by: Allergies Allergies Allergy/AdvReac Type Severity Reaction Status Date / Time amoxicillin Allergy Unknown Verified 08/10/20 20:07 Assessment & Plan Assessment & Plan (1) MDD (major depressive disorder), recurrent episode, severe: Status: Acute Code(s): F33.2 - Major depressive disorder, recurrent severe without psychotic features (2) Cocaine use disorder, severe, dependence: Status: Acute Code(s): F14.20 - Cocaine dependence, uncomplicated (3) Opioid use disorder, severe, dependence: Status: Acute Code(s): F11.20 - Opioid dependence, uncomplicated Assessment and Plan: Yina is a 30 year female who carries a dx of opioid use disorder, severe, cocaine use disorder, severe, and MDD recurrent episode. She self[place] [facility] [place] 01[place]13[place] due to depression, SI with a plan to buy fentanyl and OD and utox was positive for opiates, fentanyl, and cocaine. She is currently reporting sx of depression, increased anxiety/ hyperarousal, mood swings, low self-esteem, poor sleep, and intrusive negative thoughts. pt reports mood has improved and that SI seems to have resolved, though she still hates herself; tolerating meds pt reports alternating laughin-crying spells (pseudobulbar affect?); will monitor Plan: hospitalist consult to assess rash from Vanco placed; will defer to hospitalist whether pt needs Wound consult Increase lithium to 450mg po qhs on 01/20. labs ordered -will order CBC for tomorrow to monitor trend (was elevated) -will increase clonidine to 0.15 prn for anxiety (as 0.1mg not so helpful) -Continue, seroquel 50mg po q6h prn anxiety. avoid betablockers due to use of cocaine (d/c propanolol) -Vaginal yeast infection (recurrent for pt): will start fluconazole 150mg Q72h on 01/10, x 3 doses, may consider fluconazole 150mg po once weekly for 6 months given recurrent infections. -Constipation: senna/colace 2 tabs qhs scheduled, miralax 17g prn -Continue wellbutrin. -Aftercare planning, pt reports motivation to go back to [facility]. I spent minutes with the patient and/or on the patient floor today, greater than?50% of which was spent counseling/coordinating care. Reason for contiued inpatient stay Substantial Risk for: med/psych decompensation
[2021-01-21] MEDS: Ibuprofen 600 MG TABLET PO (18:56)
[2021-01-21 18:57] VITALS: BP 117/60; PULSE 94
[2021-01-21] MEDS: cloNIDine HCL 0.1 MG TABLET 0.15 MG PO (18:57)
[2021-01-21] MEDS: hydrOXYzine HCL 25 MG TABLET 75 MG PO (19:02)
[2021-01-21 19:30] VITALS: BP 104/50; PULSE 76; TEMP 36.3; O2SAT 97
[2021-01-21] MEDS: Sennosides/Docusate Sodium TABLET 2 TAB PO (21:04)
[2021-01-21] MEDS: traZODone HCL 50 MG TABLET PO (21:05)
[2021-01-21] MEDS: Lithium Carbonate 300 MG TABLET 450 MG PO (21:05)
[2021-01-21] MEDS: Melatonin 3 MG TABLET 9 MG PO (21:12)
[2021-01-22 06:00] VITALS: BP 105/62; PULSE 66; TEMP 36.8; O2SAT 99
[2021-01-22] MEDS: buPROPion HCl XL 300 MG TAB.ER.24H PO (08:12)
[2021-01-22] MEDS: methADONE HCl 20 MG/2 ML ORAL.CONC 55 MG PO (08:13)
[2021-01-22] MEDS: Ibuprofen 600 MG TABLET PO ×2 (09:12→16:25)
--- NOTE | 2021-01-22 10:34 | P.EN_ITS ---
Event Note Date of Service: 01/22/21 Event Note: Asked to see the patient for evaluation of Rash following IV vanco mcyin. Rash reported in the groin area. Patient seen and examined in her room. Female medical administrative assistant from is in the room. Patient reports that she got a rash following vancomcyin. Last vancomcyin dose appears to be nearly 1 week ago. On exam No erythema appreciated in the groin. No induration of fluctuance appreciated. Skin appears to be dry / scaly. Do no see any vancomcyin related rash in this patient. Can try Clotrimazole cream for a few days to see if it helps.
[2021-01-22 12:49] LABS: Basophils Absolute Auto 0.1 X10*3/uL (0.0-0.2); Basophils Percent Auto 0.5 % (0-2); Eosinophils Absolute Auto 0.2 X10*3/uL (0.0-0.4); Eosinophils Percent Auto 1.8 % (0-4); Hematocrit 38.8 % (37-47); Hemoglobin 12.6 g/dl (12.0-16.0); Imm Gran Abs Auto 0.02 X10*3/uL (0.00-0.03); Imm Gran Pct Auto 0.2 % (0.0-0.4); Lymphocytes Absolute Auto 5.5 X10*3/uL (1.2-4.9); Lymphocytes Percent Auto 57.4 % (20-40); MANUAL DIFF FLAG SCAN; Mean Corpuscular HGB Conc 32.5 g/dl (31.0-35.0); Mean Corpuscular Hemoglobin 27.4 pg (27.0-33.0); Mean Corpuscular Volume 84.3 fL (80-98); Mean Platelet Volume 10.3 fL (9.4-12.3); Monocytes Absolute Auto 0.7 X10*3/uL (0.1-1.2); Monocytes Percent Auto 6.8 % (2-11); Neutrophils Absolute Auto 3.2 X10*3/uL (2.0-8.3); Neutrophils Percent Auto 33.3 % (45-73); Platelet Count 288 X10*3/uL (160-400); Red Cell Distribution Width 13.2 % (11.0-16.0); SCAN SMEAR FLAG 1; White Blood Count 9.6 X10*3/uL (4.8-10.8)
[2021-01-22 13:22] LABS: SLIDE REVIEW VERIFIED
[2021-01-22] MEDS: methADONE HCl 5 MG TABLET PO (16:23)
[2021-01-22 16:44] VITALS: BP 113/65; PULSE 68; RESP 16; TEMP 35.8; O2SAT 100
[2021-01-22] MEDS: Lithium Carbonate 300 MG TABLET 450 MG PO (19:41)
[2021-01-22] MEDS: Sennosides/Docusate Sodium TABLET 2 TAB PO (19:43)
[2021-01-22] MEDS: hydrOXYzine HCL 25 MG TABLET 75 MG PO (19:44)
[2021-01-22 19:46] VITALS: BP 124/74; PULSE 68
[2021-01-22] MEDS: cloNIDine HCL 0.1 MG TABLET 0.15 MG PO (19:46)
[2021-01-22] MEDS: Melatonin 3 MG TABLET 9 MG PO (19:52)
[2021-01-22] MEDS: traZODone HCL 50 MG TABLET PO (19:54)
[2021-01-22] MEDS: Clotrimazole 1 % Cream 15 GM TUBE 1 APPL TOPICAL (22:59)
[2021-01-23 06:00] VITALS: BP 112/62; PULSE 82; TEMP 36.7; O2SAT 98
[2021-01-23] MEDS: buPROPion HCl XL 300 MG TAB.ER.24H PO (09:14)
[2021-01-23] MEDS: Clotrimazole 1 % Cream 15 GM TUBE 1 APPL TOPICAL ×4 (09:14→22:09)
[2021-01-23] MEDS: methADONE HCl 20 MG/2 ML ORAL.CONC 60 MG PO (09:15)
[2021-01-23] MEDS: Ibuprofen 600 MG TABLET PO ×2 (09:35→17:40)
[2021-01-23] MEDS: QUEtiapine Fumarate 50 MG TABLET PO ×2 (09:35→16:37)
[2021-01-23] MEDS: Fluconazole 150 MG TABLET PO (13:57)
[2021-01-23] MEDS: hydrOXYzine HCL 25 MG TABLET 75 MG PO (14:13)
[2021-01-23 14:14] VITALS: BP 101/60; PULSE 72
[2021-01-23] MEDS: cloNIDine HCL 0.1 MG TABLET 0.15 MG PO ×2 (14:14→20:36)
--- NOTE | 2021-01-23 15:41 | P.PNPSI_ITS ---
Subjective Subjective Date of Service: 01/22/21 Reason For Visit: SI Interim History: Patient reports she has been having cravings to use and is feeling some continued withdrawal symptoms. She said she has to be on 75 mg of methadone asks for this to be titrated. Information Systems Operator consulted with support specialist who agreed on increasing patient's methadone to 60 mg. Patient said that she has been feeling stressed out since she does not know where she is going after discharge; she reports this stress has triggered some SI but remains passive and she can mostly ignore it. She has found herself to be more irritable with her peers than before due to stress. Patient however was very willing to work on coping skills and very much liked the idea of practicing tolerating others in an effort to help her practice tolerating her own anxieties and reducing her triggers to relapse. Feels like med changes have been helping Mental Status Exam Mental Status Exam Narrative: A&O. In hospital attire, improved hygiene; missing front teeth. Good eye contact, attentive. No Tics or Tremors. No abnormal involuntary movements. Calm, cooperative, engaged. Non-pressured speech, spontaneous with regular rate and rhythm, normal volume and prosody. No prolonged speech latency. Mood is ?more irritable? affect is congruent; Pt endorses passive SI no plans/intention,? denies SIB/HI. Denies A/VH or delusional thought content. Thoughts are coherent, organized. No known cognitive or memory impairment. I nsight/ Judgment fair and adequate. Diagnostics Vital Signs (24Hr): Vital Signs - 24 hr 01/22/21 16:44 01/22/21 19:46 01/23/21 06:00 Temperature 96.5 F L 98.1 F Pulse Rate 68 68 82 Respiratory Rate 16 Blood Pressure 113/65 124/74 112/62 Pulse Oximetry 100 98 01/23/21 14:14 Temperature Pulse Rate 72 Respiratory Rate Blood Pressure 101/60 Pulse Oximetry Body Mass Index 28.4 Labs Results: 01/22/21 12:32 Labs: Laboratory Results - last 48 hr 01/22/21 12:32 WBC 9.6 RBC 4.60 Hgb 12.6 Hct 38.8 MCV 84.3 MCH 27.4 MCHC 32.5 RDW 13.2 Plt Count 288 MPV 10.3 Immature Gran % (Auto) 0.2 Neut % (Auto) 33.3 L Lymph % (Auto) 57.4 H [place] % (Auto) 6.8 Eos % (Auto) 1.8 Baso % (Auto) 0.5 Lymph # (Auto) 5.5 H [place] # (Auto) 0.7 Eos # (Auto) 0.2 Baso # (Auto) 0.1 Abs Immat Gran (auto) 0.02 Absolute Neuts (auto) 3.2 Absolute Nucleated RBC 0.000 Nucleated RBC % (auto) 0.0 Smear Tech's Comments VERIFIED Medications Medications Current Medications Acetaminophen (Acetaminophen 325 Mg Tablet) 650 mg PO Q6H PRN PRN Reason: Headache/Pain Mild Scale (1-3) Last Admin: 01/21/21 13:03 Dose: 650 mg Documented by: Al Hydroxide/Mg Hydroxide (Magnesium Hydrox/Alum Hydrox 30 Ml Oral.Susp) 30 ml PO Q6H PRN PRN Reason: Heartburn/Nausea Bupropion HCl (Bupropion Hcl Xl 300 Mg Tab.Er.24h) 300 mg PO DAILY [facility] Last Admin: 01/23/21 09:14 Dose: 300 mg Documented by: Clonidine HCl (Clonidine Hcl 0.1 Mg Tablet) 0.15 mg PO Q8H PRN; Protocol PRN Reason: anxiety Last Admin: 01/23/21 14:14 Dose: 0.15 mg Documented by: Clotrimazole (Clotrimazole 1 % Cream 15 Gm Tube) 1 appl TOPICAL BID [facility]; Protocol Stop: 01/27/21 20:59 Last Admin: 01/23/21 09:14 Dose: 1 appl Documented by: Doxycycline Hyclate (Doxycycline Hyclate 100 Mg Tablet) 100 mg PO DAILY [facility] Last Admin: 01/23/21 09:14 Dose: 100 mg Documented by: Fluconazole (Fluconazole 150 Mg Tablet) 150 mg PO Q72H [facility] Stop: 01/26/21 13:01 Last Admin: 01/23/21 13:57 Dose: 150 mg Documented by: Hydroxyzine HCl (Hydroxyzine Hcl 50 Mg Tablet) 100 mg PO TID PRN PRN Reason: anxiety Ibuprofen (Ibuprofen 600 Mg Tablet) 600 mg PO Q8H PRN PRN Reason: mild- mod pain Last Admin: 01/23/21 09:35 Dose: 600 mg Documented by: [place] Carbonate ([place] Carbonate 300 Mg Tablet) 450 mg PO BEDTIME [facility] Last Admin: 01/22/21 19:41 Dose: 450 mg Documented by: Magnesium Hydroxide (Milk Of Magnesia 30 Ml Oral.Susp) 30 ml PO DAILY PRN PRN Reason: Constipation Melatonin (Melatonin 3 Mg Tablet) 9 mg PO BEDTIME PRN PRN Reason: insomnia Last Admin: 01/22/21 19:52 Dose: 9 mg Documented by: Methadone HCl (Methadone Hcl 20 Mg/2 Ml Oral.Conc) 60 mg PO DAILY [facility] Last Admin: 01/23/21 09:15 Dose: 60 mg Documented by: Patient Own Medication ( Darunavir/Cobicistat 800mg/150mg) 1 each PO DAILY [facility] Last Admin: 01/23/21 10:23 Dose: 1 each Documented by: Patient Own Medication ( Dolutegravir/Rilpivirine 50/25 Mg ) 1 each PO DAILY@0800 [facility] Last Admin: 01/23/21 10:25 Dose: 1 each Documented by: Ondansetron HCl (Ondansetron Odt 4 Mg Tab.Rapdis) 4 mg TRANSLINGU Q8H PRN PRN Reason: Nausea and Vomiting Last Admin: 01/18/21 10:25 Dose: 4 mg Documented by: Polyethylene Glycol (Polyethylene Glycol 3350 17 Gm Powd.Pack) 17 gm PO DAILY PRN PRN Reason: Constipation Quetiapine Fumarate (Quetiapine Fumarate 50 Mg Tablet) 50 mg PO Q6H PRN PRN Reason: anxiety/sleep Last Admin: 01/23/21 09:35 Dose: 50 mg Documented by: Senna/Docusate Sodium (Sennosides/Docusate Sodium Tablet) 2 tab PO BEDTIME [facility] Last Admin: 01/22/21 19:43 Dose: 2 tab Documented by: Trazodone HCl (Trazodone Hcl 50 Mg Tablet) 50 mg PO BEDTIME PRN PRN Reason: Insomnia Last Admin: 01/22/21 19:54 Dose: 50 mg Documented by: Allergies Allergies Allergy/AdvReac Type Severity Reaction Status Date / Time amoxicillin Allergy Unknown Verified 08/10/20 20:07 Assessment & Plan Assessment & Plan (1) MDD (major depressive disorder), recurrent episode, severe: Status: Acute Code(s): F33.2 - Major depressive disorder, recurrent severe without psychotic features (2) Cocaine use disorder, severe, dependence: Status: Acute Code(s): F14.20 - Cocaine dependence, uncomplicated (3) Opioid use disorder, severe, dependence: Status: Acute Code(s): F11.20 - Opioid dependence, uncomplicated Assessment and Plan: Yina is a 30 year female who carries a dx of opioid use disorder, severe, cocaine use disorder, severe, and MDD recurrent episode. She self-presented to [facility] ED on 01/13/21 due to depression, SI with a plan to buy fentanyl and OD and utox was positive for opiates, fentanyl, and cocaine. She is currently reporting sx of depression, increased anxiety/ hyperarousal, mood swings, low self-esteem, poor sleep, and intrusive negative thoughts. pt reports mood has improved and that SI seems to have resolved, though she still hates herself; tolerating meds pt reports alternating laughin-crying spells (pseudobulbar affect?) however this seems to be less of an issue Hospitalist examined groin area; no rash On exam No erythema appreciated in the groin. No induration of fluctuance? appreciated. Skin...dry / scaly. Do no see any vancomcyin related rash in this patient...Clotrimazole cream for a few days..see if... helps. Wound examined and looks to be healing well meds tolerated; remains stable though with some passive SI triggered by anxiety. Plan: Increase lithium to 450mg po qhs on 01/20. labs ordered - CBC trended back to normal -continue clonidine to 0.15 prn for anxiety (as 0.1mg not so helpful) -Continue, seroquel 50mg po q6h prn anxiety. avoid betablockers due to use of cocaine (d/c propanolol) -Vaginal yeast infection (recurrent for pt): fluconazole 150mg Q72h on 01/10, x 3 doses, may consider fluconazole 150mg po once weekly for 6 months given recurrent infections. -Constipation: senna/colace 2 tabs qhs scheduled, miralax 17g prn -Continue wellbutrin. -Aftercare planning, pt reports motivation to go back to [facility]. I spent minutes with the patient and/or on the patient floor today, greater than?50% of which was spent counseling/coordinating care. Reason for contiued inpatient stay Substantial Risk for: med/psych decompensation
--- NOTE | 2021-01-23 15:41 | P.PNPSI_ITS ---
Subjective Subjective Date of Service: 01/23/21 Reason For Visit: SI Interim History: Patient reports that she is doing better today specially after finding out that she has been accepted to aftercare respite/program. Reports that medications are working well. She also appreciates increase in methadone and says that she was not nauseous today. Patient does ask for hydroxyzine to be bumped up to 100 mg. Patient showed typewriter mechanic right leg and wound continues to heal well, no signs of infection. Patient also showed typewriter mechanic her feet and does appear to have tinea pedis so will order antifungal cream. Patient denies SI/AH Mental Status Exam Mental Status Exam Narrative: ?A&O. In hospital attire, good hygiene; missing front teeth. Good eye contact, attentive. No Tics or Tremors. No abnormal involuntary movements. Calm, cooperative, engaged. Non-pressured speech, spontaneous with regular rate and rhythm, normal volume and prosody. No prolonged speech latency. Mood is ?better? affect is congruent, brighter; Pt denies SI/HI; No AVH; Thoughts are coherent, organized. No known cognitive or memory impairment. Insight/ Judgment fair and adequate. Diagnostics Vital Signs (24Hr): Vital Signs - 24 hr 01/22/21 16:44 01/22/21 19:46 01/23/21 06:00 Temperature 96.5 F L 98.1 F Pulse Rate 68 68 82 Respiratory Rate 16 Blood Pressure 113/65 124/74 112/62 Pulse Oximetry 100 98 01/23/21 14:14 Temperature Pulse Rate 72 Respiratory Rate Blood Pressure 101/60 Pulse Oximetry Body Mass Index 28.4 Labs Results: 01/22/21 12:32 Labs: Laboratory Results - last 48 hr 01/22/21 12:32 WBC 9.6 RBC 4.60 Hgb 12.6 Hct 38.8 MCV 84.3 MCH 27.4 MCHC 32.5 RDW 13.2 Plt Count 288 MPV 10.3 Immature Gran % (Auto) 0.2 Neut % (Auto) 33.3 L Lymph % (Auto) 57.4 H [place] % (Auto) 6.8 Eos % (Auto) 1.8 Baso % (Auto) 0.5 Lymph # (Auto) 5.5 H [place] # (Auto) 0.7 Eos # (Auto) 0.2 Baso # (Auto) 0.1 Abs Immat Gran (auto) 0.02 Absolute Neuts (auto) 3.2 Absolute Nucleated RBC 0.000 Nucleated RBC % (auto) 0.0 Smear Tech's Comments VERIFIED Medications Medications Current Medications Acetaminophen (Acetaminophen 325 Mg Tablet) 650 mg PO Q6H PRN PRN Reason: Headache/Pain Mild Scale (1-3) Last Admin: 01/21/21 13:03 Dose: 650 mg Documented by: Al Hydroxide/Mg Hydroxide (Magnesium Hydrox/Alum Hydrox 30 Ml Oral.Susp) 30 ml PO Q6H PRN PRN Reason: Heartburn/Nausea Bupropion HCl (Bupropion Hcl Xl 300 Mg Tab.Er.24h) 300 mg PO DAILY [facility] Last Admin: 01/23/21 09:14 Dose: 300 mg Documented by: Clonidine HCl (Clonidine Hcl 0.1 Mg Tablet) 0.15 mg PO Q8H PRN; Protocol PRN Reason: anxiety Last Admin: 01/23/21 14:14 Dose: 0.15 mg Documented by: Clotrimazole (Clotrimazole 1 % Cream 15 Gm Tube) 1 appl TOPICAL BID [facility]; Protocol Stop: 01/27/21 20:59 Last Admin: 01/23/21 09:14 Dose: 1 appl Documented by: Doxycycline Hyclate (Doxycycline Hyclate 100 Mg Tablet) 100 mg PO DAILY [facility] Last Admin: 01/23/21 09:14 Dose: 100 mg Documented by: Fluconazole (Fluconazole 150 Mg Tablet) 150 mg PO Q72H [facility] Stop: 01/26/21 13:01 Last Admin: 01/23/21 13:57 Dose: 150 mg Documented by: Hydroxyzine HCl (Hydroxyzine Hcl 50 Mg Tablet) 100 mg PO TID PRN PRN Reason: anxiety Ibuprofen (Ibuprofen 600 Mg Tablet) 600 mg PO Q8H PRN PRN Reason: mild- mod pain Last Admin: 01/23/21 09:35 Dose: 600 mg Documented by: [place] Carbonate ([place] Carbonate 300 Mg Tablet) 450 mg PO BEDTIME [facility] Last Admin: 01/22/21 19:41 Dose: 450 mg Documented by: Magnesium Hydroxide (Milk Of Magnesia 30 Ml Oral.Susp) 30 ml PO DAILY PRN PRN Reason: Constipation Melatonin (Melatonin 3 Mg Tablet) 9 mg PO BEDTIME PRN PRN Reason: insomnia Last Admin: 01/22/21 19:52 Dose: 9 mg Documented by: Methadone HCl (Methadone Hcl 20 Mg/2 Ml Oral.Conc) 60 mg PO DAILY [facility] Last Admin: 01/23/21 09:15 Dose: 60 mg Documented by: Patient Own Medication ( Darunavir/Cobicistat 800mg/150mg) 1 each PO DAILY [facility] Last Admin: 01/23/21 10:23 Dose: 1 each Documented by: Patient Own Medication ( Dolutegravir/Rilpivirine 50/25 Mg ) 1 each PO DAILY@0800 [facility] Last Admin: 01/23/21 10:25 Dose: 1 each Documented by: Ondansetron HCl (Ondansetron Odt 4 Mg Tab.Rapdis) 4 mg TRANSLINGU Q8H PRN PRN Reason: Nausea and Vomiting Last Admin: 01/18/21 10:25 Dose: 4 mg Documented by: Polyethylene Glycol (Polyethylene Glycol 3350 17 Gm Powd.Pack) 17 gm PO DAILY PRN PRN Reason: Constipation Quetiapine Fumarate (Quetiapine Fumarate 50 Mg Tablet) 50 mg PO Q6H PRN PRN Reason: anxiety/sleep Last Admin: 01/23/21 09:35 Dose: 50 mg Documented by: Senna/Docusate Sodium (Sennosides/Docusate Sodium Tablet) 2 tab PO BEDTIME [facility] Last Admin: 01/22/21 19:43 Dose: 2 tab Documented by: Trazodone HCl (Trazodone Hcl 50 Mg Tablet) 50 mg PO BEDTIME PRN PRN Reason: Insomnia Last Admin: 01/22/21 19:54 Dose: 50 mg Documented by: Allergies Allergies Allergy/AdvReac Type Severity Reaction Status Date / Time amoxicillin Allergy Unknown Verified 08/10/20 20:07 Assessment & Plan Assessment & Plan (1) MDD (major depressive disorder), recurrent episode, severe: Status: Acute Code(s): F33.2 - Major depressive disorder, recurrent severe without psychotic features (2) Cocaine use disorder, severe, dependence: Status: Acute Code(s): F14.20 - Cocaine dependence, uncomplicated (3) Opioid use disorder, severe, dependence: Status: Acute Code(s): F11.20 - Opioid dependence, uncomplicated Assessment and Plan: Impression: Yina is a 30 year female who carries a dx of opioid use disorder, severe, cocaine use disorder, severe, and MDD recurrent episode. She self-presented to [facility] ED on 01/13/21 due to depression, SI with a plan to buy fentanyl and OD and utox was positive for opiates, fentanyl, and cocaine. On admission reporting sx of depression, increased anxiety/ hyperarousal, mood swings, low self-esteem, poor sleep, and intrusive negative thoughts. Hospital Course: pt reports mood has improved and that SI seems to have resolved, though she still hates herself; tolerating meds pt reports alternating laughin-crying spells (pseudobulbar affect?) however this seems to be less of an issue Hospitalist examined groin area; no rash On exam No erythema appreciated in the groin. No induration of fluctuance? appreciated. Skin...dry / scaly. Do no see any vancomcyin related rash in this patient...Clotrimazole cream for a few days..see if... helps. Wound examined and looks to be healing well meds tolerated; stable, good mood, no SI Plan: START Lotrimin for tinea pedis lithium to 450mg po qhs on 01/20. labs ordered - CBC trended back to normal -continue clonidine to 0.15 prn for anxiety (as 0.1mg not so helpful) -Continue, seroquel 50mg po q6h prn anxiety. avoid betablockers due to use of cocaine (d/c propanolol) -Vaginal yeast infection (recurrent for pt): fluconazole 150mg Q72h on 01/10, x 3 doses, may consider fluconazole 150mg po once weekly for 6 months given recurrent infections. -Constipation: senna/colace 2 tabs qhs scheduled, miralax 17g prn -Continue wellbutrin. -Aftercare planning, pt reports motivation to go back to [facility]. I spent minutes with the patient and/or on the patient floor today, greater than?50% of which was spent counseling/coordinating care. Reason for contiued inpatient stay Substantial Risk for: med/psych decompensation
[2021-01-23] MEDS: hydrOXYzine HCL 50 MG TABLET 100 MG PO (16:37)
[2021-01-23 18:00] VITALS: BP 101/59; PULSE 69; RESP 16; TEMP 35.8; O2SAT 100
[2021-01-23] MEDS: Sennosides/Docusate Sodium TABLET 2 TAB PO (20:12)
[2021-01-23] MEDS: Lithium Carbonate 300 MG TABLET 450 MG PO (20:13)
[2021-01-23] MEDS: Melatonin 3 MG TABLET 9 MG PO (20:35)
[2021-01-23 20:36] VITALS: BP 101/51; PULSE 69
[2021-01-23] MEDS: traZODone HCL 50 MG TABLET PO (20:36)
[2021-01-24] MEDS: buPROPion HCl XL 300 MG TAB.ER.24H PO (08:37)
[2021-01-24] MEDS: methADONE HCl 20 MG/2 ML ORAL.CONC 60 MG PO (08:37)
[2021-01-24] MEDS: Clotrimazole 1 % Cream 15 GM TUBE 1 APPL TOPICAL ×2 (08:38→21:54)
[2021-01-24 09:16] VITALS: BP 101/57; PULSE 60; RESP 16; TEMP 36.3; O2SAT 99
--- NOTE | 2021-01-24 16:08 | HO.PSYCHPN ---
Subjective Subjective Date of Service: 01/24/21 Reason For Visit: SI Interim History: Patient reports good mood, anxiety manageable, no SI, no AH. Patient feels that medications are working and she is preparing for discharge Wednesday. Patient reports she still has some trouble sleeping and wondered if trazodone could be increased. She also agreed to have a Seroquel 150 mg p.r.n. order available should she find herself developing insomnia; food writer and patient discussed signs to look for the could predicted coming manic episode, insomnia being 1 of them. Mental Status Exam Mental Status Exam Narrative: ?A&O. In hospital attire, good hygiene; missing front teeth. Good eye contact, attentive. No Tics or Tremors. No abnormal involuntary movements. Calm, cooperative, engaged. Non-pressured speech, spontaneous with regular rate and rhythm, normal volume and prosody. No prolonged speech latency. Mood is ?good? affect is congruent, brighter; Pt denies SI/HI; No AVH; Thoughts are coherent, organized. No known cognitive or memory impairment. Insight/ Judgment fair and adequate. Diagnostics Vital Signs (24Hr): Vital Signs - 24 hr 01/23/21 18:00 01/23/21 20:36 01/24/21 09:16 Temperature 96.4 F L 97.3 F Pulse Rate 69 69 60 Respiratory Rate 16 16 Blood Pressure 101/59 L 101/51 L 101/57 L Pulse Oximetry 100 99 Body Mass Index 28.4 Labs Results: 01/22/21 12:32 Medications Medications Current Medications Acetaminophen (Acetaminophen 325 Mg Tablet) 650 mg PO Q6H PRN PRN Reason: Headache/Pain Mild Scale (1-3) Last Admin: 01/21/21 13:03 Dose: 650 mg Documented by: Al Hydroxide/Mg Hydroxide (Magnesium Hydrox/Alum Hydrox 30 Ml Oral.Susp) 30 ml PO Q6H PRN PRN Reason: Heartburn/Nausea Bupropion HCl (Bupropion Hcl Xl 300 Mg Tab.Er.24h) 300 mg PO DAILY [facility] Last Admin: 01/24/21 08:37 Dose: 300 mg Documented by: Clonidine HCl (Clonidine Hcl 0.1 Mg Tablet) 0.15 mg PO Q8H PRN; Protocol PRN Reason: anxiety Last Admin: 01/23/21 20:36 Dose: 0.15 mg Documented by: Clotrimazole (Clotrimazole 1 % Cream 15 Gm Tube) 1 appl TOPICAL BID [facility]; Protocol Stop: 01/27/21 20:59 Last Admin: 01/24/21 08:38 Dose: 1 appl Documented by: Doxycycline Hyclate (Doxycycline Hyclate 100 Mg Tablet) 100 mg PO DAILY [facility] Last Admin: 01/24/21 08:37 Dose: 100 mg Documented by: Fluconazole (Fluconazole 150 Mg Tablet) 150 mg PO Q72H [facility] Stop: 01/26/21 13:01 Last Admin: 01/23/21 13:57 Dose: 150 mg Documented by: Hydroxyzine HCl (Hydroxyzine Hcl 50 Mg Tablet) 100 mg PO TID PRN PRN Reason: anxiety Last Admin: 01/23/21 16:37 Dose: 100 mg Documented by: Ibuprofen (Ibuprofen 600 Mg Tablet) 600 mg PO Q8H PRN PRN Reason: mild- mod pain Last Admin: 01/23/21 17:40 Dose: 600 mg Documented by: [place] Carbonate ([place] Carbonate 300 Mg Tablet) 450 mg PO BEDTIME [facility] Last Admin: 01/23/21 20:13 Dose: 450 mg Documented by: Magnesium Hydroxide (Milk Of Magnesia 30 Ml Oral.Susp) 30 ml PO DAILY PRN PRN Reason: Constipation Melatonin (Melatonin 3 Mg Tablet) 9 mg PO BEDTIME PRN PRN Reason: insomnia Last Admin: 01/23/21 20:35 Dose: 9 mg Documented by: Methadone HCl (Methadone Hcl 20 Mg/2 Ml Oral.Conc) 60 mg PO DAILY [facility] Last Admin: 01/24/21 08:37 Dose: 60 mg Documented by: Patient Own Medication ( Darunavir/Cobicistat 800mg/150mg) 1 each PO DAILY [facility] Last Admin: 01/24/21 08:38 Dose: 1 each Documented by: Patient Own Medication ( Dolutegravir/Rilpivirine 50/25 Mg ) 1 each PO DAILY@0800 [facility] Last Admin: 01/24/21 08:38 Dose: 1 each Documented by: Ondansetron HCl (Ondansetron Odt 4 Mg Tab.Rapdis) 4 mg TRANSLINGU Q8H PRN PRN Reason: Nausea and Vomiting Last Admin: 01/18/21 10:25 Dose: 4 mg Documented by: Polyethylene Glycol (Polyethylene Glycol 3350 17 Gm Powd.Pack) 17 gm PO DAILY PRN PRN Reason: Constipation Quetiapine Fumarate (Quetiapine Fumarate 50 Mg Tablet) 50 mg PO Q6H PRN PRN Reason: anxiety/sleep Last Admin: 01/23/21 16:37 Dose: 50 mg Documented by: Quetiapine Fumarate (Quetiapine Fumarate 50 Mg Tablet) 150 mg PO BID PRN PRN Reason: continued insomnia Senna/Docusate Sodium (Sennosides/Docusate Sodium Tablet) 2 tab PO BEDTIME [facility] Last Admin: 01/23/21 20:12 Dose: 2 tab Documented by: Trazodone HCl (Trazodone Hcl 25 Mg Halftab) 75 mg PO BEDTIME [facility] Allergies Allergies Allergy/AdvReac Type Severity Reaction Status Date / Time amoxicillin Allergy Unknown Verified 08/10/20 20:07 Assessment & Plan Assessment & Plan (1) MDD (major depressive disorder), recurrent episode, severe: Status: Acute Code(s): F33.2 - Major depressive disorder, recurrent severe without psychotic features (2) Cocaine use disorder, severe, dependence: Status: Acute Code(s): F14.20 - Cocaine dependence, uncomplicated (3) Opioid use disorder, severe, dependence: Status: Acute Code(s): F11.20 - Opioid dependence, uncomplicated Assessment and Plan: Impression: Yina is a 30 year female who carries a dx of opioid use disorder, severe, cocaine use disorder, severe, and MDD recurrent episode. She self-presented to [facility] on 01/13/21 due to depression, SI with a plan to buy fentanyl and OD and utox was positive for opiates, fentanyl, and cocaine. On admission reporting sx of depression, increased anxiety/ hyperarousal, mood swings, low self-esteem, poor sleep, and intrusive negative thoughts. Hospital Course: pt reports mood has improved and that SI seems to have resolved, though she still hates herself; tolerating meds pt reports alternating laughin-crying spells (pseudobulbar affect?) however this seems to be less of an issue Hospitalist examined groin area; no rash On exam No erythema appreciated in the groin. No induration of fluctuance? appreciated. Skin...dry / scaly. Do no see any vancomcyin related rash in this patient...Clotrimazole cream for a few days..see if... helps. Wound examined and looks to be healing well meds tolerated; stable, good mood, no SI. Pt plans to discharge wednesday Plan: lithium to 450mg po qhs on 01/20. [place] level and associated labs ordered for 01/25 Lotrimin for tinea pedis Lotrimin for groinal area rash fluconazole 150mg Q72h on 01/10, x 3 doses, - CBC trended back to normal -continue clonidine to 0.15 prn for anxiety (as 0.1mg not so helpful) -Continue, seroquel 50mg po q6h prn anxiety. avoid betablockers due to use of cocaine (d/c propanolol) -Constipation: senna/colace 2 tabs qhs scheduled, miralax 17g prn -Continue wellbutrin. -Aftercare planning, pt reports motivation to go back to [facility]. I spent minutes with the patient and/or on the patient floor today, greater than?50% of which was spent counseling/coordinating care. Reason for contiued inpatient stay Substantial Risk for: other
[2021-01-24 16:14] VITALS: BP 117/55; PULSE 75
[2021-01-24] MEDS: cloNIDine HCL 0.1 MG TABLET 0.15 MG PO (16:14)
[2021-01-24] MEDS: QUEtiapine Fumarate 50 MG TABLET PO ×3 (16:16→22:54)
[2021-01-24] MEDS: hydrOXYzine HCL 50 MG TABLET 100 MG PO ×2 (16:16→20:13)
[2021-01-24 16:28] VITALS: BP 117/55; PULSE 74; RESP 16; TEMP 36.4; O2SAT 99
[2021-01-24] MEDS: Lithium Carbonate 300 MG TABLET 450 MG PO (20:13)
[2021-01-24] MEDS: traZODone HCL 25 MG HALFTAB 75 MG PO (20:17)
[2021-01-24] MEDS: Sennosides/Docusate Sodium TABLET 2 TAB PO (20:17)
[2021-01-25 06:00] VITALS: BP 105/59; PULSE 58; RESP 16; TEMP 36.9; O2SAT 97
[2021-01-25] MEDS: buPROPion HCl XL 300 MG TAB.ER.24H PO (08:44)
[2021-01-25] MEDS: Clotrimazole 1 % Cream 15 GM TUBE 1 APPL TOPICAL ×2 (08:44→19:47)
[2021-01-25] MEDS: methADONE HCl 20 MG/2 ML ORAL.CONC 60 MG PO (08:44)
--- NOTE | 2021-01-25 09:16 | P.PNPSI_ITS ---
Subjective Subjective Date of Service: 01/25/21 Reason For Visit: SI Interim History: 01/24:Patient reports good mood, anxiety manageable, no SI, no AH. Patient feels that medications are working and she is preparing for discharge Wednesday. Patient reports she still has some trouble sleeping and wondered if trazodone could be increased. She also agreed to have a Seroquel 150 mg p.r.n. 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 01/25: Mood stable, improved. Anxious to DC Wed. Mental Status Exam Mental Status Exam Narrative: ?A&O. In hospital attire, good hygiene; missing front teeth. Good eye contact, attentive. No Tics or Tremors. No abnormal involuntary movements. Calm, cooperative, engaged. Non-pressured speech, spontaneous with regular rate and rhythm, normal volume and prosody. No prolonged speech latency. Mood is ?good? affect is congruent, brighter; Pt denies SI/HI; No AVH; Thoughts are coherent, organized. No known cognitive or memory impairment. Insight/ Judgment fair and adequate. Diagnostics Vital Signs (24Hr): Vital Signs - 24 hr 01/24/21 16:14 01/24/21 16:28 01/25/21 06:00 Temperature 97.5 F 98.4 F Pulse Rate 75 74 58 Respiratory Rate 16 16 Blood Pressure 117/55 L 117/55 L 105/59 L Pulse Oximetry 99 97 Body Mass Index 28.4 Labs Results: 01/22/21 12:32 01/25/21 09:24 Medications Medications Current Medications Acetaminophen (Acetaminophen 325 Mg Tablet) 650 mg PO Q6H PRN PRN Reason: Headache/Pain Mild Scale (1-3) Last Admin: 01/21/21 13:03 Dose: 650 mg Documented by: Al Hydroxide/Mg Hydroxide (Magnesium Hydrox/Alum Hydrox 30 Ml Oral.Susp) 30 ml PO Q6H PRN PRN Reason: Heartburn/Nausea Bupropion HCl (Bupropion Hcl Xl 300 Mg Tab.Er.24h) 300 mg PO DAILY AMANDA Last Admin: 01/25/21 08:44 Dose: 300 mg Documented by: Clonidine HCl (Clonidine Hcl 0.1 Mg Tablet) 0.15 mg PO Q8H PRN; Protocol PRN Reason: anxiety Last Admin: 01/24/21 16:14 Dose: 0.15 mg Documented by: Clotrimazole (Clotrimazole 1 % Cream 15 Gm Tube) 1 appl TOPICAL BID AMANDA; Protocol Stop: 01/27/21 20:59 Last Admin: 01/25/21 08:44 Dose: 1 appl Documented by: Fluconazole (Fluconazole 150 Mg Tablet) 150 mg PO Q72H AMANDA Stop: 01/26/21 13:01 Last Admin: 01/23/21 13:57 Dose: 150 mg Documented by: Hydroxyzine HCl (Hydroxyzine Hcl 50 Mg Tablet) 100 mg PO TID PRN PRN Reason: anxiety Last Admin: 01/24/21 20:13 Dose: 100 mg Documented by: Ibuprofen (Ibuprofen 600 Mg Tablet) 600 mg PO Q8H PRN PRN Reason: mild- mod pain Last Admin: 01/23/21 17:40 Dose: 600 mg Documented by: [place] Carbonate ([place] Carbonate 300 Mg Tablet) 450 mg PO BEDTIME [facility] Last Admin: 01/24/21 20:13 Dose: 450 mg Documented by: Magnesium Hydroxide (Milk Of Magnesia 30 Ml Oral.Susp) 30 ml PO DAILY PRN PRN Reason: Constipation Melatonin (Melatonin 3 Mg Tablet) 9 mg PO BEDTIME PRN PRN Reason: insomnia Last Admin: 01/23/21 20:35 Dose: 9 mg Documented by: Methadone HCl (Methadone Hcl 20 Mg/2 Ml Oral.Conc) 60 mg PO DAILY [facility] Last Admin: 01/25/21 08:44 Dose: 60 mg Documented by: Patient Own Medication ( Darunavir/Cobicistat 800mg/150mg) 1 each PO DAILY [facility] Last Admin: 01/25/21 08:49 Dose: 1 each Documented by: Patient Own Medication ( Dolutegravir/Rilpivirine 50/25 Mg ) 1 each PO DAILY@0800 [facility] Last Admin: 01/25/21 08:44 Dose: 1 each Documented by: Ondansetron HCl (Ondansetron Odt 4 Mg Tab.Rapdis) 4 mg TRANSLINGU Q8H PRN PRN Reason: Nausea and Vomiting Last Admin: 01/18/21 10:25 Dose: 4 mg Documented by: Polyethylene Glycol (Polyethylene Glycol 3350 17 Gm Powd.Pack) 17 gm PO DAILY PRN PRN Reason: Constipation Quetiapine Fumarate (Quetiapine Fumarate 50 Mg Tablet) 50 mg PO Q6H PRN PRN Reason: anxiety/sleep Last Admin: 01/24/21 22:54 Dose: 50 mg Documented by: Quetiapine Fumarate (Quetiapine Fumarate 50 Mg Tablet) 150 mg PO BID PRN PRN Reason: continued insomnia Senna/Docusate Sodium (Sennosides/Docusate Sodium Tablet) 2 tab PO BEDTIME AMANDA Last Admin: 01/24/21 20:17 Dose: 2 tab Documented by: Trazodone HCl (Trazodone Hcl 25 Mg Halftab) 75 mg PO BEDTIME [facility] Last Admin: 01/24/21 20:17 Dose: 75 mg Documented by: Allergies Allergies Allergy/AdvReac Type Severity Reaction Status Date / Time amoxicillin Allergy Unknown Verified 08/10/20 20:07 Assessment & Plan Assessment & Plan (1) MDD (major depressive disorder), recurrent episode, severe: Status: Acute Code(s): F33.2 - Major depressive disorder, recurrent severe without psychotic features (2) Cocaine use disorder, severe, dependence: Status: Acute Code(s): F14.20 - Cocaine dependence, uncomplicated (3) Opioid use disorder, severe, dependence: Status: Acute Code(s): F11.20 - Opioid dependence, uncomplicated Assessment and Plan: Impression: Yina is a 30 year female who carries a dx of opioid use disorder, severe, cocaine use disorder, severe, and MDD recurrent episode. She self-presented to [facility] ED on 01/13/21 due to depression, SI with a plan to buy fentanyl and OD and utox was positive for opiates, fentanyl, and cocaine. On admission reporting sx of depression, increased anxiety/ hyperarousal, mood swings, low self-esteem, poor sleep, and intrusive negative thoughts. Hospital Course: pt reports mood has improved and that SI seems to have resolved, though she still hates herself; tolerating meds pt reports alternating laughin-crying spells (pseudobulbar affect?) however this seems to be less of an issue Hospitalist examined groin area; no rash On exam No erythema appreciated in the groin. No induration of fluctuance? appreciated. Skin...dry / scaly. Do no see any vancomcyin related rash in this patient...Clotrimazole cream for a few days..see if... helps. Wound examined and looks to be healing well meds tolerated; stable, good mood, no SI. Pt plans to discharge wednesday Plan: lithium to 450mg po qhs on 01/20. [place] level and associated labs ordered for 01/25 Lotrimin for tinea pedis Lotrimin for groinal area rash fluconazole 150mg Q72h on 01/10, x 3 doses, - CBC trended back to normal -continue clonidine to 0.15 prn for anxiety (as 0.1mg not so helpful) -Continue, seroquel 50mg po q6h prn anxiety. avoid betablockers due to use of cocaine (d/c propanolol) -Constipation: senna/colace 2 tabs qhs scheduled, miralax 17g prn -Continue wellbutrin. -Aftercare planning, pt reports motivation to go back to [facility]. 01/25: Ct plan. DC Wed I spent minutes with the patient and/or on the patient floor today, greater than?50% of which was spent counseling/coordinating care. Reason for contiued inpatient stay Substantial Risk for: harm to self
[2021-01-25 09:50] LABS: Lithium 0.62 mmol/L (0.60-1.20)
[2021-01-25 09:56] LABS: Blood Urea Nitrogen 16 mg/dL (9-16); Creatinine Clr Calc Pharmacy 91.7; Estimated Glomerular Filt Rate > 60
[2021-01-25] MEDS: QUEtiapine Fumarate 50 MG TABLET PO ×2 (12:19→19:48)
[2021-01-25] MEDS: hydrOXYzine HCL 50 MG TABLET 100 MG PO ×2 (12:19→17:43)
[2021-01-25 12:20] VITALS: BP 109/62; PULSE 81
[2021-01-25] MEDS: cloNIDine HCL 0.1 MG TABLET 0.15 MG PO ×2 (12:20→19:48)
[2021-01-25 17:45] VITALS: BP 113/60; PULSE 89; TEMP 36.7
[2021-01-25] MEDS: Sennosides/Docusate Sodium TABLET 2 TAB PO (19:47)
[2021-01-25] MEDS: traZODone HCL 25 MG HALFTAB 75 MG PO (19:47)
[2021-01-25] MEDS: Lithium Carbonate 300 MG TABLET 450 MG PO (19:48)
[2021-01-26 06:00] VITALS: BP 101/64; PULSE 61; TEMP 36.6; O2SAT 99
[2021-01-26] MEDS: Clotrimazole 1 % Cream 15 GM TUBE 1 APPL TOPICAL ×2 (08:31→19:27)
[2021-01-26] MEDS: buPROPion HCl XL 300 MG TAB.ER.24H PO (08:31)
[2021-01-26] MEDS: methADONE HCl 20 MG/2 ML ORAL.CONC 60 MG PO (08:31)
--- NOTE | 2021-01-26 08:34 | HO.PSYCHPN ---
Subjective Subjective Date of Service: 01/26/21 Reason For Visit: SI Interim History: 01/24:Patient reports good mood, anxiety manageable, no SI, no AH. Patient feels that medications are working and she is preparing for discharge Wednesday. Patient reports she still has some trouble sleeping and wondered if trazodone could be increased. She also agreed to have a Seroquel 150 mg p.r.n. 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 01/25: Mood stable, improved. Anxious to DC Mon. 01/26: Improvement maintained. Reading recovery books. DC Mon Mental Status Exam Mental Status Exam Narrative: ?A&O. In hospital attire, good hygiene; missing front teeth. Good eye contact, attentive. No Tics or Tremors. No abnormal involuntary movements. Calm, cooperative, engaged. Non-pressured speech, spontaneous with regular rate and rhythm, normal volume and prosody. No prolonged speech latency. Mood is ?good? affect is congruent, brighter; Pt denies SI/HI; No AVH; Thoughts are coherent, organized. No known cognitive or memory impairment. Insight/ Judgment fair and adequate. Diagnostics Vital Signs (24Hr): Vital Signs - 24 hr 01/25/21 12:20 01/25/21 17:45 01/26/21 06:00 Temperature 98.0 F 97.8 F Pulse Rate 81 89 61 Blood Pressure 109/62 113/60 101/64 Pulse Oximetry 99 Body Mass Index 28.4 Labs Results: 01/22/21 12:32 01/25/21 09:24 Labs: Laboratory Results - last 48 hr 01/25/21 01/25/21 09:24 09:24 BUN 16 Creatinine 0.85 Estim Creat Clear Calc 91.7 Estimated GFR > 60 [place] 0.62 Medications Medications Current Medications Acetaminophen (Acetaminophen 325 Mg Tablet) 650 mg PO Q6H PRN PRN Reason: Headache/Pain Mild Scale (1-3) Last Admin: 01/21/21 13:03 Dose: 650 mg Documented by: Al Hydroxide/Mg Hydroxide (Magnesium Hydrox/Alum Hydrox 30 Ml Oral.Susp) 30 ml PO Q6H PRN PRN Reason: Heartburn/Nausea Bupropion HCl (Bupropion Hcl Xl 300 Mg Tab.Er.24h) 300 mg PO DAILY [facility] Last Admin: 01/26/21 08:31 Dose: 300 mg Documented by: Clonidine HCl (Clonidine Hcl 0.1 Mg Tablet) 0.15 mg PO Q8H PRN; Protocol PRN Reason: anxiety Last Admin: 01/25/21 19:48 Dose: 0.15 mg Documented by: Clotrimazole (Clotrimazole 1 % Cream 15 Gm Tube) 1 appl TOPICAL BID AMANDA; Protocol Stop: 01/27/21 20:59 Last Admin: 01/26/21 08:31 Dose: 1 appl Documented by: Fluconazole (Fluconazole 150 Mg Tablet) 150 mg PO Q72H AMANDA Stop: 01/26/21 13:01 Last Admin: 01/23/21 13:57 Dose: 150 mg Documented by: Hydroxyzine HCl (Hydroxyzine Hcl 50 Mg Tablet) 100 mg PO TID PRN PRN Reason: anxiety Last Admin: 01/25/21 17:43 Dose: 100 mg Documented by: Ibuprofen (Ibuprofen 600 Mg Tablet) 600 mg PO Q8H PRN PRN Reason: mild- mod pain Last Admin: 01/23/21 17:40 Dose: 600 mg Documented by: [place] Carbonate ([place] Carbonate 300 Mg Tablet) 450 mg PO BEDTIME [facility] Last Admin: 01/25/21 19:48 Dose: 450 mg Documented by: Magnesium Hydroxide (Milk Of Magnesia 30 Ml Oral.Susp) 30 ml PO DAILY PRN PRN Reason: Constipation Melatonin (Melatonin 3 Mg Tablet) 9 mg PO BEDTIME PRN PRN Reason: insomnia Last Admin: 01/23/21 20:35 Dose: 9 mg Documented by: Methadone HCl (Methadone Hcl 20 Mg/2 Ml Oral.Conc) 60 mg PO DAILY [facility] Last Admin: 01/26/21 08:31 Dose: 60 mg Documented by: Patient Own Medication ( Darunavir/Cobicistat 800mg/150mg) 1 each PO DAILY [facility] Last Admin: 01/26/21 08:31 Dose: 1 each Documented by: Patient Own Medication ( Dolutegravir/Rilpivirine 50/25 Mg ) 1 each PO DAILY@0800 [facility] Last Admin: 01/26/21 08:31 Dose: 1 each Documented by: Ondansetron HCl (Ondansetron Odt 4 Mg Tab.Rapdis) 4 mg TRANSLINGU Q8H PRN PRN Reason: Nausea and Vomiting Last Admin: 01/18/21 10:25 Dose: 4 mg Documented by: Polyethylene Glycol (Polyethylene Glycol 3350 17 Gm Powd.Pack) 17 gm PO DAILY PRN PRN Reason: Constipation Quetiapine Fumarate (Quetiapine Fumarate 50 Mg Tablet) 50 mg PO Q6H PRN PRN Reason: anxiety/sleep Last Admin: 01/25/21 19:48 Dose: 50 mg Documented by: Quetiapine Fumarate (Quetiapine Fumarate 50 Mg Tablet) 150 mg PO BID PRN PRN Reason: continued insomnia Senna/Docusate Sodium (Sennosides/Docusate Sodium Tablet) 2 tab PO BEDTIME [facility]AN[facility] Last Admin: 01/25/21 19:47 Dose: 2 tab Documented by: Trazodone HCl (Trazodone Hcl 25 Mg Halftab) 75 mg PO BEDTIME [facility] Last Admin: 01/25/21 19:47 Dose: 75 mg Documented by: Allergies Allergies Allergy/AdvReac Type Severity Reaction Status Date / Time amoxicillin Allergy Unknown Verified 08/10/20 20:07 Assessment & Plan Assessment & Plan (1) MDD (major depressive disorder), recurrent episode, severe: Status: Acute Code(s): F33.2 - Major depressive disorder, recurrent severe without psychotic features (2) Cocaine use disorder, severe, dependence: Status: Acute Code(s): F14.20 - Cocaine dependence, uncomplicated (3) Opioid use disorder, severe, dependence: Status: Acute Code(s): F11.20 - Opioid dependence, uncomplicated Assessment and Plan: Impression: Yina is a 30 year female who carries a dx of opioid use disorder, severe, cocaine use disorder, severe, and MDD recurrent episode. She self-presented to [facility] on 01/13/21 due to depression, SI with a plan to buy fentanyl and OD and utox was positive for opiates, fentanyl, and cocaine. On admission reporting sx of depression, increased anxiety/ hyperarousal, mood swings, low self-esteem, poor sleep, and intrusive negative thoughts. Hospital Course: pt reports mood has improved and that SI seems to have resolved, though she still hates herself; tolerating meds pt reports alternating laughin-crying spells (pseudobulbar affect?) however this seems to be less of an issue Hospitalist examined groin area; no rash On exam No erythema appreciated in the groin. No induration of fluctuance? appreciated. Skin...dry / scaly. Do no see any vancomcyin related rash in this patient...Clotrimazole cream for a few days..see if... helps. Wound examined and looks to be healing well meds tolerated; stable, good mood, no SI. Pt plans to discharge wednesday Plan: lithium to 450mg po qhs on 01/20. [place] level and associated labs ordered for 01/25 Lotrimin for tinea pedis Lotrimin for groinal area rash fluconazole 150mg Q72h on 01/10, x 3 doses, - CBC trended back to normal -continue clonidine to 0.15 prn for anxiety (as 0.1mg not so helpful) -Continue, seroquel 50mg po q6h prn anxiety. avoid betablockers due to use of cocaine (d/c propanolol) -Constipation: senna/colace 2 tabs qhs scheduled, miralax 17g prn -Continue wellbutrin. -Aftercare planning, pt reports motivation to go back to [facility]. DC Wed I spent minutes with the patient and/or on the patient floor today, greater than?50% of which was spent counseling/coordinating care. Reason for contiued inpatient stay Substantial Risk for: harm to self
[2021-01-26 11:18] VITALS: BP 108/65; PULSE 95
[2021-01-26] MEDS: cloNIDine HCL 0.1 MG TABLET 0.15 MG PO (11:18)
[2021-01-26] MEDS: QUEtiapine Fumarate 50 MG TABLET PO ×2 (11:18→19:13)
[2021-01-26] MEDS: Fluconazole 150 MG TABLET PO (13:37)
[2021-01-26] MEDS: hydrOXYzine HCL 50 MG TABLET 100 MG PO (19:12)
[2021-01-26] MEDS: Sennosides/Docusate Sodium TABLET 2 TAB PO (19:12)
[2021-01-26] MEDS: traZODone HCL 25 MG HALFTAB 75 MG PO (19:12)
[2021-01-26] MEDS: Lithium Carbonate 300 MG TABLET 450 MG PO (19:13)
[2021-01-26 19:15] VITALS: BP 96/60; PULSE 82; TEMP 36.6
[2021-01-27 06:00] VITALS: BP 95/65; PULSE 71; RESP 18; TEMP 36.3; O2SAT 98
[2021-01-27] MEDS: buPROPion HCl XL 300 MG TAB.ER.24H PO (09:28)
[2021-01-27] MEDS: methADONE HCl 20 MG/2 ML ORAL.CONC 60 MG PO (09:28)
--- NOTE | 2021-01-27 10:22 | P.DS_ITS ---
DS: Providers Provider Date of Service: 01/27/21 Date of admission: 01/17/21 17:46 Date of discharge: 01/27/21 Primary care physician: Unknown Physician Attending physician on admission: Migdalia Campbell Consults: 01/21/21 14:41 Consult to Hospitalist Routine Consulting Provider: Hospitalist Reason For Exam: rash following Vanco IV Attending physician on discharge: Guilherme Middleton DS: Diagnosis Discharge Diagnosis (1) MDD (major depressive disorder), recurrent episode, severe: Status: Acute (2) Cocaine use disorder, severe, dependence: Status: Acute (3) Opioid use disorder, severe, dependence: Status: Acute DS: Medications Discharge Medications Home Medications: Previous Rx's Medication Instructions Recorded darunavir 800 mg-cobicistat 150 mg 1 tab PO DAILY 30 Days #30 tab 08/20/20 tablet (Prezcobix) dolutegravir 50 mg-rilpivirine 25 1 tab PO DAILY 30 Days #30 tab 08/20/20 mg tablet ([place]) acetaminophen 325 mg tablet 650 mg PO Q6H PRN 30 Days #90 tab 01/27/21 bupropion HCl 300 mg 24 hr tablet, 300 mg PO DAILY #30 tab 01/27/21 extended release clonidine HCl 0.1 mg tablet 0.15 mg PO Q8H PRN 30 Days #135 tab 01/27/21 hydroxyzine HCl 50 mg tablet 100 mg PO TID PRN 30 Days #180 tab 01/27/21 lithium carbonate 450 mg 450 mg PO DAILY 30 Days #30 tab 01/27/21 tablet,extended release methadone 10 mg/mL oral 60 mg PO DAILY #0 ml 01/27/21 concentrate (Methadose) quetiapine 50 mg tablet 50 mg PO QID PRN 30 Days #120 tab 01/27/21 quetiapine 50 mg tablet 150 mg PO BEDTIME PRN 30 Days #90 01/27/21 tab sennosides 8.6 mg-docusate sodium 2 tab PO BEDTIME 30 Days #60 tab 01/27/21 50 mg tablet (Senna Plus) trazodone 50 mg tablet 75 mg PO BEDTIME 30 Days #45 tab 01/27/21 Mental Status Exam Mental Status Exam Narrative: A&O. well dressed and well groomed with good hygiene; Good eye contact, attentive. No Tics or Tremors. No abnormal involuntary movements. Calm, cooperative, engaged. Non-pressured speech, spontaneous with regular rate and rhythm, normal volume and prosody. No prolonged speech latency. Mood is ?good? affect is congruent, brighter; Pt denies SI/HI; No AVH; Thoughts are coherent, organized. No known cognitive or memory impairment. Insight/ Judgment intact. Data Data Completed and Pending Completed studies during hospitalization [Text1]: 01/22/21 01/25/21 01/25/21 12:32 09:24 09:24 WBC 9.6 RBC 4.60 Hgb 12.6 Hct 38.8 MCV 84.3 MCH 27.4 MCHC 32.5 RDW 13.2 Plt Count 288 MPV 10.3 Immature Gran % (Auto) 0.2 Neut % (Auto) 33.3 L Lymph % (Auto) 57.4 H [place] % (Auto) 6.8 Eos % (Auto) 1.8 Baso % (Auto) 0.5 Lymph # (Auto) 5.5 H [place] # (Auto) 0.7 Eos # (Auto) 0.2 Baso # (Auto) 0.1 Abs Immat Gran (auto) 0.02 Absolute Neuts (auto) 3.2 Absolute Nucleated RBC 0.000 Nucleated RBC % (auto) 0.0 Smear Tech's Comments VERIFIED BUN 16 Creatinine 0.85 Estim Creat Clear Calc 91.7 Estimated GFR > 60 [place] 0.62 DS: Summary Hospital Course Hospital Course: Yina is a 30 year female who carries a dx of opioid use disorder, severe, cocaine use disorder, severe, and MDD recurrent episode. She self-presented to [facility] on 01/13/21 due to depression, SI with a plan to buy fentanyl and OD and utox was positive for opiates, fentanyl, and cocaine. On admission reporting sx of depression, increased anxiety/ hyperarousal, mood swings, low self-esteem, poor sleep, and intrusive negative thoughts. She was first medically admitted due to cellulitis of LR extremity, on IV antibiotics, had I&D done by surgery; cellulitis improved, swiitched to PO antibiotics, cleared and admitted to (Recent admission to in September of 2020 for similar presentation). Patient was calm, cooperative and forthcoming on admission. She was depressed. She continued for a bit to have intermittent SI however he was without plans/intent and eventually resolved. Patient's methadone was increased and titrated back towards her past home dose. Propranolol was also increased to help with daytime anxiety and lithium was increased to better cover her for both depression and manic episodes. Patient's p.r.n. clonidine and seroquel were also titrated to good effect. She was started on clotrimazole for mild skin irritation on her groin and also for tinea pedis. Throughout patient's admission she was in good behavioral and impulse control, attending groups, appropriate with peers and staff and engaged in treatment. Her mood improved and intermittent SI and AH fully resolved. Patient was eating and sleeping well. Patient felt ready for discharge. Remedial Teacher agreed that patient had reached maximal benefit from this inpatient admission and that further treatments were appropriate for the outpatient setting, to which she was looking forward. She was also optimistic about staying sober, feeling that methadone dose had helped considerably and that her mood was stable. Patient continued to be without any SI and felt overall in better control of her emotions. She was not in imminent risk for harm to self or others and was appropriate for discharge to the community. Time spent discussing smoking cessation with patient: 3 to 10 minutes Status at Discharge Functional status at discharge: independent ambulation Overall status at discharge: patient is back to baseline Time Spent with Patient Time attestation: Total time spent providing and/or coordinating discharge services: Time spent: Less than 30 minutes Discharge Plan Discharge Patient Disposition: Xfer to Respite Facility Discharge Diagnosis: Bipolar type II, recurrent, most recently depressed, in full remission Referrals: [facility] [place] [Other] - 1 Week Department of Mental Health (DMH) [Other] - 1 Week (A referral for DM services was submitted on your behalf. [facility] will reach out to you directly to complete the eligibility process. If your phone number changes, please contact them at the above number.) Dr. Mcknight (psychiatry) [Other] - 03/10/21 12:30 pm (This is a Telehealth appointment) [facility] [Other] - 1 Week (You have been referred and placed on the waitlist at the [facility] TSS [facility]. Please have [facility] complete a referral to TSS as well if you are still interested in their program.) [facility] ([facility]) [Other] - 01/27/21 11:30 am (You are being disch arged to [facility] for CSS and continued substance use treatment.) [facility] [Other] - 1 Week Physician,Unknown J [Primary Care Provider] - 1 Week Discharge Medications: New clonidine HCl 0.1 mg Tablet 0.15 mg PO Q8H PRN (Reason: anxiety) 30 Days Qty: 135 RF: 0 acetaminophen 325 mg Tablet 650 mg PO Q6H PRN (Reason: Headache/Pain Mild Scale (1-3)) 30 Days Qty: 90 RF: 0 hydroxyzine HCl 50 mg Tablet 100 mg PO TID PRN (Reason: anxiety) 30 Days Qty: 180 RF: 0 methadone [Methadose] 10 mg/mL Concentrate 60 mg PO DAILY Qty: 0 RF: 0 quetiapine 50 mg Tablet 50 mg PO QID PRN (Reason: anxiety) 30 Days Qty: 120 RF: 0 quetiapine 50 mg Tablet 150 mg PO BEDTIME PRN (Reason: continued insomnia) 30 Days Qty: 90 RF: 0 sennosides-docusate sodium [[place]enna Plus] 8.6-50 mg Tablet 2 tab PO BEDTIME 30 Days Qty: 60 RF: 0 trazodone 50 mg tablet 75 mg PO BEDTIME 30 Days Qty: 45 RF: 0 lithium carbonate 450 mg tablet extended release 450 mg PO DAILY 30 Days Qty: 30 RF: 0 Narcan 4 mg/actuation spray,non-aerosol 4 mg intranasal Q2M PRN (Reason: opioid overdose) 1 Days Qty: 2 RF: 0 Continued Prezcobix 800-150 mg-mg tablet 1 tab PO DAILY 30 Days Qty: 30 RF: 0 [place] 50-25 mg tablet 1 tab PO DAILY 30 Days Qty: 30 RF: 0 bupropion HCl 300 mg Tablet Extended Release 24 Hr 300 mg PO DAILY Qty: 30 RF: 0 Discontinued ibuprofen 600 mg Tablet 600 mg PO Q6H PRN (Reason: Fever, headache, mild pain) Qty: 30 RF: 0 trazodone 50 mg Tablet 50 mg PO BEDTIME PRN (Reason: Insomnia) Qty: 30 RF: 0 hydroxyzine pamoate 50 mg capsule 1 cap PO TID RF: 0 propranolol 10 mg tablet 1 tab PO BID PRN (Reason: Anxiety) RF: 0 quetiapine 50 mg tablet 1 tab PO Q4H PRN (Reason: Anxiety) RF: 0 melatonin 10 mg Tablet 10 mg PO BEDTIME PRN (Reason: Insomnia) RF: 0 lithium carbonate 300 mg capsule 1 cap PO BEDTIME RF: 0 methadone 10 mg/mL Concentrate 55 mg PO DAILY RF: 0 doxycycline hyclate 100 mg tablet 100 mg PO DAILY Qty: 20 RF: 0 Discharge Orders: Discharge Order (Routine); Ordered 01/27/21 Ordered By: Guilherme Middleton Diet: regular diet Activity on Discharge: As tolerated Stand Alone Forms: Patient Portal Discharge page Care Plan Goals: Maintain mood and safe behaviors Take medications as prescribed Continue to pursue sobriety Practice coping skills Continue with outpatient providers and reach out to them as needed Health Concerns: Mood stability and behaviors Sobriety chronic health concerns Plan of Treatment: Follow up with your PCP, psychiatric provider and other outpatient providers regarding above concerns Take medications as prescribed Assessment: Risk assessment at time of discharge:? Patient was interviewed prior to discharge and found to be fully oriented and without any SI or HI. Patient has insight and demonstrates good judgment in terms of wanting to pursue treatment. Patient is not in imminent risk of harm to self or others and has a safety plan that includes presenting to the closest ER or calling 911 if feeling unsafe.? Patient has been observed closely by nursing and unit staff throughout admission; patient has not engaged in any behaviors that suggest dangerousness to self or others and has demonstrated appropriate behaviors and impulse control Discharge Date/Time: 01/27/21 12:18
[2021-01-27] MEDS: hydrOXYzine HCL 50 MG TABLET 100 MG PO (10:53)
[2021-01-27 10:54] VITALS: BP 118/72; PULSE 99
[2021-01-27] MEDS: cloNIDine HCL 0.1 MG TABLET 0.15 MG PO (10:54)
[2021-01-27] MEDS: QUEtiapine Fumarate 50 MG TABLET PO (10:56)
[2021-01-27] MEDS: Naloxone HCl Nasal TAKE HOME 4 MG SPRAY NOSTRILALT (11:11)
== END 2021-01-27 12:18 | DRG 751 ==
PROVIDERS: Admitting Provider Registered Nurse; Visit Provider Psychiatry & Neurology Psychiatry
DX: F33.2 Major depressive disorder, recurrent severe without psychotic features (principal); R45.851 Suicidal ideations; F11.20 Opioid dependence, uncomplicated; F14.20 Cocaine dependence, uncomplicated; F17.210 Nicotine dependence, cigarettes, uncomplicated; B37.3 Candidiasis of vulva and vagina; K59.00 Constipation, unspecified; Z71.6 Tobacco abuse counseling; Z88.0 Allergy status to penicillin; Z79.899 Other long term (current) drug therapy
CPT/HCPCS: 36415; 80178; 82565; 84520; 85025

== ENCOUNTER 2021-04-18 19:15 | Emergency (ER) | payer OTHER, SELFPAY ==
--- NOTE | 2021-04-18 19:56 | PC.NURSE ---
called x 2 to triage no answer
--- NOTE | 2021-04-18 20:20 | PC.NURSE ---
Registration alerted me that the patient had returned to the waiting room.
[2021-04-18 20:44] VITALS: BP 133/67; PULSE 80; RESP 17; TEMP 36.5; O2SAT 96; BMI 27.3
--- NOTE | 2021-04-18 21:26 | PC.NURSE ---
PT IS MOVING TOO MUCH TO GET BLOOD WORK ON.
[2021-04-18 21:31] LABS: Appearance Urine CLEAR; COVID-19 Test Positive (Negative); Color Urine YELLOW; Glucose Urine UA NEG (NEG); Leukocyte Esterase Urine 1+ (NEG); Nitrite Urine NEG (NEG); PH 5.5 (5.0-8.0); Specific Gravity - Urine >= 1.030 (1.005-1.025); UACC Culture Trigger YES; Urine Blood NEG (NEG); Urine Ketones 15 MG/DL (NEG); Urine Protein 1+ MG/DL (NEG-TRACE)
[2021-04-18 21:41] LABS: Bacteria Urine 2+ /LPF; Mucus Urine 2+ /LPF; Squamous Epithelial Cell Urine 2+ /LPF
--- NOTE | 2021-04-18 21:53 | ED.FEMALEGU ---
HPI - Female Genitourinary General Chief complaint: Urogenital-Female Stated complaint: Flank pain Time Seen by Provider: 04/18/21 21:38 Source: patient Mode of arrival: ambulatory Limitations: no limitations History of Present Illness HPI Narrative: Patient with low back pain and bilateral flank pain for 2 weeks complaining of frequency for last few days also has nasal congestion cold symptoms has not received a COVID vaccine no fever chills no significant shortness of breath occasional cough+ Related Data Previous Rx's Medication Instructions Recorded darunavir 800 mg-cobicistat 150 mg 1 tab PO DAILY 30 Days #30 tab 08/20/20 tablet (Prezcobix) dolutegravir 50 mg-rilpivirine 25 1 tab PO DAILY 30 Days #30 tab 08/20/20 mg tablet (Juluca) acetaminophen 325 mg tablet 650 mg PO Q6H PRN 30 Days #90 tab 01/27/21 bupropion HCl 300 mg 24 hr tablet, 300 mg PO DAILY #30 tab 01/27/21 extended release clonidine HCl 0.1 mg tablet 0.15 mg PO Q8H PRN 30 Days #135 tab 01/27/21 hydroxyzine HCl 50 mg tablet 100 mg PO TID PRN 30 Days #180 tab 01/27/21 lithium carbonate 450 mg 450 mg PO DAILY 30 Days #30 tab 01/27/21 tablet,extended release methadone 10 mg/mL oral 60 mg (6 mL) PO DAILY #0 ml 01/27/21 concentrate (Methadose) naloxone 4 mg/actuation nasal 4 mg INTRANASAL Q2M PRN 1 Days #2 01/27/21 spray (Narcan) ea quetiapine 50 mg tablet 50 mg PO QID PRN 30 Days #120 tab 01/27/21 quetiapine 50 mg tablet 150 mg PO BEDTIME PRN 30 Days #90 01/27/21 tab sennosides 8.6 mg-docusate sodium 2 tab PO BEDTIME 30 Days #60 tab 01/27/21 50 mg tablet (Senna Plus) trazodone 50 mg tablet 75 mg PO BEDTIME 30 Days #45 tab 01/27/21 nitrofurantoin 100 mg PO Q12H 7 Days #14 cap 04/18/21 monohydrate/macrocrystals 100 mg capsule (Macrobid) phenazopyridine 200 mg tablet 200 mg PO TID 2 Days #6 tab 04/18/21 (Pyridium) Allergies Allergy/AdvReac Type Severity Reaction Status Date / Time amoxicillin Allergy Unknown Verified 08/10/20 20:07 Review of Systems Review of Systems: Yes all other systems are reviewed and are negative [facility] Past Medical History Medical History HIV (human immunodeficiency virus infection) IV drug abuse MDD (major depressive disorder), recurrent episode, severe Social History Social History Household Members: None Household Members Other:: esteban house members Housing: House Do you presently have visiting nurse or other home services: No Unable to assess alcohol history related to: Unknown Alcohol intake: current Alcohol intake frequency: does not drink Alcohol type: hard liquor Patient Tobacco Use Status: Current everyday Tobacco user Tobacco use type: Cigarette Cigarette Packs Per Day: 1 Cigarettes Per Day: 20.0 Years Smoked: 5 Second Hand Smoke Exposure: Yes Substance Use Type: Crack/Cocaine, Heroin and Opiates Advance Directives: No Advance Directives Information Provided: No service: No Sexual orientation: Did not discuss Physical Exam Vital Signs: Vital Signs: Last Vital Signs Temp 97.7 F 04/18/21 20:44 Pulse 80 04/18/21 20:44 Resp 17 04/18/21 20:44 BP 133/67 04/18/21 20:44 Pulse Ox 96 04/18/21 20:44 BMI result Body Mass Index 27.3 Appearance: Alert. Oriented X3. No acute distress. ENT: Pharynx normal. Oral Mucosa moist clear discharge from the nose Neck: Normal inspection. Neck supple. CVS: Normal heart rate and rhythm. Pulses normal. Respiratory: No respiratory distress. Equal air entry bilateral, no wheezing/rales/rhonchi Abdomen: Soft and nontender. Bowel sounds are present, diffuse lower back tenderness no cva tenderness Skin: Skin warm and dry. Normal skin color. Normal skin turgor. Extremities: No lower extremity edema. No calf tenderness Neuro: Oriented X 3. MDM - Female Genitourinary MDM Narrative Medical decision making narrative: Patient with COVID positive with UTI will discharge patient home on Ceftin Lab Data Attestation: I reviewed the patient's lab results. Labs: Lab Results 04/18/21 04/18/21 Range/Units 21:16 21:16 Urine Color YELLOW Urine Appearance CLEAR Urine pH 5.5 (5.0-8.0) Ur Specific [place] >= 1.030 H (1.005-1.025) Urine Protein 1+ H (NEG-TRACE) MG/DL Urine Glucose (UA) NEG (NEG) MG/DL Urine Ketones 15 (NEG) MG/DL Urine Blood NEG (NEG) Urine Nitrite NEG (NEG) Ur Leukocyte Esterase 1+ H (NEG) Urine RBC 1-4 (0) /HPF Urine WBC 10-14 H (0-4) /HPF Ur Squamous Epith Cells 2+ /LPF Urine Bacteria 2+ /LPF Hyaline Casts 1-4 /LPF Urine Mucus 2+ /LPF COVID-19 (TIMUR) Positive A (Negative) COVID-19 Clin Com See Note Discharge Plan Discharge Clinical Impression: Urinary tract infection, COVID-19 Patient Disposition: Home, Self-Care Instructions: Urinary Tract Infection in Women (ED), COVID-19 (Coronavirus Disease 2019) (ED) Additional Instructions: Drink plenty of fluids Social distancing is advised Antibiotic as prescribed Report to the ER if increased shortness of breath Prescriptions: New nitrofurantoin monohyd/m-cryst [Macrobid] 100 mg capsule 100 mg PO Q12H 7 Days Qty: 14 RF: 0 phenazopyridine [Pyridium] 200 mg tablet 200 mg PO TID 2 Days Qty: 6 RF: 0 No Action Prezcobix 800-150 mg-mg tablet 1 tab PO DAILY 30 Days Qty: 30 RF: 0 Juluca 50-25 mg tablet 1 tab PO DAILY 30 Days Qty: 30 RF: 0 bupropion HCl 300 mg Tablet Extended Release 24 Hr 300 mg PO DAILY Qty: 30 RF: 0 clonidine HCl 0.1 mg Tablet 0.15 mg PO Q8H PRN (Reason: anxiety) 30 Days Qty: 135 RF: 0 acetaminophen 325 mg Tablet 650 mg PO Q6H PRN (Reason: Headache/Pain Mild Scale (1-3)) 30 Days Qty: 90 RF: 0 hydroxyzine HCl 50 mg Tablet 100 mg PO TID PRN (Reason: anxiety) 30 Days Qty: 180 RF: 0 methadone [Methadose] 10 mg/mL Concentrate 60 mg PO DAILY Qty: 0 RF: 0 quetiapine 50 mg Tablet 50 mg PO QID PRN (Reason: anxiety) 30 Days Qty: 120 RF: 0 quetiapine 50 mg Tablet 150 mg PO BEDTIME PRN (Reason: continued insomnia) 30 Days Qty: 90 RF: 0 sennosides-docusate sodium [Senna Plus] 8.6-50 mg Tablet 2 tab PO BEDTIME 30 Days Qty: 60 RF: 0 trazodone 50 mg tablet 75 mg PO BEDTIME 30 Days Qty: 45 RF: 0 lithium carbonate 450 mg tablet extended release 450 mg PO DAILY 30 Days Qty: 30 RF: 0 Narcan 4 mg/actuation spray,non-aerosol 4 mg intranasal Q2M PRN (Reason: opioid overdose) 1 Days Qty: 2 RF: 0 Interventions: LWBS Worksheet Last Done: 04/18/21 20:09 ED Discharge Assessment Last Done: 04/18/21 22:50 Discharge Date/Time: 04/18/21 21:59
[2021-04-18] MEDS: Phenazopyridine HCL 200 MG TABLET PO (22:04)
[2021-04-18] MEDS: Nitrofurantoin Monohyd/M-Cryst 100 MG CAPSULE PO (22:04)
== END 2021-04-18 21:59 | disposition home or self-care (01) ==
PROVIDERS: Emergency Provider Internal Medicine; PCP Internal Medicine
DX: U07.1 COVID-19 (principal); N39.0 Urinary tract infection, site not specified
CPT/HCPCS: 81001; 87086; 87635; 99283; 99284

== ENCOUNTER 2021-04-19 03:00 | Inpatient (IN) | payer OTHER, SELFPAY ==
[2021-04-19 03:14] VITALS: BP 138/60; BP 142/85; PULSE 80; PULSE 89; RESP 14; TEMP 36.9; O2SAT 97; O2SAT 98; BMI 27.3
--- NOTE | 2021-04-19 03:42 | PC.NURSE ---
pt is changed over, unable to void at this time.
[2021-04-19 04:00] VITALS: BP 95/77; PULSE 98; RESP 16; TEMP 36.5; O2SAT 98
--- NOTE | 2021-04-19 04:05 | ED.PSYCH ---
HPI - Psych General Chief Complaint: Psychiatric Symptoms Stated Complaint: si Time Seen by Provider: 04/19/21 04:01 Source: patient Mode of arrival: EMS History of Present Illness HPI Narrative: 31-year-old female with history of IVDA and self reports a history of depression and prior suicide attempt walked into the police station earlier in the evening stating that she want to kill herself by jumping into traffic. Patient is noted to have been evaluated here earlier in the emergency room and diagnosed with UTI and discharged with antibiotics. Patient is also COVID-19 positive. Patient states that she is feeling depressed and her plan would be to ?jump into traffic?. Related Data Previous Rx's Medication Instructions Recorded darunavir 800 mg-cobicistat 150 mg 1 tab PO DAILY 30 Days #30 tab 08/20/20 tablet (Prezcobix) dolutegravir 50 mg-rilpivirine 25 1 tab PO DAILY 30 Days #30 tab 08/20/20 mg tablet (Juluca) acetaminophen 325 mg tablet 650 mg PO Q6H PRN 30 Days #90 tab 01/27/21 bupropion HCl 300 mg 24 hr tablet, 300 mg PO DAILY #30 tab 01/27/21 extended release clonidine HCl 0.1 mg tablet 0.15 mg PO Q8H PRN 30 Days #135 tab 01/27/21 hydroxyzine HCl 50 mg tablet 100 mg PO TID PRN 30 Days #180 tab 01/27/21 lithium carbonate 450 mg 450 mg PO DAILY 30 Days #30 tab 01/27/21 tablet,extended release methadone 10 mg/mL oral 60 mg (6 mL) PO DAILY #0 ml 01/27/21 concentrate (Methadose) naloxone 4 mg/actuation nasal 4 mg INTRANASAL Q2M PRN 1 Days #2 01/27/21 spray (Narcan) ea quetiapine 50 mg tablet 50 mg PO QID PRN 30 Days #120 tab 01/27/21 quetiapine 50 mg tablet 150 mg PO BEDTIME PRN 30 Days #90 01/27/21 tab sennosides 8.6 mg-docusate sodium 2 tab PO BEDTIME 30 Days #60 tab 01/27/21 50 mg tablet (Senna Plus) trazodone 50 mg tablet 75 mg PO BEDTIME 30 Days #45 tab 01/27/21 nitrofurantoin 100 mg PO Q12H 7 Days #14 cap 04/18/21 monohydrate/macrocrystals 100 mg capsule (Macrobid) phenazopyridine 200 mg tablet 200 mg PO TID 2 Days #6 tab 04/18/21 (Pyridium) Allergies Allergy/AdvReac Type Severity Reaction Status Date / Time amoxicillin Allergy Unknown Verified 08/10/20 20:07 Review of Systems Review of Systems: Pertinent positives and negatives as stated in HPI 10 point review of systems is otherwise negative. [facility] Past Medical History Source: nursing notes reviewed Medical History HIV (human immunodeficiency virus infection) IV drug abuse MDD (major depressive disorder), recurrent episode, severe Social History Social History Household Members: None Household Members Other:: esteban house members Housing: House Do you presently have visiting nurse or other home services: No Unable to assess alcohol history related to: Unknown Alcohol intake: current Alcohol intake frequency: does not drink Alcohol type: hard liquor Patient Tobacco Use Status: Current everyday Tobacco user Tobacco use type: Cigarette Cigarette Packs Per Day: 1 Cigarettes Per Day: 20.0 Years Smoked: 5 Second Hand Smoke Exposure: Yes Substance Use Type: Crack/Cocaine, Heroin and Opiates Advance Directives: No Patient : No service: No Sexual orientation: Did not discuss Physical Exam Vital Signs: Vital Signs: Last Vital Signs Temp 97.7 F 04/19/21 04:00 Pulse 98 04/19/21 04:00 Resp 16 04/19/21 04:00 BP 95/77 04/19/21 04:00 Pulse Ox 98 04/19/21 04:00 BMI result Body Mass Index 27.3 VITAL SIGNS: Reviewed. GENERAL: Well developed, well nourished, in no acute distress HEAD: Normocephalic/atraumatic EYES: PERRLA, EOMI OROPHARYNX: no oral lesions noted, posterior pharynx clear, moist mucosa NECK: Supple, no adenopathy LUNGS: Normal breath sounds. No adventitious sounds or accessory muscle use. SpO2<98> CARDIOVASCULAR: Regular rate and rhythm without noted murmurs ABDOMEN: Soft, non-tender, non-distended with bowel sounds. MUSCULOSKELETAL: No tenderness, deformities, or effusions noted on gross inspection. EXTREMITIES: No cyanosis, clubbing or edema. SKIN: Inspection of the skin reveals no rashes NEUROLOGIC: Drowsy and oriented x 4. Strength and sensation to light touch were grossly intact x 4, cranial nerves 2-12 grossly intact PSYCH: Depressed affect, calm Course Course Course Narrative: 31-year-old female with history and clinical presentation consistent with depression and suicidal ideation. There are numerous pieces of drug paraphernalia as well as drugs removed off of patient by security. Reevaluation(s) Reevaluation #1: Patient placed in physician observation because the patient needed more time for medical clearance and subsequent behavioral evaluation. At the time observation was started the patient's vital signs were stable, patient is drowsy but easily aroused and oriented, neuro: Nonfocal, CV RRR, lungs clear Time: 05:37 Discharge Plan Discharge Clinical Impression: Substance abuse, Suicidal ideation, Depression Patient Disposition: Still a Patient Prescriptions: No Action Prezcobix 800-150 mg-mg tablet 1 tab PO DAILY 30 Days Qty: 30 RF: 0 Juluca 50-25 mg tablet 1 tab PO DAILY 30 Days Qty: 30 RF: 0 bupropion HCl 300 mg Tablet Extended Release 24 Hr 300 mg PO DAILY Qty: 30 RF: 0 clonidine HCl 0.1 mg Tablet 0.15 mg PO Q8H PRN (Reason: anxiety) 30 Days Qty: 135 RF: 0 acetaminophen 325 mg Tablet 650 mg PO Q6H PRN (Reason: Headache/Pain Mild Scale (1-3)) 30 Days Qty: 90 RF: 0 hydroxyzine HCl 50 mg Tablet 100 mg PO TID PRN (Reason: anxiety) 30 Days Qty: 180 RF: 0 methadone [Methadose] 10 mg/mL Concentrate 60 mg PO DAILY Qty: 0 RF: 0 quetiapine 50 mg Tablet 50 mg PO QID PRN (Reason: anxiety) 30 Days Qty: 120 RF: 0 quetiapine 50 mg Tablet 150 mg PO BEDTIME PRN (Reason: continued insomnia) 30 Days Qty: 90 RF: 0 sennosides-docusate sodium [Senna Plus] 8.6-50 mg Tablet 2 tab PO BEDTIME 30 Days Qty: 60 RF: 0 trazodone 50 mg tablet 75 mg PO BEDTIME 30 Days Qty: 45 RF: 0 lithium carbonate 450 mg tablet extended release 450 mg PO DAILY 30 Days Qty: 30 RF: 0 Narcan 4 mg/actuation spray,non-aerosol 4 mg intranasal Q2M PRN (Reason: opioid overdose) 1 Days Qty: 2 RF: 0 nitrofurantoin monohyd/m-cryst [Macrobid] 100 mg capsule 100 mg PO Q12H 7 Days Qty: 14 RF: 0 phenazopyridine [Pyridium] 200 mg tablet 200 mg PO TID 2 Days Qty: 6 RF: 0
[2021-04-19 06:02] LABS: Basophils Percent Auto 0.2 % (0-2); Eosinophils Absolute Auto 0.1 X10*3/uL (0.0-0.4); Eosinophils Percent Auto 0.7 % (0-4); Hematocrit 35.1 % (37.0-47.0); Hemoglobin 11.3 g/dl (12.0-16.0); Imm Gran Abs Auto 0.02 X10*3/uL (0.00-0.03); Imm Gran Pct Auto 0.2 % (0.0-0.4); Lymphocytes Absolute Auto 4.6 X10*3/uL (1.2-4.9); Lymphocytes Percent Auto 44.9 % (20-40); MANUAL DIFF FLAG NO; Mean Corpuscular HGB Conc 32.2 g/dl (31.0-35.0); Mean Corpuscular Hemoglobin 26.3 pg (27.0-33.0); Mean Corpuscular Volume 81.8 fL (80.0-98.0); Mean Platelet Volume 9.8 fL (9.4-12.3); Monocytes Absolute Auto 0.6 X10*3/uL (0.1-1.2); Monocytes Percent Auto 5.4 % (2-11); Neutrophils Percent Auto 48.6 % (45-73); Platelet Count 259 X10*3/uL (160-400); Red Blood Count 4.29 X10*6/uL (4.20-5.50); White Blood Count 10.3 X10*3/uL (4.8-10.8)
[2021-04-19 06:23] LABS: Alanine Aminotransferase 40 U/L (0-31); Albumin Level 4.5 g/dL (3.5-5.0); Alkaline Phosphatase 152 U/L (39-117); Anion Gap 14 (12-20); Aspartate Amino Transferase 44 U/L (5-31); Bilirubin Total 0.4 mg/dL (0.0-1.0); Blood Urea Nitrogen 22 mg/dL (9-16); Calcium 9.8 mg/dL (8.4-10.2); Carbon Dioxide 24 mmol/L (22-29); Chloride 101 mmol/L (96-108); Creatinine Clr Calc Pharmacy 69.4; Estimated Glomerular Filt Rate > 60; Glucose Random 142 mg/dL (60-115); Potassium 3.7 mmol/L (3.3-5.1); Sodium 135 mmol/L (135-145); Total Protein 9.5 g/dL (6.5-8.0)
--- NOTE | 2021-04-19 07:37 | PC.NURSE ---
pt a/o x 3 no sob/thalia noted. pt denies any si/hi at this time.
--- NOTE | 2021-04-19 07:41 | MHC.CARE ---
Osmar completed at 730am
[2021-04-19 09:55] VITALS: BP 126/54; PULSE 85; RESP 16; TEMP 36.7; O2SAT 95
[2021-04-19] MEDS: Phenazopyridine HCL 200 MG TABLET PO ×3 (09:57→21:52)
[2021-04-19] MEDS: Nitrofurantoin Monohyd/M-Cryst 100 MG CAPSULE PO ×2 (09:57→21:52)
--- NOTE | 2021-04-19 11:00 | PC.NURSE ---
pt states that she is hearing voices and that her uti sx is frequency.
--- NOTE | 2021-04-19 11:20 | PC.NURSE ---
pt is a bed search
[2021-04-19 12:18] VITALS: BP 96/64; PULSE 78; RESP 12; TEMP 36.9; O2SAT 95
--- NOTE | 2021-04-19 14:07 | PHA.MEDREC ---
Pharmacy Consult ? Medication Reconciliation Pharmacy has completed the medication reconciliation. Pt able to tell me medications she is taking on a daily basis but not doses/how many times per day. She fills at [facility] and they are closed for the weekend and there is not any claim history available. Pt reports last taking medications on wednesday. Will follow up wednesday morning with patients pharmacy. Germania Cardenas aware of this.
[2021-04-19 14:39] VITALS: BP 115/65; PULSE 74; RESP 12; TEMP 37; O2SAT 94
--- NOTE | 2021-04-19 15:18 | MHC.RECOVSUP ---
Recovery Support note: Patient is a 31 year old Gambian speaking female who presented to [facility] due to SI. This law writer attempted to verify methadone dose for patient however [facility] was closed and unable to confirm dose. Patient reports she was last dosed on Wednesday with 60mg and that she is experiencing withdrawal at this time. Discussed case with ED provider, plan to give patient 20mg and confirm dose tomorrow morning. Patient is in agreement with this plan.
[2021-04-19] MEDS: methADONE HCl 20 MG/2 ML ORAL.CONC PO (16:21)
[2021-04-19 16:53] LABS: UPreg QC Valid YES; Urine Pregnancy NEGATIVE (NEGATIVE)
[2021-04-19 17:05] LABS: Amphetamine Screen Urine Not Detected (Not Detect); Barbiturates, Urine Not Detected (Not Detect); Benzodiazepines Screen Urine Not Detected (Not Detect); Cannabinoid Screen Urine Not Detected (Not Detect); Cocaine Screen Urine POSITIVE (Not Detect); Fentanyl, urine POSITIVE (Not Detect); Opiate Screen Urine POSITIVE (Not Detect); Phencyclidine Screen Urine Not Detected (Not Detect)
[2021-04-19] MEDS: Acetaminophen 325 MG TABLET 650 MG PO (17:10)
[2021-04-19] MEDS: buPROPion HCl XL 300 MG TAB.ER.24H PO (18:25)
[2021-04-19] MEDS: Lithium Carbonate ER 450 MG TABLET.ER PO (18:25)
[2021-04-19] MEDS: traZODone HCL 25 MG HALFTAB 75 MG PO (21:53)
[2021-04-20] VITALS (7 sets, daily range): BP systolic 119–133; BP diastolic 70–85; PULSE 79–96; RESP 12–17; TEMP 36.6–37.3; O2SAT 93–97
--- NOTE | 2021-04-20 09:10 | MHC.RECOVSUP ---
Recovery Support note: This magazine writer spoke with Blanca at [facility] in [place]. Patient was last dosed on 04/15/21 and received 60mg. Blanca recommends resuming the 60mg dose. Confirmation form completed and faxed to pharmacy. ED provider aware.
[2021-04-20] MEDS: buPROPion HCl XL 300 MG TAB.ER.24H PO (09:41)
[2021-04-20] MEDS: Lithium Carbonate ER 450 MG TABLET.ER PO (09:41)
[2021-04-20] MEDS: Phenazopyridine HCL 200 MG TABLET PO ×3 (09:41→21:21)
[2021-04-20] MEDS: Nitrofurantoin Monohyd/M-Cryst 100 MG CAPSULE PO ×2 (09:41→21:20)
[2021-04-20] MEDS: methADONE HCl 20 MG/2 ML ORAL.CONC 60 MG PO (13:59)
[2021-04-20] MEDS: Acetaminophen 325 MG TABLET 650 MG PO (14:03)
[2021-04-20] MEDS: Benzonatate 100 MG CAPSULE 200 MG PO (14:39)
[2021-04-20] MEDS: traZODone HCL 25 MG HALFTAB 75 MG PO (21:20)
[2021-04-21] VITALS (7 sets, daily range): BP systolic 109–126; BP diastolic 71–84; PULSE 70–88; RESP 16–19; TEMP 36.7–37.3; O2SAT 91–96
[2021-04-21] MEDS: Lithium Carbonate ER 450 MG TABLET.ER PO (09:01)
[2021-04-21] MEDS: buPROPion HCl XL 300 MG TAB.ER.24H PO (09:01)
[2021-04-21] MEDS: methADONE HCl 20 MG/2 ML ORAL.CONC 60 MG PO (09:01)
[2021-04-21] MEDS: Nitrofurantoin Monohyd/M-Cryst 100 MG CAPSULE PO ×2 (09:01→21:27)
[2021-04-21] MEDS: Nicotine 21 MG PATCH.TD24 TRANSDERMA (10:02)
--- NOTE | 2021-04-21 10:43 | PHA.MEDREC ---
Addendum entered by Saba Olson RPh 04/21/21 11:16: [facility] reported that patient took the medications when she left. Patient reports that her medication are at [facility], the [facility], at [address] [place], [place] [id number] . Trying to contact the [facility] since that is the address she reported Original Note: Pharmacy Consult ? Medication Reconciliation Pharmacy has completed the medication reconciliation. I follow-up on [facility] rec completed by Doris over the weekend. Patient fills medications at [facility]. They confirmed some medications are sent to the [facility] including the non-formulary HIV medications Juluca and Prezcobix. I am trying to follow-up with [facility] to see if medications can be delivered her for patient. Saba Olson, PharmD
[2021-04-21] MEDS: Acetaminophen 325 MG TABLET 650 MG PO (14:55)
--- NOTE | 2021-04-21 14:58 | PC.NURSE ---
pt reports having a headache, medicated with tylenol
[2021-04-21] MEDS: traZODone HCL 25 MG HALFTAB 75 MG PO (21:27)
[2021-04-22 00:04] VITALS: BP 125/75; PULSE 74; RESP 16; TEMP 37.1; O2SAT 94
--- NOTE | 2021-04-22 02:34 | PC.NURSE ---
I assumed care of this pt at 1900. The pt remains on a 1:1/constantly observed due to suicidal ideations/depression/anxiety. She is calm, cooperative,, makes eye cotnact with RN. She admits to SI and states that she believes things she has done while using drugs have caused other people to follow her - she is certain that she is being followed. She states she is from [place] where her 12 and 13 year old children are living with her parents. She states she will not be going back to [place] because it s unsafe due to her continued drug use and the people who are following her. She states she feels safe here, in the ED. No chest pain. No shortness of breath. Speech clear and appropriate. She is taking PO food and fluids without difficulty. Will continue to monitor.
[2021-04-22] MEDS: Acetaminophen 325 MG TABLET 650 MG PO (05:20)
[2021-04-22] MEDS: Nitrofurantoin Monohyd/M-Cryst 100 MG CAPSULE PO ×2 (10:50→22:04)
[2021-04-22] MEDS: Lithium Carbonate ER 450 MG TABLET.ER PO (10:50)
[2021-04-22] MEDS: buPROPion HCl XL 300 MG TAB.ER.24H PO (10:50)
[2021-04-22] MEDS: methADONE HCl 20 MG/2 ML ORAL.CONC 60 MG PO (10:50)
[2021-04-22 10:53] VITALS: BP 108/73; PULSE 73; RESP 16; O2SAT 98
--- NOTE | 2021-04-22 11:16 | PC.NURSE ---
This RN awoke pt, awoke easily. Accepted AM meds. Polite, calm and cooperative. Appears comfortable but reports persistent headache. Bedsearch continues. Pt denies SI or HI to this RN stating I feel better Pt observer at bedside for safety
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
--- NOTE | 2021-04-22 12:22 | HE.PHANOTE ---
Contacted covering RN to please ask patient if she is able to bring in her HIV medications. If not, would suggest ID consult to re-evaluate meds.
--- NOTE | 2021-04-22 16:07 | MHC.RECOVRN ---
Met with pt in ED11 after consult placed to Addiction Medicine to discuss increase in methadone. Pt currently receiving 60 mg from [facility] on [address] in [place]. Pt reports initiating with [facility] about a month ago and has been at this dose for a couple weeks. Pt reports using heroin, 3 bundles, IV and IN daily; cocaine, $100, INH and IV, daily; 10 nips of fireball daily. Last use of all substances [employer]. Pt is requesting increase in methadone due to feeling withdrawal symptoms including sweating and restlessness, pt appears anxious during interview. Pt also reports that eventually pt would like to leave the area and transfer OTPs. Discussed case with Tracie Cervantes APRN. Will continue to follow.
[2021-04-22 16:46] VITALS: BP 115/73; PULSE 85; RESP 18; TEMP 37.1; O2SAT 97
[2021-04-22] MEDS: cloNIDine HCL 0.1 MG TABLET 0.15 MG PO (16:55)
[2021-04-22] MEDS: hydrOXYzine HCL 50 MG TABLET 100 MG PO (16:55)
[2021-04-22 19:18] VITALS: BP 120/72; PULSE 64; RESP 16; TEMP 36.6; O2SAT 100
[2021-04-22 20:16] LABS: Lithium 0.93 mmol/L (0.60-1.20)
[2021-04-22] MEDS: traZODone HCL 25 MG HALFTAB 75 MG PO (22:03)
[2021-04-22] MEDS: QUEtiapine Fumarate 300 MG TABLET PO (22:04)
[2021-04-23 00:08] VITALS: BP 132/74; PULSE 64; RESP 16; TEMP 37.1; O2SAT 97
[2021-04-23 06:04] VITALS: BP 113/69; PULSE 64; RESP 16; TEMP 36.9; O2SAT 100
[2021-04-23] MEDS: Nitrofurantoin Monohyd/M-Cryst 100 MG CAPSULE PO ×2 (08:28→20:59)
[2021-04-23] MEDS: Lithium Carbonate ER 450 MG TABLET.ER PO (08:28)
[2021-04-23] MEDS: methADONE HCl 20 MG/2 ML ORAL.CONC 65 MG PO (08:28)
[2021-04-23] MEDS: buPROPion HCl XL 300 MG TAB.ER.24H PO (08:28)
--- NOTE | 2021-04-23 11:33 | HE.PHANOTE ---
HIV medication follow-up: Finally able to contact clinical coordinator at [facility]. She informed me that all medications she left at the [facility] were disposed of since she did not sign a form to have them held. I informed Cameron Birmingham of the situation and recommended to consult Taryn on the next steps. Saba Olson, PharmD
--- NOTE | 2021-04-23 11:40 | PC.NURSE ---
pt took morning meds w/o issue, reports feeling better than the past few days, but still pretty tired. vss. continues to rest comfortably. offers no new complaints, med rec completed w pharmacist, awaiting confirmation on some hs meds.
[2021-04-23] MEDS: Nicotine 21 MG PATCH.TD24 TRANSDERMA (12:39)
[2021-04-23] MEDS: guaiFENesin 200 MG/10 ML 10 ML LIQUID PO (12:53)
[2021-04-23 12:58] LABS: COVID-19 Test Negative (Negative)
--- NOTE | 2021-04-23 14:05 | HE.PHANOTE ---
Dr. Centeno informed about situation with HIV medications. Outpatient prescriber of Juluca and Arnel is Yu Penny with [facility] Saba Olson, ChidiD
--- NOTE | 2021-04-23 14:07 | ECG_ITS ---
Test Reason : general Blood Pressure : / mmHG Vent. Rate : 081 BPM Atrial Rate : 081 BPM P-R Int : 156 ms QRS Dur : 090 ms QT Int : 390 ms P-R-T Axes : 000 146 -30 degrees QTc Int : 453 ms Normal sinus rhythm Left posterior fascicular block T wave abnormality, consider anterior ischemia Abnormal ECG When compared with ECG of 17-JAN-2021 15:56, Left posterior fascicular block is now Present Referred By: Mary Anton Electronically Signed By:ESTIVEN GOODWIN MD
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
[2021-04-23 15:59] LABS: Troponin-I High Sensitivity < 3.5 ng/L (<3.5-17.0)
[2021-04-23] MEDS: Rilpivirine HCL 25 MG TABLET PO (16:44)
--- NOTE | 2021-04-23 17:13 | PC.NURSE ---
m5 made aware second time that pt is ready for transport following negative troponin.
[2021-04-23] MEDS: Acetaminophen 325 MG TABLET 650 MG PO (19:37)
[2021-04-23] MEDS: traZODone HCL 25 MG HALFTAB 75 MG PO (21:00)
[2021-04-23] MEDS: QUEtiapine Fumarate 300 MG TABLET PO (21:01)
[2021-04-23 21:15] VITALS: BP 107/57; PULSE 97; RESP 18; TEMP 35.8; O2SAT 97
[2021-04-23] MEDS: cloNIDine HCL 0.1 MG TABLET 0.15 MG PO (21:22)
[2021-04-23] MEDS: Benzonatate 100 MG CAPSULE 200 MG PO (21:31)
--- NOTE | 2021-04-24 00:52 | PC.ADMIT ---
A single, Trinidadian-speaking, female aged 31-years was [facility] at 1855 following referral from [facility] and [facility] ED. Pt is known to and has previous admissions here and elsewhere. Per [facility] report, pt had gone to police station and stated she wanted to kill herself by jumping into traffic. Pt had earlier been treated and released fro ED for a UTI. Pt reported that she hears voices telling her she is stupid and to kill herself by running into traffic. Pt reported to this automotive service writer that she sees cars following her. Pt reports daily use of up to 10 or more drinks of Etoh daily. Pt reports daily use of heroin, opioids, and cocaine. Pt reported to this automotive service writer she has current SI without a plan; pt said she can seek out staff for help. Pt is aware she has PRN medications to help her regulate emotions. Pt reports poor sleep with insomnia and frequent reawakening. Pt c/o anxiety and depression 7/10 and a 6/10 headache. Pt expressed she felt judged by staff in ED. Pt is a daily smoker of at least 1 pack of cigarettes daily and would like nicotine gum and patch. Pt said would like this years flu vaccination, but wanted to get shot in the morning. Pt was calm and cooperative during assessment. Pt said she currently has a therapist through [facility] named Anay; pt was unsure of therapist's last name. Pt expressed she would like a psychopharmacology provider. Medical issues include: HIV, abscess left kidney, UTI, cellulitis bilateral feet, migraines and a blood clot in November 2020. Pt is Covid positive. Pt had an abnormal EKG with NSR, but left posterior fascicular block, T wave abnormality. EKG showed changes from EKG done on January 17 2021. Pt was placed on 15 minute safety checks with equipment observation as she is located and quarantined in Group Room B in a hospital bed. [id number] done, initial treatment plan done and admitting orders obtained. Pt is resting in room at this time.
[2021-04-24 04:10] VITALS: BP 112/74; PULSE 90; TEMP 36.4; O2SAT 97
[2021-04-24 08:51] LABS: Estimated Average Glucose 108 mg/dL; Hemoglobin A1c % 5.4 %
[2021-04-24 09:01] LABS: Cholesterol 242 mg/dL; HDL Cholesterol 32 mg/dL; LDL Cholesterol Calculated 171 mg/dl; Triglycerides 196 mg/dL
[2021-04-24 09:21] LABS: Thyroid Stimulating Hormone 1.41 uIU/mL (0.32-4.0)
[2021-04-24 09:37] LABS: Folate 11.1 ng/mL (> or = 4.0); Vitamin B12 590 pg/mL (200-900)
[2021-04-24] MEDS: Lithium Carbonate ER 450 MG TABLET.ER PO (10:10)
[2021-04-24] MEDS: Nitrofurantoin Monohyd/M-Cryst 100 MG CAPSULE PO (10:10)
[2021-04-24] MEDS: Rilpivirine HCL 25 MG TABLET PO (10:10)
[2021-04-24] MEDS: methADONE HCl 20 MG/2 ML ORAL.CONC 65 MG PO (10:10)
[2021-04-24] MEDS: buPROPion HCl XL 300 MG TAB.ER.24H PO (10:10)
[2021-04-24] MEDS: Acetaminophen 325 MG TABLET 650 MG PO ×2 (10:27→16:43)
[2021-04-24] MEDS: QUEtiapine Fumarate 50 MG TABLET PO (10:28)
[2021-04-24] MEDS: Darunavir Ethanolate 800 MG TABLET PO (15:18)
[2021-04-24] MEDS: Dolutegravir Sodium 50 MG TABLET PO (15:18)
[2021-04-24] MEDS: COBICISTAT 150 MG PO (15:18)
[2021-04-24 16:33] LABS: Influenza A PCR NEGATIVE (Negative); Influenza B PCR NEGATIVE (Negative); Resp Syncy Virus RNA Qual PCR NEGATIVE (Negative); SARS COV2 PCR INHOUSE NEGATIVE (Negative)
[2021-04-24 16:50] VITALS: BP 107/61; PULSE 74; TEMP 36.3
[2021-04-24] MEDS: traZODone HCL 25 MG HALFTAB 75 MG PO (21:56)
[2021-04-24] MEDS: QUEtiapine Fumarate 300 MG TABLET PO (21:57)
[2021-04-24] MEDS: hydrOXYzine HCL 50 MG TABLET 100 MG PO (22:03)
--- NOTE | 2021-04-25 01:46 | PC.NURSE ---
Per [facility] at 0124, ok to put in telephone order for Nicorette gum and Nicorette patch.
[2021-04-25 09:34] LABS: Alanine Aminotransferase 157 U/L (0-31); Albumin Level 3.7 g/dL (3.5-5.0); Alkaline Phosphatase 144 U/L (39-117); Anion Gap 11 (12-20); Aspartate Amino Transferase 127 U/L (5-31); Bilirubin Total 0.2 mg/dL (0.0-1.0); Blood Urea Nitrogen 15 mg/dL (9-16); Calcium 9.9 mg/dL (8.4-10.2); Carbon Dioxide 26 mmol/L (22-29); Chloride 106 mmol/L (96-108); Creatinine Clr Calc Pharmacy 75.3; Estimated Glomerular Filt Rate > 60; Glucose Random 99 mg/dL (60-115); Potassium 4.6 mmol/L (3.3-5.1); Sodium 138 mmol/L (135-145); Total Protein 8.1 g/dL (6.5-8.0)
[2021-04-25] MEDS: Nicotine 21 MG PATCH.TD24 TRANSDERMA (09:55)
[2021-04-25] MEDS: methADONE HCl 20 MG/2 ML ORAL.CONC 65 MG PO (09:55)
[2021-04-25] MEDS: cloNIDine HCL 0.1 MG TABLET 0.15 MG PO (09:55)
[2021-04-25] MEDS: Darunavir Ethanolate 800 MG TABLET PO (09:57)
[2021-04-25] MEDS: buPROPion HCl XL 300 MG TAB.ER.24H PO (09:57)
[2021-04-25] MEDS: COBICISTAT 150 MG PO (09:57)
[2021-04-25] MEDS: Dolutegravir Sodium 50 MG TABLET PO (09:57)
[2021-04-25] MEDS: Rilpivirine HCL 25 MG TABLET PO (09:57)
[2021-04-25] MEDS: hydrOXYzine HCL 50 MG TABLET 100 MG PO (14:20)
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
[2021-04-25] MEDS: Acetaminophen 325 MG TABLET 650 MG PO (16:13)
[2021-04-25] MEDS: QUEtiapine Fumarate 50 MG TABLET PO (16:13)
--- NOTE | 2021-04-25 16:25 | PC.NURSE ---
PT complains of tension headache 11/05. Acetaminophen 650 given PO, effect pending. PT also complains of anxiety- seroquel PRN given with effect pending.
[2021-04-25 17:04] VITALS: BP 99/58; PULSE 68; RESP 16
[2021-04-25 20:00] VITALS: BP 114/85; PULSE 90; RESP 6; TEMP 36.1; O2SAT 99
[2021-04-25] MEDS: QUEtiapine Fumarate 50 MG TABLET 150 MG PO (20:27)
[2021-04-25] MEDS: risperiDONE 1 MG TABLET PO (20:28)
[2021-04-25] MEDS: Lithium Carbonate ER 300 MG TABLET.ER PO (20:28)
[2021-04-25] MEDS: traZODone HCL 25 MG HALFTAB 75 MG PO (20:28)
[2021-04-25] MEDS: Benzonatate 100 MG CAPSULE 200 MG PO (21:17)
[2021-04-26] MEDS: Benzonatate 100 MG CAPSULE 200 MG PO ×3 (01:23→21:30)
[2021-04-26] MEDS: QUEtiapine Fumarate 50 MG TABLET PO ×2 (01:24→14:25)
[2021-04-26 06:00] VITALS: BP 111/58; PULSE 66; RESP 16; TEMP 36.8; O2SAT 95
[2021-04-26] MEDS: Nicotine 21 MG PATCH.TD24 TRANSDERMA (09:02)
[2021-04-26] MEDS: risperiDONE 1 MG TABLET PO ×2 (09:03→21:30)
[2021-04-26] MEDS: Rilpivirine HCL 25 MG TABLET PO (09:03)
[2021-04-26] MEDS: Dolutegravir Sodium 50 MG TABLET PO (09:03)
[2021-04-26] MEDS: COBICISTAT 150 MG PO (09:03)
[2021-04-26] MEDS: Darunavir Ethanolate 800 MG TABLET PO (09:03)
[2021-04-26] MEDS: buPROPion HCl XL 150 MG TAB.ER.24H PO (09:03)
[2021-04-26] MEDS: methADONE HCl 20 MG/2 ML ORAL.CONC 65 MG PO (10:05)
[2021-04-26] MEDS: cloNIDine HCL 0.1 MG TABLET 0.15 MG PO (14:25)
[2021-04-26] MEDS: guaiFENesin 100 MG/5 ML LIQUID PO ×2 (14:25→23:40)
[2021-04-26 18:00] VITALS: BP 112/57; PULSE 65; RESP 14; TEMP 36.1; O2SAT 99
[2021-04-26 18:50] LABS: COVID-19 Test Negative (Negative)
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
--- NOTE | 2021-04-26 20:12 | PC.NURSE ---
At approximately 16:45 this nurse went to meet with patient. PT appeared sedated and difficult to arouse. BP T 97.3 94/60 HR 61 O2 sat 99 on RA. PT states she is sleepy due to being up all night coughing. PT denies taking anything other than prescribed meds here. PT states coughing started overnight and is a dry non productive cough. MD contacted regarding sedation - placed on 5 minute checks for safety as it is unclear why she is sedated. COVID swab obtained, negative. No further order at this time.
[2021-04-26] MEDS: Lithium Carbonate ER 300 MG TABLET.ER PO (21:30)
[2021-04-26] MEDS: Acetaminophen 325 MG TABLET 650 MG PO (21:30)
--- NOTE | 2021-04-26 22:01 | PC.NURSE ---
PT continues to appear sedated. PC found patient in room sleeping against wall. VS taken 112/ 57 HR 65. Trazodone and seroquel held due to level of sedation.
[2021-04-26] MEDS: traZODone HCL 50 MG TABLET PO (23:42)
[2021-04-26] MEDS: hydrOXYzine HCL 50 MG TABLET 100 MG PO (23:43)
[2021-04-27 06:05] VITALS: BP 110/59; PULSE 64; RESP 16; TEMP 36.3; O2SAT 98
[2021-04-27] MEDS: Nicotine 21 MG PATCH.TD24 TRANSDERMA (09:14)
[2021-04-27] MEDS: buPROPion HCl XL 150 MG TAB.ER.24H PO (09:14)
[2021-04-27] MEDS: COBICISTAT 150 MG PO (09:14)
[2021-04-27] MEDS: methADONE HCl 20 MG/2 ML ORAL.CONC 65 MG PO (09:14)
[2021-04-27] MEDS: Rilpivirine HCL 25 MG TABLET PO (09:14)
[2021-04-27] MEDS: Darunavir Ethanolate 800 MG TABLET PO (09:14)
[2021-04-27] MEDS: risperiDONE 1 MG TABLET PO ×2 (09:14→20:19)
[2021-04-27] MEDS: Dolutegravir Sodium 50 MG TABLET PO (09:14)
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
[2021-04-27] MEDS: QUEtiapine Fumarate 50 MG TABLET PO ×2 (13:52→22:01)
[2021-04-27] MEDS: hydrOXYzine HCL 50 MG TABLET 100 MG PO (13:52)
[2021-04-27] MEDS: Acetaminophen 325 MG TABLET 650 MG PO (17:30)
[2021-04-27] MEDS: traZODone HCL 25 MG HALFTAB 75 MG PO (20:19)
[2021-04-27] MEDS: QUEtiapine Fumarate 50 MG TABLET 150 MG PO (20:19)
[2021-04-27] MEDS: Lithium Carbonate ER 300 MG TABLET.ER PO (20:19)
[2021-04-27] MEDS: traZODone HCL 50 MG TABLET PO (22:01)
[2021-04-28 06:00] VITALS: BP 97/66; PULSE 77; TEMP 36.6
[2021-04-28] MEDS: risperiDONE 1 MG TABLET PO (09:26)
[2021-04-28] MEDS: buPROPion HCl XL 150 MG TAB.ER.24H PO (09:26)
[2021-04-28] MEDS: Rilpivirine HCL 25 MG TABLET PO (09:26)
[2021-04-28] MEDS: COBICISTAT 150 MG PO (09:26)
[2021-04-28] MEDS: Nicotine 21 MG PATCH.TD24 TRANSDERMA (09:26)
[2021-04-28] MEDS: methADONE HCl 20 MG/2 ML ORAL.CONC 65 MG PO (09:26)
[2021-04-28] MEDS: Dolutegravir Sodium 50 MG TABLET PO (09:26)
[2021-04-28] MEDS: Darunavir Ethanolate 800 MG TABLET PO (09:26)
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
[2021-04-28 14:49] LABS: Bilirubin Direct < 0.2 mg/dL (0.0-0.5)
[2021-04-28 18:00] VITALS: BP 125/63; PULSE 92; RESP 16; TEMP 36.6
[2021-04-28] MEDS: cloNIDine HCL 0.1 MG TABLET 0.15 MG PO (18:08)
[2021-04-28] MEDS: QUEtiapine Fumarate 50 MG TABLET PO (18:08)
[2021-04-28] MEDS: traZODone HCL 25 MG HALFTAB 75 MG PO (20:18)
[2021-04-28] MEDS: Lithium Carbonate ER 300 MG TABLET.ER PO (20:19)
[2021-04-28] MEDS: risperiDONE 2 MG TABLET PO (20:19)
[2021-04-28] MEDS: QUEtiapine Fumarate 50 MG TABLET 150 MG PO (20:19)
[2021-04-28] MEDS: Acetaminophen 325 MG TABLET 650 MG PO (21:52)
[2021-04-28] MEDS: traZODone HCL 50 MG TABLET PO (21:52)
[2021-04-28] MEDS: hydrOXYzine HCL 50 MG TABLET 100 MG PO (21:52)
[2021-04-29 06:00] VITALS: BP 124/55; PULSE 62; RESP 14; TEMP 36.3; O2SAT 97
[2021-04-29] MEDS: methADONE HCl 20 MG/2 ML ORAL.CONC 65 MG PO (08:29)
[2021-04-29] MEDS: Nicotine 21 MG PATCH.TD24 TRANSDERMA (08:29)
[2021-04-29] MEDS: Rilpivirine HCL 25 MG TABLET PO (08:30)
[2021-04-29] MEDS: COBICISTAT 150 MG PO (08:30)
[2021-04-29] MEDS: buPROPion HCl XL 150 MG TAB.ER.24H PO (08:30)
[2021-04-29] MEDS: Dolutegravir Sodium 50 MG TABLET PO (08:30)
[2021-04-29] MEDS: Darunavir Ethanolate 800 MG TABLET PO (08:30)
[2021-04-29] MEDS: risperiDONE 1 MG TABLET PO (08:30)
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
[2021-04-29] MEDS: Naloxone HCl Nasal TAKE HOME 4 MG SPRAY NOSTRILALT (08:42)
== END 2021-04-29 09:25 | disposition home or self-care (01) | DRG 751 ==
LOC: HO.ED 05:40 → HO.PM5 04-23 14:33
PROVIDERS: Physician Assistant; Psychiatry & Neurology Psychiatry; Registered Nurse; Admitting Provider Psychiatry & Neurology Psychiatry; Emergency Provider Student in an Organized Health Care Education/Training Program; Visit Provider Social Worker
DX: F33.2 Major depressive disorder, recurrent severe without psychotic features (principal); R45.851 Suicidal ideations; F11.20 Opioid dependence, uncomplicated; F17.210 Nicotine dependence, cigarettes, uncomplicated; Z71.6 Tobacco abuse counseling; Z20.822 Contact with and (suspected) exposure to COVID-19; Z88.0 Allergy status to penicillin; Z79.899 Other long term (current) drug therapy
CPT/HCPCS: 0241U; 36415; 80053; 80061; 80178; 80307; 81025; 82248; 82607; 82746; 83036; 84443; 84484; 85025; 87635; 93005; 99285